=== PATIENT | male | born 1960 | race Caucasian/White ===

== ENCOUNTER → 2016-09-14 | Outpatient (CLI) | payer MEDICARE, OTHER ==
[~2016-09-14] MED LIST: /AMIO20TA OR; ACET500C OR; ACET65TA OR; AMIO400T OR; ASPI325T PO; ASPI81TA83 OR; CALC1CAP31 PO; COUMADIN PO; DRIS50002 PO; ELIQ5TAB PO; INSUH10VL SC; INSULANT SC; K-TA10TA OR; KETOPROFEN PO; LASI20TA OR; LASI40TA OR; LASI40TA PO; LOPR50TA OR; METF1000 PO; METO100T PO; METO25TA PO; MULTIVIT PO; OMEP20CA3 PO; OXACILLIN IV; PERC5TAB6 PO; PRIL20CA OR; SIMV20TA2 OR; SYMB80AE IN; SYMB80INH INH; VALS1TAB46 PO; VALS80CA OR; VICO5TAB OR; ZETI10TA2 PO; ZYLO300T4 PO; onglyza PO
--- NOTE | 2016-09-14 13:54 | REP ---
PA and lateral chest: Comparisons are 06/07/2016, 05/16/2016, 10/24/2015 and 11/02/2013. There is chronic mild interstitial coarsening compatible with the clinical history of chronic lung disease. There is chronic mild cardiomegaly, unchanged. There are no acute infiltrates or effusions. There are no masses. The ashley, mediastinum, and bony thorax are unremarkable. Impression: Chronic interstitial coarsening compatible with chronic lung disease. Chronic cardiomegaly. No significant interval changes. Signed by Calvin Gonzales MD 09/14/2016 01:45 P
== END ==
LOC: M ADAMS 12:58
PROVIDERS: ATTEND Physician Assistant Medical
DX: J20.9 Acute bronchitis, unspecified (principal); J44.1 Chronic obstructive pulmonary disease with (acute) exacerbation; J98.4 Other disorders of lung

== ENCOUNTER → 2016-10-09 | Outpatient (CLI) | payer MEDICARE, OTHER ==
[~2016-10-09] MED LIST changes: +ALBU17IN INH; +ALBU17IN2 INH; +DOXY-278 PO; +ERGO500014 PO; +FURO40TA2 PO; +OMEG100011 PO; +TRUL10IN SC
--- NOTE | 2016-10-09 16:52 | REP ---
Clinical: Abnormal magnesium metabolism. Technique: PA and lateral. Comparison: 09/14/2016. Findings: Stable cardiomegaly and evidence for prior CABG. Lung garcia demonstrate chronic stable interstitial changes and fibrosis. No acute consolidation, effusion, or pneumothorax. Skeletal structures are intact. Impression: Chronic stable changes. No obvious acute cardiopulmonary process. If the patient remains symptomatic consider chest CT for follow-up. Signed by Adiel Pretty MD 10/09/2016 04:43 P
[2016-10-09 18:32] LABS: BASO % 0.7 % (0.0-1.0); EOS % 0.6 % (0.0-3.0); LARGE UNSTAINED CELL # 0.1 K/mm3 (0.0-0.4); LYMPH # 0.8 K/mm3 (1.5-4.5); LYMPH % 12.3 % (24.0-44.0); MEAN CORPUSCULAR HEMOGLOBIN 33.9 pg (27.0-33.0); MEAN CORPUSCULAR HGB CONC 32.3 g/dl (32.0-36.5); MONO # 0.4 K/mm3 (0.0-0.8); MONO % 5.9 % (0.0-5.0); NEUTROPHILS # 5.2 K/mm3 (1.8-7.7); NEUTROPHILS % 78.4 % (36.0-66.0); PLATELET COUNT, AUTOMATED 141 k/mm3 (150-450); RED CELL DISTRIBUTION WIDTH 14.2 % (11.5-14.5); WHITE BLOOD COUNT 6.6 K/mm3 (4.0-10.0)
[2016-10-09 18:49] LABS: ALT/SGPT 32 U/L (12-78); ANION GAP 9 MEQ/L (8-16); AST/SGOT 57 U/L (15-37); BLOOD UREA NITROGEN 24 MG/DL (7-18); CALCIUM LEVEL 8.8 MG/DL (8.5-10.1); CARBON DIOXIDE LEVEL 34 MEQ/L (21-32); CHLORIDE LEVEL 98 MEQ/L (98-107); CREATININE FOR GFR 1.14 MG/DL (0.70-1.30); GLOMERULAR FILTRATION RATE > 60.0 (>56); GLUCOSE, FASTING 135 MG/DL (70-105); POTASSIUM SERUM 3.1 MEQ/L (3.5-5.1); SODIUM LEVEL 141 MEQ/L (136-145)
[2016-10-09 18:50] LABS: ALBUMIN 3.5 GM/DL (3.2-5.2); ALBUMIN/GLOBULIN RATIO 0.95 (1.00-1.93); ALKALINE PHOSPHATASE 106 U/L (45-117); TOTAL PROTEIN 7.2 GM/DL (6.4-8.2)
== END ==
LOC: M ADAMS 16:17
PROVIDERS: ATTEND Internal Medicine Cardiovascular Disease
DX: R06.02 Shortness of breath (principal); I10 Essential (primary) hypertension; J44.9 Chronic obstructive pulmonary disease, unspecified

== ENCOUNTER → 2016-10-10 | Outpatient (CLI) | payer MEDICARE, OTHER ==
--- NOTE | 2016-10-10 13:06 | REP ---
Abdominal ultrasound for ascites: Ultrasonography of all four quadrants of the abdomen is performed. There is a small volume of ascites adjacent to the liver in the right upper quadrant. There is a small volume of ascites in the left lower quadrant. A gallbladder calculus is incidentally noted. Signed by Calvin Gonzales MD 10/10/2016 12:57 P
== END ==
LOC: M RAD 12:14
PROVIDERS: ATTEND Internal Medicine Cardiovascular Disease
DX: R18.8 Other ascites (principal); K80.20 Calculus of gallbladder without cholecystitis without obstruction

== ENCOUNTER → 2016-11-28 | Outpatient (CLI) | payer MEDICARE, OTHER ==
[~2016-11-28] MED LIST changes: +ALDA50TA2 PO; +AMMO12LO TOP; +BUME2TAB PO; +FLOM5CAP PO; +INSUDET SC; +INSULADS INJ; +LASI20TA PO; -METF1000 PO; +METF10004 PO; -METO100T PO; +METO100T5 PO; +METO37.5 PO; +PERC5TAB12 PO; -PERC5TAB6 PO; +POTA1TAB23; +POTA20TA4 PO; +PREG50CA PO; +SPIR25TA2 PO; +ULOR80TA PO; -ZETI10TA2 PO; +ZETI10TA30 PO
--- NOTE | 2016-11-28 11:45 | REP ---
Clinical: Chest pain. Pneumonia. Technique: PA and lateral. Comparison: 10/09/2016. Findings: Mediastinum and cardiac silhouette are stable and cardiomegaly is again suggested along with evidence for prior CABG. Lung garcia demonstrate chronic stable interstitial changes. Subtle right basilar atelectasis cannot be excluded. No consolidation. No effusion. No pneumothorax. Skeletal structures intact. Impression: Cannot exclude subtle right basilar atelectasis. Signed by Adiel Pretty MD 11/28/2016 11:36 A
== END ==
LOC: M ADAMS 09:39
PROVIDERS: ATTEND Family Medicine
DX: J18.9 Pneumonia, unspecified organism (principal); R53.83 Other fatigue; E03.9 Hypothyroidism, unspecified

== ENCOUNTER → 2016-11-28 | Outpatient (REF) | payer MEDICARE, OTHER ==
[2016-11-28 12:42] LABS: MEAN CORPUSCULAR HEMOGLOBIN 33.2 pg (27.0-33.0); MEAN CORPUSCULAR HGB CONC 33.5 g/dl (32.0-36.5); MEAN CORPUSCULAR VOLUME 99.1 fl (80.0-96.0); RED CELL DISTRIBUTION WIDTH 15.2 % (11.5-14.5); WHITE BLOOD COUNT 7.9 K/mm3 (4.0-10.0)
[2016-11-28 13:43] LABS: ALBUMIN 3.5 GM/DL (3.2-5.2); ALBUMIN/GLOBULIN RATIO 0.81 (1.00-1.93); ALKALINE PHOSPHATASE 138 U/L (45-117); ALT/SGPT 56 U/L (12-78); AST/SGOT 75 U/L (15-37); BILIRUBIN,TOTAL 2.3 MG/DL (0.2-1.0); BLOOD UREA NITROGEN 23 MG/DL (7-18); CALCIUM LEVEL 9.5 MG/DL (8.5-10.1); CHOLESTEROL LEVEL 192 MG/DL (<200); CREATININE FOR GFR 0.93 MG/DL (0.70-1.30); GLOMERULAR FILTRATION RATE > 60.0 (>56); GLUCOSE, FASTING 147 MG/DL (70-105); TOTAL PROTEIN 7.8 GM/DL (6.4-8.2); TRIGLYCERIDES LEVEL 92 MG/DL (<150)
[2016-11-28 13:51] LABS: ANION GAP 11 MEQ/L (8-16); CARBON DIOXIDE LEVEL 38 MEQ/L (21-32); CHLORIDE LEVEL 89 MEQ/L (98-107); SODIUM LEVEL 138 MEQ/L (136-145)
[2016-11-28 14:00] LABS: POTASSIUM SERUM 2.6 MEQ/L (3.5-5.1)
== END ==
LOC: M LAB REF 12:15
PROVIDERS: ATTEND Family Medicine
DX: J18.9 Pneumonia, unspecified organism (principal); R53.83 Other fatigue; E03.9 Hypothyroidism, unspecified

== ENCOUNTER 2016-12-07 13:40 | Emergency (ER) | payer MEDICARE, OTHER ==
[~2016-12-07] VITALS: Ht 182.9 cm; Wt 137.3 kg
[~2016-12-07 13:40] MED LIST changes: -ALDA50TA2 PO; -AMMO12LO TOP; -BUME2TAB PO; -FLOM5CAP PO; -INSUDET SC; -INSULADS INJ; -LASI20TA PO; -METO37.5 PO; -POTA1TAB23; -POTA20TA4 PO; -PREG50CA PO; -SPIR25TA2 PO; -ULOR80TA PO
[2016-12-07] MEDS ORDERED: POTA20TA4 PO (14:06)
[2016-12-07] MEDS ORDERED: FURO40TA2 PO (14:06)
[2016-12-07] MEDS ORDERED: INSULADS INJ (14:06)
[2016-12-07] MEDS ORDERED: METO25TA PO (14:06)
[2016-12-07] MEDS ORDERED: ELIQ5TAB PO (14:06)
[2016-12-07] MEDS ORDERED: PREG50CA PO (14:06)
[2016-12-07 14:14] LABS: BASO % 0.4 % (0.0-1.0); EOS # 0.1 K/mm3 (0.0-0.50); EOS % 1.6 % (0.0-3.0); LARGE UNSTAINED CELL # 0.1 K/mm3 (0.0-0.4); LARGE UNSTAINED CELL % 1.4 % (0.0-4.0); LYMPH # 0.8 K/mm3 (1.5-4.5); MEAN CORPUSCULAR HEMOGLOBIN 32.3 pg (27.0-33.0); MEAN CORPUSCULAR HGB CONC 32.3 g/dl (32.0-36.5); MEAN CORPUSCULAR VOLUME 100.1 fl (80.0-96.0); MONO # 0.3 K/mm3 (0.0-0.8); MONO % 4.5 % (0.0-5.0); NEUTROPHILS # 6.2 K/mm3 (1.8-7.7); PLATELET COUNT, AUTOMATED 144 k/mm3 (150-450); RED CELL DISTRIBUTION WIDTH 15.3 % (11.5-14.5); WHITE BLOOD COUNT 7.5 K/mm3 (4.0-10.0)
--- NOTE | 2016-12-07 14:27 | REP ---
Chest one-view HISTORY: Syncope Comparison: 06/07/2016 The lungs are clear. The cardiac silhouette is enlarged. The pulmonary vasculature is normal in appearance. Impression: Cardiomegaly. Signed by Rubén Bray MD 12/07/2016 02:18 P
[2016-12-07 14:36] LABS: ANION GAP 4 MEQ/L (8-16); BLOOD UREA NITROGEN 24 MG/DL (7-18); CALCIUM LEVEL 8.8 MG/DL (8.5-10.1); CARBON DIOXIDE LEVEL 38 MEQ/L (21-32); CHLORIDE LEVEL 92 MEQ/L (98-107); CREATININE FOR GFR 1.03 MG/DL (0.70-1.30); GLOMERULAR FILTRATION RATE > 60.0 (>56); GLUCOSE, FASTING 235 MG/DL (70-105); POTASSIUM SERUM 3.1 MEQ/L (3.5-5.1); SODIUM LEVEL 134 MEQ/L (136-145)
[2016-12-07] MEDS ORDERED: NS 500 ML IV ONE (15:00)
[2016-12-07] MEDS ORDERED: POTASSIUM CHLORIDE 10 MEQ SR TABLET PO ONE (15:00)
[2016-12-07 16:49] VITALS: BP 123/57
--- NOTE | 2016-12-07 19:05 | ECGEPIP ---
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
== END 2016-12-07 17:20 | disposition home or self-care (01) ==
LOC: M ED 13:40
DX: R55 Syncope and collapse (principal); R94.31 Abnormal electrocardiogram [ECG] [EKG]; I11.9 Hypertensive heart disease without heart failure; E11.9 Type 2 diabetes mellitus without complications; I48.91 Unspecified atrial fibrillation; J44.9 Chronic obstructive pulmonary disease, unspecified; M54.9 Dorsalgia, unspecified; Z95.1 Presence of aortocoronary bypass graft; Z87.891 Personal history of nicotine dependence; Z79.899 Other long term (current) drug therapy; Z79.51 Long term (current) use of inhaled steroids; Z79.4 Long term (current) use of insulin; Z79.01 Long term (current) use of anticoagulants

== ENCOUNTER 2017-01-21 11:10 | Inpatient (IN) | payer MEDICARE, OTHER ==
[~2017-01-21] VITALS: Ht 182.9 cm; Wt 141.7 kg
[~2017-01-21 11:10] MED LIST changes: +INSULADS INJ; +POTA20TA4 PO; +PREG50CA PO
[2017-01-21] MEDS ORDERED: ULOR80TA PO (11:29)
[2017-01-21] MEDS ORDERED: SPIR25TA2 PO (11:29)
[2017-01-21] MEDS ORDERED: POTA1TAB23 (11:29)
[2017-01-21] MEDS ORDERED: BUME2TAB PO (11:29)
[2017-01-21] MEDS ORDERED: FLOM5CAP PO (11:29)
[2017-01-21] MEDS ORDERED: METO37.5 PO (11:29)
[2017-01-21 12:28] LABS: BASO % 0.8 % (0.0-1.0); EOS # 0.1 K/mm3 (0.0-0.50); EOS % 1.1 % (0.0-3.0); LARGE UNSTAINED CELL # 0.1 K/mm3 (0.0-0.4); LARGE UNSTAINED CELL % 1.4 % (0.0-4.0); LYMPH # 0.7 K/mm3 (1.5-4.5); LYMPH % 9.9 % (24.0-44.0); MEAN CORPUSCULAR HEMOGLOBIN 31.3 pg (27.0-33.0); MEAN CORPUSCULAR HGB CONC 32.6 g/dl (32.0-36.5); MEAN CORPUSCULAR VOLUME 95.9 fl (80.0-96.0); MONO # 0.4 K/mm3 (0.0-0.8); MONO % 5.4 % (0.0-5.0); NEUTROPHILS # 5.4 K/mm3 (1.8-7.7); NEUTROPHILS % 81.5 % (36.0-66.0); PLATELET COUNT, AUTOMATED 171 k/mm3 (150-450); RED CELL DISTRIBUTION WIDTH 15.7 % (11.5-14.5); WHITE BLOOD COUNT 6.6 K/mm3 (4.0-10.0)
[2017-01-21 12:39] LABS: ALBUMIN 3.2 GM/DL (3.2-5.2); ALBUMIN/GLOBULIN RATIO 0.64 (1.00-1.93); ALKALINE PHOSPHATASE 193 U/L (45-117); ALT/SGPT 30 U/L (12-78); ANION GAP 7 MEQ/L (8-16); AST/SGOT 48 U/L (15-37); BILIRUBIN,TOTAL 1.9 MG/DL (0.2-1.0); BLOOD UREA NITROGEN 47 MG/DL (7-18); CALCIUM LEVEL 9.3 MG/DL (8.5-10.1); CARBON DIOXIDE LEVEL 40 MEQ/L (21-32); CHLORIDE LEVEL 88 MEQ/L (98-107); CREATININE FOR GFR 1.46 MG/DL (0.70-1.30); GLOMERULAR FILTRATION RATE 52.8 (>56); GLUCOSE, FASTING 180 MG/DL (70-105); POTASSIUM SERUM 3.1 MEQ/L (3.5-5.1); SODIUM LEVEL 135 MEQ/L (136-145); TOTAL PROTEIN 8.2 GM/DL (6.4-8.2)
--- NOTE | 2017-01-21 13:09 | REP ---
Chest x-ray: Two views. History: Dyspnea and cough. Comparison study: December 07, 2016. Findings: There are mediastinal clips again noted. EKG electrodes are seen. Mildly enlarged heart is seen. There is benign pleural thickening noted bilaterally. Some fissural thickening is visible on the right. There is some blunting of one of the posterior pleural angles on the lateral film, probably the right. The aorta is tortuous and a little calcific. Impression: Mild cardiomegaly. Small pleural effusion probably right-sided. Otherwise no acute disease. Signed by Alli Hutchinson MD 01/21/2017 05:17 P
--- NOTE | 2017-01-21 13:16 | REP ---
Duplex extremity venous ultrasound: Bilateral lower extremities. History: And lower extremity edema. Patient on blood thinner. Findings: The deep veins are anechoic and fully compressible from the groin to the popliteal fossa in the right and left lower extremity. Color flow imaging is homogeneous. Spectral Doppler interrogation demonstrates intact respiratory variation in flow and normal manual augmentation of flow. There is no evidence of deep vein thrombosis. Impression: Negative bilateral lower extremity duplex venous ultrasound. No evidence of deep vein thrombosis. Signed by Alli Hutchinson MD 01/21/2017 01:07 P
[2017-01-21] MEDS ORDERED: POTASSIUM CHLORIDE 10 MEQ SR TABLET PO ONE ×2 (13:30→19:30)
[2017-01-21] MEDS ORDERED: FUROSEMIDE 40 MG/4 ML VIAL (J1940) IV ONE (13:30)
[2017-01-21] MEDS ORDERED: METO100T5 PO (14:07)
[2017-01-21] MEDS ORDERED: TRUL10IN SC (14:12)
[2017-01-21] MEDS ORDERED: AMMO12LO TOP (14:13)
[2017-01-21] MEDS ORDERED: IPRATROPIUM 0.5MG/ALBUTEROL 2.5MG INH SOL UD 3ML (DUONEB)(J7620) NEB PRN (18:15)
[2017-01-21] MEDS ORDERED: DEXTROSE 50% 50 ML SYRINGE IV PRN (18:15)
[2017-01-21] MEDS ORDERED: GLUCAGON FOR INJ 1 MG VIAL (J1610) SC PRN (18:15)
[2017-01-21] MEDS ORDERED: GLUCOSE 4 GM CHEW TABLET PO PRN (18:15)
[2017-01-21] MEDS ORDERED: LACTIC ACID 12% LOTION 225 GM BTL TOP PRN (18:15)
[2017-01-21] MEDS ORDERED: ONDANSETRON 4MG/2ML VIAL (J2405) IV PRN (18:30)
[2017-01-21 19:09] LABS: ANION GAP 9 MEQ/L (8-16); BLOOD UREA NITROGEN 48 MG/DL (7-18); CALCIUM LEVEL 9.5 MG/DL (8.5-10.1); CARBON DIOXIDE LEVEL 39 MEQ/L (21-32); CHLORIDE LEVEL 90 MEQ/L (98-107); CREATININE FOR GFR 1.49 MG/DL (0.70-1.30); GLOMERULAR FILTRATION RATE 51.6 (>56); GLUCOSE, FASTING 160 MG/DL (70-105); MAGNESIUM LEVEL 2.2 MG/DL (1.8-2.4); SODIUM LEVEL 138 MEQ/L (136-145)
--- NOTE | 2017-01-21 19:10 | REPUSA ---
CT of the abdomen and pelvis without contrast Clinical statement: Pain. Technique: Multiple axial CT images were obtained from the base of the lungs to the floor of the pelv is utilizing 5 mm axial slices without administration of contrast. Coronal and sagittal reconstructio ns were also obtained. Comparison: None. Findings: Chest: There is a moderate sized right lower lobe pleural effusion with right lower lobe atelectasis . Abdomen: The kidneys are normal in size bilaterally. There is no evidence of hydronephrosis or nephro lithiasis. The liver is enlarged, measuring 2.7 cm in diameter. The spleen, pancreas, and adrenal gla nds are unremarkable. Several small gallstones are seen in the contracted gallbladder. The aorta demo nstrates Moderate atherosclerosis, withnormal caliber and contour. There is no abdominal lymphadenop athy. There is a moderate amount of abdominal ascites. Pelvis: The bowel is unremarkable, with no obstructive or inflammatory changes. The urinary bladder i s within normal limits. There is no pelvic lymphadenopathy. There is moderate amount of pelvic ascite s. The other pelvic structures appear unremarkable. Bones: There are no suspicious osseous abnormalities seen. there is moderate degenerative disc diseas e at L4/L5 and L5/S1. Impression: 1. Diffuse moderate amount of abdominal and pelvic ascites. 2. Moderate right-sided pleural effusion with right lower lobe atelectasis. 3. Hepatomegaly. 4. No evidence of hydronephrosis or nephrolithiasis. 5. Moderate atherosclerosis of the abdominal aorta. No evidence of aneurysm. 6. No obstructive or inflammatory bowel changes. 7. Moderate degenerative disc disease at L4/L5 and L5/S1.
[2017-01-21] MEDS: IPRATROPIUM 0.5MG/ALBUTEROL 2.5MG INH SOL UD 3ML (DUONEB)(J7620) NEB SCH (19:34)
--- NOTE | 2017-01-21 19:40 | REPUSA ---
Clinical statement: Pain. Comparison: CT, 01/21/2017. Findings: The liver demonstrates increased echotexture and echogenicity, with no mass lesions. The ga llbladder is unremarkable. The common bile duct measures 3 mm and is within normal limits. The pancre as demonstrates normal contour and appearance. The spleen is borderline enlarged. The right kidney m easures 12.7 cm in length and the left kidney measures 11.8 cm in length. There is no evidence of h ydronephrosis or nephrolithiasis. The visualized portions of the aorta and inferior vena cava are wit hin normal limits. There is moderate amount of abdominal ascites. Impression: 1. Moderate amount of abdominal ascites. 2. Hepatosplenomegaly.
[2017-01-21 19:53] VITALS: BP 127/76
[2017-01-21] MEDS: FUROSEMIDE injection 250 MG in D5W 225 ML IV SCH (20:22)
[2017-01-21] MEDS: HumaLOG INSULIN (NovoLOG) PER UNIT SC SCH (20:26)
[2017-01-21] MEDS: APIXABAN 5 MG TAB (ELIQUIS) PO SCH (20:41)
[2017-01-21] MEDS: PREGABALIN 50 MG CAP (LYRICA) PO SCH (20:42)
[2017-01-21] MEDS: POTASSIUM CHLORIDE 10 MEQ SR TABLET PO SCH (20:42)
[2017-01-21] MEDS: TAMSULOSIN 0.4 MG CAP PO SCH (20:42)
[2017-01-21] MEDS: LEVEMIR (INSULIN DETEMIR) 1 UNITS/0.01ML SC SCH (20:43)
[2017-01-21] MEDS: METOPROLOL TART 50 MG TAB PO SCH (20:43)
[2017-01-21] MEDS: SENOKOT S TAB PO SCH (20:43)
[2017-01-22] VITALS (17 sets, daily range): BP systolic 115–175; BP diastolic 68–97; O2SAT 86–98
--- NOTE | 2017-01-22 00:28 | HPEPDOC ---
General Date of Admission Jan 21, 2017 at 18:26 Primary Care Physician: Lasha Godoy Other Providers Dr. Robertson-cardiology Dr. Suero-nephrology Dr. Blackwood-podiatry Attending Physician: POWER FRIEDMAN DO Chief Complaint The patient is a 56-year-old male [facility]. History of Present Illness 56 yo M presents to ED for worsening fluid retention and swelling. Past medical history significant for CHF and AFib on Eliquis. Pt states he has had similar prior episodes of on/off swelling multiple times in the past and has had fluid removed from body-he is unsure of the procedure. He was brought in to [facility] ED via ambulance about 1 month ago for fluid retention, and was sent home to follow up with PCP. He regularly sees Dr. Robertson for cardiology and elected to instead be treated medically rather than remove fluid through procedure again. However, his edema has been progressively worsening since his last visit a few weeks ago and is now short of breath with minimal exertion and has some difficulty urinating due to pressure in belly. Pt states he has been compliant with strict salt intake and 60oz/day fluid diet. Symptoms include swelling in bilateral feet, legs, scrotum, and belly, with associated weight gain of about 20 pounds in last few weeks. Denies other symptoms including chest pain, lightheadedness, dizziness, nausea, vomiting. Pt denies heavy alcohol use and states he drinks a 6-pack/week. Pt denies recent travel history, sick contacts, and changes in lifestyle. Home Medications Scheduled (Trulicity) 0.75 Mg/0.5 Ml Inj, 0.75 MG SC QWEEK, (Reported) FRIDAY AT BEDTIME Ammonium Lactate (Ammonium Lactate) 12 % Lot, 1 DOSE TOP BIDP, (Reported) TO FEET Apixaban Base (Eliquis) 5 Mg Tab, 5 MG PO BID, (Reported) Budesonide/Formoterol (Symbicort 80-4.5 Mcg/Act) 60 Puff/Inhaler Aers, 2 PUFF INH BID, (Reported) Febuxostat (Uloric) 80 Mg Tab, 80 MG PO DAILY, (Reported) Furosemide (Lasix) 20 Mg Tab, 20 MG PO Q6H Insulin Aspart (Novolog) 100 U/Ml Inj, 1 DOSE SC ASDIRECTED, (Reported) PER SLIDING SCALE Insulin Detemir (Levemir) 1 Units/0.01 Ml Susp, 60 UNITS SC QHS Metolazone (Metolazone) 2.5 Mg Tab, 2.5 MG PO DAILY Metoprolol Tartrate (Metoprolol Tartrate) 100 Mg Tab, 50 MG PO BID, (Reported) [place] 3 Polyunsat Fatty Acids ([place] 3 1000 mg) 1 Cap Cap, 1,000 MG PO DAILY, ( Reported) Omeprazole (Omeprazole) 20 Mg Cap, 20 MG PO 2XW, (Reported) WED AND SAT Potassium Chloride (Potassium Chloride ER) 10 Meq Tab, 20 MEQ BID, (Reported) Pregabalin (Lyrica) 50 Mg Cap, 50 MG PO TID, (Reported) Spironolactone (Aldactone) 50 Mg Tab, 50 MG PO DAILY Tamsulosin Hydrochloride (Flomax) 0.4 Mg Cap, 0.4 MG PO QHS, (Reported) Vitamin D (Drisdol) 50,000 Unit Cap, 50,000 UNIT PO QWEEK, (Reported) ON FRIDAY Scheduled PRN Albuterol Sulfate (Proventil Hfa) 167 Puff/6.7 Gm Aers, 2 PUFFS INH Q4HP PRN for SHORTNESS OF BREATH, (Reported) Allergies Coded Allergies: Unclassified Drugs (Verified Adverse Reaction, Mild, QUAALUDES - ACTED OUT , 12/07/16) Past Medical History Medical History COPD Diabetes Mellitus T2-insulin AFib Pulmonary HTN Surgical History quadruple bypass-Feb 2010 abd hernia rt foot, 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 [employer] Review of Symptoms Constitutional: Reports: Other (weight gain of ~20lbs he attributes to fluid), Denies: Chills, Fever, Night Sweats, Weakness, Weight Loss ENT: Denies: Head Aches, Dysphagia Skin: Denies: Rash, Lesions Pulmonary: Reports: Dyspnea (on exertion), Denies: Cough, Pleuritic Chest Pain Cardiovascular: Reports: Edema (from chest), Denies: Chest Pain, Palpitations, Lt Headedness Gastrointestinal: Denies: Nausea, Vomiting, Abdominal Pain, Diarrhea, Constipation Neurological: Denies: Weakness, Numbness, Confusion Psych: Reports: Mood Normal Physical Examination General Exam: Positive: Alert, Cooperative, No Acute Distress Eye Exam: Positive: PERRLA, Conjunctiva & lids normal, EOMI, Sclera icteric ( icteric and mild redness he states is his normal) ENT Exam: Positive: Atraumatic, Mucous membr. moist/pink, Pharynx Normal Neck Exam: Positive: Supple, Negative: +2 carotid pulse wo bruit Chest Exam: Positive: Normal air movement, Wheezing (mild expiratory wheezing. Expiratory>inspiratory phase.), Negative: Rales, Rhonchi Heart Exam: Positive: Rate Normal, Irregular Rhythm, Normal S1, Normal S2 Abdomen Exam: Positive: Normal bowel sounds, Negative: Soft (tense, round, distended), Tenderness Extremity Exam: Positive: Edema (+1 pitting edam b/l feet), Swelling, Negative: Clubbing, Cyanosis, Tenderness Skin Exam: Positive: Nl turgor and temperature, Negative: Rash Psych Exam: Positive: Mental status NL, Mood NL, Memory Intact, Oriented x 3 Vital Signs Vital Signs Date Time Temp Pulse Resp B/P (MAP) Pulse Ox O2 Delivery O2 Flow Rate FiO2 01/21/17 18:33 88 18 119/75 (90) 90 01/21/17 14:37 Nasal Cannula 01/21/17 12:53 2.0 01/21/17 11:12 98.0 Height (in): 72 Weight (kg): 136 BMI (kg): 40.8 Laboratory Data Labs 24H Laboratory Tests 2 01/21/17 11:51: White Blood Count 6.6, Red Blood Count 4.02L, Hemoglobin 12.6L, Hematocrit 38.6L , Mean Corpuscular Volume 95.9, Mean Corpuscular Hemoglobin 31.3, Mean Corpuscular Hemoglobin Concent 32.6, Red Cell Distribution Width 15.7H, Platelet Count 171, Neutrophils (%) (Auto) 81.5H, Lymphocytes (%) (Auto) 9.9L, Monocytes (%) (Auto) 5.4H, Eosinophils (%) (Auto) 1.1, Basophils (%) (Auto) 0.8 , Neutrophils # (Auto) 5.4, Lymphocytes # (Auto) 0.7L, Monocytes # (Auto) 0.4, Eosinophils # (Auto) 0.1, Basophils # (Auto) 0.0, Large Unclassified Cells % 1.4 , Large Unclassified Cells # 0.1, Anion Gap 7L, Glomerular Filtration Rate 52.8L , Calcium Level 9.3, Aspartate Amino Transf (AST/SGOT) 48H, Alanine Aminotransferase (ALT/SGPT) 30, Alkaline Phosphatase 193H, Total Bilirubin 1.9H , Direct Bilirubin 1.0H, Total Creatine Kinase 96, Creatine Kinase MB 2.2, Creatine Kinase MB Relative Index 2.29, Troponin I < 0.02, B-Type Natriuretic Peptide 304H, Total Protein 8.2, Albumin 3.2, Albumin/Globulin Ratio 0.64L, Thyroid Stimulating Hormone (TSH) 1.830, Free Thyroxine 1.20 01/21/17 18:10: Anion Gap 9, Glomerular Filtration Rate 51.6L, Calcium Level 9.5, Total Creatine Kinase 105, Creatine Kinase MB 2.3, Creatine Kinase MB Relative Index 2.19, Troponin I < 0.02, Blood Urea Nitrogen 48H, Creatinine 1.49H, Sodium Level 138, Potassium Level 3.0L, Chloride Level 90L, Carbon Dioxide Level 39H, Magnesium Level 2.2 CBC/BMP Laboratory Tests 01/21/17 11:51 Red Blood Count 4.02 L, Mean Corpuscular Volume 95.9, Mean Corpuscular Hemoglobin 31.3, Mean Corpuscular Hemoglobin Concent 32.6, Red Cell Distribution Width 15.7 H, Neutrophils (%) (Auto) 81.5 H, Lymphocytes (%) (Auto ) 9.9 L, Monocytes (%) (Auto) 5.4 H, Eosinophils (%) (Auto) 1.1, Basophils (%) ( Auto) 0.8, Neutrophils # (Auto) 5.4, Lymphocytes # (Auto) 0.7 L, Monocytes # ( Auto) 0.4, Eosinophils # (Auto) 0.1, Basophils # (Auto) 0.0 01/21/17 18:10 Calcium Level 9.5, Total Creatine Kinase 105 Assessment/Plan Anasarca 2/2 CHF exacerbation, increased BNP on presentation repeat echo diurese with Lasix with goal net loss of 1L/day monitor CMP, BMP, and Mg, with attention to Potassium cardiology consulted. Appreciate their input nephrology consulted. Appreciate their input fluid restriction to 1800cc/hr renal ultrasound for DENZEL with baseline Cr of 1 Hyperbilrubinemia elevated TBili and DirectBili, AST, and alk phos. Will do liver ultrasound Hypokalemia Will replete HTN continue Spironolactone and B-franki and Lasix drip DMT2 Levemir, ISS, A1C, Gabapentin for diabetic neuropathy AFib B-franki and Eliquis GERD Omeprazole COPD continue inhalers DVT prophylaxis Eliquis, SCDs/TEDs Plan / VTE VTE Prophylaxis Ordered?: Yes GME ATTESTATION GME ATTESTATION My preceptor for this patient encounter was physically present in the building during the encounter and was fully available. As needed, all aspects of the patient interview, examination, medical decision making process, and medical care plan development were reviewed and approved by the preceptor. Preceptor is aware and concurs with the plan as stated in the body of this note and will attest to such by his/her cosignature. ATTENDING NOTE I have both independently examined this patient as well as reviewed the H&P. I have discussed in detail with the resident the findings and plan of treatment as documented in the residents note. I will continue to follow the patient and offer further guidance to the patients care as necessary during this hospital stay. DIANE Barrientos MD, DO Jan 21, 2017 19:45 NANCY MCGEE MD Feb 01, 2017 08:49
[2017-01-22] MEDS: SYMBICORT 80/4.5MCG INHALER 6GM INH SCH ×3 (06:19→21:03)
[2017-01-22] MEDS: IPRATROPIUM 0.5MG/ALBUTEROL 2.5MG INH SOL UD 3ML (DUONEB)(J7620) NEB SCH ×4 (06:19→20:00)
[2017-01-22 07:09] LABS: INR 1.66; MEAN CORPUSCULAR HEMOGLOBIN 31.2 pg (27.0-33.0); MEAN CORPUSCULAR HGB CONC 32.8 g/dl (32.0-36.5); MEAN CORPUSCULAR VOLUME 95.2 fl (80.0-96.0); RED CELL DISTRIBUTION WIDTH 15.8 % (11.5-14.5); WHITE BLOOD COUNT 7.4 K/mm3 (4.0-10.0)
[2017-01-22 07:23] LABS: ALBUMIN 3.3 GM/DL (3.2-5.2); ALBUMIN/GLOBULIN RATIO 0.72 (1.00-1.93); ALKALINE PHOSPHATASE 185 U/L (45-117); ALT/SGPT 30 U/L (12-78); ANION GAP 6 MEQ/L (8-16); AST/SGOT 47 U/L (15-37); BILIRUBIN,TOTAL 2.2 MG/DL (0.2-1.0); BLOOD UREA NITROGEN 47 MG/DL (7-18); CALCIUM LEVEL 9.3 MG/DL (8.5-10.1); CARBON DIOXIDE LEVEL 40 MEQ/L (21-32); CHLORIDE LEVEL 90 MEQ/L (98-107); CREATININE FOR GFR 1.25 MG/DL (0.70-1.30); GLOMERULAR FILTRATION RATE > 60.0 (>56); GLUCOSE, FASTING 123 MG/DL (70-105); MAGNESIUM LEVEL 2.3 MG/DL (1.8-2.4); SODIUM LEVEL 136 MEQ/L (136-145); TOTAL PROTEIN 7.9 GM/DL (6.4-8.2)
[2017-01-22] MEDS: HumaLOG INSULIN (NovoLOG) PER UNIT SC SCH ×4 (07:30→21:00)
[2017-01-22] MEDS: SENOKOT S TAB PO SCH ×2 (08:40→21:00)
[2017-01-22] MEDS: SPIRONOLACTONE 25 MG TAB PO SCH (08:40)
[2017-01-22] MEDS: METOPROLOL TART 50 MG TAB PO SCH ×2 (08:40→21:09)
[2017-01-22] MEDS: PREGABALIN 50 MG CAP (LYRICA) PO SCH ×3 (08:40→21:09)
[2017-01-22] MEDS: OMEGA-3 1050MG CAPSULE PO SCH (08:41)
[2017-01-22] MEDS: POTASSIUM CHLORIDE 10 MEQ SR TABLET PO SCH ×2 (08:41→21:08)
[2017-01-22] MEDS: KCL 10MEQ IN 100ML SWI (KRUN) 10 MEQ in APPROPRIATE DILUENT 1 EA IV SCH ×4 (08:42→10:16)
[2017-01-22] MEDS: FEBUXOSTAT 40 MG TABLET (ULORIC) PO SCH (08:42)
[2017-01-22] MEDS ORDERED: POTASSIUM CHLORIDE 10 MEQ SR TABLET PO ONE (09:00)
[2017-01-22] MEDS: APIXABAN 5 MG TAB (ELIQUIS) PO SCH ×2 (09:00→21:09)
[2017-01-22] MEDS ORDERED: BUMETANIDE 1 MG TAB PO SCH (09:00)
--- NOTE | 2017-01-22 14:16 | IPN ---
DATE: 01/22/2017 SUBJECTIVE: The patient is seen and examined in the room today. The patient stated that he has been having persistent abdominal distention. He had a similar symptom before. With the diureses, usually the abdominal distention will improve; however, it has been some time and the diuretic does not seem to be helping his abdominal distention. The patient does have a moderate amount of ascites from imaging studies. I discussed paracentesis with the patient. The patient was in agreement with the procedure. The patient has good urinary output from the Lasix drip. OBJECTIVE: VITAL SIGNS: Temperature is 97.4, pulse is 82, respirations 19, blood pressure 126/81, pulse oximetry is 95% on room air. GENERAL: Morbidly obese. No sign of acute distress. Alert and oriented times three. HEENT: Normocephalic, atraumatic. Extraocular muscles intact. CARDIOVASCULAR: Irregularly irregular, heart rate in the desired range. LUNGS: Clear to auscultation bilaterally. ABDOMEN: Very distended. Soft, nontender. Bowel sounds present. EXTREMITIES: Positive pitting edema bilaterally. No sign of cyanosis. LABORATORY DATA: WBC is 7.4, hemoglobin 12.2, hematocrit 37.2, platelet count is 161, sodium is 136, potassium is 3, chloride is 90, carbon dioxide is 40, BUN 47, creatinine 1.25, GFR greater than 60, fasting glucose 123, A1/c is 7.8, calcium 9.3, magnesium 2.3, total bilirubin is 2.2, AST 47, ALT 30, alkaline phosphatase is 185, total protein 7.9, albumin 3.3. ASSESSMENT AND PLAN: 1. Anasarca secondary to congestive heart failure (CHF) exacerbation. The patient was placed on Lasix drip with holding parameters. We try to control the net balance to negative 1 liter because the patient will have paracentesis performed today. We anticipate that the patient may have approximately 1 to 2 liters of ascitic fluid removed by the procedure, total loss will be approximately 2 to 3 liters. The patient will be monitored on telemetry. Biophysics Scientist, Dr. Robertson, has been consulted. We appreciate his assistance. 2. Abdominal distention with ascitic fluid. On 10/10/2016, abdominal ultrasound was performed that showed a small volume of ascites adjacent to the liver. There is a small volume of ascitic fluid in the left lower quadrant. Yesterday during admission, the patient had a CT of the abdomen and abdominal ultrasound was repeated. The patient had a moderate amount of abdominal ascites. The patient is scheduled for paracentesis and we will send the fluid for analysis. The patient admitted to a significant drinking history in the past. He states that he drinks between two to six cans of beer for at least 15 years, he quit several years ago. 3. Hypokalemia. We will continue with potassium supplement. 4. Acute kidney injury. On admission, the patient had a creatinine of 1.49 with a GFR of 51.6. With Lasix diuresis, the renal function improved to baseline. 5. Type 2 diabetes. A1/c of 7.8. The patient will be on consistent carbohydrate diet. The patient will be on sliding scale. The patient is also on Levemir. 6. Atrial fibrillation. On beta franki. The patient was on Eliquis. Due the upcoming procedures, Eliquis will be on hold temporarily. 7. History of pulmonary hypertension. At baseline, the patient is taking Lasix and spironolactone. Pulmonary hypertension may also be a factor causing the patient to have abdominal ascites. Currently, the patient is on Lasix drip. 8. History of coronary artery disease, status post coronary artery bypass graft (CABG) times four. 9. Gout. On Uloric. 10. History of methicillin resistant Staphylococcus aureus (MRSA) infection. 11. History of reflux disease, on omeprazole. 12. Deep vein thrombosis (DVT) prophylaxis. The patient was originally on Eliquis. Due to preparation for paracentesis, Eliquis will be on hold. The patient is on compression device.
[2017-01-22 15:28] LABS: TOTAL PROTEIN, BODY FLUID 4.5 G/DL (NOT ESTABLISHED)
[2017-01-22 16:50] LABS: BF DIFF IF INDICATED? YES (NO); RBC ASCITES FLUID 13 (<10mm3 cells/uL); TNC ASCITES FLUID 639 cells/uL (0-20)
--- NOTE | 2017-01-22 17:10 | REP ---
Ultrasound-guided paracentesis The procedure was performed under the direct supervision of Dr. Hutchinson. The risks and benefits of the procedure were explained to the patient and informed consent was obtained. The largest pocket of fluid was localized in the right flank using ultrasound guidance. The skin was prepped and draped in a sterile fashion. 1% lidocaine was used as a local anesthetic. An 8-Greek multi side-hole catheter was inserted using trocar technique. 4,650 ml of clay colored fluid was withdrawn with a sample sent to the lab for analysis. The patient tolerated the procedure well and there were no immediate complications. After the appropriate amount of monitored convalescence the patient was discharged from the department. Reviewed by JUNIOR Porter 01/22/2017 04:31 PSigned by Alli Hutchinson MD 01/22/2017 05:01 P
[2017-01-22] MEDS: OMEPRAZOLE 20 MG CAP PO SCH (17:14)
[2017-01-22 18:20] LABS: SPEC. GRAVITY BODY FLUIDS 1.028 (NOT ESTABLISHED)
[2017-01-22 19:05] LABS: CALCIUM LEVEL 9.5 MG/DL (8.5-10.1); CREATININE FOR GFR 1.31 MG/DL (0.70-1.30); GLOMERULAR FILTRATION RATE 59.8 (>56); MAGNESIUM LEVEL 2.3 MG/DL (1.8-2.4); POTASSIUM SERUM 3.4 MEQ/L (3.5-5.1)
--- NOTE | 2017-01-22 19:06 | CR ---
DATE OF CONSULTATION: 01/22/2017 REQUESTING PHYSICIAN: Dr. Shayy Tobar CONSULTING PHYSICIAN: Dr. Zheng REASON FOR CONSULTATION: Management of fluid overload in the setting of chronic kidney disease. CHIEF COMPLAINT: Patient presented to the hospital with worsening abdominal distention and scrotal swelling. HISTORY OF PRESENT ILLNESS: Elie Damon is a 56-year-old male with past medical history of chronic kidney disease stage II, congestive heart failure, atrial fibrillation on Eliquis, multiple other comorbidities, as mentioned below. Patient is known to nephrology service. He follows up with Dr. Suero. He was last seen in the clinic about a week ago. At that time, he was also complaining of shortness of breath and fluid overload; however, at that time, his diuretics had recently been changed. Patient reports that his shortness of breath did improve. He was getting more and more abdominal swelling and scrotal swelling and he was unable for him to walk because of massive scrotal edema. He was also getting shortness of breath and mild exertion, so he was asked by cardiology service to come to the emergency room. Patient was found to have generalized anasarca on arrival. His creatinine on admission was 1.4, which is significantly worse from his baseline. Patient was started on intravenous (IV) diuretics and nephrology service was called for further help in the management of acute kidney injury, anasarca and hyponatremia. I saw the patient today morning in the emergency room holding area. Patient reported that ever since he was started on IV Lasix drip, he is making a lot of urine and he is feeling some improvement in his shortness of breath. PAST MEDICAL HISTORY: As mentioned above, patient has a history of: 1. Chronic kidney disease stage II, baseline creatinine around 1.1 to 1.2. 2. Diabetes mellitus type 2. 3. Chronic obstructive pulmonary disease (COPD). 4. Atrial fibrillation on anticoagulation. 5. Pulmonary hypertension. 6. Congestive heart failure. PAST SURGICAL HISTORY: 1. Patient is status post coronary artery bypass grafting in 2009. 2. History of abdominal hernia surgery. 3. 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 4. Status post thyroidectomy which was partial because of hyperthyroidism. 5. Status post resection of sternum because of methicillin-resistant Staphylococcus aureus (MRSA). 6. Status post bilateral shoulder joint surgery. ALLERGIES: No known drug allergies. FAMILY HISTORY: No significant family history of end-stage renal disease requiring hemodialysis. Positive history of diabetes and hypertension on maternal and paternal side. SOCIAL HISTORY: Patient quit smoking about seven years ago after he had a heart attack. He denies any illicit drug abuse. He used to be a heavy alcohol drinker, but now he is drinking about six pack in a week. Patient is retired at this time. 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 REVIEW OF SYSTEMS: CONSTITUTIONAL: Patient reports fatigue and he reports weight gain of about 25 pounds. EYES: He denies any blurry vision or double visit. ENT: Denies any dysphagia or odynophagia. CARDIOVASCULAR: Patient reports massive edema and shortness of breath. He denies any chest pain. RESPIRATORY: Patient reports orthopnea. He denies any cough. GASTROINTESTINAL (GI): Patient reports massive abdominal distention, decreased appetite, but he denies any constipation or diarrhea. GENITOURINARY: Patient reports scrotal swelling. MUSCULOSKELETAL: Patient reports lower extremity edema. He denies any muscle aches and pains. CENTRAL NERVOUS SYSTEM: He denies any weakness or seizure disorder. PSYCHIATRIC: He denies any depression or anxiety. HEMATOLOGIC/ONCOLOGIC: He denies any easy bruising or bleeding tendency. ENDOCRINE: Patient reports history of thyroid surgery in the past. All other review of systems is negative. PHYSICAL EXAMINATION: GENERAL: Patient is awake, alert, oriented times three. Sitting in the bed in no apparent distress. VITAL SIGNS: Temperature 98 degrees Fahrenheit, blood pressure 131/86, pulse 83 , respiratory rate 22, saturating 99% on nasal cannula. INTAKE AND OUTPUT: Urine output recorded as 2.4 liters yesterday and 2.6 liters so far today since overnight. Weight in the bed scale is 141 kg. HEAD AND NECK EXAM: Extraocular muscles intact. Pupils equally round and reactive to light. Mucous membranes are moist. Neck is supple. There is elevated jugular venous distention (JVD). CARDIOVASCULAR: S1, S2. Irregularly irregular heart rate. There is a midline sternotomy scar. No murmurs, rubs or gallops. RESPIRATORY: Decreased breath sounds at the bases with mild inspiratory crackles. ABDOMEN: Grossly distended. Umbilicus is flat. There is a large amount of ascites. Patient also has scrotal edema. MUSCULOSKELETAL: No clubbing or cyanosis. Patient has 2+ edema of the bilateral lower extremities. CENTRAL NERVOUS SYSTEM: No focal neurological deficits. Power is 5/5 in all extremities. PSYCHIATRIC: Normal mood and affect. SKIN: No rashes or ulcers. There is mild edema and venous stasis changes in the bilateral lower extremities. LABORATORY REVIEW: Complete blood count (CBC) showed WBC 7.4, hemoglobin 12.1, platelets 161. INR: 1.6. Basic metabolic panel (BMP) showed sodium 136, potassium 3, chloride 90, bicarbonate 40, BUN 47, creatinine 1.25, it was 1.49 yesterday, A1c 7.8, magnesium 2.3, calcium 9.3. AST 47, ALT 30, alkaline phosphatase 185, total bilirubin 2.2, albumin 3.3. IMAGING: A CAT scan of the abdomen and pelvis showed diffuse, moderate amount of abdominal pelvic ascites, moderate right-sided pleural effusion, a right lower lobe atelectasis, and hepatomegaly. CURRENT INPATIENT MEDICATIONS: Patient's medications are all reviewed by me. He is current on: - IV Lasix drip at 0.1 mg/kg/hour - Eliquis 5 mg by mouth twice a day - Uloric 80 mg by mouth daily - insulin Levemir 60 units at nighttime - insulin sliding scale - metoprolol 50 mg by mouth twice a day - omeprazole 20 mg daily - Zofran as needed - potassium chloride 20 mEq by mouth twice a day - Lyrica 50 mg by mouth three times a day - spironolactone 25 mg by mouth daily - Flomax 0.4 mg by mouth at bedtime ASSESSMENT: A 56-year-old male with past medical history of congestive heart failure, diabetes mellitus type 2, chronic kidney disease stage II, hypertension, admitted this time because of decompensated congestive heart failure and anasarca, along with acute kidney injury. PLAN: 1. Acute kidney injury on chronic kidney disease stage II. It is most likely cardiorenal syndrome because of fluid overload and decompensated congestive heart failure. Continue IV diuretics. Creatinine is already trending down with IV diuretic use. 2. Decompensated congestive heart failure and fluid overload. Patient is being diuresed with IV Lasix. Continue current dose. Continue spironolactone 20 mg daily. 3. Hypokalemia. This is secondary to aggressive diuresis. I am going to increase the potassium chloride dose to 40 mEq by mouth twice a day. 4. Tense ascites. Patient is going to get the ascitic tap done today. 5. Elevated liver function tests. This is most likely congestive hepatopathy. I expect it to improve with further diuresis and improvement of congestive heart failure. 6. Atrial fibrillation. Currently rate-controlled. Continue current dose of metoprolol 50 mg by mouth twice a day. Patient is currently on Eliquis. 7. Gout secondary to chronic kidney disease. Continue current dose of Uloric 80 mg by mouth daily. 8. Insulin-dependent diabetes mellitus. Continue current dose of Levemir and insulin sliding scale. 9. Hypertension. Blood pressure is acceptable at this time. Continue the diuretics, metoprolol. Thank you for involving us in the care of this patient. We shall be happy to follow the patient along with you tomorrow morning. MTDD
[2017-01-22] MEDS: LEVEMIR (INSULIN DETEMIR) 1 UNITS/0.01ML SC SCH (21:08)
[2017-01-22] MEDS: TAMSULOSIN 0.4 MG CAP PO SCH (21:09)
[2017-01-22 21:50] LABS: CC BF DIFF EXAM CYTOCENTRIFUGE
[2017-01-23] VITALS (12 sets, daily range): BP systolic 114–123; BP diastolic 70–88; O2SAT 84–100
[2017-01-23] MEDS: IPRATROPIUM 0.5MG/ALBUTEROL 2.5MG INH SOL UD 3ML (DUONEB)(J7620) NEB SCH ×4 (02:00→20:00)
[2017-01-23 05:09] LABS: OSMOLALITY URINE 519 MOSM/KG (500-800)
[2017-01-23 05:33] LABS: MEAN CORPUSCULAR HEMOGLOBIN 31.5 pg (27.0-33.0); MEAN CORPUSCULAR HGB CONC 32.6 g/dl (32.0-36.5); MEAN CORPUSCULAR VOLUME 96.8 fl (80.0-96.0); RED CELL DISTRIBUTION WIDTH 15.4 % (11.5-14.5); WHITE BLOOD COUNT 6.6 K/mm3 (4.0-10.0)
[2017-01-23 05:36] LABS: INR 1.51
[2017-01-23 05:52] LABS: ALBUMIN 3.2 GM/DL (3.2-5.2); ALBUMIN/GLOBULIN RATIO 0.68 (1.00-1.93); ALKALINE PHOSPHATASE 165 U/L (45-117); ALT/SGPT 26 U/L (12-78); ANION GAP 7 MEQ/L (8-16); AST/SGOT 46 U/L (15-37); BLOOD UREA NITROGEN 42 MG/DL (7-18); CALCIUM LEVEL 9.5 MG/DL (8.5-10.1); CARBON DIOXIDE LEVEL 40 MEQ/L (21-32); CHLORIDE LEVEL 91 MEQ/L (98-107); CHOLESTEROL LEVEL 159 MG/DL (<200); CREATININE FOR GFR 1.13 MG/DL (0.70-1.30); GLOMERULAR FILTRATION RATE > 60.0 (>56); GLUCOSE, FASTING 140 MG/DL (70-105); MAGNESIUM LEVEL 2.4 MG/DL (1.8-2.4); POTASSIUM SERUM 3.6 MEQ/L (3.5-5.1); SODIUM LEVEL 138 MEQ/L (136-145); TOTAL PROTEIN 7.9 GM/DL (6.4-8.2); TRIGLYCERIDES LEVEL 109 MG/DL (<150)
[2017-01-23] MEDS: FUROSEMIDE injection 250 MG in D5W 225 ML IV SCH ×2 (06:09→19:10)
[2017-01-23] MEDS: SYMBICORT 80/4.5MCG INHALER 6GM INH SCH ×2 (08:15→20:09)
[2017-01-23] MEDS: SENOKOT S TAB PO SCH ×2 (09:00→20:36)
--- NOTE | 2017-01-23 09:00 | ECGEPIP ---
Stationary ECG Study 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
[2017-01-23] MEDS: HumaLOG INSULIN (NovoLOG) PER UNIT SC SCH ×4 (09:08→20:37)
[2017-01-23] MEDS: OMEPRAZOLE 20 MG CAP PO SCH (09:08)
[2017-01-23] MEDS: FEBUXOSTAT 40 MG TABLET (ULORIC) PO SCH (09:09)
[2017-01-23] MEDS: OMEGA-3 1050MG CAPSULE PO SCH (09:09)
[2017-01-23] MEDS: PREGABALIN 50 MG CAP (LYRICA) PO SCH ×3 (09:09→20:32)
[2017-01-23] MEDS: POTASSIUM CHLORIDE 10 MEQ SR TABLET PO SCH ×2 (09:09→20:32)
[2017-01-23] MEDS: APIXABAN 5 MG TAB (ELIQUIS) PO SCH ×2 (09:10→20:32)
[2017-01-23] MEDS: METOPROLOL TART 50 MG TAB PO SCH ×2 (09:10→20:32)
[2017-01-23] MEDS: SPIRONOLACTONE 25 MG TAB PO SCH (09:10)
--- NOTE | 2017-01-23 15:53 | IPN ---
DATE: 01/23/2017 SUBJECTIVE: Patient is seen and examined in the room today. Patient stated after the paracentesis, patient has significant improvement in breathing and abdominal distention has improved. Still has a minor sore from the needle injection site, but the pain is manageable. With diuresis, patient also noted the generalized swelling has been improving, however, a significant amount of the swelling still can be observed throughout the whole body including the scrotum and the upper and lower extremities. OBJECTIVE: VITAL SIGNS: Temperature is 98.7, pulse is 98, respirations 20, blood pressure 122/82, pulse oximetry is 94% with three liters nasal cannula. GENERAL: No sign of acute distress. Morbidly obese. Alert and oriented times three. HEENT: Normocephalic, atraumatic. Extraocular motors grossly intact. CARDIOVASCULAR: Irregularly irregular, positive S1, S2, heart rate in the satisfactory range. LUNGS: Clear to auscultation bilaterally. ABDOMEN: Still very distended, but soft, nontender. Bowel sounds present. EXTREMITIES: Positive pitting edema bilaterally in the upper and lower extremities. No sign of cyanosis. LABORATORY DATA: WBC is 6.6, hemoglobin 12.7, hematocrit 39.1, platelet count is 174. Sodium is 138, potassium 3.6, chloride 91, carbon dioxide 40, BUN 42, creatinine 1.13, GFR greater than 60, fasting glucose 140, calcium 9.5, magnesium 2.4, total bilirubin 2, AST 46, ALT 26, alkaline phosphatase 165, C-reactive protein 3.49, total protein 7.9, albumin 3.2, triglycerides 109, total cholesterol is 159, LDL is 105.2, HDL is 32. ASSESSMENT AND PLAN: 1. Anasarca secondary to congestive heart failure (CHF) exacerbation. Patient has been placed on the Lasix drip with holding parameters. Will try to maintain negative 1.5 liters fluid balance per day. Tank Builder And Erector and chalk machine operator has been assisting on the case. Patient just had a repeat echocardiogram performed, will followup with the report. Yesterday, we did not aggressively diurese the patient with Lasix drip due to the paracentesis. Through that procedure, patient had at least 4.5 liters of fluid removed. 2. Abdominal distention with ascitic fluid. Imaging guided paracentesis was performed. Patient had approximately 4.5 liters ascitic fluid removed. Will follow with fluid analysis and cultures. Currently, patient is being diuresed with Lasix drip and spironolactone. 3. Hypokalemia. Patient has been on the supplement and resolved. On the day of admission, patient had a potassium of 3.1. 4. Acute kidney injury. On admission, creatinine was 1.46 with a GFR of 52.8. With adequate diuresis, patient's current creatinine is 1.13 with a GFR greater than 60. 5. Type 2 diabetes with A1c of 7.8. Patient will continue on consistent carbohydrate diet and on sliding scale. Patient is also on Levemir. 6. Atrial fibrillation, on beta franki. Patient is also on Eliquis 5 mg by mouth twice a day. 7. History of pulmonary hypertension. Patient is on Lasix and spironolactone. 8. History of coronary artery disease, status post coronary artery bypass graft (CABG) times four. 9. Gout. On Uloric. 10. History of methicillin-resistant Staphylococcus aureus (MRSA) infection. Followup with methicillin-resistant Staphylococcus aureus (MRSA) screening test. 11. History of reflux disease. On omeprazole. 12. Deep vein thrombosis (DVT) prophylaxis. On Eliquis.
[2017-01-23] MEDS: FUROSEMIDE 40 MG/4 ML VIAL (J1940) IV SCH (18:00)
[2017-01-23 19:01] LABS: ANION GAP 7 MEQ/L (8-16); BLOOD UREA NITROGEN 39 MG/DL (7-18); CARBON DIOXIDE LEVEL 37 MEQ/L (21-32); CHLORIDE LEVEL 92 MEQ/L (98-107); CREATININE FOR GFR 1.28 MG/DL (0.70-1.30); GLOMERULAR FILTRATION RATE > 60.0 (>56); GLUCOSE, FASTING 260 MG/DL (70-105); MAGNESIUM LEVEL 2.1 MG/DL (1.8-2.4); POTASSIUM SERUM 3.6 MEQ/L (3.5-5.1); SODIUM LEVEL 136 MEQ/L (136-145)
[2017-01-23] MEDS: TAMSULOSIN 0.4 MG CAP PO SCH (20:31)
[2017-01-23] MEDS: LEVEMIR (INSULIN DETEMIR) 1 UNITS/0.01ML SC SCH (20:32)
[2017-01-24] VITALS (13 sets, daily range): BP systolic 112–132; BP diastolic 58–80; O2SAT 88–99
[2017-01-24] MEDS: FUROSEMIDE 40 MG/4 ML VIAL (J1940) IV SCH ×4 (00:39→18:24)
[2017-01-24] MEDS: IPRATROPIUM 0.5MG/ALBUTEROL 2.5MG INH SOL UD 3ML (DUONEB)(J7620) NEB SCH ×4 (01:26→20:00)
[2017-01-24 05:54] LABS: MEAN CORPUSCULAR HEMOGLOBIN 31.4 pg (27.0-33.0); MEAN CORPUSCULAR HGB CONC 32.7 g/dl (32.0-36.5); MEAN CORPUSCULAR VOLUME 96.1 fl (80.0-96.0); RED CELL DISTRIBUTION WIDTH 15.6 % (11.5-14.5); WHITE BLOOD COUNT 7.7 K/mm3 (4.0-10.0)
[2017-01-24 05:59] LABS: INR 1.73
[2017-01-24 06:15] LABS: ALBUMIN 2.9 GM/DL (3.2-5.2); ALBUMIN/GLOBULIN RATIO 0.62 (1.00-1.93); ALKALINE PHOSPHATASE 167 U/L (45-117); ALT/SGPT 29 U/L (12-78); ANION GAP 7 MEQ/L (8-16); AST/SGOT 50 U/L (15-37); BILIRUBIN,TOTAL 1.7 MG/DL (0.2-1.0); BLOOD UREA NITROGEN 39 MG/DL (7-18); CALCIUM LEVEL 8.7 MG/DL (8.5-10.1); CARBON DIOXIDE LEVEL 36 MEQ/L (21-32); CHLORIDE LEVEL 92 MEQ/L (98-107); CREATININE FOR GFR 1.09 MG/DL (0.70-1.30); GLOMERULAR FILTRATION RATE > 60.0 (>56); GLUCOSE, FASTING 177 MG/DL (70-105); POTASSIUM SERUM 3.5 MEQ/L (3.5-5.1); SODIUM LEVEL 135 MEQ/L (136-145); TOTAL PROTEIN 7.6 GM/DL (6.4-8.2)
[2017-01-24] MEDS: SYMBICORT 80/4.5MCG INHALER 6GM INH SCH ×2 (07:08→20:43)
[2017-01-24] MEDS: HumaLOG INSULIN (NovoLOG) PER UNIT SC SCH ×4 (07:38→22:04)
[2017-01-24] MEDS: OMEPRAZOLE 20 MG CAP PO SCH (08:43)
[2017-01-24] MEDS: SPIRONOLACTONE 25 MG TAB PO SCH (08:43)
[2017-01-24] MEDS: FEBUXOSTAT 40 MG TABLET (ULORIC) PO SCH (08:44)
[2017-01-24] MEDS: OMEGA-3 1050MG CAPSULE PO SCH (08:44)
[2017-01-24] MEDS: APIXABAN 5 MG TAB (ELIQUIS) PO SCH ×2 (08:44→21:56)
[2017-01-24] MEDS: SENOKOT S TAB PO SCH ×2 (08:44→21:56)
[2017-01-24] MEDS: PREGABALIN 50 MG CAP (LYRICA) PO SCH ×3 (08:45→21:57)
[2017-01-24] MEDS: POTASSIUM CHLORIDE 10 MEQ SR TABLET PO SCH ×2 (08:48→22:00)
[2017-01-24] MEDS: METOPROLOL TART 50 MG TAB PO SCH ×2 (08:48→21:57)
[2017-01-24 18:27] LABS: ANION GAP 8 MEQ/L (8-16); BLOOD UREA NITROGEN 39 MG/DL (7-18); CALCIUM LEVEL 8.9 MG/DL (8.5-10.1); CARBON DIOXIDE LEVEL 37 MEQ/L (21-32); CHLORIDE LEVEL 91 MEQ/L (98-107); CREATININE FOR GFR 1.28 MG/DL (0.70-1.30); GLOMERULAR FILTRATION RATE > 60.0 (>56); GLUCOSE, FASTING 244 MG/DL (70-105); MAGNESIUM LEVEL 1.9 MG/DL (1.8-2.4); POTASSIUM SERUM 3.1 MEQ/L (3.5-5.1); SODIUM LEVEL 136 MEQ/L (136-145)
[2017-01-24] MEDS ORDERED: POTASSIUM CHLORIDE 10 MEQ SR TABLET PO ONE (19:30)
--- NOTE | 2017-01-24 21:31 | IPN ---
DATE: 01/24/2017 SUBJECTIVE: The patient is seen and examined in the room today. The patient still experiencing significant swelling in the upper and lower extremities and there is significant swelling in the scrotal area. The patient does feel the fluid is emptying urine more than usual and a large significant amount of urine was produced. No overnight events were reported. The patient stated his breathing showed significant improvement since paracentesis and after the Lasix diuresis. OBJECTIVE: VITAL SIGNS: Temperature 98.8, pulse is 117, respirations 18, blood pressure 112/76, pulse oximetry is 95% on room air. GENERAL: No sign of acute distress. Patient is morbidly obese. Alert and oriented times three. HEENT: Normocephalic, atraumatic. Extraocular motor grossly intact. CARDIOVASCULAR: Irregularly irregular. Positive S1, S2. Heart rate is satisfactory range. ABDOMEN: Still very distended, but soft, nontender. Bowel sounds present. EXTREMITIES: Plus two to three positive pitting edema in upper and lower extremities. No sign of cyanosis. LABORATORY DATA: WBC is 7.7, hemoglobin 12, hematocrit 36.8, platelet count 146. Sodium 135, potassium 3.5, chloride 92, carbon dioxide 36, BUN 39, creatinine 1.09, GFR greater than 60, fasting glucose 177, calcium 8.7, magnesium two, total bilirubin 1.7, AST 50, ALT 29, alkaline phosphatase 167, total protein 7.6, albumin 2.9. ASSESSMENT AND PLAN: 1. Anasarca secondary to congestive heart failure exacerbation. The patient was on Lasix drip previously with holding parameter, and Lasix was switched to intravenous (IV) formulation with holding parameter. Mortising Machine Operator has been consulted to assist on the case. We appreciate Dr. Zheng's assistance. The patient had an echocardiogram performed. We will continue to follow with the results. 2. Abdominal ascites causing abdominal distention. The patient has paracentesis so far. On 01/23/2017, approximately 4.6 liters of ascitic fluid were removed. Patient tolerated the procedure well. We will followup with fluid analysis. Gram's stain is negative. Will followup with fungal, acid-fast bacillus (AFB) stain for the fluid. 3. Hypokalemia. Resolved. 4. Acute kidney injury on admission. Creatinine was at its worst at 1.49, probably secondary to fluid overload. After the diuresis, the patient's renal function has returned to normal range now. 5. Type 2 diabetes with A1c of 7.8. Continue with consistent carbohydrate diet and sliding scale. Continue on Levemir. 6. Atrial fibrillation on beta franki, Eliquis 5 mg by mouth twice a day. Rate is in the satisfactory range. The patient's average heart rate is running between 80 to 95. 7. History of coronary artery disease status post coronary artery bypass graft (CABG) times four. 8. History of pulmonary hypertension, on Lasix and spironolactone. 9. Gout. On Uloric. 10. History of methicillin-resistant Staphylococcus aureus (MRSA) infection. 11. History of reflux disease, on omeprazole. 12. Deep venous thrombosis (DVT) prophylaxis. Patient is on Eliquis.
[2017-01-24] MEDS: TAMSULOSIN 0.4 MG CAP PO SCH (21:56)
[2017-01-24] MEDS: LEVEMIR (INSULIN DETEMIR) 1 UNITS/0.01ML SC SCH (22:09)
--- NOTE | 2017-01-24 22:35 | IPN ---
DATE: 01/24/2017 SUBJECTIVE: The patient was seen and examined at the bedside today, morning. His renal function is stable. He is hemodynamically stable. He is having significant urine output with the intravenous (IV) Lasix injections at this time and edema continues to improve. REVIEW OF SYSTEMS: The patient denies any fever, chills, rigors, headache, nausea, vomiting, chest pain. He reports his shortness of breath is improving. He reports decreasing abdominal distention. He denies any dizziness or lightheadedness at this time. The rest of the review of systems is negative. OBJECTIVE: VITAL SIGNS: Temperature is 97.1 degrees Fahrenheit, blood pressure is 122/68, pulse is 67, respiratory rate of 18, saturating 91% on nasal cannula. INTAKE/OUTPUT: Urine output recorded yesterday 3.7 liters. Urine output recorded so far today since overnight is 3 liters so far. Weight on the bed scale is 141 kg. PHYSICAL EXAMINATION: GENERAL: The patient is awake, alert, oriented times three, sitting in the bed in no apparent distress. HEAD AND NECK EXAM: Extraocular muscles intact. Pupils equally round and reactive to light. Neck is supple. There is mildly elevated jugular venous distention (JVD). CARDIOVASCULAR: S1, S2, irregularly irregular heart rate. Midline sternotomy scar. No murmur, rub or gallop. RESPIRATORY: Decreased breath sounds at the bases. Otherwise no rales or rhonchi at this time. . ABDOMEN: Abdomen is soft, distended, mild amount of ascites, positive abdominal wall edema. MUSCULOSKELETAL: No clubbing or cyanosis. The patient has 2+ pitting edema of the bilateral lower extremities. CENTRAL NERVOUS SYSTEM: No focal neurological deficit. Power is 5/5 in all extremities. PSYCHIATRIC: Normal mood and affect. LAB REVIEW: CBC showed a WBC of 7.7, hemoglobin is 12, platelets are 146. INR is 1.7. BMP showed sodium 135, potassium 3.5, chloride 92, bicarbonate 36, BUN is 39, creatinine is 1.09, calcium 8.7, magnesium is 2, total bilirubin 1.7, albumin is 2.9. CURRENT INPATIENT MEDICATIONS: The patient's medications were all reviewed by me. I have changed the patient's Lasix to 60 mg IV every 6 hours and his spironolactone has been increased to 50 mg by mouth daily. There is no other change in the medications today. ASSESSMENT: A 56-year-old male with a past medical history of congestive heart failure, diabetes mellitus type 2, chronic kidney disease stage II, hypertension, admitted at this time because of decompensated congestive heart failure and anasarca, along with acute kidney injury. PLAN: 1. Acute kidney injury superimposed on chronic kidney disease stage II. It was cardiorenal in nature. The patient's creatinine is stable and improved back to baseline after diuresis. Okay to continue the aggressive diuresis at this time. 2. Decompensated congestive heart failure and fluid overload. Continue the IV Lasix. I have increased the dose of Lasix to 60 mg IV every 6 hours. The patient needs to be in 2 liters negative fluid balance at least every day. Continue to monitor intake, output and daily standing scale weights. 3. Hypokalemia. It is secondary to aggressive diuresis. Continue current dose of potassium chloride 40 mEq by mouth twice a day and spironolactone dose has been increased to 50 mg daily. 4. Ascites. The patient got the ascitic tap done on admission. Continue the aggressive diuresis at this time. 5. Atrial fibrillation. Continue metoprolol 50 mg twice a day. Heart rate is controlled. Continue the Eliquis. 6. Hypertension. Blood pressure is acceptable at this time. Continue metoprolol and diuretics. 7. Hyponatremia. It is hypervolemic hyponatremia. Sodium is expected to improve with further diuresis.
[2017-01-25] VITALS (32 sets, daily range): BP systolic 101–139; BP diastolic 58–83; O2SAT 87–100
[2017-01-25] MEDS: FUROSEMIDE 40 MG/4 ML VIAL (J1940) IV SCH ×4 (00:54→18:22)
[2017-01-25] MEDS: IPRATROPIUM 0.5MG/ALBUTEROL 2.5MG INH SOL UD 3ML (DUONEB)(J7620) NEB SCH ×4 (02:00→20:00)
[2017-01-25 05:36] LABS: INR 1.73
[2017-01-25 05:41] LABS: MEAN CORPUSCULAR HEMOGLOBIN 31.1 pg (27.0-33.0); MEAN CORPUSCULAR HGB CONC 32.7 g/dl (32.0-36.5); MEAN CORPUSCULAR VOLUME 95.2 fl (80.0-96.0); RED CELL DISTRIBUTION WIDTH 15.6 % (11.5-14.5); WHITE BLOOD COUNT 7.4 K/mm3 (4.0-10.0)
[2017-01-25 06:00] LABS: ALBUMIN/GLOBULIN RATIO 0.67 (1.00-1.93); ALKALINE PHOSPHATASE 161 U/L (45-117); ALT/SGPT 27 U/L (12-78); ANION GAP 9 MEQ/L (8-16); AST/SGOT 49 U/L (15-37); BILIRUBIN,TOTAL 2.1 MG/DL (0.2-1.0); BLOOD UREA NITROGEN 35 MG/DL (7-18); CARBON DIOXIDE LEVEL 36 MEQ/L (21-32); CHLORIDE LEVEL 93 MEQ/L (98-107); CREATININE FOR GFR 1.09 MG/DL (0.70-1.30); GLOMERULAR FILTRATION RATE > 60.0 (>56); GLUCOSE, FASTING 146 MG/DL (70-105); MAGNESIUM LEVEL 1.9 MG/DL (1.8-2.4); POTASSIUM SERUM 3.3 MEQ/L (3.5-5.1); SODIUM LEVEL 138 MEQ/L (136-145); TOTAL PROTEIN 7.5 GM/DL (6.4-8.2)
[2017-01-25] MEDS: SYMBICORT 80/4.5MCG INHALER 6GM INH SCH ×2 (07:21→20:10)
--- NOTE | 2017-01-25 07:34 | ECHO ---
DATE OF PROCEDURE: 01/22/2017 REFERRING PROVIDER: Dr. Tiarra Daley REASON FOR ECHOCARDIOGRAM: Shortness of breath 2D MEASUREMENT: IVS - 1.5 cm LV - 5.0 cm LVPW - 1.5 cm LA - 4.4 cm Aorta - 3.3 cm DOPPLER MEASUREMENT: Peak velocity across the aortic valve - 1.8 m/s Peak velocity across the LVOT - 0.72 m/s Mitral E - 1.1 Maximum tricuspid valve velocity - 2.7 m/s 2D COMMENTS: 1. Normal left ventricular size with moderately increased left ventricular wall thickness and a normal global left ventricular systolic function. The estimated left ventricular systolic ejection fraction is 55-60%. 2. Mildly enlarged left atrium. The right atrium also appeared to be mildly enlarged. The right ventricle was not well visualized but may be mildly enlarged in limited views. The atrial septum appeared to be normal without evidence of defect of shunt. 3. Normal aortic root. 4. No pericardial effusion seen. 5. Mildly calcified aortic valve with normal leaflet excursion. Normal mitral valve, and tricuspid valve. The pulmonic valve appeared to be normal as well as the proximal pulmonary artery branches. 6. The inferior vena cava was not well visualized. DOPPLER: It detects mild mitral regurgitation, mild tricuspid regurgitation. The calculated pulmonary artery systolic pressure varied between 30-40 mmHg. Assessment of the left ventricular diastolic function appeared to be limited in view of the underlying atrial fibrillation. IMPRESSION: 1. Low normal global left ventricular systolic function with moderate concentric ventricular hypertrophy. 2. Aortic valve sclerosis without any significant stenosis or aortic regurgitation. 3. Mildly enlarged left atrium with mild mitral regurgitation. 4. Mild tricuspid regurgitation with mild pulmonary hypertension and dilated right atrium. The right ventricle may be also mildly enlarged in limited views. MTDD
[2017-01-25] MEDS: HumaLOG INSULIN (NovoLOG) PER UNIT SC SCH ×4 (07:53→21:30)
--- NOTE | 2017-01-25 08:43 | IPN ---
DATE OF SERVICE: 01/24/2017 Mr. Elie Damon was seen this evening. He was sitting up in bed in no acute distress at rest and his was at bedside. He is feeling better and his pedal edema has improved as well as the swelling of his abdominal wall. He continues to be on IV Lasix and Spironolactone. His potassium has been stable with occasional dip in his potassium level. He had paracentesis on 01/22/2017 and 4.6 liters of clay colored fluid was drained. So far, no further evidence of malignancy. On physical examination, the patient is alert and oriented, in no acute distress at rest, and very pleasant. His vital signs when I saw him revealed blood pressure of 132/58 with a pulse of 89, respirations 18 and his maximum temperature was 98.4 degrees Fahrenheit with oxygen saturation of 91% on room air. He has a negative fluid balance of about 2 liters for 01/23/2017. For 01/22/2017, it was 1.9 liters. Examination of the head is normocephalic, atraumatic. Neck is supple with no carotid bruits. The lungs do not appear to have any wheezing or crackles. The heart examination reveals irregularly irregular heart sounds without gallops. The PMI is slightly displaced inferiorly. There is no rub. I could not elicit any murmurs. Abdomen appears to be softer, as well as, his lower extremity edema, particularly in the upper legs. His pedal edema has improved significantly in the lower legs. LABS: BMP done today revealed a sodium of 135, potassium 3.5, chloride 93, CO2 36, BUN 39, creatinine 1.09 and GFR more than 60 with a fasting glucose of 177 and a calcium of 8.7. Repeat serum potassium was 3.1. Liver enzymes with a total bilirubin of 1.7, AST 50, ALT 29, alkaline phosphatase 167, total protein 7.6, albumin 2.9. CBC done 01/24/2017 revealed WBC of 7.7, hemoglobin 12.0, hematocrit 36.8 and platelets 146,000. PT is 20.8 with an INR of 1.73. Mr. Elie Damon seems to be stable and anasarca has improved since on the IV Lasix and also over the same period he had mild hypokalemia and I gave him an extra dose of potassium. Regarding the swelling of his scrotum, the case was discussed with urology director geothermal operations and he recommended to keep the scrotum high and to increase ambulation. This was discussed with the nurse. He will be monitored. MTDD
--- NOTE | 2017-01-25 09:14 | CR ---
DATE OF CONSULTATION: 01/22/2017 REFERRING PROVIDER: Shayy Tobar DO REASON FOR CONSULTATION: Heart failure. HISTORY OF PRESENT ILLNESS: 56-year-old male well known by the office and lately it has been difficult to control his fluid overload and his furosemide was recently discontinued and he was started on Bumex. He called the office in order to be seen and he was told to go to the hospital for further evaluation. He was admitted for further management and monitoring and a cardiology consult was called. When I saw Mr. Elie Damon, he was seen in the ER, sitting up in bed in no acute distress at rest. He stated that his shortness of breath was slightly improved. He was started on IV furosemide. He has been retaining fluids and the etiology is not quite clear. He denies any chest pain. He does complain of shortness of breath with activities, relieved with rest. He coughs at times. There is no fever or chills. There is no nausea, vomiting, diarrhea, melena or hematemesis. There is no acute bleeding but bruises. He has developed progressive worsening of bipedal edema involving the entire lower extremities and also involving the scrotum and the abdominal wall. He has a past medical history positive for coronary artery disease with coronary artery bypass grafting (CABG) in 2009, hyperlipidemia with intolerance to multiple statins including Zetia, atrial fibrillation that seems to be persistent lately, chronic kidney disease and he has been seeing Dr. Suero, diabetes mellitus for which has been going to his primary as well as his v[facility]er sander in [place], [place]. He also has underlying obstructive sleep apnea (SRINATH) and obesity. There is no history of CVA, or known underlying lung disease. 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 Family history is positive for hypertension and hyperlipidemia. SOCIAL HISTORY: Patient lives with his and there is no report of smoking or EtOH abuse. ALLERGIES: No known drug allergies. ADVANCE DIRECTIVES: The patient is a FULL CODE. On physical examination, the patient is alert and oriented, in no acute distress at rest. His vital signs revealed a blood pressure of 131/86 with a pulse of 90 , respirations 20 and his maximum temperature was 98 degrees Fahrenheit with an oxygen saturation of 99% on 2 liters nasal cannula. Examination of the head, ears, eyes, nose and throat: Atraumatic. Neck is supple. No jugular venous distention (JVD) or carotid bruits. Lungs revealed minimal crackles at the bases. The heart examination revealed irregularly irregular heart sounds without gallops. The PMI is slightly displaced inferiorly and laterally. There is no rub. I could not appreciate any murmurs. Abdomen is distended, protuberant, and edematous wall was noted. Extremities revealed 2+ bilateral lower leg edema. Neurological examination is negative for focal deficits. LABORATORIES: BMP on 01/22/2017 revealed a sodium of 136, potassium 3.0, chloride 90, CO2 40, BUN 47, creatinine 1.25, GFR more than 60, fasting glucose 123. Serum magnesium was 2.3 and serum calcium 9.3. Liver enzymes revealed a total bilirubin of 2.2, AST 47, ALT 30, alkaline phosphatase 185, total protein 7.9, albumin 3.3. Serum BNP on admission was 304. TSH was 1.83. CBC on 01/22 revealed a WBC of 7.4, hemoglobin 12.2, hematocrit 37.2 and platelets 161,000. PT is 20.8 with an INR of 1.73. Chest x-ray on admission revealed mild cardiology and a small right sided pleural effusion. Doppler of the legs done on 01/21/2017 revealed a negative study for deep vein thrombosis. Abdominal ultrasound done on 01/21/2017 revealed a moderate amount of ascites and hepatosplenomegaly. CT of the abdomen and pelvis on 01/21/2017 revealed diffuse moderate amount of abdominal and pelvic ascites, moderate right sided pleural effusion, hepatomegaly, no evidence of hydronephrosis or nephrolithiasis, moderate atherosclerosis of the abdominal aorta, but no aneurysm. There was no manifestation of irritable bowel syndrome. Moderate degenerative disc disease noted, particularly at the level of L4, L5, and S1. IMPRESSION: 1. Congestive heart failure (CHF) secondary to left ventricular diastolic dysfunction in this 56-year-old male with history of coronary artery disease and coronary artery bypass graft. It has been difficult to control his fluid retention and he was admitted for further management and monitoring. The case was discussed with his hospitalist. He will be started on IV furosemide. Will need to monitor closely his BUN and creatinine. I am not quite sure that his fluid retention is entirely from his underlying cardiac condition. I am thinking some underlying liver disease, particularly in view of the hepatosplenomegaly. His right heart chamber seems to be also mildly dilated, but I doubt it is entirely related to right sided heart failure. We will see how he responds to the spironolactone and the IV furosemide. He is also being monitored by nephrology. This was discussed with the patient, and he has agreed to stay in the hospital. 2. History of coronary artery disease. This has been stable, aVF is normal by echocardiogram. 3. Atrial fibrillation, chronic and persistent, on anticoagulation therapy. His heart rate is under control. 4. History of hyperlipidemia with intolerance to many statins. 5. Chronic kidney disease, stable. It was pleasure to assist in the care of Mr. Elie Damon for his underlying cardiac condition. I will continue to monitor him along with you while in the hospital. SMITA
[2017-01-25] MEDS: APIXABAN 5 MG TAB (ELIQUIS) PO SCH ×2 (09:54→21:29)
[2017-01-25] MEDS: FEBUXOSTAT 40 MG TABLET (ULORIC) PO SCH (09:54)
[2017-01-25] MEDS: OMEPRAZOLE 20 MG CAP PO SCH (09:54)
[2017-01-25] MEDS: METOPROLOL TART 50 MG TAB PO SCH ×2 (09:55→21:29)
[2017-01-25] MEDS: OMEGA-3 1050MG CAPSULE PO SCH (09:56)
[2017-01-25] MEDS: SPIRONOLACTONE 50 MG TAB PO SCH (09:56)
[2017-01-25] MEDS: PREGABALIN 50 MG CAP (LYRICA) PO SCH ×3 (09:56→21:29)
[2017-01-25] MEDS: POTASSIUM CHLORIDE 10 MEQ SR TABLET PO SCH ×2 (09:56→21:29)
[2017-01-25] MEDS: SENOKOT S TAB PO SCH ×2 (09:57→21:29)
[2017-01-25 18:33] LABS: ANION GAP 7 MEQ/L (8-16); BLOOD UREA NITROGEN 38 MG/DL (7-18); CALCIUM LEVEL 8.4 MG/DL (8.5-10.1); CARBON DIOXIDE LEVEL 37 MEQ/L (21-32); CHLORIDE LEVEL 94 MEQ/L (98-107); CREATININE FOR GFR 1.26 MG/DL (0.70-1.30); GLOMERULAR FILTRATION RATE > 60.0 (>56); GLUCOSE, FASTING 217 MG/DL (70-105); MAGNESIUM LEVEL 1.9 MG/DL (1.8-2.4); POTASSIUM SERUM 3.5 MEQ/L (3.5-5.1); SODIUM LEVEL 138 MEQ/L (136-145)
--- NOTE | 2017-01-25 19:01 | IPN ---
DATE: 01/25/2017 SUBJECTIVE: Patient seen and examined in the room today. Still complains about significant swelling in upper and lower extremities. Patient is able to breathe comfortable on room air without any oxygen supply. Patient continues to have very good urine output. OBJECTIVE: VITAL SIGNS: Temperature 97.6, pulse 93, respirations 22, blood pressure is 101/58, pulse oximetry is 92% in room air. GENERAL: No sign of acute distress. Morbidly obese. Alert and oriented times three. HEENT: Normocephalic, atraumatic. Extraocular motor grossly intact. CARDIOVASCULAR: Irregularly irregular, positive S1, S2. Heart rate in satisfactory range. LUNGS: Clear to auscultation bilaterally. ABDOMEN: Still some significant distention but abdomen soft. Bowel sounds present. No rebound. No guarding. EXTREMITIES: 2-3+ pitting edema bilaterally. No sign of cyanosis. LABORATORY DATA: WBC is 7.4, hemoglobin 12, hematocrit 36.8, platelet count is 156. Sodium is 138, potassium is 3.3, chloride 93, carbon dioxide is 36, BUN 35, creatinine 1.09, GFR greater than 60, fasting glucose 146, calcium is 9, magnesium 1.9. Total bilirubin is 2.1, AST is 49, ALT is 27, alkaline phosphatase is 161, total protein 7.5, albumin 3. ASSESSMENT AND PLAN: 1. Anasarca. Patient has been on IV Lasix diuresis with spironolactone. Will try to maintain a negative fluid balance. Assistant Commissioner and nephrology have been assisting on the case. 2. Abdominal ascites causing abdominal distention. Patient had a paracentesis on 01/23/2017. Approximately 4.6 liters of ascitic fluid was removed. Tolerated the procedure well. We are still waiting for acid-fast staining and fungal culture for the ascitic fluid. Gram stain for the ascitic fluid showed no growth. 3. Acute kidney injury on admission secondary to fluid overload. After diuresis, renal function returned to baseline. 4. Type 2 diabetes with A1c of 7.8. Continue with sliding scale. Continue with Levemir. Continue with consistent-carbohydrate diet. 5. Atrial fibrillation, on beta franki, Eliquis. Rate is in the satisfactory range. 6. History of coronary artery disease status post coronary artery bypass graft (CABG) times four. 7. History of pulmonary hypertension, on Lasix and spironolactone. 8. History of methicillin-resistant Staphylococcus aureus (MRSA) infection. 9. History of reflux disease, on omeprazole. 10. Deep vein thrombosis (DVT) prophylaxis, on Eliquis.
--- NOTE | 2017-01-25 20:43 | IPN ---
DATE: 01/25/2017 SUBJECTIVE: The patient was seen and examined at the bedside today morning. He continues to have good diuretic response to the intravenous (IV) Lasix. He is almost two liters negative since yesterday. However, the patient reports that he was slightly dizzy this morning after he took his Lasix dose. Renal function continues to be stable at this time. REVIEW OF SYSTEMS: The patient denies any fevers, chills, rigors, headaches, chest pain, shortness of breath. He denies any nausea, vomiting. He reports his abdominal distention is getting better. He still reports scrotal edema, and he was advised to elevated the scrotum and he was seen by urology. He reports his leg edema is getting better. The patient reports dizziness today morning when he went to the rest room after taking his Lasix dose. Rest of review of systems is negative. OBJECTIVE: VITAL SIGNS: Temperature is 97.8 degrees Fahrenheit, blood pressure is 109/68, pulse is 93, respiratory rate of 18, saturating 92% on room air. INTAKE AND OUTPUT: Urine output was four liters yesterday, 1.5 liters so far today since overnight. Weight in the bed scale is 140.3 kg. PHYSICAL EXAMINATION: GENERAL: The patient is awake, alert, and oriented times three, sitting in bed no apparent distress. HEAD/NECK: Extraocular muscles intact. Pupils equal, round, and reactive to light. Neck is supple. There is no jugular venous distention (JVD). CARDIOVASCULAR: S1, S2. Irregularly irregular heart rate. Midline sternotomy scar. No murmur, rub, or gallop. RESPIRATORY: Chest is clear to auscultation bilaterally. Bilateral equal air entry. No rales or rhonchi. ABDOMEN: Soft. Distended. Mild abdominal wall edema. MUSCULOSKELETAL: No clubbing or cyanosis. He has 1+ edema of the bilateral lower extremities. CENTRAL NERVOUS SYSTEM (DIRECTOR COUNCIL ON AGING): No focal neurological deficit. Power is 5/5 in all extremities. PSYCHIATRIC: Normal mood and affect. LABORATORY DATA: CBC showed a WBC of 7.4, hemoglobin is 12, platelets of 156. INR is 1.7. Bmp shows sodium 138, potassium 3.3, chloride 93, bicarbonate 36, BUN 35, creatinine 1.09, calcium nine, magnesium 1.9. Total bilirubin 2.1, albumin three. CURRENT INPATIENT MEDICATIONS: The patient's medications are all reviewed by me. His Lasix dose was decreased to 40 mg intravenous (IV) every six hours. Spironolactone dose was increased to 50 mg by mouth daily. He continues to be on potassium chloride 40 mEq by mouth twice a day. ASSESSMENT: A 56-year-old male with past medical history of congestive heart failure, diabetes mellitus type 2, chronic kidney disease stage II, hypertension, admitted this time because of decompensated congestive heart failure, anasarca, along with acute kidney injury. PLAN: 1. Acute kidney injury superimposed on chronic kidney disease stage II: It was cardiorenal in nature. Creatinine has been improved to 1.09, which is stable and close to his baseline. 2. Decompensated congestive heart failure and fluid overload: The patient was on Lasix 60 mg IV every six hours, but he is getting dizzy with the high dose. Dose is being decreased to 40 mg IV every six hours now. 3. Hypokalemia: It is secondary to aggressive diuresis. Spironolactone was increased to 50 mg daily today. He continues to be on potassium chloride 40 mEq by mouth twice a day, and he was also given an extra dose of potassium chloride 20 mEq times one does last night. 4. Hypertension: The patient's blood pressure is acceptable. The patient's blood pressure is actually soft at this time with aggressive diuresis. Continue the metoprolol at this time. The patient's renal function has improved back to his baseline.
[2017-01-25] MEDS: TAMSULOSIN 0.4 MG CAP PO SCH (21:29)
[2017-01-25] MEDS: LEVEMIR (INSULIN DETEMIR) 1 UNITS/0.01ML SC SCH (21:30)
[2017-01-26] VITALS (23 sets, daily range): BP systolic 99–132; BP diastolic 60–86; O2SAT 88–99
[2017-01-26] MEDS: FUROSEMIDE 40 MG/4 ML VIAL (J1940) IV SCH ×5 (00:31→23:48)
[2017-01-26] MEDS: IPRATROPIUM 0.5MG/ALBUTEROL 2.5MG INH SOL UD 3ML (DUONEB)(J7620) NEB SCH ×4 (02:00→20:00)
[2017-01-26 05:23] LABS: MEAN CORPUSCULAR HEMOGLOBIN 31.6 pg (27.0-33.0); MEAN CORPUSCULAR HGB CONC 32.7 g/dl (32.0-36.5); MEAN CORPUSCULAR VOLUME 96.5 fl (80.0-96.0); RED CELL DISTRIBUTION WIDTH 15.7 % (11.5-14.5); WHITE BLOOD COUNT 7.5 K/mm3 (4.0-10.0)
[2017-01-26 05:32] LABS: INR 1.61
[2017-01-26 05:38] LABS: ALBUMIN/GLOBULIN RATIO 0.64 (1.00-1.93); ALKALINE PHOSPHATASE 158 U/L (45-117); ALT/SGPT 27 U/L (12-78); ANION GAP 8 MEQ/L (8-16); AST/SGOT 50 U/L (15-37); BILIRUBIN,TOTAL 1.8 MG/DL (0.2-1.0); BLOOD UREA NITROGEN 34 MG/DL (7-18); CALCIUM LEVEL 8.9 MG/DL (8.5-10.1); CARBON DIOXIDE LEVEL 37 MEQ/L (21-32); CHLORIDE LEVEL 96 MEQ/L (98-107); GLOMERULAR FILTRATION RATE > 60.0 (>56); GLUCOSE, FASTING 109 MG/DL (70-105); MAGNESIUM LEVEL 2.1 MG/DL (1.8-2.4); POTASSIUM SERUM 3.5 MEQ/L (3.5-5.1); SODIUM LEVEL 141 MEQ/L (136-145); TOTAL PROTEIN 7.7 GM/DL (6.4-8.2)
[2017-01-26] MEDS: SYMBICORT 80/4.5MCG INHALER 6GM INH SCH ×2 (07:21→20:26)
[2017-01-26] MEDS: HumaLOG INSULIN (NovoLOG) PER UNIT SC SCH ×4 (10:09→20:39)
[2017-01-26] MEDS: POTASSIUM CHLORIDE 10 MEQ SR TABLET PO SCH ×2 (10:10→20:40)
[2017-01-26] MEDS: PREGABALIN 50 MG CAP (LYRICA) PO SCH ×3 (10:10→20:39)
[2017-01-26] MEDS: FEBUXOSTAT 40 MG TABLET (ULORIC) PO SCH (10:10)
[2017-01-26] MEDS: METOPROLOL TART 50 MG TAB PO SCH ×2 (10:11→20:39)
[2017-01-26] MEDS: APIXABAN 5 MG TAB (ELIQUIS) PO SCH ×2 (10:12→20:39)
[2017-01-26] MEDS: SENOKOT S TAB PO SCH ×2 (10:12→20:39)
[2017-01-26] MEDS: OMEPRAZOLE 20 MG CAP PO SCH (10:12)
[2017-01-26] MEDS: OMEGA-3 1050MG CAPSULE PO SCH (10:12)
[2017-01-26] MEDS: SPIRONOLACTONE 50 MG TAB PO SCH (10:12)
[2017-01-26 18:45] LABS: ANION GAP 6 MEQ/L (8-16); BLOOD UREA NITROGEN 35 MG/DL (7-18); CALCIUM LEVEL 8.6 MG/DL (8.5-10.1); CARBON DIOXIDE LEVEL 35 MEQ/L (21-32); CHLORIDE LEVEL 96 MEQ/L (98-107); CREATININE FOR GFR 1.23 MG/DL (0.70-1.30); GLOMERULAR FILTRATION RATE > 60.0 (>56); GLUCOSE, FASTING 259 MG/DL (70-105); MAGNESIUM LEVEL 1.9 MG/DL (1.8-2.4); POTASSIUM SERUM 3.6 MEQ/L (3.5-5.1); SODIUM LEVEL 137 MEQ/L (136-145)
--- NOTE | 2017-01-26 19:55 | IPN ---
DATE: 01/26/2017 SUBJECTIVE: The patient seen and examined in the room today. There was an episode where the patient has unsteady gait and lightheadedness during postural changes. It resolved spontaneously. The patient continues to have significant swelling in the upper and lower extremities, in the buttock and the scrotum area. However, he thinks the degree of swelling has been improving. The patient continues to have significant urinary output. The patient is able to breathe comfortably on room air except during sleep that he uses a special mask for his obstructive sleep apnea (SRINATH). OBJECTIVE: VITAL SIGNS: Temperature is 98.1, pulse is 89, respirations 18, blood pressure 117/75. Pulse oximetry is 91% on room air. GENERAL: No sign of acute distress. Alert and oriented times three. HEENT: Normocephalic, atraumatic. Extraocular motor grossly intact. CARDIOVASCULAR: Irregularly irregular. Positive S1, S2. Heart rate in satisfactory range. LUNGS: Clear to auscultation bilaterally. ABDOMEN: Still has significant abdominal distention, but abdomen is soft. Bowel sounds present. No rebound, no guarding. EXTREMITIES: There is 2+ pitting edema bilaterally in the lower extremities. 1+ edema on the upper extremities. Still having significant swelling of the scrotum area. LABORATORY DATA: WBC is 7.5, hemoglobin 12, hematocrit 36.7, platelet count is 146. Sodium is 141, potassium 3.5, chloride 96, carbon dioxide 37, BUN 34, creatinine one, GFR greater than 60, fasting glucose 109, calcium 8.9, magnesium 2.1. Total bilirubin 1.8, AST 50, ALT 27, alkaline phosphatase 158. Total protein 7.7, albumin three. ASSESSMENT AND PLAN: 1. Anasarca. The patient had some episode of lightheadedness with unsteady gait. There is also concern due to adverse effect from significant fluid removal. The patient's Lasix diuresis dosage has been decreased. We will continue to monitor him for now to see if patient still can maintain adequate output. The patient will be followed with orthostatic measurements. We also cautioned patient to watch for any symptoms such as lightheadedness or fatigue or gait instability. The patient should be on fall precautions. 2. Atrial fibrillation, rate in the satisfactory range. On beta franki and Eliquis. 3. Abdominal ascites causing abdominal distention. Had paracentesis on 01/23/2017, and 4.6 liters of ascitic fluid were removed. 4. Acute kidney injury on admission secondary to fluid overload, resolved. 5. Type 2 diabetes with A1c of 7.8. On sliding scale consisting of Levemir. Consistent carbohydrate diet. 6. History of coronary artery disease status post coronary artery bypass graft (CABG) times four. 7. History of pulmonary hypertension on Lasix and spironolactone. 8. History of methicillin-resistant Staphylococcus aureus (MRSA) infection. 9. History of gastroesophageal reflux disease on omeprazole. 10. Deep venous thrombosis (DVT) physical examination on Eliquis.
[2017-01-26] MEDS: LEVEMIR (INSULIN DETEMIR) 1 UNITS/0.01ML SC SCH (20:38)
[2017-01-26] MEDS: TAMSULOSIN 0.4 MG CAP PO SCH (20:40)
[2017-01-27] VITALS (17 sets, daily range): BP systolic 96–137; BP diastolic 58–95; O2SAT 88–99
[2017-01-27] MEDS: IPRATROPIUM 0.5MG/ALBUTEROL 2.5MG INH SOL UD 3ML (DUONEB)(J7620) NEB SCH ×4 (02:00→19:50)
[2017-01-27 05:27] LABS: MEAN CORPUSCULAR HEMOGLOBIN 31.4 pg (27.0-33.0); MEAN CORPUSCULAR HGB CONC 32.7 g/dl (32.0-36.5); RED CELL DISTRIBUTION WIDTH 15.8 % (11.5-14.5); WHITE BLOOD COUNT 7.8 K/mm3 (4.0-10.0)
[2017-01-27 05:33] LABS: INR 1.71
[2017-01-27] MEDS: FUROSEMIDE 40 MG/4 ML VIAL (J1940) IV SCH ×3 (05:41→17:18)
[2017-01-27 05:59] LABS: ALBUMIN 3.1 GM/DL (3.2-5.2); ALBUMIN/GLOBULIN RATIO 0.69 (1.00-1.93); ALKALINE PHOSPHATASE 165 U/L (45-117); ALT/SGPT 29 U/L (12-78); ANION GAP 7 MEQ/L (8-16); AST/SGOT 51 U/L (15-37); BILIRUBIN,TOTAL 1.8 MG/DL (0.2-1.0); BLOOD UREA NITROGEN 33 MG/DL (7-18); CALCIUM LEVEL 8.6 MG/DL (8.5-10.1); CARBON DIOXIDE LEVEL 37 MEQ/L (21-32); CHLORIDE LEVEL 96 MEQ/L (98-107); CREATININE FOR GFR 0.99 MG/DL (0.70-1.30); GLOMERULAR FILTRATION RATE > 60.0 (>56); GLUCOSE, FASTING 119 MG/DL (70-105); MAGNESIUM LEVEL 2.1 MG/DL (1.8-2.4); POTASSIUM SERUM 3.6 MEQ/L (3.5-5.1); SODIUM LEVEL 140 MEQ/L (136-145); TOTAL PROTEIN 7.6 GM/DL (6.4-8.2)
[2017-01-27] MEDS: SYMBICORT 80/4.5MCG INHALER 6GM INH SCH ×2 (07:05→19:23)
[2017-01-27] MEDS: HumaLOG INSULIN (NovoLOG) PER UNIT SC SCH ×4 (08:22→22:03)
[2017-01-27] MEDS: APIXABAN 5 MG TAB (ELIQUIS) PO SCH ×2 (08:23→22:04)
[2017-01-27] MEDS: FEBUXOSTAT 40 MG TABLET (ULORIC) PO SCH (08:23)
[2017-01-27] MEDS: POTASSIUM CHLORIDE 10 MEQ SR TABLET PO SCH ×2 (08:23→22:04)
[2017-01-27] MEDS: PREGABALIN 50 MG CAP (LYRICA) PO SCH ×3 (08:23→22:04)
[2017-01-27] MEDS: SPIRONOLACTONE 50 MG TAB PO SCH (08:23)
[2017-01-27] MEDS: METOPROLOL TART 50 MG TAB PO SCH ×2 (08:24→22:05)
[2017-01-27] MEDS: OMEPRAZOLE 20 MG CAP PO SCH (08:24)
[2017-01-27] MEDS: OMEGA-3 1050MG CAPSULE PO SCH (08:24)
[2017-01-27] MEDS: SENOKOT S TAB PO SCH ×2 (08:24→22:05)
--- NOTE | 2017-01-27 18:51 | REP ---
Clinical: Scrotal swelling. Technique: Real time guillaume scale and color Doppler evaluation using curved array transducer. Findings: The bilateral testicles and epididymi are relatively normal in appearance and vascularity without intratesticular mass lesion, infectious/inflammatory process or torsion. Right testicle measures 4.5 x 3.1 x 2.9 cm. Left testicle measures 4.3 x 3.0 x 2.9 cm. Small hydroceles are suggested. No varicoceles identified. Severe diffuse heterogeneous scrotal edema is appreciated along with insinuating fluid and possible phlegmon/forming abscesses and possible small foci of gas measuring 8.7 x 5.6 x 7.5 cm in the right kathryn scrotum and 9.8 x 4.4 x 7.2 cm in the left kathryn scrotum. Close clinical observation is recommended and contrast enhanced CT through the pelvis to include the scrotum may be warranted. Impression: 1. Relatively normal appearance the bilateral testicles and epididymi. Cannot exclude small hydroceles. 2. Severe heterogeneous scrotal wall swelling and edema with suspected phlegmonous changes and possible forming abscesses with gas as described above. Close clinical observation is recommended and contrast enhanced CT of the pelvis through the scrotum may be warranted for more definitive evaluation. Signed by Adiel Pretty MD 01/27/2017 06:42 P
[2017-01-27 20:03] LABS: ANION GAP 7 MEQ/L (8-16); BLOOD UREA NITROGEN 33 MG/DL (7-18); CALCIUM LEVEL 8.5 MG/DL (8.5-10.1); CARBON DIOXIDE LEVEL 34 MEQ/L (21-32); CHLORIDE LEVEL 96 MEQ/L (98-107); CREATININE FOR GFR 1.16 MG/DL (0.70-1.30); GLOMERULAR FILTRATION RATE > 60.0 (>56); GLUCOSE, FASTING 262 MG/DL (70-105); POTASSIUM SERUM 4.1 MEQ/L (3.5-5.1); SODIUM LEVEL 137 MEQ/L (136-145)
--- NOTE | 2017-01-27 21:44 | IPN ---
DATE: 01/27/2017 SUBJECTIVE: Patient is seen and examined in the room today. Patient is still complaining of some lightheadedness, especially during posture changes and it is intermittent and patient is noticed to have soft blood pressures. Patient noticed swelling of upper and lower extremities improving, however the swelling in his scrotal area is still quite significant. This morning, around 1 a.m., patient was found to have a systolic blood pressure below 100. The finding is rare for the patient. OBJECTIVE: VITAL SIGNS: Temperature 97.6, pulse 95, respirations 20, blood pressure 103/62 , pulse oximetry 90% in room air. GENERAL: No sign of acute distress, fatigued, alert and oriented times three. HEENT: Normocephalic, atraumatic. Extraocular motors grossly intact. CARDIOVASCULAR: Irregularly irregular. Positive S1, S2. Heart rate in the satisfactory range. LUNGS: Clear to auscultation bilaterally. ABDOMEN: Still having significant abdominal distention but abdomen is soft. Bowel sounds present. No rebound, no guarding. EXTREMITIES: 2+ pitting edema bilaterally in lower extremities. 1+ pitting edema in upper extremities. GENITOURINARY (): Still having significant swelling with erythema in the scrotal area. LABORATORY DATA: WBC 7.8, hemoglobin 12.1, hematocrit 36.9, platelet count 146. Sodium 140, potassium 3.6, chloride 96, carbon dioxide 37, BUN 33, creatinine 0.99, GFR greater than 60, fasting glucose 119, calcium 8.6, magnesium 2.1, total bilirubin is 1.8, AST 51, ALT 29, alkaline phosphatase 165, total protein 7.6, albumin 3.1. ASSESSMENT AND PLAN: 1. Anasarca. Patient started to show frequent signs of significant fluid removal. Patient's blood pressure has been lower and patient started to have episodes of lightheadedness. The Lasix diuresis has been decreased. Continue to monitor patient for orthostasis. Continue to monitor on telemetry. Patient still has significant fluid overload. We appreciate assistance from cardiology. 2. Scrotal swelling. Symptom has not shown significant improvement with aggressive diuresis. Discussed with patient and will follow up with scrotal ultrasound. 3. Atrial fibrillation. Rate in the satisfactory range, on beta franki and Eliquis. 4. Abdominal ascites causing abdominal distention. Paracentesis performed on 01/23/2017, 4.6 liters ascitic fluid was removed. Gram stain of the ascitic fluid is negative for any organism. Acid-fast staining and microbacterial culture and fungal culture is still pending. 5. Acute kidney injury on admission secondary to fluid overload, resolved. 6. Type 2 diabetes with an A1c of 7.8. On Levemir, sliding scale, and consistent carbohydrate diet. Patient is also on fluid restriction. 7. History of coronary artery disease status post coronary artery bypass graft (CABG) times four. 8. History of pulmonary hypertension. On Lasix and spironolactone. 9. History of methicillin-resistant Staphylococcus aureus (MRSA) infection. 10. Gastroesophageal reflux disease. On omeprazole. 11. Deep venous thrombosis (DVT) prophylaxis. Patient on Eliquis. [facility]
[2017-01-27] MEDS: LEVEMIR (INSULIN DETEMIR) 1 UNITS/0.01ML SC SCH (22:03)
[2017-01-27] MEDS: TAMSULOSIN 0.4 MG CAP PO SCH (22:04)
[2017-01-28] VITALS (11 sets, daily range): BP systolic 102–134; BP diastolic 69–76; O2SAT 90–91
[2017-01-28] MEDS: IPRATROPIUM 0.5MG/ALBUTEROL 2.5MG INH SOL UD 3ML (DUONEB)(J7620) NEB SCH ×4 (01:09→20:00)
[2017-01-28 05:42] LABS: MEAN CORPUSCULAR HEMOGLOBIN 31.3 pg (27.0-33.0); MEAN CORPUSCULAR HGB CONC 32.8 g/dl (32.0-36.5); MEAN CORPUSCULAR VOLUME 95.5 fl (80.0-96.0); RED CELL DISTRIBUTION WIDTH 15.9 % (11.5-14.5); WHITE BLOOD COUNT 7.7 K/mm3 (4.0-10.0)
[2017-01-28 05:51] LABS: INR 1.71
[2017-01-28 06:02] LABS: ALBUMIN 3.1 GM/DL (3.2-5.2); ALBUMIN/GLOBULIN RATIO 0.76 (1.00-1.93); ALKALINE PHOSPHATASE 165 U/L (45-117); ALT/SGPT 28 U/L (12-78); ANION GAP 6 MEQ/L (8-16); AST/SGOT 51 U/L (15-37); BLOOD UREA NITROGEN 31 MG/DL (7-18); CALCIUM LEVEL 8.5 MG/DL (8.5-10.1); CARBON DIOXIDE LEVEL 34 MEQ/L (21-32); CHLORIDE LEVEL 97 MEQ/L (98-107); CREATININE FOR GFR 1.04 MG/DL (0.70-1.30); GLOMERULAR FILTRATION RATE > 60.0 (>56); GLUCOSE, FASTING 121 MG/DL (70-105); MAGNESIUM LEVEL 2.1 MG/DL (1.8-2.4); POTASSIUM SERUM 4.2 MEQ/L (3.5-5.1); SODIUM LEVEL 137 MEQ/L (136-145); TOTAL PROTEIN 7.2 GM/DL (6.4-8.2)
[2017-01-28] MEDS: FUROSEMIDE 40 MG/4 ML VIAL (J1940) IV SCH ×4 (06:37→17:23)
[2017-01-28] MEDS: SYMBICORT 80/4.5MCG INHALER 6GM INH SCH ×2 (07:35→20:29)
[2017-01-28] MEDS: HumaLOG INSULIN (NovoLOG) PER UNIT SC SCH ×4 (08:39→21:00)
[2017-01-28] MEDS: FEBUXOSTAT 40 MG TABLET (ULORIC) PO SCH (08:40)
[2017-01-28] MEDS: OMEPRAZOLE 20 MG CAP PO SCH (08:40)
[2017-01-28] MEDS: POTASSIUM CHLORIDE 10 MEQ SR TABLET PO SCH ×2 (08:40→22:04)
[2017-01-28] MEDS: METOPROLOL TART 50 MG TAB PO SCH ×2 (08:41→22:05)
[2017-01-28] MEDS: PREGABALIN 50 MG CAP (LYRICA) PO SCH ×3 (08:41→22:03)
[2017-01-28] MEDS: APIXABAN 5 MG TAB (ELIQUIS) PO SCH ×2 (08:41→22:04)
[2017-01-28] MEDS: SPIRONOLACTONE 50 MG TAB PO SCH (08:41)
[2017-01-28] MEDS: OMEGA-3 1050MG CAPSULE PO SCH (08:42)
[2017-01-28] MEDS: SENOKOT S TAB PO SCH ×2 (08:42→22:04)
[2017-01-28] MEDS ORDERED: ISOVUE-370 76% 100ML VIAL (Q9967) As Ordered ONE (09:08)
--- NOTE | 2017-01-28 09:35 | REP ---
Clinical: Abnormal scrotal wall thickening rule out abscess. Technique: Axial contrast enhanced images from the lung bases to the pubic symphysis through the scrotum using 100 ml Isovue 370 intravenous contrast material with coronal and sagittal re-formations. Comparison: 01/21/2017. Findings: Lung bases demonstrate mild cardiomegaly, pulmonary vascular congestion and small to moderate pleural effusion with passive atelectasis. A moderate amount of ascites is appreciated throughout the abdomen and pelvis. Associated mesenteric stranding is appreciated the liver demonstrates a subtle parenchymal heterogeneity raising the possibility of hepatocellular disease and cirrhosis. Spleen, pancreas, right adrenal gland and kidneys appear normal. A 2.3 cm enhancing left adrenal lesion is essentially unchanged when compared to chest CT dated 2004 reflecting a typical benign adenoma. The enteric system is without obstruction. Pelvis demonstrates normal bladder and age appropriate prostate/seminal vesicles. Significant diffuse scrotal wall thickening is appreciated without focal drainable collection/abscess. No evidence for scrotal gas is identified. The testicles appear grossly normal. Atherosclerotic changes to the vasculature noted without aortic aneurysm. Musculoskeletal structures are intact and without focal osseous abnormality. Impression: 1. Diffuse significant scrotal wall thickening / edema without evidence for drainable collection/abscess or gas. Findings are likely related to the moderate ascites and right pleural effusion. 2. Cannot exclude hepatocellular disease/cirrhosis. 3. Cholelithiasis. 4. Lung bases suggest cardiomegaly mild pulmonary vascular congestion and include small to moderate right pleural effusion and passive atelectasis. 5. Benign atypical adenoma left adrenal gland stable compared to 2005. Signed by Adiel Pretty MD 01/28/2017 09:34 A
--- NOTE | 2017-01-28 12:40 | REP ---
Clinical: Evaluate for ascites and possible paracentesis. Technique: Transabdominal obstetrical ultrasound. Findings: Real time guillaume scale ultrasound examination through the abdomen and pelvis demonstrates only minimal amount of free fluid primarily noted in the pelvis inadequate for safe paracentesis. Impression: Small amount of ascites below threshold for safe paracentesis. Signed by Adiel Pretty MD 01/28/2017 12:31 P
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
[2017-01-28] MEDS ORDERED: FUROSEMIDE 20 MG/2 ML VIAL (J1940) IV ONE (18:30)
[2017-01-28 19:11] LABS: ANION GAP 6 MEQ/L (8-16); BLOOD UREA NITROGEN 31 MG/DL (7-18); CARBON DIOXIDE LEVEL 35 MEQ/L (21-32); CHLORIDE LEVEL 96 MEQ/L (98-107); CREATININE FOR GFR 1.13 MG/DL (0.70-1.30); GLOMERULAR FILTRATION RATE > 60.0 (>56); GLUCOSE, FASTING 202 MG/DL (70-105); MAGNESIUM LEVEL 2.1 MG/DL (1.8-2.4); POTASSIUM SERUM 4.5 MEQ/L (3.5-5.1); SODIUM LEVEL 137 MEQ/L (136-145)
--- NOTE | 2017-01-28 19:19 | IPN ---
DATE: 01/28/2017 Mr. Elie Damon was seen this evening. He was sitting up in bed in no acute distress at rest. There is no orthopnea, shortness of breath or palpitations. He denies any chest pain. There has been a problem controlling his pedal edema and currently on intravenous (IV) furosemide and spironolactone. His serum potassium and kidney function have been stable. His abdomen continues to be distended as well as his scrotum. He was seen earlier today by urology for his scrotum and conservative management was recommended, to keep the scrotum elevated above the thigh. He also had an abdominal ultrasound done earlier today and only a small amount of ascites was noted below the chest wall for safe paracentesis and it was not done. He also had an abdominal CT done earlier today that revealed diffuse scrotal wall thickening/edema without evidence of any collection or abscess or gas. Findings were thought to be related to ascites, and a hepatocellular disease/cirrhosis could not be ruled out. There was cholelithiasis. Cardiomegaly was noted with pulmonary vascular congestion and small to moderate right pleural effusion. A benign atypical adenoma was noted compared to 2004. On physical examination, the patient is alert and oriented, in no acute distress at rest and his last vital signs today revealed a blood pressure of 109/69 with a pulse of 64, respirations 18 to 20 and his maximum temperature was 96.1 degrees Fahrenheit with an oxygen saturation of 95% on nasal cannula. Extremities revealed trace to +1 bilateral lower leg edema. LABORATORY: BMP done today revealed a sodium of 137, potassium 4.2, chloride 97, CO2 34, BUN 31, creatinine 1.04, GFR more than 60 and fasting glucose 121 with a calcium of 8.5. Serum magnesium is 2.1. Liver enzymes revealed a total bilirubin of 2.0, AST 51, ALT 28, alkaline phosphatase 165, total protein 7.2, albumin 3.1. CBC revealed a WBC of 7.7, hemoglobin 11.8, hematocrit 36.1 and platelets 148,000. Mr. Elie Damon seems to be stable, but his anasarca is not quite under control for him to go home. The etiology is not quite clear. We are thinking about underlying liver disease, but he also has dilated a right heart chamber and probably some right-sided heart failure but pulmonary pressure was not quite elevated, may be underestimated. Will continue the diuretics and monitor closely his BUN, creatinine and serum potassium. I will increase the furosemide to 60 mg every 6 hours and I will give one dose of Zaroxolyn prior to the next furosemide. He will have a basic metabolic panel (BMP) done in the morning, 01/29/2017, to check his BUN, creatinine and serum potassium. The case was discussed earlier today with hospitalist covering. ORDOÑEZ
[2017-01-28] MEDS: LEVEMIR (INSULIN DETEMIR) 1 UNITS/0.01ML SC SCH (22:06)
[2017-01-28] MEDS: TAMSULOSIN 0.4 MG CAP PO SCH (22:06)
[2017-01-28] MEDS ORDERED: metOLazone 2.5 MG TAB PO ONE (23:30)
[2017-01-29] MEDS: FUROSEMIDE 100 MG/10 ML VIAL (J1940) IV SCH ×6 (00:26→23:54)
[2017-01-29] MEDS: IPRATROPIUM 0.5MG/ALBUTEROL 2.5MG INH SOL UD 3ML (DUONEB)(J7620) NEB SCH ×4 (01:09→19:44)
[2017-01-29 04:49] VITALS: BP 106/66
[2017-01-29 06:59] LABS: ANION GAP 5 MEQ/L (8-16); BLOOD UREA NITROGEN 30 MG/DL (7-18); CALCIUM LEVEL 8.7 MG/DL (8.5-10.1); CARBON DIOXIDE LEVEL 36 MEQ/L (21-32); CHLORIDE LEVEL 97 MEQ/L (98-107); CREATININE FOR GFR 1.07 MG/DL (0.70-1.30); GLOMERULAR FILTRATION RATE > 60.0 (>56); GLUCOSE, FASTING 106 MG/DL (70-105); POTASSIUM SERUM 3.8 MEQ/L (3.5-5.1); SODIUM LEVEL 138 MEQ/L (136-145)
[2017-01-29] MEDS: SYMBICORT 80/4.5MCG INHALER 6GM INH SCH ×2 (07:38→19:43)
[2017-01-29] MEDS: HumaLOG INSULIN (NovoLOG) PER UNIT SC SCH ×4 (07:43→21:35)
[2017-01-29 08:00] VITALS: BP 96/66
[2017-01-29] MEDS: POTASSIUM CHLORIDE 10 MEQ SR TABLET PO SCH ×2 (09:04→22:50)
[2017-01-29] MEDS: OMEPRAZOLE 20 MG CAP PO SCH (09:04)
[2017-01-29] MEDS: FEBUXOSTAT 40 MG TABLET (ULORIC) PO SCH (09:04)
[2017-01-29] MEDS: SENOKOT S TAB PO SCH ×2 (09:05→21:32)
[2017-01-29] MEDS: OMEGA-3 1050MG CAPSULE PO SCH (09:05)
[2017-01-29] MEDS: SPIRONOLACTONE 50 MG TAB PO SCH (09:05)
[2017-01-29] MEDS: PREGABALIN 50 MG CAP (LYRICA) PO SCH ×3 (09:05→21:32)
[2017-01-29] MEDS: APIXABAN 5 MG TAB (ELIQUIS) PO SCH ×2 (09:05→21:32)
[2017-01-29 12:00] VITALS: BP 106/69
[2017-01-29] MEDS: METOPROLOL TART 50 MG TAB PO SCH ×2 (13:29→21:32)
[2017-01-29] MEDS ORDERED: SLF 3 ML SYR IV PRN (13:30)
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
[2017-01-29] MEDS: SLF 3 ML SYR IV SCH ×2 (15:32→22:51)
[2017-01-29 15:45] VITALS: BP 130/83
[2017-01-29 18:52] LABS: ANION GAP 11 MEQ/L (8-16); BLOOD UREA NITROGEN 31 MG/DL (7-18); CALCIUM LEVEL 8.7 MG/DL (8.5-10.1); CARBON DIOXIDE LEVEL 32 MEQ/L (21-32); CHLORIDE LEVEL 97 MEQ/L (98-107); CREATININE FOR GFR 1.12 MG/DL (0.70-1.30); GLOMERULAR FILTRATION RATE > 60.0 (>56); GLUCOSE, FASTING 160 MG/DL (70-105); MAGNESIUM LEVEL 2.3 MG/DL (1.8-2.4); POTASSIUM SERUM 3.9 MEQ/L (3.5-5.1); SODIUM LEVEL 140 MEQ/L (136-145)
[2017-01-29 20:48] VITALS: BP 117/77
[2017-01-29] MEDS: LEVEMIR (INSULIN DETEMIR) 1 UNITS/0.01ML SC SCH (21:31)
[2017-01-29] MEDS: TAMSULOSIN 0.4 MG CAP PO SCH (21:32)
[2017-01-29 21:42] LABS: ANION GAP 10 MEQ/L (8-16); BLOOD UREA NITROGEN 32 MG/DL (7-18); CALCIUM LEVEL 8.4 MG/DL (8.5-10.1); CARBON DIOXIDE LEVEL 31 MEQ/L (21-32); CHLORIDE LEVEL 97 MEQ/L (98-107); CREATININE FOR GFR 1.17 MG/DL (0.70-1.30); GLOMERULAR FILTRATION RATE > 60.0 (>56); GLUCOSE, FASTING 169 MG/DL (70-105); POTASSIUM SERUM 3.9 MEQ/L (3.5-5.1); SODIUM LEVEL 138 MEQ/L (136-145)
[2017-01-29 23:57] VITALS: BP 103/64
[2017-01-30] MEDS: IPRATROPIUM 0.5MG/ALBUTEROL 2.5MG INH SOL UD 3ML (DUONEB)(J7620) NEB SCH ×2 (01:19→07:17)
[2017-01-30 04:38] VITALS: BP 112/60
--- NOTE | 2017-01-30 05:28 | IPN ---
DATE OF SERVICE: 01/30/2017 Mr. Elie Damon was seen early this evening. He was sitting up in bed in no acute distress at rest. He stated that he feels much better. His edema has improved significantly and he is able to walk a little better. His scrotum is still swollen. There is no fever or chills. He has been ambulating a little bit more today. When I saw him in the evening of 01/28/2017, his furosemide was increased and he was getting one dose of Zaroxolyn and his urine output has improved significantly. Examination of the head is normocephalic, atraumatic. Neck is soft. No jugular venous distention (JVD). The lungs did not reveal any wheezing. The heart examination revealed irregularly irregular heart sounds, without gallops. The point of maximum impulse (PMI) is nondisplaced. There is no rub. Abdomen appears to be soft. Extremities revealed less pedal edema. Neurologic examination is negative for focal deficit. LABORATORIES: BMP done on 01/29/2017 at 1805 hours revealed a sodium of 140, potassium 3.9, chloride 97, CO2 32, BUN 31, creatinine 1.12, GFR more than 60 and fasting glucose 160 with a calcium 8.7. Serum magnesium is 2.3. Repeat BMP revealed a sodium of 138, potassium 3.9, chloride 97, CO2 31, BUN 32, creatinine 1.17, GFR more than 60 and fasting glucose 16 with uric acid of 7.0. Serum calcium was 8.4. Mr. Elie Damon seems to be stable from a cardiac point of view. His urinary output has improved significantly. He was complaining of muscle cramps and I checked his uric acid, it was normal. He will continue with the current diet and if he remains stable tomorrow, he probably can be discharged home. Prior coming to the hospital, he was Bumex. He probably can be discharged home on the same dose of Lasix, but oral form and he will continue with spironolactone. He does have some Zaroxolyn at home and he may take it one every other day. He was evaluated today by cardiac rehabilitation and plans to proceed. If he goes home, I will see him as outpatient this coming week on Friday or Friday, and I will check his BUN and creatinine. He will call the office if he gains more than 4 pounds and he is well aware of that. MTDD
[2017-01-30] MEDS: FUROSEMIDE 100 MG/10 ML VIAL (J1940) IV SCH (05:48)
[2017-01-30] MEDS: SLF 3 ML SYR IV SCH (05:48)
[2017-01-30 05:56] LABS: ANION GAP 6 MEQ/L (8-16); BLOOD UREA NITROGEN 37 MG/DL (7-18); CALCIUM LEVEL 8.6 MG/DL (8.5-10.1); CARBON DIOXIDE LEVEL 35 MEQ/L (21-32); CHLORIDE LEVEL 95 MEQ/L (98-107); CREATININE FOR GFR 1.28 MG/DL (0.70-1.30); GLOMERULAR FILTRATION RATE > 60.0 (>56); GLUCOSE, FASTING 146 MG/DL (70-105); POTASSIUM SERUM 3.6 MEQ/L (3.5-5.1); SODIUM LEVEL 136 MEQ/L (136-145)
[2017-01-30] MEDS: SYMBICORT 80/4.5MCG INHALER 6GM INH SCH (07:17)
[2017-01-30] MEDS: HumaLOG INSULIN (NovoLOG) PER UNIT SC SCH ×2 (07:33→12:00)
[2017-01-30 08:00] VITALS: BP 108/62
[2017-01-30] MEDS: APIXABAN 5 MG TAB (ELIQUIS) PO SCH (10:16)
[2017-01-30] MEDS: FEBUXOSTAT 40 MG TABLET (ULORIC) PO SCH (10:16)
[2017-01-30] MEDS: OMEPRAZOLE 20 MG CAP PO SCH (10:16)
[2017-01-30] MEDS: PREGABALIN 50 MG CAP (LYRICA) PO SCH (10:16)
[2017-01-30] MEDS: SPIRONOLACTONE 50 MG TAB PO SCH (10:16)
[2017-01-30] MEDS: SENOKOT S TAB PO SCH (10:16)
[2017-01-30 10:17] VITALS: BP 112/74
[2017-01-30] MEDS: OMEGA-3 1050MG CAPSULE PO SCH (10:17)
[2017-01-30] MEDS: POTASSIUM CHLORIDE 10 MEQ SR TABLET PO SCH (10:17)
[2017-01-30] MEDS: METOPROLOL TART 50 MG TAB PO SCH (10:17)
[2017-01-30] MEDS ORDERED: INSUDET SC (10:41)
[2017-01-30] MEDS ORDERED: METO25TA PO ×2 (10:41→13:34)
[2017-01-30] MEDS ORDERED: ALDA50TA2 PO (10:41)
[2017-01-30] MEDS ORDERED: LASI20TA PO (10:42)
[2017-01-30] MEDS ORDERED: metOLazone 2.5 MG TAB PO ONE (11:00)
[2017-01-30] MEDS ORDERED: FUROSEMIDE 20 MG TAB PO ONE (11:30)
--- NOTE | 2017-01-30 15:59 | DSES ---
DATE OF ADMISSION: 01/21/2017 DATE OF DISCHARGE: 01/30/2017 PRIMARY CARE PROVIDER: Dr. Heather Godoy CONSULTANTS DURING THIS ADMISSION: Dr. Robertson of cardiology, Dr. Zheng of nephrology, Dr. Rutledge, urologist. PRIMARY DISCHARGE DIAGNOSES: 1. Anasarca. 2. Acute kidney injury superimposed on chronic kidney disease stage II. 3. Decompensated congestive heart failure (CHF), diastolic dysfunction with fluid overload. 4. Electrolyte abnormalities with hypokalemia, low potassium level. 5. History of coronary artery disease and coronary artery bypass graft (CABG). 6. Atrial fibrillation, chronic and persistent, on chronic anticoagulation. 7. Hyperlipidemia. 8. Morbid obesity, Body Mass Index (BMI) 42.4. 9. Probable obstructive sleep apnea. 10. History of alcohol abuse, has not had a drink in several months. 11. Pulmonary hypertension. 12. History of methicillin resistant Staphylococcus aureus (MRSA). 13. Chronic reflux. 14. Cannot exclude hepatocellular disease and cirrhosis. DISCHARGE MEDICATIONS: - Lasix 60 mg by mouth every 6 hours, 20 mg tablets three tablets every 6 hours - Levemir insulin 60 units subcutaneously at night - imidazoline 2.5 mg 30 minutes prior to Lasix - spironolactone 50 mg daily - albuterol two puffs every 4 hours as needed - ammonium lactate topically twice a day - Apixaban 5 mg twice a day - Symbicort two puffs twice a day - Uloric 80 daily - NovoLog insulin sliding scale - metoprolol 50 mg twice a day - omega 3 1000 units daily - omeprazole 20 mg twice weekly - potassium 20 mEq twice a day - Lyrica 50 twice a day - Flomax 0.4 mg at night - 0.75 mg subcutaneously weekly - vitamin D 50,000 units weekly DISCHARGE INSTRUCTIONS: 1-1/[address] Robertson if more than 2 to 4 pound weight gain. Cardiac rehabilitation. Followup with Dr. Robertson within 7 days after hospital discharge. HOSPITAL COURSE: This is a 56-year-old morbidly obese male with a Body Mass Index (BMI) of 42.4, coronary artery disease, CABG in 2010, hyperlipidemia, intolerance to statins, including Zetia, atrial fibrillation, chronic kidney disease stage II to III, follows with Dr. Nimo, diabetes, obstructive sleep apnea and obesity, hypothyroidism, presents to the emergency room with increasing abdominal distention, anasarca, increased lower extremity edema. The patient was being managed on Lasix recently and was changed over to Bumex. He had called his small craft operator, who recommended to present to the emergency room. The patient was having acute respiratory distress and was given intravenous Lasix. Admission weight was 136 kg, peak weight of 143.7 kg and discharge weight of 141 kg with 15 liters of net negative over the next few days. The patient underwent paracentesis with 4.65 liters of acetic fluid removed. He remained afebrile. Negative culture and gram-stain on 01/22/2017 acetic fluid. MRSA screen was negative. He was afebrile with no white count. No empiric antibiotics were given. He was kept on Lasix 60 mg IV with orthostasis, decreased to 40 mg IV every 4 hours with no significant diuresis. Spironolactone was added, as well as Zaroxolyn. The patient was given Lasix 60 mg IV every 6 hours with change in weight from 143.7 kg to 141.7 kg. The patient had symptomatic relief of his respiratory distress and was saturating 91 to 96% on room air. He passed a home safety evaluation. He developed scrotal edema during this admission due to significant anasarca. He was given 3 units of albumin infusion due to systolic pressure of 96 to [address] of the abdomen and pelvis with intravenous contrast to evaluate his scrotal edema, as well as questions of gas found on the ultrasound was negative for abscess formation. Dr. Rutledge of urology did evaluate the patient and felt that the fluid caused scrotal edema and was most likely secondary to the patient's acute issues with no signs of acute infection. No empiric antibiotics were given. CT of the abdomen and pelvis also shows cannot exclude hepatocellular disease or cirrhosis. KIAH was negative. Antimitochondrial antibody was negative, antismooth muscle antibody was negative. The patient is to followup with primary care provider to further evaluate his liver function tests. He is discharged in stable condition. LABORATORIES ON DISCHARGE: White count 7.7, hemoglobin 11, hematocrit 36, platelet count 148. Sodium 136, potassium 3.6, chloride 95, bicarbonate 35, BUN 37, creatinine 1.28, glucose of 146. Hepatitis serology negative. KIAH negative. Antimitochondrial antibody 6.4, antismooth muscle of 10. IMAGING STUDIES: Paracentesis on 01/22/2017 was 4.65 liters of clay colored fluid withdrawn. Sample sent for analysis. Microbiology negative for spontaneous bacterial peritonitis. Scrotal ultrasound showed questionable suspected phlegmon and questionable gas. CT of the abdomen and pelvis with intravenous contrast shows diffuse scrotal wall thickening and edema without evidence of drainable collection, abscess or gas related to moderate ascites and right pleural effusion, cannot exclude hepatocellular disease and cirrhosis, cholelithiasis, lung bases suggest cardiomegaly with mild pulmonary vascular congestion, including small to moderate right pleural effusion and passive atelectasis, benign atypical adenoma in left adrenal gland stable compared to 2005. Time spent on discharge: 40 minutes.
--- NOTE | 2017-02-03 14:08 | IPN ---
DATE: 01/23/2017 SUBJECTIVE: Patient was seen and examined at the bedside today morning in the progressive care unit (PCU). Patient continues to respond very well to the intravenous (IV) Lasix drip. He is diuresing well. Last 24-hour events were noted. Patient got the ascitic tap done was well. Patient is hemodynamically stable at this time. REVIEW OF SYSTEMS: Patient denies any fever, chills, rigors, headache, nausea, vomiting, chest pain. He does report that his shortness of breath is significantly better. Patient reports his abdominal distention is also getting better with the diuresis and with the ascitic tap that was done yesterday. He still reports scrotal edema. Patient reports lower extremity edema as well, and he reports his shortness of breath on exertion is improving as well. Rest of review of systems is negative. OBJECTIVE: Vital signs: Temperature is 98.7 degrees Fahrenheit, blood pressure is 122/82, pulse is 98, respiratory rate of 18, saturating 94% on nasal cannula at 3 liters. Intake and output: Urine output recorded is 3.6 liters yesterday, 3.4 liters so far today since overnight. PHYSICAL EXAMINATION: GENERAL: Patient is awake, alert, oriented times three, sitting in the bed. No apparent distress. HEAD AND NECK: Extraocular muscles intact. Pupils equally round and reactive to light. Mucous membranes are moist. Neck is supple. There is elevated jugular venous distention (JVD). CARDIOVASCULAR: S1, S2, irregularly irregular heart rate. No murmur, rub, or gallop. Patient has a midline sternotomy scar. RESPIRATORY: Decreased breath sounds at the bases and mild expiratory crackles. ABDOMEN: Soft, distended with flat umbilicus. Positive abdominal wall edema with mild amount of ascites. Right lower quadrant dressing from the recent ascitic tap site. MUSCULOSKELETAL: No clubbing or cyanosis. Patient has 2+ pitting edema of the bilateral lower extremities. CENTRAL NERVOUS SYSTEM: No focal neurologic deficit. Power is 5/5 in all extremities. PSYCHIATRIC: Normal mood and affect. SKIN: No rashes or ulcerations. He has chronic venous stasis changes in bilateral lower extremities. LABORATORY REVIEW: CBC showed a WBC 6.6, hemoglobin 12.7, platelets of 174. Ascitic fluid total nucleated cells were 639, but they were 97% lymphocytes. BMP showed sodium 136, potassium 3.6, chloride 92, bicarbonate 37, BUN 39, creatinine is 1.2, glucose 260, calcium is 9, magnesium 2.1. Microbiology: Gram stain of the ascitic fluid showed no cells, no organisms. CURRENT INPATIENT MEDICATIONS: Patient's medications were all reviewed by me. His IV Lasix drip has been stopped, and he is currently on Lasix 40 mg IV every 6 hours. There is no other change in the medications today as compared with yesterday. ASSESSMENT: A 56-year-old male with past medical history of congestive heart failure, diabetes mellitus, type 2, chronic kidney disease, stage II, hypertension, admitted at this time because of decompensated congestive heart failure and anasarca along with acute kidney injury. RECOMMENDATIONS AND PLAN: 1. Acute kidney injury superimposed on chronic kidney disease, stage II. It was secondary to cardiorenal syndrome. Patient is getting aggressively diuresed. His renal function is stable with a creatinine of around 1.2 now. Continue the aggressive diuresis at this time. 2. Decompensated congestive heart failure and fluid overload. Patient's repeat echocardiogram reports is pending, but most likely patient has right heart failure. Patient was on IV Lasix drip, but he is responding very well. I agree with giving him intermittent doses of IV Lasix injection. Continue spironolactone. Continue potassium replacement along with diuretics as well. 3. Tense ascites. Patient got the ascitic tap done yesterday. Continue the aggressive diuresis at this time. 4. Gout secondary to chronic kidney disease. Continue current dose of Uloric 80 mg by mouth daily. 5. Hypertension. Blood pressure is acceptable at this time. Continue current dose of diuretics. Continue metoprolol. The plan of care was discussed with the hospitalist, Dr. Shayy Tobar. SMITA
[2017-02-18] MEDS ORDERED: FUROSEMIDE 100 MG/10 ML VIAL (J1940) IV SCH
== END 2017-01-30 13:00 | disposition home health service (06) | DRG 291 ==
LOC: M ED 11:10 → M ED INP 18:26 → M PCU 01-22 14:50
PROVIDERS: ADMIT Hospitalist; ATTEND General Practice
PROC: 0W9G3ZZ Drainage of Peritoneal Cavity, Percutaneous Approach (ICD-10-PCS; principal; 2017-01-22)
DX: I13.0 Hypertensive heart and chronic kidney disease with heart failure and stage 1 through stage 4 chronic kidney disease, or unspecified chronic kidney disease (principal); I50.33 Acute on chronic diastolic (congestive) heart failure; N17.9 Acute kidney failure, unspecified; R18.8 Other ascites; E87.1 Hypo-osmolality and hyponatremia; Z68.41 Body mass index [BMI] 40.0-44.9, adult; I48.1 Persistent atrial fibrillation; E87.3 Alkalosis; K76.1 Chronic passive congestion of liver; J44.9 Chronic obstructive pulmonary disease, unspecified; E66.01 Morbid (severe) obesity due to excess calories; E11.9 Type 2 diabetes mellitus without complications; I27.2 Other secondary pulmonary hypertension; E80.6 Other disorders of bilirubin metabolism; M10.9 Gout, unspecified; E78.5 Hyperlipidemia, unspecified; I25.10 Atherosclerotic heart disease of native coronary artery without angina pectoris; N50.89 Other specified disorders of the male genital organs; N18.3 Chronic kidney disease, stage 3 (moderate); G89.29 Other chronic pain; G47.33 Obstructive sleep apnea (adult) (pediatric); E87.6 Hypokalemia; R16.2 Hepatomegaly with splenomegaly, not elsewhere classified; K21.9 Gastro-esophageal reflux disease without esophagitis; Z79.01 Long term (current) use of anticoagulants; Z89.421 Acquired absence of other right toe(s); Z87.891 Personal history of nicotine dependence; Z95.1 Presence of aortocoronary bypass graft; Z79.4 Long term (current) use of insulin; Z88.8 Allergy status to other drugs, medicaments and biological substances

== ENCOUNTER 2017-02-24 12:40 | Outpatient (RCR) | payer SELFPAY ==
[~2017-02-24 12:40] MED LIST changes: +ALDA50TA2 PO; +AMMO12LO TOP; +BUME2TAB PO; +FLOM5CAP PO; +INSUDET SC; +LASI20TA PO; +METO37.5 PO; +POTA1TAB23; +SPIR25TA2 PO; +ULOR80TA PO
== END 2017-03-25 ==
LOC: M CR 12:40
DX: Z51.89 Encounter for other specified aftercare (principal); I50.9 Heart failure, unspecified

== ENCOUNTER → 2017-07-15 | Outpatient (REF) | payer MEDICARE, OTHER | LOC: M LAB REF 14:33 | DX: L03.031 Cellulitis of right toe (principal) | CPT/HCPCS: 87186 ==

== ENCOUNTER → 2018-04-21 | Outpatient (CLI) | payer MEDICARE, OTHER | LOC: M RAD 09:33 | DX: R18.8 Other ascites (principal); K76.9 Liver disease, unspecified; R94.5 Abnormal results of liver function studies; K21.9 Gastro-esophageal reflux disease without esophagitis ==

== ENCOUNTER 2018-04-22 15:43 | Inpatient (IN) | payer MEDICARE, OTHER ==
[2018-04-22 16:57] LABS: INR 1.76; PROTHROMBIN TIME 20.8 SECONDS (12.1-14.4)
[2018-04-22 17:04] LABS: ALBUMIN 3.2 GM/DL (3.2-5.2); ALBUMIN/GLOBULIN RATIO 0.71 (1.00-1.93); ALKALINE PHOSPHATASE 210 U/L (45-117); ALT/SGPT 40 U/L (12-78); ANION GAP 12 MEQ/L (8-16); AST/SGOT 75 U/L (7-37); BILIRUBIN,TOTAL 3.1 MG/DL (0.2-1.0); BLOOD UREA NITROGEN 61 MG/DL (7-18); CALCIUM LEVEL 8.8 MG/DL (8.5-10.1); CARBON DIOXIDE LEVEL 28 MEQ/L (21-32); CHLORIDE LEVEL 98 MEQ/L (98-107); GLUCOSE, FASTING 101 MG/DL (70-100); POTASSIUM SERUM 3.1 MEQ/L (3.5-5.1); SODIUM LEVEL 138 MEQ/L (136-145); TOTAL PROTEIN 7.7 GM/DL (6.4-8.2)
[2018-04-22] MEDS: POTASSIUM CHLORIDE 10 MEQ SR TABLET PO (18:45)
[2018-04-22] MEDS: FUROSEMIDE 20 MG/2 ML VIAL (J1940) IV (18:45)
[2018-04-22] MEDS ORDERED: GLUCAGON FOR INJ 1 MG VIAL (J1610) SC (21:30)
[2018-04-22] MEDS ORDERED: GLUCOSE 4 GM CHEW TABLET PO (21:30)
[2018-04-22] MEDS ORDERED: DEXTROSE 50% 50 ML SYRINGE IV (21:30)
[2018-04-22 22:18] LABS: BEDSIDE GLUCOSE 135 MG/DL (70-105)
[2018-04-22] MEDS: HumaLOG INSULIN (NovoLOG) PER UNIT SC (22:23)
[2018-04-22] MEDS: LEVEMIR (INSULIN DETEMIR) 1 UNITS/0.01ML SC (22:24)
[2018-04-22] MEDS: METOPROLOL TART 50 MG TAB PO (22:25)
[2018-04-22] MEDS: oxyCODONE 5MG TAB PO (22:26)
[2018-04-23] MEDS: FUROSEMIDE 20 MG/2 ML VIAL (J1940) IV ×5 (00:33→23:54)
[2018-04-23] MEDS: IPRATROPIUM 0.5MG/ALBUTEROL 2.5MG INH SOL UD 3ML (DUONEB)(J7620) NEB (01:00)
[2018-04-23 07:38] LABS: ANION GAP 9 MEQ/L (8-16); BLOOD UREA NITROGEN 60 MG/DL (7-18); CALCIUM LEVEL 8.8 MG/DL (8.5-10.1); CARBON DIOXIDE LEVEL 32 MEQ/L (21-32); CHLORIDE LEVEL 96 MEQ/L (98-107); CREATININE FOR GFR 1.48 MG/DL (0.70-1.30); GLOMERULAR FILTRATION RATE 51.8 (>56); GLUCOSE, FASTING 78 MG/DL (70-100); POTASSIUM SERUM 2.5 MEQ/L (3.5-5.1); SODIUM LEVEL 137 MEQ/L (136-145)
[2018-04-23] MEDS ORDERED: SYMBICORT 160/4.5MCG INHALER 6GM INH (08:00)
[2018-04-23] MEDS: HumaLOG INSULIN (NovoLOG) PER UNIT SC ×4 (08:18→22:20)
[2018-04-23 08:19] LABS: HEMATOCRIT 33.9 % (42.0-52.0); HEMOGLOBIN 11.3 g/dl (13.5-17.5); MEAN CORPUSCULAR HEMOGLOBIN 32.4 pg (27.0-33.0); MEAN CORPUSCULAR HGB CONC 33.3 g/dl (32.0-36.5); MEAN CORPUSCULAR VOLUME 97.1 fl (80.0-96.0); PLATELET COUNT, AUTOMATED 182 10^3/uL (150-450); RED BLOOD COUNT 3.49 10^6/uL (4.30-6.10); RED CELL DISTRIBUTION WIDTH 17.5 % (11.5-14.5); WHITE BLOOD COUNT 7.6 10^3/uL (4.0-10.0)
[2018-04-23 08:30] LABS: INR 1.51; PROTHROMBIN TIME 18.4 SECONDS (12.1-14.4)
[2018-04-23] MEDS: oxyCODONE 5MG TAB PO ×3 (08:34→22:19)
[2018-04-23] MEDS: metOLazone 2.5 MG TAB PO ×2 (08:34→22:20)
[2018-04-23] MEDS: SPIRONOLACTONE 50 MG TAB PO (08:34)
[2018-04-23] MEDS: POTASSIUM CHLORIDE 10 MEQ SR TABLET PO ×6 (08:35→22:14)
[2018-04-23] MEDS: KCL 10MEQ/100ML SWI (KRUN) 10 MEQ in APPROPRIATE DILUENT 1 EA IV ×3 (08:40→13:34)
[2018-04-23 08:50] LABS: CPK CREATINE PHOSPHOKINASE 211 U/L (39-308); MB/CK RELATIVE INDEX 2.23 (< OR =4); TROPONIN I < 0.02 NG/ML (< 0.10)
[2018-04-23 08:53] LABS: ALBUMIN 3.1 GM/DL (3.2-5.2); ALBUMIN/GLOBULIN RATIO 0.62 (1.00-1.93); ALKALINE PHOSPHATASE 191 U/L (45-117); ALT/SGPT 39 U/L (12-78); AST/SGOT 79 U/L (7-37); BILIRUBIN,DIRECT 1.9 MG/DL (0.0-0.2); BILIRUBIN,TOTAL 2.9 MG/DL (0.2-1.0); TOTAL PROTEIN 8.1 GM/DL (6.4-8.2)
[2018-04-23] MEDS ORDERED: APIXABAN 5 MG TAB (ELIQUIS) PO (09:00)
[2018-04-23 12:39] LABS: SPEC. GRAVITY BODY FLUIDS 1.029 (NOT ESTABLISHED)
[2018-04-23 12:41] LABS: APPEARANCE, BODY FLUID HAZY (CLEAR); ASCITES FL COLOR AMBER (COLORLESS); SOURCE, BODY FLUID ASCITES
[2018-04-23 12:42] LABS: BF DIFF IF INDICATED? YES (NO); BF MONONUCLEAR CELL % 92.1 % (0-0); BF POLYMORPHONUCLEAR CELL % 7.9 % (0-0); RBC BODY FLUID 8 10^3/uL (<2); WBC BODY FLUID 190 /uL (0-10)
[2018-04-23 12:58] LABS: BEDSIDE GLUCOSE 98 MG/DL (70-105)
[2018-04-23 14:24] LABS: SOURCE, BODY FLUID ALBUMIN ASCITES; SOURCE, BODY FLUID GLUCOSE ASCITES; SOURCE, BODY FLUID TOT PROTEIN ASCITES; TOTAL PROTEIN, BODY FLUID 4.4 G/DL (NOT ESTABLISHED)
[2018-04-23 14:31] LABS: TYPE AND SCREEN 1
[2018-04-23 14:42] LABS: CPK CREATINE PHOSPHOKINASE 198 U/L (39-308); MB/CK RELATIVE INDEX 2.42 (< OR =4); TROPONIN I < 0.02 NG/ML (< 0.10)
[2018-04-23 15:26] LABS: INR 1.49; PROTHROMBIN TIME 18.3 SECONDS (12.1-14.4)
[2018-04-23 15:49] LABS: ANION GAP 9 MEQ/L (8-16); BLOOD UREA NITROGEN 63 MG/DL (7-18); CALCIUM LEVEL 8.8 MG/DL (8.5-10.1); CARBON DIOXIDE LEVEL 32 MEQ/L (21-32); CHLORIDE LEVEL 95 MEQ/L (98-107); GLUCOSE, FASTING 137 MG/DL (70-100); MAGNESIUM LEVEL 2.3 MG/DL (1.8-2.4); POTASSIUM SERUM 2.7 MEQ/L (3.5-5.1); SODIUM LEVEL 136 MEQ/L (136-145)
[2018-04-23 16:44] LABS: BEDSIDE GLUCOSE 124 MG/DL (70-105)
[2018-04-23 20:33] LABS: ANION GAP 8 MEQ/L (8-16); BLOOD UREA NITROGEN 60 MG/DL (7-18); CARBON DIOXIDE LEVEL 32 MEQ/L (21-32); CHLORIDE LEVEL 96 MEQ/L (98-107); CREATININE FOR GFR 1.47 MG/DL (0.70-1.30); GLOMERULAR FILTRATION RATE 52.2 (>56); GLUCOSE, FASTING 140 MG/DL (70-100); POTASSIUM SERUM 3.2 MEQ/L (3.5-5.1); SODIUM LEVEL 136 MEQ/L (136-145)
[2018-04-23 20:41] LABS: CPK CREATINE PHOSPHOKINASE 186 U/L (39-308); MB/CK RELATIVE INDEX 2.53 (< OR =4); TROPONIN I < 0.02 NG/ML (< 0.10)
[2018-04-23 21:23] LABS: BEDSIDE GLUCOSE 139 MG/DL (70-105)
[2018-04-23] MEDS: LEVEMIR (INSULIN DETEMIR) 1 UNITS/0.01ML SC (22:13)
[2018-04-23] MEDS: METOPROLOL TART 50 MG TAB PO (22:18)
[2018-04-23] MEDS: TAMSULOSIN 0.4 MG CAP PO (22:19)
[2018-04-23] MEDS: APIXABAN 5 MG TAB (ELIQUIS) PO (22:20)
[2018-04-24] MEDS: FUROSEMIDE 20 MG/2 ML VIAL (J1940) IV ×4 (05:45→23:46)
[2018-04-24] MEDS: oxyCODONE 5MG TAB PO ×2 (06:02→15:47)
[2018-04-24 06:53] LABS: HEMATOCRIT 35.3 % (42.0-52.0); HEMOGLOBIN 11.7 g/dl (13.5-17.5); MEAN CORPUSCULAR HEMOGLOBIN 31.8 pg (27.0-33.0); MEAN CORPUSCULAR HGB CONC 33.1 g/dl (32.0-36.5); MEAN CORPUSCULAR VOLUME 95.9 fl (80.0-96.0); PLATELET COUNT, AUTOMATED 190 10^3/uL (150-450); RED BLOOD COUNT 3.68 10^6/uL (4.30-6.10); RED CELL DISTRIBUTION WIDTH 17.4 % (11.5-14.5); WHITE BLOOD COUNT 6.9 10^3/uL (4.0-10.0)
[2018-04-24 07:07] LABS: ANION GAP 9 MEQ/L (8-16); BLOOD UREA NITROGEN 55 MG/DL (7-18); CALCIUM LEVEL 8.7 MG/DL (8.5-10.1); CARBON DIOXIDE LEVEL 32 MEQ/L (21-32); CHLORIDE LEVEL 96 MEQ/L (98-107); CREATININE FOR GFR 1.34 MG/DL (0.70-1.30); GLOMERULAR FILTRATION RATE 58.1 (>56); GLUCOSE, FASTING 102 MG/DL (70-100); MAGNESIUM LEVEL 2.3 MG/DL (1.8-2.4); POTASSIUM SERUM 3.2 MEQ/L (3.5-5.1); SODIUM LEVEL 137 MEQ/L (136-145)
[2018-04-24] MEDS: HumaLOG INSULIN (NovoLOG) PER UNIT SC ×4 (07:30→21:18)
[2018-04-24] MEDS: APIXABAN 5 MG TAB (ELIQUIS) PO ×2 (09:14→21:09)
[2018-04-24] MEDS: SPIRONOLACTONE 50 MG TAB PO (09:15)
[2018-04-24] MEDS: metOLazone 2.5 MG TAB PO ×2 (09:15→21:15)
[2018-04-24 10:05] LABS: HEPATITIS B SURFACE ANTIGEN NEGATIVE (NEGATIVE)
[2018-04-24 10:32] LABS: HEPATITIS C VIRUS ABY INDEX 0.1 INDEX (<0.8)
[2018-04-24 10:33] LABS: HEPATITIS B CORE ANTIBODY IGM NEGATIVE (NEGATIVE)
[2018-04-24 10:34] LABS: HEPATITIS A ANTIBODY IGM NEGATIVE (NEGATIVE)
[2018-04-24] MEDS: POTASSIUM CHLORIDE 10 MEQ SR TABLET PO ×2 (11:41→21:09)
[2018-04-24] MEDS: DOCUSATE SODIUM 100 MG CAP PO ×2 (11:41→21:11)
[2018-04-24] MEDS: MOM 30ML SUSPENSION UDC PO (11:42)
[2018-04-24 12:17] LABS: BEDSIDE GLUCOSE 98 MG/DL (70-105)
[2018-04-24] MEDS ORDERED: levETIRAcetam 250MG TABLET (KEPPRA) PO (14:00)
[2018-04-24] MEDS: IPRATROPIUM 0.5MG/ALBUTEROL 2.5MG INH SOL UD 3ML (DUONEB)(J7620) NEB (14:38)
[2018-04-24 15:21] LABS: INR 1.66; PROTHROMBIN TIME 19.9 SECONDS (12.1-14.4)
[2018-04-24 15:36] LABS: ANION GAP 10 MEQ/L (8-16); BLOOD UREA NITROGEN 59 MG/DL (7-18); CALCIUM LEVEL 8.9 MG/DL (8.5-10.1); CARBON DIOXIDE LEVEL 30 MEQ/L (21-32); CHLORIDE LEVEL 95 MEQ/L (98-107); CREATININE FOR GFR 1.48 MG/DL (0.70-1.30); GLOMERULAR FILTRATION RATE 51.8 (>56); GLUCOSE, FASTING 201 MG/DL (70-100); MAGNESIUM LEVEL 2.1 MG/DL (1.8-2.4); POTASSIUM SERUM 3.3 MEQ/L (3.5-5.1); SODIUM LEVEL 135 MEQ/L (136-145)
[2018-04-24 16:35] LABS: BEDSIDE GLUCOSE 139 MG/DL (70-105)
[2018-04-24 20:08] LABS: BEDSIDE GLUCOSE 170 MG/DL (70-105)
[2018-04-24] MEDS: METOPROLOL TART 50 MG TAB PO ×2 (21:10→21:19)
[2018-04-24] MEDS: LEVEMIR (INSULIN DETEMIR) 1 UNITS/0.01ML SC (21:11)
[2018-04-24] MEDS: TAMSULOSIN 0.4 MG CAP PO (21:11)
[2018-04-25] MEDS: FUROSEMIDE 20 MG/2 ML VIAL (J1940) IV ×2 (06:00→12:21)
[2018-04-25 06:18] LABS: HEMATOCRIT 33.2 % (42.0-52.0); HEMOGLOBIN 11.1 g/dl (13.5-17.5); MEAN CORPUSCULAR HEMOGLOBIN 31.7 pg (27.0-33.0); MEAN CORPUSCULAR HGB CONC 33.4 g/dl (32.0-36.5); MEAN CORPUSCULAR VOLUME 94.9 fl (80.0-96.0); PLATELET COUNT, AUTOMATED 186 10^3/uL (150-450); RED CELL DISTRIBUTION WIDTH 17.2 % (11.5-14.5); WHITE BLOOD COUNT 6.5 10^3/uL (4.0-10.0)
[2018-04-25 06:49] LABS: ANION GAP 10 MEQ/L (8-16); BLOOD UREA NITROGEN 48 MG/DL (7-18); CALCIUM LEVEL 8.8 MG/DL (8.5-10.1); CARBON DIOXIDE LEVEL 32 MEQ/L (21-32); CHLORIDE LEVEL 95 MEQ/L (98-107); CREATININE FOR GFR 1.11 MG/DL (0.70-1.30); GLOMERULAR FILTRATION RATE > 60.0 (>56); GLUCOSE, FASTING 62 MG/DL (70-100); MAGNESIUM LEVEL 2.1 MG/DL (1.8-2.4); POTASSIUM SERUM 2.7 MEQ/L (3.5-5.1); SODIUM LEVEL 137 MEQ/L (136-145)
[2018-04-25] MEDS: POTASSIUM CHLORIDE 10 MEQ SR TABLET PO ×6 (07:08→21:03)
[2018-04-25] MEDS: HumaLOG INSULIN (NovoLOG) PER UNIT SC ×4 (07:30→22:03)
[2018-04-25] MEDS ORDERED: POTASSIUM CHLORIDE 10 MEQ SR TABLET PO (07:45)
[2018-04-25 08:10] LABS: ALBUMIN 2.8 GM/DL (3.2-5.2); ALBUMIN/GLOBULIN RATIO 0.61 (1.00-1.93); ALKALINE PHOSPHATASE 185 U/L (45-117); ALT/SGPT 34 U/L (12-78); AST/SGOT 68 U/L (7-37); BILIRUBIN,DIRECT 1.6 MG/DL (0.0-0.2); BILIRUBIN,TOTAL 2.7 MG/DL (0.2-1.0); TOTAL PROTEIN 7.4 GM/DL (6.4-8.2)
[2018-04-25] MEDS: APIXABAN 5 MG TAB (ELIQUIS) PO ×2 (09:56→21:03)
[2018-04-25] MEDS: DOCUSATE SODIUM 100 MG CAP PO ×2 (09:57→21:02)
[2018-04-25] MEDS: SPIRONOLACTONE 50 MG TAB PO (09:57)
[2018-04-25] MEDS: OMEPRAZOLE 20 MG CAP PO (09:57)
[2018-04-25] MEDS: metOLazone 2.5 MG TAB PO ×2 (11:34→21:02)
[2018-04-25] MEDS: oxyCODONE 5MG TAB PO ×2 (11:48→21:02)
[2018-04-25 11:51] LABS: BEDSIDE GLUCOSE 122 MG/DL (70-105)
[2018-04-25 14:13] LABS: ANION GAP 7 MEQ/L (8-16); BLOOD UREA NITROGEN 49 MG/DL (7-18); CARBON DIOXIDE LEVEL 34 MEQ/L (21-32); CHLORIDE LEVEL 95 MEQ/L (98-107); CREATININE FOR GFR 1.24 MG/DL (0.70-1.30); GLOMERULAR FILTRATION RATE > 60.0 (>56); GLUCOSE, FASTING 155 MG/DL (70-100); POTASSIUM SERUM 3.2 MEQ/L (3.5-5.1); SODIUM LEVEL 136 MEQ/L (136-145)
[2018-04-25 16:24] LABS: BEDSIDE GLUCOSE 168 MG/DL (70-105)
[2018-04-25] MEDS: FUROSEMIDE 40 MG/4 ML VIAL (J1940) IV (17:22)
[2018-04-25] MEDS: TAMSULOSIN 0.4 MG CAP PO (21:02)
[2018-04-25] MEDS: METOPROLOL TART 50 MG TAB PO ×2 (21:02→21:03)
[2018-04-25] MEDS: IPRATROPIUM 0.5MG/ALBUTEROL 2.5MG INH SOL UD 3ML (DUONEB)(J7620) NEB (21:16)
[2018-04-25] MEDS: LEVEMIR (INSULIN DETEMIR) 1 UNITS/0.01ML SC (22:03)
[2018-04-26 05:40] LABS: HEMATOCRIT 32.7 % (42.0-52.0); HEMOGLOBIN 10.9 g/dl (13.5-17.5); MEAN CORPUSCULAR HGB CONC 33.3 g/dl (32.0-36.5); MEAN CORPUSCULAR VOLUME 95.9 fl (80.0-96.0); PLATELET COUNT, AUTOMATED 174 10^3/uL (150-450); RED BLOOD COUNT 3.41 10^6/uL (4.30-6.10); RED CELL DISTRIBUTION WIDTH 17.2 % (11.5-14.5); WHITE BLOOD COUNT 5.8 10^3/uL (4.0-10.0)
[2018-04-26 05:56] LABS: ANION GAP 8 MEQ/L (8-16); BLOOD UREA NITROGEN 38 MG/DL (7-18); CALCIUM LEVEL 8.5 MG/DL (8.5-10.1); CARBON DIOXIDE LEVEL 33 MEQ/L (21-32); CHLORIDE LEVEL 96 MEQ/L (98-107); CREATININE FOR GFR 1.08 MG/DL (0.70-1.30); GLOMERULAR FILTRATION RATE > 60.0 (>56); GLUCOSE, FASTING 135 MG/DL (70-100); MAGNESIUM LEVEL 2.1 MG/DL (1.8-2.4); POTASSIUM SERUM 3.6 MEQ/L (3.5-5.1); SODIUM LEVEL 137 MEQ/L (136-145)
[2018-04-26] MEDS: HumaLOG INSULIN (NovoLOG) PER UNIT SC ×2 (07:30→12:00)
[2018-04-26] MEDS: DOCUSATE SODIUM 100 MG CAP PO (07:57)
[2018-04-26] MEDS: SPIRONOLACTONE 50 MG TAB PO (07:57)
[2018-04-26] MEDS: FUROSEMIDE 20 MG/2 ML VIAL (J1940) IV (07:57)
[2018-04-26] MEDS: metOLazone 2.5 MG TAB PO (07:57)
[2018-04-26] MEDS: APIXABAN 5 MG TAB (ELIQUIS) PO (07:58)
[2018-04-26] MEDS: oxyCODONE 5MG TAB PO (08:14)
[2018-04-26] MEDS: IPRATROPIUM 0.5MG/ALBUTEROL 2.5MG INH SOL UD 3ML (DUONEB)(J7620) NEB (08:29)
[2018-04-26] MEDS: DOXYCYCLINE HYCLATE 100 MG TAB PO (08:38)
[2018-04-26] MEDS: POTASSIUM CHLORIDE 10 MEQ SR TABLET PO (08:39)
[2018-04-26] MEDS ORDERED: SODIUM CHLORIDE NASAL 0.65% SPRAY BTL (OCEAN) (08:45)
[2018-04-26] MEDS: METOPROLOL TART 25 MG TABLET PO (11:00)
[2018-04-26 11:32] LABS: BEDSIDE GLUCOSE 192 MG/DL (70-105)
[2018-04-26 16:40] LABS: BEDSIDE GLUCOSE 189 MG/DL (70-105)
[2018-04-26] MEDS ORDERED: METOPROLOL TART 25 MG TABLET PO (21:00)
== END 2018-04-26 12:49 | disposition home or self-care (01) | DRG 432 ==
LOC: M MSPAV 15:43
PROC: 0W9G3ZZ Drainage of Peritoneal Cavity, Percutaneous Approach (ICD-10-PCS; principal; 2018-04-23)
DX: K74.60 Unspecified cirrhosis of liver (principal); I50.33 Acute on chronic diastolic (congestive) heart failure; R18.8 Other ascites; Z68.41 Body mass index [BMI] 40.0-44.9, adult; I13.0 Hypertensive heart and chronic kidney disease with heart failure and stage 1 through stage 4 chronic kidney disease, or unspecified chronic kidney disease; I48.91 Unspecified atrial fibrillation; J44.9 Chronic obstructive pulmonary disease, unspecified; I50.810 Right heart failure, unspecified; E11.22 Type 2 diabetes mellitus with diabetic chronic kidney disease; I25.10 Atherosclerotic heart disease of native coronary artery without angina pectoris; N18.3 Chronic kidney disease, stage 3 (moderate); E78.5 Hyperlipidemia, unspecified; E87.6 Hypokalemia; E66.01 Morbid (severe) obesity due to excess calories; G47.33 Obstructive sleep apnea (adult) (pediatric); I27.20 Pulmonary hypertension, unspecified; Z95.1 Presence of aortocoronary bypass graft; Z79.01 Long term (current) use of anticoagulants; Z79.4 Long term (current) use of insulin

== ENCOUNTER → 2018-06-12 | Outpatient (REF) | payer MEDICARE, OTHER ==
[~2018-06-12] MED LIST changes: +ALBU83IN INH; +AMMO12CR4 TOP; -BUME2TAB PO; +BUME2TAB3 PO; -DOXY-278 PO; +DOXY-350 PO; +DOXY100T PO; -DRIS50002 PO; +DRIS50003 PO; +FLOM0.4C39 PO; -FLOM5CAP PO; +KLOR10TA76 PO; -LASI20TA PO; +LASI20TA3 PO; -LASI40TA PO; +LASI40TA9 PO; +METO50TA7 PO; +OXYC-517 PO; +SPIR-10 PO; -SPIR25TA2 PO; +SYMB16INH INH; +TORS20TA2 PO; +TRUL0.5I SC; +VENTAER INH; -ZYLO300T4 PO; +ZYLO300T6 PO
[2018-06-12 10:38] LABS: INR 1.55; PROTHROMBIN TIME 18.8 SECONDS (12.1-14.4)
== END ==
LOC: M LAB REF 10:11
PROVIDERS: ATTEND Nurse Practitioner Family
DX: K74.60 Unspecified cirrhosis of liver (principal)

== ENCOUNTER → 2018-06-12 | Outpatient (CLI) | payer MEDICARE, OTHER ==
--- NOTE | 2018-06-12 19:56 | REP ---
Ultrasound-guided paracentesis The procedure was performed under the direct supervision of Dr. Hutchinson. The risks and benefits of the procedure were explained to the patient and informed consent was obtained. The largest pocket of fluid was localized in the right lower quadrant using ultrasound guidance. The skin was prepped and draped in a sterile fashion. 1% lidocaine was used as a local anesthetic. An 8-Danish multi side-hole catheter was inserted using trocar technique. 8150 ml of clay colored fluid was withdrawn and discarded. The patient tolerated the procedure well and there were no immediate complications. After the appropriate amount of monitored convalescence the patient was discharged from the department. Reviewed by JUNIOR Porter 06/12/2018 05:08 P Electronically Signed by Alli Hutchinson MD 06/12/2018 07:47 P
== END ==
LOC: M RADPRO 13:15
PROVIDERS: ATTEND Internal Medicine Cardiovascular Disease
DX: R18.8 Other ascites (principal); K74.60 Unspecified cirrhosis of liver; Z79.899 Other long term (current) drug therapy

== ENCOUNTER → 2018-06-26 | Outpatient (CLI) | payer MEDICARE, OTHER ==
--- NOTE | 2018-06-26 16:13 | REP ---
Ultrasound-guided paracentesis The procedure was performed under the direct supervision of Dr. Rivera. The risks and benefits of the procedure were explained to the patient and informed consent was obtained. The largest pocket of fluid was localized in the left flank using ultrasound guidance. The skin was prepped and draped in a sterile fashion. 1% lidocaine was used as a local anesthetic. An 8-Arabic multi side-hole catheter was inserted using trocar technique. 6600 ml of yellow fluid was withdrawn and discarded. The patient tolerated the procedure well and there were no immediate complications. After the appropriate amount of monitored convalescence the patient was discharged from the department. Reviewed by JUNIOR Porter 06/26/2018 03:42 P Electronically Signed by Calvin Rivera MD 06/26/2018 04:05 P
== END ==
LOC: M RADPRO 12:00
PROVIDERS: ATTEND Internal Medicine Cardiovascular Disease
DX: R18.8 Other ascites (principal); Z79.899 Other long term (current) drug therapy

== ENCOUNTER → 2018-07-06 | Outpatient (CLI) | payer MEDICARE, OTHER ==
--- NOTE | 2018-07-07 10:34 | REP ---
Ultrasound-guided paracentesis The procedure was performed under the direct supervision of Dr. Rivera. The risks and benefits of the procedure were explained to the patient and informed consent was obtained. The largest pocket of fluid was localized in the right flank using ultrasound guidance. The skin was prepped and draped in a sterile fashion. 1% lidocaine was used as a local anesthetic. An 8-Frisian multi side-hole catheter was inserted using trocar technique. 7500 ml of yellow fluid was withdrawn and discarded. The patient tolerated the procedure well and there were no immediate complications. After the appropriate amount of monitored convalescence the patient was discharged from the department. Reviewed by JUNIOR Porter 07/06/2018 05:20 P Electronically Signed by Calvin Rivera MD 07/07/2018 10:25 A
== END ==
LOC: M RADPRO 11:08
PROVIDERS: ATTEND Internal Medicine Cardiovascular Disease
DX: R18.8 Other ascites (principal); Z79.899 Other long term (current) drug therapy

== ENCOUNTER → 2018-07-16 | Outpatient (CLI) | payer MEDICARE, OTHER ==
--- NOTE | 2018-07-16 19:29 | REP ---
Ultrasound-guided paracentesis The procedure was performed under the direct supervision of Dr. Ortiz. The risks and benefits of the procedure were explained to the patient and informed consent was obtained. The largest pocket of fluid was localized in the left flank using ultrasound guidance. The skin was prepped and draped in a sterile fashion. 1% lidocaine was used as a local anesthetic. Using ultrasound guidance an 8-Icelandic multi side-hole catheter was inserted using trocar technique. 5250 ml of yellow fluid was withdrawn and discarded. The patient tolerated the procedure well and there were no immediate complications. After the appropriate amount of monitored convalescence the patient was discharged from the department. Reviewed by JUNIOR Porter 07/16/2018 05:03 P Electronically Signed by Jefry Ortiz MD 07/16/2018 07:19 P
== END ==
LOC: M RADPRO 12:08
PROVIDERS: ATTEND Internal Medicine Cardiovascular Disease
DX: R18.8 Other ascites (principal); Z79.899 Other long term (current) drug therapy

== ENCOUNTER → 2018-07-30 | Outpatient (CLI) | payer MEDICARE, OTHER ==
--- NOTE | 2018-07-31 11:21 | REP ---
PARACENTESIS: REASON FOR VISIT: Ascites. REASON FOR EXAM: Ascites. Ultrasound guided paracentesis. The procedure was performed under the personal supervision of Dr. Calvin Rivera. The risks and benefits of the procedure were explained to the patient and informed consent was obtained. The largest pocket of fluid was localized in the left lower quadrant using ultrasound guidance. The skin was prepped and draped in a sterile fashion. 5 mL of 1% lidocaine was used as a local anesthetic. Using ultrasound guidance an 8-Latvian hupts-owlz-guyh catheter was inserted using trocar technique. 3600 mL of clay-colored fluid was withdrawn and discarded. The patient tolerated the procedure well and there were no immediate complications. After the appropriate amount of monitored convalescence, the patient was discharged from the department. Electronically Signed by Calvin Rivera MD 08/03/2018 11:00 A
== END ==
LOC: M RADPRO 11:18
PROVIDERS: ATTEND Internal Medicine Cardiovascular Disease
DX: R18.8 Other ascites (principal); Z79.899 Other long term (current) drug therapy

== ENCOUNTER → 2018-08-07 | Outpatient (CLI) | payer MEDICARE, OTHER ==
--- NOTE | 2018-08-07 18:24 | REP ---
Ultrasound-guided paracentesis The procedure was performed under the direct supervision of Dr. Ortiz. The risks and benefits of the procedure were explained to the patient and informed consent was obtained. The largest pocket of fluid was localized in the right flank using ultrasound guidance. The skin was prepped and draped in a sterile fashion. 1% lidocaine was used as a local anesthetic. Using ultrasound guidance an 8-Citizen Of [place] multi side-hole catheter was inserted using trocar technique. 5650 ml of clay colored fluid was withdrawn and discarded. The patient tolerated the procedure well and there were no immediate complications. After the appropriate amount of monitored convalescence the patient was discharged from the department. Reviewed by JUNIOR Porter 08/07/2018 04:26 P Electronically Signed by Jefry Ortiz MD 08/07/2018 06:15 P
== END ==
LOC: M RADPRO 11:18
PROVIDERS: ATTEND Internal Medicine Cardiovascular Disease
DX: R18.8 Other ascites (principal); Z79.899 Other long term (current) drug therapy

== ENCOUNTER → 2018-08-18 | Outpatient (CLI) | payer MEDICARE, OTHER ==
--- NOTE | 2018-08-19 10:08 | REP ---
Ultrasound-guided paracentesis The procedure was performed under the direct supervision of Dr. Rivera. The risks and benefits of the procedure were explained to the patient and informed consent was obtained. The largest pocket of fluid was localized in the right flank using ultrasound guidance. The skin was prepped and draped in a sterile fashion. 1% lidocaine was used as a local anesthetic. An 8-Yi multi side-hole catheter was inserted using trocar technique. 6600 ml of clay colored fluid was withdrawn and discarded. The patient tolerated the procedure well and there were no immediate complications. After the appropriate amount of monitored convalescence the patient was discharged from the department. Reviewed by JUNIOR Porter 08/18/2018 04:27 P Electronically Signed by Calvin Rivera MD 08/19/2018 09:59 A
== END ==
LOC: M RADPRO 13:00
PROVIDERS: ATTEND Internal Medicine Cardiovascular Disease
DX: R18.8 Other ascites (principal); Z79.891 Long term (current) use of opiate analgesic; Z79.899 Other long term (current) drug therapy

== ENCOUNTER → 2018-09-02 | Outpatient (CLI) | payer MEDICARE, OTHER ==
[~2018-09-02] MED LIST changes: -/AMIO20TA OR; +AMIO1TAB OR; -AMMO12CR4 TOP; +AMMO12CR7 TOP; +ASPI-1 PO; -ASPI325T PO; -ERGO500014 PO; -VALS1TAB46 PO; +VALS1TAB66 PO; +VITA500045 PO
--- NOTE | 2018-09-02 17:31 | REP ---
Ultrasound-guided paracentesis The procedure was performed under the direct supervision of Dr. Hutchinson. The risks and benefits of the procedure were explained to the patient and informed consent was obtained. The largest pocket of fluid was localized in the right flank using ultrasound guidance. The skin was prepped and draped in a sterile fashion. 1% lidocaine was used as a local anesthetic. An 8-Irish multi side-hole catheter was inserted using trocar technique. 6100 ml of clay colored fluid was withdrawn and discarded. The patient tolerated the procedure well and there were no immediate complications. After the appropriate amount of monitored convalescence the patient was discharged from the department. Reviewed by JUNIOR Porter 09/02/2018 03:50 P Electronically Signed by Alli Hutchinson MD 09/02/2018 05:21 P
== END ==
LOC: M RADPRO 12:59
PROVIDERS: ATTEND Internal Medicine Cardiovascular Disease
DX: R18.8 Other ascites (principal); I50.9 Heart failure, unspecified; N18.9 Chronic kidney disease, unspecified; I11.0 Hypertensive heart disease with heart failure; Z86.59 Personal history of other mental and behavioral disorders

== ENCOUNTER → 2018-09-25 | Outpatient (CLI) | payer MEDICARE, OTHER ==
--- NOTE | 2018-09-26 15:01 | REP ---
Ultrasound-guided paracentesis The procedure was performed under the direct supervision of Dr. Rivera. The risks and benefits of the procedure were explained to the patient and informed consent was obtained. The largest pocket of fluid was localized in the left flank using ultrasound guidance. The skin was prepped and draped in a sterile fashion. 1% lidocaine was used as a local anesthetic. An 8-Romansh multi side-hole catheter was inserted using trocar technique. 7100 ml of clay colored fluid was withdrawn and discarded. The patient tolerated the procedure well and there were no immediate complications. After the appropriate amount of monitored convalescence the patient was discharged from the department. Reviewed by JUNIOR Porter 09/25/2018 04:42 P Electronically Signed by Calvin Rivera MD 09/26/2018 02:51 P
== END ==
LOC: M RADPRO 13:53
PROVIDERS: ATTEND Internal Medicine Cardiovascular Disease
DX: R18.8 Other ascites (principal); Z79.4 Long term (current) use of insulin; Z79.899 Other long term (current) drug therapy

== ENCOUNTER → 2018-10-06 | Outpatient (CLI) | payer MEDICARE, OTHER ==
--- NOTE | 2018-10-06 17:19 | REP ---
Ultrasound-guided paracentesis The procedure was performed by JUNIOR Mohamud, under the direct supervision of Dr. Hutchinson. The risks and benefits of the procedure were explained to the patient and informed consent was obtained both verbally and written. Directly prior to the start of the procedure, a formal timeout was completed in the procedure room. Under ultrasound guidance, the largest pocket of fluid in the left flank was localized and skin was marked. The skin was then prepped and draped in a sterile fashion. 10 ml of 1% lidocaine was used as a local anesthetic. Using ultrasound guidance, an 8-[place] multiphase side-hole catheter was inserted using trocar technique. 7,100 mL of dark yellow colored fluid was withdrawn and discarded. The patient tolerated the procedure well and there were no immediate complications. After the appropriate monitored convalescence the patient was discharged from the department. Reviewed by JUNIOR Schmidt 10/06/2018 12:45 P Electronically Signed by Alli Hutchinson MD 10/06/2018 05:09 P
== END ==
LOC: M RADPRO 09:54
PROVIDERS: ATTEND Internal Medicine Cardiovascular Disease
DX: R18.8 Other ascites (principal)

== ENCOUNTER → 2018-10-14 | Outpatient (CLI) | payer MEDICARE, OTHER ==
--- NOTE | 2018-10-15 10:55 | REP ---
Ultrasound-guided paracentesis The procedure was performed by JUNIOR Mohamud, under the direct supervision of Dr. Rivera. The risks and benefits of the procedure were explained to the patient and informed consent was obtained both verbally and written. Directly prior to the start of the procedure, a formal timeout was completed in the procedure room. Under ultrasound guidance, the largest pocket of fluid in the right flank was localized and skin was marked. The skin was then prepped and draped in a sterile fashion. 10 ml of 1% lidocaine was used as a local anesthetic. Using ultrasound guidance, an 8-Swedish multiphase side-hole catheter was inserted using trocar technique. 5,900 mL of cloudy dark yellow colored fluid was withdrawn and discarded. The patient tolerated the procedure well and there were no immediate complications. After the appropriate monitored convalescence the patient was discharged from the department. Reviewed by JUNIOR Schmidt 10/14/2018 09:41 A Electronically Signed by Calvin Rivera MD 10/15/2018 10:45 A
== END ==
LOC: M RADPRO 08:27
PROVIDERS: ATTEND Internal Medicine Cardiovascular Disease
DX: R18.8 Other ascites (principal); Z79.4 Long term (current) use of insulin; Z79.899 Other long term (current) drug therapy; Z79.891 Long term (current) use of opiate analgesic

== ENCOUNTER → 2018-10-21 | Outpatient (CLI) | payer MEDICARE, OTHER ==
[~2018-10-21] MED LIST changes: +CALC500T44 PO; +DICL1GEL3 TOP; +DOXY100C PO; +ELIQ2.5T PO; +IPRA0.00 NEB; +METO1TAB87 PO; +SILV50CR TOP; +SPIR50TA4 PO
--- NOTE | 2018-10-21 14:18 | REP ---
Ultrasound-guided paracentesis The procedure was performed by JUNIOR Mohamud, under the direct supervision of Dr. Rivera. The risks and benefits of the procedure were explained to the patient and informed consent was obtained both verbally and written. Directly prior to the start of the procedure, a formal timeout was completed in the procedure room. Under ultrasound guidance, the largest pocket of fluid in the left flank was localized and skin was marked. The skin was then prepped and draped in a sterile fashion. 17 ml of 1% lidocaine was used as a local anesthetic. Using ultrasound guidance, an 8-English multiphase side-hole catheter was inserted using trocar technique. 2,800 mL of milky yellow with a tinge of red colored fluid was withdrawn and discarded. The patient tolerated the procedure well and there were no immediate complications. After the appropriate monitored convalescence the patient was discharged from the department. Reviewed by JUNIOR Schmidt 10/21/2018 12:43 P Electronically Signed by Calvin Rivera MD 10/21/2018 02:09 P
== END ==
LOC: M RADPRO 09:18
PROVIDERS: ATTEND Internal Medicine Cardiovascular Disease
DX: R18.8 Other ascites (principal); Z79.899 Other long term (current) drug therapy; Z79.4 Long term (current) use of insulin

== ENCOUNTER 2018-10-28 08:31 | Inpatient (IN) | payer MEDICARE, OTHER ==
[~2018-10-28] VITALS: Ht 182.9 cm; Wt 138.0 kg
[~2018-10-28 08:31] MED LIST changes: -CALC500T44 PO; -DICL1GEL3 TOP; -DOXY100C PO; -ELIQ2.5T PO; -IPRA0.00 NEB; -METO1TAB87 PO; -SILV50CR TOP; -SPIR50TA4 PO
[2018-10-28 14:00] VITALS: BP 141/79
[2018-10-28] MEDS ORDERED: ELIQ2.5T PO (14:33)
[2018-10-28] MEDS ORDERED: METO1TAB87 PO (14:33)
[2018-10-28] MEDS ORDERED: SPIR50TA4 PO (14:33)
[2018-10-28] MEDS ORDERED: IPRA0.00 NEB (14:33)
[2018-10-28] MEDS ORDERED: SILV50CR TOP (14:33)
[2018-10-28] MEDS ORDERED: DOXY100C PO (14:37)
[2018-10-28] MEDS: SPIRONOLACTONE 50 MG TAB PO SCH (14:38)
[2018-10-28] MEDS: FUROSEMIDE 40 MG/4 ML VIAL (J1940) IV SCH ×2 (14:39→16:47)
[2018-10-28] MEDS ORDERED: CALC500T44 PO (14:39)
[2018-10-28] MEDS ORDERED: DICL1GEL3 TOP (14:41)
[2018-10-28] MEDS: oxyCODONE 5MG TAB PO PRN (17:10)
[2018-10-28 18:00] VITALS: BP 141/67
--- NOTE | 2018-10-28 20:07 | REP ---
Ultrasound-guided paracentesis The procedure was performed by JUNIOR Mohamud, under the direct supervision of Dr. Rivera. The risks and benefits of the procedure were explained to the patient and informed consent was obtained both verbally and written. Directly prior to the start of the procedure, a formal timeout was completed in the procedure room. Under ultrasound guidance, the largest pocket of fluid in the right flank was localized and skin was marked. The skin was then prepped and draped in a sterile fashion. 10 ml of 1% lidocaine was used as a local anesthetic. Using ultrasound guidance, an 8-Cambodian multiphase side-hole catheter was inserted using trocar technique. 5850 mL of cloudy clay colored fluid was withdrawn and discarded. The patient tolerated the procedure well and there were no immediate complications. After the appropriate monitored convalescence the patient was discharged from the department. Reviewed by JUNIOR Schmidt 10/28/2018 10:37 A Electronically Signed by Calvin Rivera MD 10/28/2018 07:58 P
[2018-10-28] MEDS ORDERED: FUROSEMIDE 40 MG/4 ML VIAL (J1940) IV ONE (21:00)
[2018-10-28 22:00] VITALS: BP 128/75
--- NOTE | 2018-10-28 22:10 | HPEPDOC ---
General Date of Admission Oct 28, 2018 at 12:25 Date of Service: Oct 28, 2018 Chief Complaint Pt was referred for admission due to massive ascites associated with scrotal edema. Source: Patient, Old records History of Present Illness Pt is 57 y/o M with past medical history of COPD, atrial fibrillation, hypertension, diabetes, coronary artery disease status post coronary artery bypass graft (CABG), chronic liver cirrhosis with recurrent ascites which requires weekly paracenthesis by IR. Pt was referred by Dr. Robertson due to extensive volume overload. Upon the encounter pt is awake alert and oriented NAD. Denies abdominal pain/N/V. Pt is on pain management due to extensive musculoskletal pain with oxycodone. Otherwise, denies any dyspnea or palpitations. No change in BM or urinary condition. Home Medications Scheduled Ammonium Lactate (Ammonium Lactate) 12 % Cre, 1 DOSE TOP BID, (Reported) USES ON FEET Apixaban (Eliquis) 2.5 Mg Tablet, 2.5 MG PO BID, (Reported) Calcium Carbonate/Vitamin D3 (Calcium 500-Vit D3 200 Tablet) 1 Each Tablet, 1 TAB PO BID, (Reported) 1000,1400 Doxycycline Hyclate (Doxycycline Hyclate) 100 Mg Capsule, 100 MG PO BID, (Reported) 0800,2000 Dulaglutide (Trulicity) 1.5 Mg/0.5 Ml Inj, 1.5 MG SC 1XWK, (Reported) FRIDAY Febuxostat (Uloric) 80 Mg Tab, 80 MG PO DAILY, (Reported) Metoprolol Tartrate (Metoprolol Tartrate) 25 Mg Tablet, 12.5 MG PO DAILY, (Reported) VERIFIED DOSE [place]-3 Fatty Acids/Fish Oil ([place] 3 1,000 mg Softgel) 1 Cap Cap, 1,000 MG PO QPM, (Reported) Omeprazole (Omeprazole) 20 Mg Cap, 20 MG PO 2XW, (Reported) WED AND SAT Silver Sulfadiazine (Ssd) 50 Gm Cream..g., 1 DOSE TOP QID, (Reported) USES ON LEGS Spironolactone (Spironolactone) 50 Mg Tablet, 50 MG PO DAILY, (Reported) Tamsulosin HCl (Flomax) 0.4 Mg Cap, 0.4 MG PO QHS, (Reported) Torsemide (Torsemide) 20 Mg Tab, 40 MG PO BID, (Reported) Scheduled PRN Albuterol Sulfate (Ventolin Hfa) 108 Mcg/Act Aer, 2 PUFFS INH Q4H PRN for SHORTNESS OF BREATH, (Reported) Diclofenac Sodium (Diclofenac Sodium) 1% 100GM Gel..gram., 4 GM TOP QID PRN for PAIN, (Reported) APPLY TO BACK Insulin Human Lispro (Novolog) 100 U/Ml Inj, 0 SC AC PRN for BLOOD SUGAR > 150, (Reported) PER SLIDING SCALE Ipratropium/Albuterol Sulfate (Iprat-Albut 0.5-3(2.5) mg/3 ml) 3 Ml Ampul.neb, 1 KADI NEB Q4H PRN for SHORTNESS OF BREATH, (Reported) Oxycodone HCl (Oxycodone HCl) 5 Mg Tab, 5 MG PO QID PRN for PAIN, (Reported) Allergies Coded Allergies: No Known Allergies (Unverified , 09/07/18) Past Medical History Medical History PAST MEDICAL HISTORY: 1. Recurrent ascites. 2. History of atrial fibrillation. 3. Coronary artery disease, status post CABG. 4. Hypertension. 5. Diabetes. 6. Hyperlipidemia. 7. Morbid obesity. 8. COPD. 9. Obstructive sleep apnea. 10. Chronic diastolic heart failure. 11. Pulmonary hypertension. ALLERGIES: He has no known drug allergies. FAMILY HISTORY: Negative for early coronary disease. SOCIAL HISTORY: Patient denies tobacco. Drinks approximately five beers daily. Denies any illicit drug use. Family History Significant Family History: No pertinent family hx Social History * Smoker: former Smoker Alcohol: occationally A-FIB/CHADSVASC A-FIB History Current/History of A-Fib/PAF?: Yes Current PO Anticoag Therapy: Yes Review of Systems Constitutional: Denies: Chills, Fever, Night Sweats Eyes: Denies: Pain, Vision change ENT: Denies: Head Aches, Ear Pain, Dysphagia Skin: Denies: Rash, Lesions, Breakdown Pulmonary: Denies: Dyspnea, Cough Cardiovascular: Denies: Chest Pain, Palpitations, Orthopnea, Paroxysmal Noc. Dyspnea, Lt Headedness Neurological: Denies: Weakness, Numbness, Change in speech, Confusion Psych: Reports: Mood Normal; Denies: Depression, Memory Issues Other systems Pt complains of scrotal swelling bilateral LE edema Physical Examination General Exam: Positive: Alert, No Acute Distress Eye Exam: Positive: PERRLA, Conjunctiva & lids normal, EOMI; Negative: Sclera icteric ENT Exam: Positive: Atraumatic, Mucous membr. moist/pink, Pharynx Normal Neck Exam: Positive: Supple; Negative: JVD, thyromegaly Heart Exam: Positive: Rate Normal, Regular Rhythm, Normal S1, Normal S2; Negative: Murmurs, Rubs Telemetry: Positive: No significant arrhythmia Skin Exam: Positive: Nl turgor and temperature; Negative: Breakdown, Lesion Other physical findings Pt with massive ascites involving inguinal area as well as lower extremities. Chronic stasis changes chronic dermatitis of LE. Vital Signs Vital Signs Date Time Temp Pulse Resp B/P (MAP) Pulse Ox O2 Delivery O2 Flow Rate FiO2 10/28/18 18:10 18 10/28/18 18:00 98.0 106 141/67 (91) 96 Laboratory Data Microbiology Microbiology 10/28/18 Gram Stain - Final, Resulted 10/28/18 Body Fluid Culture, Resulted Pending 10/28/18 Anaerobic Culture, Resulted Pending Assessment/Plan 1-Recurrent ascites extending to scrotal area and LE 2-Chronic Liver Cirrhosis 3-Volume overload 4-Adjustment of cardiac meds Pt will be admitted for further optimize volume status in view of massive third space involvement. Will increase diuresis with lasix, add metolazone. Cont spironolactone. Cont AC with Eilquis in view of Afib. Dr. Robertson on board for further optimization of cardiac meds. Will continue to monitor closely. Plan / VTE VTE Prophylaxis Ordered?: Yes Plan Activity: Encourage Ambulation Anticipated Discharge: Home SUNITA MEDINA MD Oct 28, 2018 22:10
[2018-10-28] MEDS: METOPROLOL TART 12.5 MG PER 1/2 TAB PO SCH (22:17)
[2018-10-28] MEDS: APIXABAN 2.5 MG TAB (ELIQUIS) PO SCH (22:17)
[2018-10-29] MEDS: oxyCODONE 5MG TAB PO PRN ×4 (00:04→20:38)
[2018-10-29 02:00] VITALS: BP 114/69
[2018-10-29] MEDS: SPIRONOLACTONE 50 MG TAB PO SCH ×2 (05:12→07:56)
[2018-10-29 06:00] VITALS: BP 127/72
[2018-10-29] MEDS: FUROSEMIDE 40 MG/4 ML VIAL (J1940) IV SCH ×2 (07:54→17:13)
[2018-10-29] MEDS: METOPROLOL TART 12.5 MG PER 1/2 TAB PO SCH ×2 (07:55→20:37)
[2018-10-29] MEDS: APIXABAN 2.5 MG TAB (ELIQUIS) PO SCH ×2 (07:56→20:37)
[2018-10-29 10:00] VITALS: BP 115/78
[2018-10-29] MEDS ORDERED: DEXTROSE 50% 50 ML SYRINGE IV PRN (12:15)
[2018-10-29] MEDS ORDERED: GLUCOSE 4 GM CHEW TABLET PO PRN (12:15)
[2018-10-29] MEDS ORDERED: GLUCAGON FOR INJ 1 MG VIAL (J1610) SC PRN (12:15)
[2018-10-29] MEDS: HumaLOG INSULIN (NovoLOG) PER UNIT SC SCH ×3 (12:38→21:00)
[2018-10-29 14:00] VITALS: BP 120/72
[2018-10-29] MEDS: metOLazone 2.5 MG TAB PO SCH (16:00)
[2018-10-29 18:00] VITALS: BP 123/78
[2018-10-29] MEDS ORDERED: FUROSEMIDE 40 MG/4 ML VIAL (J1940) IV ONE (21:30)
[2018-10-29 21:50] LABS: HEMATOCRIT 32.5 % (42.0-52.0); HEMOGLOBIN 10.2 g/dl (13.5-17.5); MEAN CORPUSCULAR HEMOGLOBIN 29.7 pg (27.0-33.0); MEAN CORPUSCULAR HGB CONC 31.4 g/dl (32.0-36.5); MEAN CORPUSCULAR VOLUME 94.5 fl (80.0-96.0); PLATELET COUNT, AUTOMATED 249 10^3/uL (150-450); RED BLOOD COUNT 3.44 10^6/uL (4.30-6.10); WHITE BLOOD COUNT 9.2 10^3/uL (4.0-10.0)
[2018-10-29 22:00] VITALS: BP 136/87
[2018-10-30 02:00] VITALS: BP 105/65
[2018-10-30] MEDS: oxyCODONE 5MG TAB PO PRN ×3 (03:34→21:30)
[2018-10-30 06:00] VITALS: BP 105/65
[2018-10-30 06:08] LABS: HEMATOCRIT 32.2 % (42.0-52.0); MEAN CORPUSCULAR HEMOGLOBIN 29.1 pg (27.0-33.0); MEAN CORPUSCULAR HGB CONC 31.1 g/dl (32.0-36.5); MEAN CORPUSCULAR VOLUME 93.6 fl (80.0-96.0); PLATELET COUNT, AUTOMATED 255 10^3/uL (150-450); RED BLOOD COUNT 3.44 10^6/uL (4.30-6.10); WHITE BLOOD COUNT 9.8 10^3/uL (4.0-10.0)
[2018-10-30 06:28] LABS: BLOOD UREA NITROGEN 30 MG/DL (7-18); CALCIUM LEVEL 7.7 MG/DL (8.5-10.1); CARBON DIOXIDE LEVEL 31 MEQ/L (21-32); CHLORIDE LEVEL 99 MEQ/L (98-107); CREATININE FOR GFR 1.01 MG/DL (0.70-1.30); GLOMERULAR FILTRATION RATE > 60.0 (>56); GLUCOSE, FASTING 97 MG/DL (70-100); POTASSIUM SERUM 3.6 MEQ/L (3.5-5.1); SODIUM LEVEL 134 MEQ/L (136-145)
--- NOTE | 2018-10-30 06:53 | IPNPDOC ---
Text Note Date of Service The patient was seen on 10/29/18. NOTE Pt was seen and examined. Pt is in no acute distress. Denies any discomfort, b reathing difficulty, CP or dizziness. Subjective: Constitutional: Denies: Chills, Fever, Night Sweats Eyes: Denies: Pain, Vision change ENT: Denies: Head Aches, Ear Pain, Dysphagia Skin: Denies: Rash, Lesions, Breakdown Pulmonary: Denies: Dyspnea, Cough Cardiovascular: Denies: Chest Pain, Palpitations, Orthopnea, Paroxysmal Noc. Dyspnea, Lt Headedness Neurological: Denies: Weakness, Numbness, Change in speech, Confusion Psych: Reports: Mood Normal; Denies: Depression, Memory Issues Other systems Pt complains of scrotal swelling bilateral LE edema Physical Examination General Exam: Positive: Alert, No Acute Distress Eye Exam: Positive: PERRLA, Conjunctiva & lids normal, EOMI; Negative: Sclera icteric ENT Exam: Positive: Atraumatic, Mucous membr. moist/pink, Pharynx Normal Neck Exam: Positive: Supple; Negative: JVD, thyromegaly Heart Exam: Positive: Rate Normal, Regular Rhythm, Normal S1, Normal S2; Negative: Murmurs, Rubs Telemetry: Positive: No significant arrhythmia Skin Exam: Positive: Nl turgor and temperature; Negative: Breakdown, Lesion Other physical findings Pt with massive ascites involving inguinal area as well as lower extremities. Chronic stasis changes chronic dermatitis of LE. Vital Signs Date Time Temp Pulse Resp B/P (MAP) Pulse Ox O2 Delivery O2 Flow Rate FiO2 10/30/18 04:04 14 10/30/18 03:34 16 10/30/18 02:00 96.8 89 20 105/65 (78) 92 10/29/18 22:00 97.9 101 18 136/87 (103) 92 10/29/18 20:38 16 10/29/18 20:37 101 136/87 10/29/18 18:00 97.6 96 20 123/78 (93) 92 10/29/18 15:18 92 10/29/18 14:25 20 93 10/29/18 14:00 97.6 99 20 120/72 (88) 93 10/29/18 10:00 98.1 105 18 115/78 (90) 96 10/29/18 08:55 2.0 10/29/18 07:56 18 95 2.0 10/29/18 07:55 101 141/75 Intake & Output 10/30/18 06:00 Intake Total 1200 ml Output Total 4100 ml Balance -2900 ml Laboratory Tests 10/29/18 12:35: Bedside Glucose (Misc Panel) 117H 10/29/18 16:52: Bedside Glucose (Misc Panel) 128H 10/29/18 20:18: Bedside Glucose (Misc Panel) 129H 10/29/18 21:42: White Blood Count 9.2, Red Blood Count 3.44L, Hemoglobin 10.2L, Hematocrit 32.5L, Mean Corpuscular Volume 94.5, Mean Corpuscular Hemoglobin 29.7, Mean Corpuscular Hemoglobin Concent 31.4L, Red Cell Distribution Width 17.2H, Platelet Count 249, Nucleated Red Blood Cells % (auto) 0.0 10/30/18 05:23: White Blood Count 9.8, Red Blood Count 3.44L, Hemoglobin 10.0L, Hematocrit 32.2L, Mean Corpuscular Volume 93.6, Mean Corpuscular Hemoglobin 29.1, Mean Corpuscular Hemoglobin Concent 31.1L, Red Cell Distribution Width 17.1H, Platelet Count 255, Nucleated Red Blood Cells % (auto) 0.0, Blood Urea Nitrogen 30H, Creatinine 1.01, Sodium Level 134L, Potassium Level 3.6, Chloride Level 99, Carbon Dioxide Level 31, Calcium Level 7.7L, Anion Gap 4L, Glomerular Filtration Rate > 60.0, Fasting Glucose 97 Current Medications Medications (Trade) Dose Ordered Sig/Isaiah Route PRN Reason Start Time Stop Time Status Last Admin Dose Admin Apixaban (Eliquis) 2.5 mg BID PO 10/28/18 21:00 10/29/18 20:37 2.5 MG Furosemide (LASIX injection) 40 mg BID@0900,1700 IV 10/28/18 09:00 10/29/18 17:13 40 MG Insulin Human Lispro (HumaLOG INSULIN) SEE PROTOCOL TABLE AC SC 10/29/18 12:00 10/29/18 17:13 2 UNITS Metolazone (Zaroxolyn) 2.5 mg DAILY PO 10/29/18 12:00 10/29/18 16:00 2.5 MG Metoprolol Tartrate (Lopressor) 12.5 mg BID PO 10/28/18 21:00 10/29/18 20:37 12.5 MG Oxycodone HCl (Roxicodone, Oxyir) 5 mg Q6HP PRN PO PAIN 10/28/18 16:45 10/30/18 03:34 5 MG Spironolactone (Aldactone) 50 mg DAILY PO 10/28/18 09:00 10/29/18 07:56 50 MG Assessment/Plan 1-Recurrent ascites extending to scrotal area and LE 2-Chronic Liver Cirrhosis 3-Volume overload 4-Adjustment of cardiac meds s/p IR drainage of ascites fluid. negative fluid balance in view of diuresis. Cont with Lasix, metolazone and spironolactone. Cont on oxycodone for chronic pain syndrome. 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 Awaiting Dr. Robertson input. PT/OT VS,Fishbone, I+O VS, Fishbone, I+O Laboratory Tests 10/29/18 21:42 Red Blood Count 3.44 L, Mean Corpuscular Volume 94.5, Mean Corpuscular Hemoglobin 29.7, Mean Corpuscular Hemoglobin Concent 31.4 L, Red Cell Distribution Width 17.2 H 10/30/18 05:23 Red Blood Count 3.44 L, Mean Corpuscular Volume 93.6, Mean Corpuscular Hemoglobin 29.1, Mean Corpuscular Hemoglobin Concent 31.1 L, Red Cell Distribution Width 17.1 H, Calcium Level 7.7 L Vital Signs Date Time Temp Pulse Resp B/P (MAP) Pulse Ox O2 Delivery O2 Flow Rate FiO2 10/30/18 04:04 14 10/30/18 02:00 96.8 89 105/65 (78) 92 10/29/18 08:55 2.0 10/28/18 23:00 Nasal Cannula I&O- Last 24 Hours up to 6 AM 10/30/18 06:00 Intake Total 1200 ml Output Total 4100 ml Balance -2900 ml SUNITA MEDINA MD Oct 30, 2018 06:53
[2018-10-30] MEDS: HumaLOG INSULIN (NovoLOG) PER UNIT SC SCH ×4 (07:30→21:00)
[2018-10-30] MEDS: APIXABAN 2.5 MG TAB (ELIQUIS) PO SCH ×2 (08:16→21:28)
[2018-10-30] MEDS: metOLazone 2.5 MG TAB PO SCH (08:16)
[2018-10-30] MEDS: SPIRONOLACTONE 50 MG TAB PO SCH (08:16)
[2018-10-30] MEDS: METOPROLOL TART 12.5 MG PER 1/2 TAB PO SCH ×2 (08:17→21:00)
[2018-10-30] MEDS ORDERED: FUROSEMIDE 40 MG/4 ML VIAL (J1940) IV ONE ×2 (08:45→13:00)
[2018-10-30] MEDS: FUROSEMIDE 40 MG/4 ML VIAL (J1940) IV SCH ×2 (09:06→16:39)
[2018-10-30 10:00] VITALS: BP 123/74
[2018-10-30 14:00] VITALS: BP 133/90
[2018-10-30 18:00] VITALS: BP 120/90
[2018-10-30] MEDS ORDERED: DIGOXIN 0.25 MG TAB PO ONE (19:00)
--- NOTE | 2018-10-30 20:18 | ECGEPIP ---
[facility] Test Date: 2018-10-30 Pat Name: GIANNI HODGSON Department: Room: [place] [address] Gender: Male Foreign Agent: ÓSCAR : 1960 Requested By: JOSE MACIAS Order Number: [id number] Reading MD: Tim Boyce Measurements Intervals [place] Rate: 102 P: GA: -1 QRS: 60 QRSD: 120 T: 31 QT: 393 QTc: 512 Interpretive Statements Underlying atrial fibrillation with slightly rapid ventricular response Frequent isolated PVC's Low voltages with rightward axis, incomplete right bundle branch block and small inferior Q waves; body habitus versus pulmonary disease Could not rule out prior inferior injury. Nonspecific ST/T-wave abnormalities. Not significantly changed from 04/23/18. Electronically Signed on 10-30-2018 20:18:49 EDT by Tim Boyce
[2018-10-30 22:00] VITALS: BP 110/50
--- NOTE | 2018-10-30 23:30 | IPNPDOC ---
Text Note Date of Service The patient was seen on 10/30/18. NOTE Pt was seen and examined. Pt is in no acute distress. Denies any discomfort. No new complaints. Subjective: Constitutional: Denies: Chills, Fever, Night Sweats Eyes: Denies: Pain, Vision change ENT: Denies: Head Aches, Ear Pain, Dysphagia Skin: Denies: Rash, Lesions, Breakdown Pulmonary: Denies: Dyspnea, Cough Cardiovascular: Denies: Chest Pain, Palpitations, Orthopnea, Paroxysmal Noc. Dyspnea, Lt Headedness Neurological: Denies: Weakness, Numbness, Change in speech, Confusion Psych: Reports: Mood Normal; Denies: Depression, Memory Issues Other systems Pt complains of scrotal swelling bilateral LE edema Physical Examination General Exam: Positive: Alert, No Acute Distress Eye Exam: Positive: PERRLA, Conjunctiva & lids normal, EOMI; Negative: Sclera icteric ENT Exam: Positive: Atraumatic, Mucous membr. moist/pink, Pharynx Normal Neck Exam: Positive: Supple; Negative: JVD, thyromegaly Heart Exam: Positive: Rate Normal, Regular Rhythm, Normal S1, Normal S2; Negative: Murmurs, Rubs Telemetry: Positive: No significant arrhythmia Skin Exam: Positive: Nl turgor and temperature; Negative: Breakdown, Lesion Other physical findings Pt with massive ascites involving inguinal area as well as lower extremities. Chronic stasis changes chronic dermatitis of LE. Vital Signs Date Time Temp Pulse Resp B/P (MAP) Pulse Ox O2 Delivery O2 Flow Rate FiO2 10/31/18 02:00 97.0 101 19 133/80 (97) 97 2.0 10/30/18 22:00 97.3 95 18 110/50 (70) 93 2.0 10/30/18 22:00 20 10/30/18 21:30 20 10/30/18 21:00 105 120/90 10/30/18 20:15 105 10/30/18 18:00 98.4 105 18 120/90 (100) 93 2.0 10/30/18 15:04 20 10/30/18 14:00 97.4 111 18 133/90 (104) 96 10/30/18 14:00 97.4 111 18 133/90 (104) 96 2.0 10/30/18 10:00 97.3 102 16 123/74 (90) 90 10/30/18 10:00 97.3 102 16 123/74 (90) 90 2.0 10/30/18 09:00 90 18 94 Nasal Cannula 2.0 10/30/18 08:17 95 103/64 10/30/18 06:00 96.6 91 19 105/65 (78) 96 10/30/18 03:34 16 Intake & Output 10/31/18 05:59 Intake Total 1080 ml Output Total 5275 ml Balance -4195 ml Laboratory Tests 10/30/18 05:23: White Blood Count 9.8, Red Blood Count 3.44L, Hemoglobin 10.0L, Hematocrit 32.2L, Mean Corpuscular Volume 93.6, Mean Corpuscular Hemoglobin 29.1, Mean Corpuscular Hemoglobin Concent 31.1L, Red Cell Distribution Width 17.1H, Platelet Count 255, Nucleated Red Blood Cells % (auto) 0.0, Blood Urea Nitrogen 30H, Creatinine 1.01, Sodium Level 134L, Potassium Level 3.6, Chloride Level 99, Carbon Dioxide Level 31, Calcium Level 7.7L, Anion Gap 4L, Glomerular Filtration Rate > 60.0, Fasting Glucose 97 10/30/18 11:28: Bedside Glucose (Misc Panel) 132H 10/30/18 16:27: Bedside Glucose (Misc Panel) 116H 10/30/18 21:13: Bedside Glucose (Misc Panel) 156H Microbiology 10/28/18 Gram Stain - Final, Complete 10/28/18 Body Fluid Culture - Final, Complete 10/28/18 Anaerobic Culture - Final, Complete Current Medications Medications (Trade) Dose Ordered Sig/Isaiah Route PRN Reason Start Time Stop Time Status Last Admin Dose Admin Apixaban (Eliquis) 2.5 mg BID PO 10/28/18 21:00 10/30/18 21:28 2.5 MG Furosemide (LASIX injection) 40 mg BID@0900,1700 IV 10/28/18 09:00 10/30/18 16:39 40 MG Insulin Human Lispro (HumaLOG INSULIN) SEE PROTOCOL TABLE AC SC 10/29/18 12:00 10/30/18 11:38 2 UNITS Metolazone (Zaroxolyn) 2.5 mg DAILY PO 10/29/18 12:00 10/30/18 08:16 2.5 MG Metoprolol Tartrate (Lopressor) 12.5 mg BID PO 10/28/18 21:00 10/29/18 20:37 12.5 MG Oxycodone HCl (Roxicodone, Oxyir) 5 mg Q6HP PRN PO PAIN 10/28/18 16:45 10/30/18 21:30 5 MG Spironolactone (Aldactone) 50 mg DAILY PO 10/28/18 09:00 10/30/18 08:16 50 MG Assessment/Plan 1-Recurrent ascites extending to scrotal area and LE 2-Chronic Liver Cirrhosis 3-Volume overload 4-Adjustment of cardiac meds s/p IR drainage of ascites fluid. negative fluid balance in view of diuresis. Cont with Lasix, metolazone and spironolactone. Cont on oxycodone for chronic pain syndrome. 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 SW PT/OT Disposition: Home over the weekend VS,[place], I+O VS, Fishbone, I+O Laboratory Tests 10/30/18 05:23 Red Blood Count 3.44 L, Mean Corpuscular Volume 93.6, Mean Corpuscular Hemoglobin 29.1, Mean Corpuscular Hemoglobin Concent 31.1 L, Red Cell Distribution Width 17.1 H, Calcium Level 7.7 L Vital Signs Date Time Temp Pulse Resp B/P (MAP) Pulse Ox O2 Delivery O2 Flow Rate FiO2 10/30/18 22:00 20 10/30/18 21:00 105 120/90 10/30/18 18:00 98.4 93 2.0 10/30/18 09:00 Nasal Cannula I&O- Last 24 Hours up to 6 AM 10/30/18 06:00 Intake Total 1200 ml Output Total 4400 ml Balance -3200 ml SUNITA MEDINA MD Oct 30, 2018 23:30
[2018-10-31 02:00] VITALS: BP 133/80
[2018-10-31 06:00] VITALS: BP 131/79
[2018-10-31 07:18] LABS: BLOOD UREA NITROGEN 29 MG/DL (7-18); CALCIUM LEVEL 7.7 MG/DL (8.5-10.1); CARBON DIOXIDE LEVEL 31 MEQ/L (21-32); CHLORIDE LEVEL 100 MEQ/L (98-107); CREATININE FOR GFR 0.92 MG/DL (0.70-1.30); GLOMERULAR FILTRATION RATE > 60.0 (>56); GLUCOSE, FASTING 100 MG/DL (70-100); POTASSIUM SERUM 3.4 MEQ/L (3.5-5.1); SODIUM LEVEL 136 MEQ/L (136-145)
[2018-10-31] MEDS: HumaLOG INSULIN (NovoLOG) PER UNIT SC SCH ×4 (07:30→20:34)
[2018-10-31] MEDS: FUROSEMIDE 40 MG/4 ML VIAL (J1940) IV SCH ×2 (08:20→17:22)
[2018-10-31] MEDS: SPIRONOLACTONE 50 MG TAB PO SCH (08:20)
[2018-10-31] MEDS: APIXABAN 2.5 MG TAB (ELIQUIS) PO SCH ×2 (08:20→20:31)
[2018-10-31] MEDS: metOLazone 2.5 MG TAB PO SCH (08:21)
[2018-10-31] MEDS: METOPROLOL TART 12.5 MG PER 1/2 TAB PO SCH ×2 (08:21→20:31)
[2018-10-31] MEDS: oxyCODONE 5MG TAB PO PRN ×2 (08:23→20:32)
--- NOTE | 2018-10-31 09:34 | CR ---
DATE OF CONSULTATION: 10/31/2018 REFERRING PHYSICIAN: Dr. Hermilo King REASON FOR CONSULTATION: Fluid overload. HISTORY OF PRESENT ILLNESS: 57-year-old male well known by the office and he was sent to be admitted apparently after on 10/28/2018 because of massive ascites. He does have a history of coronary artery disease with coronary artery bypass graft and a normal global left ventricular systolic function, atrial fibrillation that has been chronic and persistent, chronic kidney disease, hypertension, diabetes mellitus, hyperlipidemia, but with post . Last year, he was diagnosed with cirrhosis of the liver. He does also have a history of degenerative joint disease, gastroesophageal reflux disease. He does also have a history of congestive heart failure secondary to left ventricular diastolic dysfunction. PAST SURGICAL HISTORY: Positive for coronary artery bypass graft (CABG). He also has had multiple paracenteses. FAMILY HISTORY: Noncontributory. SOCIAL HISTORY The patient lives with his and he does not smoke. There is no history of ETOH abuse or illicit drugs, but he does drink at times. ALLERGIES: No known drug allergies. ADVANCE DIRECTIVES: The patient is a FULL CODE. MEDICATIONS PRIOR TO COMING TO THE HOSPITAL Apixaban 2.5 mg by mouth twice a day, calcium and vitamin D 1 tablet by mouth twice a day, doxycycline 100 mg by mouth twice a day, Trulicity 1.5 mg weekly, Uloric acid 80 mg by mouth daily, metoprolol tartrate 12.5 mg by mouth daily, fish oil, omeprazole 20 mg by mouth twice weekly, silver sulfadiazine cream applied to the affected area, spironolactone 50 mg by mouth daily, tamsulosin 0.4 mg by mouth at sleep, and furosemide 40 mg by mouth twice a day. CURRENT MEDICATIONS Metoprolol tartrate 12.5 mg by mouth twice a day, apixaban 2.5 mg by mouth twice a day, oxycodone 5 mg every 6 hours as needed for pain, Lasix 40 mg IV twice a day, spirolactone 50 mg by mouth daily, metolazone 2.5 mg by mouth daily and also on regular insulin coverage as well as D50 and glucose tablets and glucagon as needed for hypoglycemia. PHYSICAL EXAMINATION: The patient is alert and oriented, very pleasant. His vital signs when I saw him revealed a blood pressure of 103/64 with a pulse of 95, respiration 18 and maximum temperature was 96.7 degrees Fahrenheit with an oxygen saturation of 94%-96% on 2 liters cannula. He has a negative fluid balance of 2.79 liters for 10/29/2018 and on 10/28/2018, he has a negative fluid balance for the time he was in the hospital of 586. On the same day, he had paracentesis and 5.8 liters of fluid was removed. Examination of the head atraumatic. Neck is supple. No jugular venous distention (JVD) noted. The lungs do not reveal any wheezing or crackles. The heart examination revealed irregular heart sounds without gallops. The point of maximal impulse (PMI) is not displaced. There is no rub. Abdomen examination revealed huge protuberant abdomen with subcutaneous tissue edema. Scrotal edema also noted. Extremities revealed +3 bilateral lower extremity edema. Neurological examination is negative for focal deficit. LABORATORY DATA CBC done today revealed a WBC of 9.8, hemoglobin 10.0, hematocrit 32.2 and platelets 165,000. BMP revealed a sodium of 134, potassium 3.6, chloride 99, CO2 31, BUN 30, creatinine 1.0, GFR more than 60. Fasting glucose 97 and calcium 7.7. Telemetry revealed atrial fibrillation with nonspecific ST-T abnormalities. IMPRESSION: 57-year-old male multiple medical problems was diagnosed last year with cirrhosis of the liver. The patient has been going paracenteses but not quite responding with medication and he was admitted for diuresis. I have increased his furosemide yesterday and he had good urinary output of 2.7 liters negative fluid balance. Today, his Lasix again will be increased and he will be monitored. His kidney function is stable and he is not hypokalemic. Case was discussed with hospitalist etienne and he will be monitored. SMITA
[2018-10-31 10:00] VITALS: BP_SYST 123; BP_SYST 133; BP_DIAS 79; BP_DIAS 80
--- NOTE | 2018-10-31 12:00 | REP ---
Chest one-view HISTORY: Pleural effusion Comparison: 04/23/2018 The lungs are clear. A small right pleural effusion is present. The cardiac silhouette is enlarged. The pulmonary vasculature is normal in appearance. Impression: 1. Small right pleural effusion. 2. Cardiomegaly. Electronically Signed by Rubén Bray MD 10/31/2018 11:52 A
[2018-10-31] MEDS: DIGOXIN 0.25 MG TAB PO SCH ×2 (12:17→20:31)
[2018-10-31 14:00] VITALS: BP 138/75
[2018-10-31] MEDS ORDERED: FUROSEMIDE 40 MG/4 ML VIAL (J1940) IV ONE (14:30)
[2018-10-31 18:00] VITALS: BP 115/63
--- NOTE | 2018-10-31 19:11 | IPNPDOC ---
Text Note Date of Service The patient was seen on 10/31/18. NOTE Pt was seen and examined. RN notifies that pt with O2 diomedes 88% while he ambulat es. No new changes from baseline. diuresis in place for anasarca, massive ascites and scrotal edema. Subjective: Constitutional: Denies: Chills, Fever, Night Sweats Eyes: Denies: Pain, Vision change ENT: Denies: Head Aches, Ear Pain, Dysphagia Skin: Denies: Rash, Lesions, Breakdown Pulmonary: Denies: Dyspnea, Cough Cardiovascular: Denies: Chest Pain, Palpitations, Orthopnea, Paroxysmal Noc. Dyspnea, Lt Headedness Neurological: Denies: Weakness, Numbness, Change in speech, Confusion Psych: Reports: Mood Normal; Denies: Depression, Memory Issues Other systems Pt complains of scrotal swelling bilateral LE edema Physical Examination General Exam: Positive: Alert, No Acute Distress Eye Exam: Positive: PERRLA, Conjunctiva & lids normal, EOMI; Negative: Sclera icteric ENT Exam: Positive: Atraumatic, Mucous membr. moist/pink, Pharynx Normal Neck Exam: Positive: Supple; Negative: JVD, thyromegaly Heart Exam: Positive: Rate Normal, Regular Rhythm, Normal S1, Normal S2; Negative: Murmurs, Rubs Telemetry: Positive: No significant arrhythmia Skin Exam: Positive: Nl turgor and temperature; Negative: Breakdown, Lesion Other physical findings Pt with massive ascites involving inguinal area as well as lower extremities. Chronic stasis changes chronic dermatitis of LE. Vital Signs Date Time Temp Pulse Resp B/P (MAP) Pulse Ox O2 Delivery O2 Flow Rate FiO2 11/01/18 03:32 20 11/01/18 03:02 20 11/01/18 02:00 98.7 101 19 124/60 (81) 94 10/31/18 22:00 97.8 98 20 157/93 (114) 96 10/31/18 20:32 20 10/31/18 20:31 98 10/31/18 20:31 98 157/93 10/31/18 18:00 98.0 107 19 115/63 (80) 92 10/31/18 14:00 98.0 87 17 138/75 (96) 99 2.0 10/31/18 12:17 91 10/31/18 10:46 102 19 93 Nasal Cannula 2.0 10/31/18 10:00 97.9 94 18 123/79 (94) 94 10/31/18 08:23 19 10/31/18 08:21 106 148/87 Intake & Output 11/01/18 06:00 Intake Total 840 ml Output Total 3750 ml Balance -2910 ml Laboratory Tests 10/31/18 12:00: Bedside Glucose (Misc Panel) 125H 10/31/18 13:56: D-Dimer, Quantitative > 4000H 10/31/18 17:08: Bedside Glucose (Misc Panel) 145H 10/31/18 20:20: Bedside Glucose (Misc Panel) 183H 11/01/18 05:47: White Blood Count 9.0, Red Blood Count 3.32L, Hemoglobin 9.7L, Hematocrit 30.1L, Mean Corpuscular Volume 90.7, Mean Corpuscular Hemoglobin 29.2, Mean Corpuscular Hemoglobin Concent 32.2, Red Cell Distribution Width 17.3H, Platelet Count 240, Nucleated Red Blood Cells % (auto) 0.0, Blood Urea Nitrogen 27H, Creatinine 0.99, Sodium Level 137, Potassium Level 3.3L, Chloride Level 98, Carbon Dioxide Level 33H, Calcium Level 7.6L, Aspartate Amino Transf (AST/SGOT) 43H, Alanine Aminotransferase (ALT/SGPT) 22, Alkaline Phosphatase 219H, Total Bilirubin 1.4H, Total Protein 5.8L, Albumin 1.9L, Anion Gap 6L, Glomerular Filtration Rate > 60.0, Fasting Glucose 98, Albumin/Globulin Ratio 0.49L Microbiology 10/28/18 Gram Stain - Final, Complete 10/28/18 Body Fluid Culture - Final, Complete 10/28/18 Anaerobic Culture - Final, Complete Current Medications Medications (Trade) Dose Ordered Sig/Isaiah Route PRN Reason Start Time Stop Time Status Last Admin Dose Admin Apixaban (Eliquis) 2.5 mg BID PO 10/28/18 21:00 10/31/18 20:31 2.5 MG Furosemide (LASIX injection) 40 mg BID@0900,1700 IV 10/28/18 09:00 10/31/18 17:22 40 MG Insulin Human Lispro (HumaLOG INSULIN) SEE PROTOCOL TABLE AC SC 10/29/18 12:00 10/31/18 17:21 2 UNITS Metolazone (Zaroxolyn) 2.5 mg DAILY PO 10/29/18 12:00 10/31/18 08:21 2.5 MG Metoprolol Tartrate (Lopressor) 12.5 mg BID PO 10/28/18 21:00 10/31/18 20:31 12.5 MG Oxycodone HCl (Roxicodone, Oxyir) 5 mg Q6HP PRN PO PAIN 10/28/18 16:45 11/01/18 03:02 5 MG Spironolactone (Aldactone) 50 mg DAILY PO 10/28/18 09:00 10/31/18 08:20 50 MG Assessment/Plan 1-Recurrent ascites extending to scrotal area and LE 2-Chronic Liver Cirrhosis 3-Volume overload 4-Adjustment of cardiac meds s/p IR drainage of ascites fluid. negative fluid balance in view of diuresis. C ont with Lasix, metolazone and spironolactone. Cont on oxycodone for chronic pain syndrome. SW PT/OT VS,M[place], I+O VS, [place], I+O Laboratory Tests 10/31/18 06:29 Calcium Level 7.7 L Vital Signs Date Time Temp Pulse Resp B/P (MAP) Pulse Ox O2 Delivery O2 Flow Rate FiO2 10/31/18 18:00 98.0 107 19 115/63 (80) 92 10/31/18 14:00 2.0 10/31/18 10:46 Nasal Cannula I&O- Last 24 Hours up to 6 AM 10/31/18 06:00 Intake Total 1440 ml Output Total 5450 ml Balance -4010 ml SUNITA MEDINA MD Oct 31, 2018 19:11
[2018-10-31 22:00] VITALS: BP 157/93
[2018-11-01 02:00] VITALS: BP 124/60
[2018-11-01] MEDS: oxyCODONE 5MG TAB PO PRN (03:02)
[2018-11-01 06:00] VITALS: BP 115/59
[2018-11-01 06:31] LABS: HEMATOCRIT 30.1 % (42.0-52.0); HEMOGLOBIN 9.7 g/dl (13.5-17.5); MEAN CORPUSCULAR HEMOGLOBIN 29.2 pg (27.0-33.0); MEAN CORPUSCULAR HGB CONC 32.2 g/dl (32.0-36.5); MEAN CORPUSCULAR VOLUME 90.7 fl (80.0-96.0); PLATELET COUNT, AUTOMATED 240 10^3/uL (150-450); RED BLOOD COUNT 3.32 10^6/uL (4.30-6.10)
[2018-11-01 06:53] LABS: ALBUMIN 1.9 GM/DL (3.2-5.2); ALT/SGPT 22 U/L (12-78); BILIRUBIN,TOTAL 1.4 MG/DL (0.2-1.0); BLOOD UREA NITROGEN 27 MG/DL (7-18); CALCIUM LEVEL 7.6 MG/DL (8.5-10.1); CARBON DIOXIDE LEVEL 33 MEQ/L (21-32); CHLORIDE LEVEL 98 MEQ/L (98-107); CREATININE FOR GFR 0.99 MG/DL (0.70-1.30); GLOMERULAR FILTRATION RATE > 60.0 (>56); GLUCOSE, FASTING 98 MG/DL (70-100); POTASSIUM SERUM 3.3 MEQ/L (3.5-5.1); SODIUM LEVEL 137 MEQ/L (136-145); TOTAL PROTEIN 5.8 GM/DL (6.4-8.2)
[2018-11-01] MEDS: HumaLOG INSULIN (NovoLOG) PER UNIT SC SCH (07:30)
[2018-11-01] MEDS: APIXABAN 2.5 MG TAB (ELIQUIS) PO SCH (08:09)
[2018-11-01] MEDS: SPIRONOLACTONE 50 MG TAB PO SCH (08:09)
[2018-11-01] MEDS: metOLazone 2.5 MG TAB PO SCH (08:09)
[2018-11-01 08:10] VITALS: BP 169/75
[2018-11-01] MEDS: METOPROLOL TART 12.5 MG PER 1/2 TAB PO SCH (08:10)
[2018-11-01] MEDS: FUROSEMIDE 40 MG/4 ML VIAL (J1940) IV SCH (08:55)
--- NOTE | 2018-11-02 06:41 | DS.PDOC ---
Discharge Summary General Date of Admission Oct 28, 2018 at 12:25 Date of Discharge 11/01/18 Discharge Summary PROCEDURES PERFORMED DURING STAY: [None]. ADMITTING DIAGNOSES: 1. Volume Overload sec to liver cirrhosis/ diastolic CHF 2. Acute decompensated diastolic CHF 3. IR Paracentesis 4. Massive ascites with scrotal edema Chronic: 5. CAD s/p CABG 6. Chronic Persistent Afib on AC Eliquis 7. CKD 8. T2DM 9. HTN 10. Anemia 11. Hypokalemia DISCHARGE DIAGNOSES: same COMPLICATIONS/CHIEF COMPLAINT: Ascites. HISTORY OF PRESENT ILLNESS: . Pt is 57 y/o M with past medical history of COPD, atrial fibrillation, hypertension, diabetes, coronary artery disease status post coronary artery bypass graft (CABG), chronic liver cirrhosis with recurrent ascites which requires weekly paracenthesis by IR. Pt was referred by Dr. Robertson due to extensive volume overload. Upon the encounter pt is awake alert and oriented NAD. Denies abdominal pain/N/V. Pt is on pain management due to extensive musculoskletal pain with oxycodone. Otherwise, denies any dyspnea or palpitations. No change in BM or urinary condition. HOSPITAL COURSE: . Pt was admitted on 10/28 with above presentation. Pt referred by Dr. Robertson for admission for IR paracentesis and aggressive diuresis/ and adjustment of cardiac meds. Pt received loop diuretics via IV with large negative output balance. monitored for electrolytes. Home meds continued. Pt clinically optimized to dc home on 11/01/18. DISCHARGE MEDICATIONS: Please see below. ALLERGIES: Please see below. General Exam: Positive: Alert, No Acute Distress Eye Exam: Positive: PERRLA, Conjunctiva & lids normal, EOMI; Negative: Sclera icteric ENT Exam: Positive: Atraumatic, Mucous membr. moist/pink, Pharynx Normal Neck Exam: Positive: Supple; Negative: JVD, thyromegaly Heart Exam: Positive: Rate Normal, Regular Rhythm, Normal S1, Normal S2; Negative: Murmurs, Rubs Telemetry: Positive: No significant arrhythmia Skin Exam: Positive: Nl turgor and temperature; Negative: Breakdown, Lesion Other physical findings Pt with massive ascites involving inguinal area as well as lower extremities. Chronic stasis changes chronic dermatitis of LE. LABORATORY DATA: Please see below. PROGNOSIS: Guarded ACTIVITY: [As tolerated]. DISCHARGE PLAN: as above DISPOSITION: 01 Home, Self-Care. DISCHARGE INSTRUCTIONS: as above ITEMS TO FOLLOWUP ON ON OUTPATIENT: as above DISCHARGE CONDITION: [Stable]. Vital Signs/I&Os Vital Signs Date Time Temp Pulse Resp B/P (MAP) Pulse Ox O2 Delivery O2 Flow Rate FiO2 11/01/18 09:32 97 18 95 Nasal Cannula 2.0 11/01/18 08:10 169/75 11/01/18 06:00 97.3 I&O- Last 24 Hours up to 6 AM 11/02/18 06:00 Intake Total 420 ml Output Total 150 ml Balance 270 ml Microbiology Microbiology 10/28/18 Gram Stain - Final, Complete 10/28/18 Body Fluid Culture - Final, Complete 10/28/18 Anaerobic Culture - Final, Complete Discharge Medications Scheduled Ammonium Lactate (Ammonium Lactate) 12 % Cre, 1 DOSE TOP BID, (Reported) USES ON FEET Apixaban (Eliquis) 2.5 Mg Tablet, 2.5 MG PO BID, (Reported) Calcium Carbonate/Vitamin D3 (Calcium 500-Vit D3 200 Tablet) 1 Each Tablet, 1 TAB PO BID, (Reported) 1000,1400 Doxycycline Hyclate (Doxycycline Hyclate) 100 Mg Capsule, 100 MG PO BID, (Reported) 0800,2000 Dulaglutide (Trulicity) 1.5 Mg/0.5 Ml Inj, 1.5 MG SC 1XWK, (Reported) FRIDAY Febuxostat (Uloric) 80 Mg Tab, 80 MG PO DAILY, (Reported) Metoprolol Tartrate (Metoprolol Tartrate) 25 Mg Tablet, 12.5 MG PO DAILY, (Reported) VERIFIED DOSE [place]-3 Fatty Acids/Fish Oil ([place] 3 1,000 mg Softgel) 1 Cap Cap, 1,000 MG PO QPM, (Reported) Omeprazole (Omeprazole) 20 Mg Cap, 20 MG PO 2XW, (Reported) WED AND SAT Silver Sulfadiazine (Ssd) 50 Gm Cream..g., 1 DOSE TOP QID, (Reported) USES ON LEGS Spironolactone (Spironolactone) 50 Mg Tablet, 50 MG PO DAILY, (Reported) Tamsulosin HCl (Flomax) 0.4 Mg Cap, 0.4 MG PO QHS, (Reported) Torsemide (Torsemide) 20 Mg Tab, 40 MG PO BID, (Reported) Scheduled PRN Albuterol Sulfate (Ventolin Hfa) 108 Mcg/Act Aer, 2 PUFFS INH Q4H PRN for SHORTNESS OF BREATH, (Reported) Diclofenac Sodium (Diclofenac Sodium) 1% 100GM Gel..gram., 4 GM TOP QID PRN for PAIN, (Reported) APPLY TO BACK Insulin Human Lispro (Novolog) 100 U/Ml Inj, 0 SC AC PRN for BLOOD SUGAR > 150, (Reported) PER SLIDING SCALE Ipratropium/Albuterol Sulfate (Iprat-Albut 0.5-3(2.5) mg/3 ml) 3 Ml Ampul.neb, 1 KADI NEB Q4H PRN for SHORTNESS OF BREATH, (Reported) Oxycodone HCl (Oxycodone HCl) 5 Mg Tab, 5 MG PO QID PRN for PAIN, (Reported) Allergies Coded Allergies: No Known Allergies (Unverified , 09/07/18) SUNITA MEDINA MD Nov 02, 2018 06:41
== END 2018-11-01 10:52 | disposition home or self-care (01) | DRG 433 ==
LOC: M RADPRO 08:31 → M MSPAV 12:25
PROVIDERS: ADMIT Hospitalist; ATTEND Hospitalist
PROC: 0W9G3ZZ Drainage of Peritoneal Cavity, Percutaneous Approach (ICD-10-PCS; principal; 2018-10-28)
DX: K74.60 Unspecified cirrhosis of liver (principal); R18.8 Other ascites; I50.32 Chronic diastolic (congestive) heart failure; Z68.41 Body mass index [BMI] 40.0-44.9, adult; I48.1 Persistent atrial fibrillation; I13.0 Hypertensive heart and chronic kidney disease with heart failure and stage 1 through stage 4 chronic kidney disease, or unspecified chronic kidney disease; J44.9 Chronic obstructive pulmonary disease, unspecified; N50.89 Other specified disorders of the male genital organs; I27.20 Pulmonary hypertension, unspecified; K21.9 Gastro-esophageal reflux disease without esophagitis; E87.6 Hypokalemia; N18.9 Chronic kidney disease, unspecified; I87.2 Venous insufficiency (chronic) (peripheral); D64.9 Anemia, unspecified; E11.22 Type 2 diabetes mellitus with diabetic chronic kidney disease; M19.90 Unspecified osteoarthritis, unspecified site; G47.33 Obstructive sleep apnea (adult) (pediatric); E66.01 Morbid (severe) obesity due to excess calories; I25.10 Atherosclerotic heart disease of native coronary artery without angina pectoris; Z95.1 Presence of aortocoronary bypass graft; Z79.01 Long term (current) use of anticoagulants; Z79.899 Other long term (current) drug therapy; Z79.4 Long term (current) use of insulin

== ENCOUNTER → 2018-11-04 | Outpatient (CLI) | payer MEDICARE, OTHER ==
[~2018-11-04] MED LIST changes: +CALC500T44 PO; +DICL1GEL3 TOP; +DOXY100C PO; +ELIQ2.5T PO; +IPRA0.00 NEB; +LIDOCAINE 1% MDV 20ML VIAL As Ordered ONE; +METO1TAB87 PO; +SILV50CR TOP; +SPIR50TA4 PO
--- NOTE | 2018-11-04 13:06 | REP ---
LIMITED ABDOMINAL ULTRASOUND: Real-time sonographic evaluation of the abdomen performed to evaluate for possible ascites. There is very mild ascites in the bilateral flanks. There is not felt to be enough ascites fluid present that the patient would benefit from a therapeutic paracentesis. Electronically Signed by Calvin Rivera MD 11/04/2018 05:14 P
== END ==
LOC: M RADPRO 08:53
PROVIDERS: ATTEND Internal Medicine Cardiovascular Disease
DX: R18.8 Other ascites (principal)

== ENCOUNTER → 2018-11-11 | Outpatient (CLI) | payer MEDICARE, OTHER ==
--- NOTE | 2018-11-11 10:33 | REP ---
LIMITED ABDOMINAL ULTRASOUND: Limited abdominal ultrasound was performed to evaluate for ascites prior to a scheduled paracentesis. There is mild scattered ascites in the abdomen mainly in the right upper quadrant. Patient declined therapeutic paracentesis at this time. Electronically Signed by Calvin Rivera MD 11/11/2018 04:32 P
== END ==
LOC: M RADPRO 08:30
PROVIDERS: ATTEND Internal Medicine Cardiovascular Disease
DX: R18.8 Other ascites (principal)

== ENCOUNTER → 2018-11-18 | Outpatient (CLI) | payer MEDICARE, OTHER ==
[~2018-11-18] MED LIST changes: -LIDOCAINE 1% MDV 20ML VIAL As Ordered ONE
--- NOTE | 2018-11-18 09:01 | REP ---
Clinical: Evaluate for ascites. Technique: Rivera scale ultrasound examination using curved array transducer. Findings: Generalized ultrasound examination through the four quadrants of the abdomen and pelvis demonstrates a mild/moderate amount of ascites. Impression: Mild/moderate ascites through the abdomen and pelvis. Electronically Signed by Adiel Pretty MD 11/18/2018 08:52 A
== END ==
LOC: M RADPRO 08:22
PROVIDERS: ATTEND Internal Medicine Cardiovascular Disease
DX: K74.60 Unspecified cirrhosis of liver (principal); R18.8 Other ascites; I50.9 Heart failure, unspecified; I48.91 Unspecified atrial fibrillation; J44.9 Chronic obstructive pulmonary disease, unspecified; N18.9 Chronic kidney disease, unspecified; I11.0 Hypertensive heart disease with heart failure

== ENCOUNTER → 2018-11-25 | Outpatient (CLI) | payer MEDICARE, OTHER ==
[~2018-11-25] MED LIST changes: -OMEP20CA3 PO; +OMEP20CA4 PO
--- NOTE | 2018-11-25 09:50 | REP ---
Clinical: Evaluate for ascites. Technique: Rivera scale ultrasound examination using curved array transducer. Findings: Generalized ultrasound examination through the four quadrants of the abdomen and pelvis demonstrates a small/moderate amount of ascites and paracentesis was declined. Impression: Small to moderate amount of ascites. Paracentesis not performed. Electronically Signed by Adiel Pretty MD 11/25/2018 09:41 A
== END ==
LOC: M RADPRO 08:00
PROVIDERS: ATTEND Internal Medicine Cardiovascular Disease
DX: R18.8 Other ascites (principal)

== ENCOUNTER → 2018-12-02 | Outpatient (CLI) | payer MEDICARE, OTHER ==
[2018-12-02 10:15] VITALS: BP 115/72
--- NOTE | 2018-12-02 20:36 | REP ---
Ultrasound-guided paracentesis The procedure was performed by JUNIOR Mohamud, under the direct supervision of Dr. Rivera. The risks and benefits of the procedure were explained to the patient and informed consent was obtained both verbally and written. Directly prior to the start of the procedure, a formal timeout was completed in the procedure room. Under ultrasound guidance, the largest pocket of fluid in the right flank was localized and skin was marked. The skin was then prepped and draped in a sterile fashion. 10 ml of 1% lidocaine was used as a local anesthetic. Using ultrasound guidance, an 8-Singaporean multi side-hole catheter was inserted using trocar technique. 7,350 mL of dark, cloudy yellow colored fluid was withdrawn and discarded. The patient tolerated the procedure well and there were no immediate complications. After the appropriate monitored convalescence the patient was discharged from the department. Reviewed by JUNIOR Schmidt 12/02/2018 10:31 A Electronically Signed by Calvin Rivera MD 12/02/2018 08:27 P
== END ==
LOC: M IRPRO 08:40 → M RADPRO 08:40
PROVIDERS: ATTEND Internal Medicine Cardiovascular Disease
DX: R18.8 Other ascites (principal)

== ENCOUNTER → 2018-12-16 | Outpatient (CLI) | payer MEDICARE, OTHER ==
[~2018-12-16] VITALS: Ht 182.9 cm; Wt 129.3 kg
[2018-12-16 09:59] VITALS: BP 120/68
--- NOTE | 2018-12-17 11:11 | REP ---
Ultrasound-guided paracentesis The procedure was performed under the direct supervision of Dr. Rivera. The risks and benefits of the procedure were explained to the patient and informed consent was obtained. The largest pocket of fluid was localized in the left flank using ultrasound guidance. The skin was prepped and draped in a sterile fashion. 1% lidocaine was used as a local anesthetic. Using ultrasound guidance an 8-Argentine multi side-hole catheter was inserted using trocar technique. 3800 ml of clay colored fluid was withdrawn and discarded. The patient tolerated the procedure well and there were no immediate complications. After the appropriate amount of monitored convalescence the patient was discharged from the department. Reviewed by JUNIOR Porter 12/16/2018 02:20 P Electronically Signed by Calvin Rivera MD 12/17/2018 11:02 A
== END ==
LOC: M IRPRO 08:12
PROVIDERS: ATTEND Internal Medicine Cardiovascular Disease
DX: R18.8 Other ascites (principal)

== ENCOUNTER → 2018-12-23 | Outpatient (CLI) | payer MEDICARE, OTHER ==
[2018-12-23 10:06] VITALS: BP 142/82
--- NOTE | 2018-12-23 18:19 | REP ---
Ultrasound-guided paracentesis The procedure was performed under the direct supervision of Dr. Hutchinson. The risks and benefits of the procedure were explained to the patient and informed consent was obtained. The largest pocket of fluid was localized in the right flank using ultrasound guidance. The skin was prepped and draped in a sterile fashion. 1% lidocaine was used as a local anesthetic. Using ultrasound guidance an 8-Kittitian multi side-hole catheter was inserted using trocar technique. 4850 ml of clay colored fluid was withdrawn and discarded. The patient tolerated the procedure well and there were no immediate complications. After the appropriate amount of monitored convalescence the patient was discharged from the department. Reviewed by JUNIOR Porter 12/23/2018 04:15 P Electronically Signed by Alli Hutchinson MD 12/23/2018 06:11 P
== END ==
LOC: M IRPRO 08:02
PROVIDERS: ATTEND Internal Medicine Cardiovascular Disease
DX: R18.8 Other ascites (principal)

== ENCOUNTER → 2019-01-08 | Outpatient (CLI) | payer MEDICARE, OTHER ==
[~2019-01-08] MED LIST changes: +OMEP1CAP73 PO; -OMEP20CA4 PO; +TIZA2TAB4 PO; +ZETI10TA16 PO; -ZETI10TA30 PO
--- NOTE | 2019-01-08 14:24 | REP ---
FOUR-QUADRANT ABDOMINAL PERINEAL SONOGRAPHIC SURVEY: HISTORY: Ultrasound performed prior to paracentesis. FINDINGS: Four-quadrant sonography confirms the presence of a mild to moderate diffuse ascites. I am informed that the patient opted to defer paracentesis at this time. Electronically Signed by Alli Hutchinson MD 01/08/2019 03:23 P
== END ==
LOC: M IRPRO 11:19
PROVIDERS: ATTEND Radiology Diagnostic Radiology
DX: R18.8 Other ascites (principal)

== ENCOUNTER → 2019-01-15 | Outpatient (CLI) | payer MEDICARE, OTHER ==
[~2019-01-15] MED LIST changes: -OMEP1CAP73 PO; +OMEP20CA4 PO; -TIZA2TAB4 PO
--- NOTE | 2019-01-15 14:12 | REP ---
LIMITED ABDOMINAL ULTRASOUND: Limited abdominal ultrasound performed in all four quadrants demonstrating mild ascites. There did not appear to be sufficient fluid for therapeutic paracentesis to be worthwhile. Patient decided to postpone the procedure. Electronically Signed by Calvin Rivera MD 01/17/2019 10:54 P
== END ==
LOC: M IRPRO 10:26
DX: R18.8 Other ascites (principal); K74.60 Unspecified cirrhosis of liver

== ENCOUNTER → 2019-01-21 | Outpatient (CLI) | payer MEDICARE, OTHER ==
[2019-01-21 12:32] VITALS: BP 112/70
--- NOTE | 2019-01-21 16:53 | REP ---
Ultrasound-guided paracentesis The procedure was performed under the direct supervision of Dr. Hutchinson. The risks and benefits of the procedure were explained to the patient and informed consent was obtained. The largest pocket of fluid was localized in the left flank using ultrasound guidance. The skin was prepped and draped in a sterile fashion. 1% lidocaine was used as a local anesthetic. Using ultrasound guidance an 8-Nepali multi side-hole catheter was inserted using trocar technique. 6800 ml of clay colored fluid was withdrawn and discarded. The patient tolerated the procedure well and there were no immediate complications. After the appropriate amount of monitored convalescence the patient was discharged from the department. Reviewed by JUNIOR Porter 01/21/2019 04:40 P Electronically Signed by Alli Hutchinson MD 01/21/2019 04:44 P
== END ==
LOC: M IRPRO 11:31
DX: K74.60 Unspecified cirrhosis of liver (principal); R18.8 Other ascites

== ENCOUNTER → 2019-02-05 | Outpatient (CLI) | payer MEDICARE, OTHER ==
[2019-02-05 11:58] VITALS: BP 141/75
--- NOTE | 2019-02-05 16:52 | REP ---
Ultrasound-guided paracentesis The procedure was performed under the direct supervision of Dr. Rivera. The risks and benefits of the procedure were explained to the patient and informed consent was obtained. The largest pocket of fluid was localized in the left flank using ultrasound guidance. The skin was prepped and draped in a sterile fashion. 1% lidocaine was used as a local anesthetic. Using ultrasound guidance, an 8-Lebanese multi side-hole catheter was inserted using trocar technique. 5700 ml of clay colored fluid was withdrawn and discarded. The patient tolerated the procedure well and there were no immediate complications. After the appropriate amount of monitored convalescence the patient was discharged from the department. Electronically Signed by JUNIOR Porter 02/05/2019 04:02 P Electronically Signed by Calvin Rivera MD 02/05/2019 04:44 P
== END ==
LOC: M IRPRO 10:28
DX: R18.8 Other ascites (principal)

== ENCOUNTER → 2019-02-26 | Outpatient (CLI) | payer MEDICARE, OTHER ==
[~2019-02-26] MED LIST changes: +TIZA2TAB4 PO
--- NOTE | 2019-02-26 17:07 | REP ---
LIMITED ABDOMINAL ULTRASOUND: Real-time sonographic evaluation of the abdomen performed to evaluate for ascites prior to a scheduled paracentesis. There is mild to moderate ascites present. The patient declined paracentesis today. Electronically Signed by Calvin Rivera MD 03/01/2019 05:00 P
== END ==
LOC: M IRPRO 12:19
PROVIDERS: ATTEND Internal Medicine Cardiovascular Disease
DX: R18.8 Other ascites (principal)

== ENCOUNTER → 2019-03-05 | Outpatient (CLI) | payer MEDICARE, OTHER ==
[~2019-03-05] MED LIST changes: +LIDOCAINE 1% MDV 20ML VIAL As Ordered ONE
[2019-03-05 10:21] VITALS: BP 104/66
--- NOTE | 2019-03-09 09:18 | REP ---
Ultrasound-guided paracentesis The procedure was performed under the direct supervision of Dr. Rivera. The risks and benefits of the procedure were explained to the patient and informed consent was obtained. The largest pocket of fluid was localized in the right flank using ultrasound guidance. The skin was prepped and draped in a sterile fashion. 1% lidocaine was used as a local anesthetic. Using ultrasound guidance an 8-Sao Tomean multi side-hole catheter was inserted using trocar technique. 8100 ml of cloudy clay fluid was withdrawn and discarded. The patient tolerated the procedure well and there were no immediate complications. After the appropriate amount of monitored convalescence the patient was discharged from the department. Electronically Signed by JUNIOR Porter 03/05/2019 03:05 P Electronically Signed by Calvin Rivera MD 03/09/2019 09:09 A
== END ==
LOC: M IRPRO 08:38
PROVIDERS: ATTEND Internal Medicine Cardiovascular Disease
DX: R18.8 Other ascites (principal)

== ENCOUNTER → 2019-03-26 | Outpatient (CLI) | payer MEDICARE, OTHER ==
[~2019-03-26] MED LIST changes: -LIDOCAINE 1% MDV 20ML VIAL As Ordered ONE
[2019-03-26 09:50] VITALS: BP 141/81
--- NOTE | 2019-03-26 10:16 | REP ---
LIMITED ABDOMINAL ULTRASOUND: Limited abdominal ultrasound performed prior to a scheduled paracentesis. Mild ascites fluid is seen primarily in the left lower quadrant. After discussion with the patient it is felt that there is not enough fluid for ultrasound guided abdominal paracentesis to provide therapeutic benefit. Paracentesis procedure is postponed. Electronically Signed by Calvin Rivera MD 03/26/2019 11:30 A
== END ==
LOC: M IRPRO 09:22
PROVIDERS: ATTEND Internal Medicine Cardiovascular Disease
DX: R18.8 Other ascites (principal); K74.60 Unspecified cirrhosis of liver

== ENCOUNTER → 2019-04-02 | Outpatient (CLI) | payer MEDICARE, OTHER ==
[2019-04-02 10:30] VITALS: BP 125/81
--- NOTE | 2019-04-02 17:32 | REP ---
Ultrasound-guided paracentesis The procedure was performed under the direct supervision of Dr. Hutchinson. The risks and benefits of the procedure were explained to the patient and informed consent was obtained. The largest pocket of fluid was localized in the left flank using ultrasound guidance. The skin was prepped and draped in a sterile fashion. 1% lidocaine was used as a local anesthetic. An 8-Northern Irish multi side-hole catheter was inserted using trocar technique. 4400 ml of low viscosity red colored fluid was withdrawn and discarded. The patient tolerated the procedure well and there were no immediate complications. After the appropriate amount of monitored convalescence the patient was discharged from the department. Electronically Signed by JUNIOR Porter 04/02/2019 04:38 P Electronically Signed by Alli Hutchinson MD 04/02/2019 05:23 P
== END ==
LOC: M IRPRO 09:22
PROVIDERS: ATTEND Internal Medicine Cardiovascular Disease
DX: R18.8 Other ascites (principal)

== ENCOUNTER → 2019-04-30 | Outpatient (CLI) | payer MEDICARE, OTHER ==
[~2019-04-30] MED LIST changes: +OMEP-172 PO; -OMEP20CA4 PO
[2019-04-30 10:48] VITALS: BP 112/75
--- NOTE | 2019-04-30 15:57 | REP ---
Ultrasound-guided paracentesis The procedure was performed under the direct supervision of Dr. Rivera. The risks and benefits of the procedure were explained to the patient and informed consent was obtained. The largest pocket of fluid was localized in the left flank using ultrasound guidance. The skin was prepped and draped in a sterile fashion. 1% lidocaine was used as a local anesthetic. An 8-Telugu multi side-hole catheter was inserted using trocar technique. 6000 ml of yellow/pink colored fluid was withdrawn and discarded. The patient tolerated the procedure well and there were no immediate complications. After the appropriate amount of monitored convalescence the patient was discharged from the department. Electronically Signed by JUNIOR Porter 04/30/2019 03:21 P Electronically Signed by Calvin Rivera MD 04/30/2019 03:48 P
== END ==
LOC: M IRPRO 09:36
PROVIDERS: ATTEND Internal Medicine Cardiovascular Disease
DX: R18.8 Other ascites (principal)

== ENCOUNTER → 2019-05-20 | Outpatient (CLI) | payer MEDICARE, OTHER ==
--- NOTE | 2019-05-20 15:00 | REP ---
Clinical: Ascites. Technique: Transabdominal ultrasound examination using curved array transducer. Findings: Generalized ultrasound examination demonstrates a [id number] amount of ascites. Impression: Moderate to large amount of ascites. Electronically Signed by Adiel Pretty MD 05/20/2019 02:52 P
== END ==
LOC: M IRPRO 14:04
PROVIDERS: ATTEND Internal Medicine Cardiovascular Disease
DX: K74.60 Unspecified cirrhosis of liver (principal); R18.8 Other ascites

== ENCOUNTER → 2019-05-28 | Outpatient (CLI) | payer MEDICARE, OTHER ==
[2019-05-28 11:25] VITALS: BP 114/69
--- NOTE | 2019-05-28 18:52 | REP ---
Ultrasound-guided paracentesis The procedure was performed by JUNIOR Mohamud, under the direct supervision of Dr. Hutchinson. The risks and benefits of the procedure were explained to the patient and informed consent was obtained both verbally and written. Directly prior to the start of the procedure, a formal timeout was completed in the procedure room. Under ultrasound guidance, the largest pocket of fluid in the left flank was localized and skin was marked. The skin was then prepped and draped in a sterile fashion. 10 ml of 1% lidocaine 10 mg/ml was used as a local anesthetic. Using ultrasound guidance, an 8-Wolof multi side-hole catheter was inserted using trocar technique. 9,300 mL of red tinged colored fluid was withdrawn and discarded. The patient tolerated the procedure well and there were no immediate complications. After the appropriate monitored convalescence the patient was discharged from the department. Reviewed by JUNIOR Schmidt 05/28/2019 04:59 P Electronically Signed by Alli Hutchinson MD 05/28/2019 06:44 P
== END ==
LOC: M IRPRO 09:41
PROVIDERS: ATTEND Internal Medicine Cardiovascular Disease
DX: R18.8 Other ascites (principal); K74.60 Unspecified cirrhosis of liver

== ENCOUNTER → 2019-06-04 | Outpatient (CLI) | payer MEDICARE, OTHER ==
[~2019-06-04] MED LIST changes: -OMEP-172 PO; +OMEP1CAP73 PO
[2019-06-04 15:45] VITALS: BP 155/82
--- NOTE | 2019-06-05 04:43 | REP ---
Ultrasound-guided paracentesis The procedure was performed under the direct supervision of Dr. Hutchinson. The risks and benefits of the procedure were explained to the patient and informed consent was obtained. The largest pocket of fluid was localized in the right flank in using ultrasound guidance. The skin was prepped and draped in a sterile fashion. 1% lidocaine was used as a local anesthetic. An 8-Kinyarwanda multi side-hole catheter was inserted using trocar technique. 5400 ml of cloudy yellow fluid was withdrawn and discarded. The patient tolerated the procedure well and there were no immediate complications. After the appropriate amount of monitored convalescence the patient was discharged from the department. Electronically Signed by JUNIOR Porter 06/04/2019 05:57 P Electronically Signed by Alli Hutchinson MD 06/05/2019 04:34 A
== END ==
LOC: M IRPRO 14:15
PROVIDERS: ATTEND Internal Medicine Cardiovascular Disease
DX: R18.8 Other ascites (principal); K74.60 Unspecified cirrhosis of liver

== ENCOUNTER → 2019-06-11 | Outpatient (CLI) | payer MEDICARE, OTHER ==
[2019-06-11 11:57] VITALS: BP 112/63
--- NOTE | 2019-06-11 21:00 | REP ---
Ultrasound-guided paracentesis The procedure was performed under the direct supervision of Dr. Hutchinson. The risks and benefits of the procedure were explained to the patient and informed consent was obtained. The largest pocket of fluid was localized in the left flank using ultrasound guidance. The skin was prepped and draped in a sterile fashion. 1% lidocaine was used as a local anesthetic. Using ultrasound guidance an 8-Irish multi side-hole catheter was inserted using trocar technique. 4600 ml of clay colored fluid was withdrawn and discarded. The patient tolerated the procedure well and there were no immediate complications. After the appropriate amount of monitored convalescence the patient was discharged from the department. Electronically Signed by JUNIOR Porter 06/11/2019 03:34 P Electronically Signed by Alli Hutchinson MD 06/11/2019 08:43 P
== END ==
LOC: M IRPRO 09:48
PROVIDERS: ATTEND Internal Medicine Cardiovascular Disease
DX: R18.8 Other ascites (principal)

== ENCOUNTER → 2019-06-18 | Outpatient (CLI) | payer MEDICARE, OTHER ==
[~2019-06-18] MED LIST changes: +LIDOCAINE 1% MDV 20ML VIAL As Ordered ONE; +MAGN400C2 PO
[2019-06-18 12:51] VITALS: BP 119/72
--- NOTE | 2019-06-18 18:43 | REP ---
Ultrasound-guided paracentesis The procedure was performed by JUNIOR Mohamud, under the direct supervision of Dr. Hutchinson. The risks and benefits of the procedure were explained to the patient and informed consent was obtained both verbally and written. Directly prior to the start of the procedure, a formal timeout was completed in the procedure room. Under ultrasound guidance, the largest pocket of fluid in the left flank was localized and skin was marked. The skin was then prepped and draped in a sterile fashion. 10 ml of 1% lidocaine 10 mg/ml was used as a local anesthetic. Using ultrasound guidance, an 8-Czech multi side-hole catheter was inserted using trocar technique. 5,750 mL of pink colored fluid was withdrawn and discarded. The patient tolerated the procedure well and there were no immediate complications. After the appropriate monitored convalescence the patient was discharged from the department. Reviewed by JUNIOR Schmidt 06/18/2019 01:59 P Electronically Signed by Alli Hutchinson MD 06/18/2019 06:32 P
== END ==
LOC: M IRPRO 11:36
PROVIDERS: ATTEND Internal Medicine Cardiovascular Disease
DX: R18.8 Other ascites (principal)

== ENCOUNTER → 2019-06-25 | Outpatient (CLI) | payer MEDICARE, OTHER ==
[~2019-06-25] MED LIST changes: -LIDOCAINE 1% MDV 20ML VIAL As Ordered ONE; +SODIUM BICARBONATE 8.4% INJ 50MEQ 50 ML VIAL As Ordered ONE
[2019-06-25 10:52] VITALS: BP 156/96
--- NOTE | 2019-06-25 11:25 | REP ---
Ultrasound-guided paracentesis The procedure was performed by JUNIOR Mohamud, under the direct supervision of Dr. Rivera. The risks and benefits of the procedure were explained to the patient and informed consent was obtained both verbally and written. Directly prior to the start of the procedure, a formal timeout was completed in the procedure room. Under ultrasound guidance, the largest pocket of fluid in the right flank was localized and skin was marked. The skin was then prepped and draped in a sterile fashion. 11 ml of a solution containing 10 ml of 1% lidocaine 10 mg/ml and 1 ml of sodium bicarbonate was used as a local anesthetic. Using ultrasound guidance, an 8-Nepali multi side-hole catheter was inserted using trocar technique. 4,600 mL of pink colored fluid was withdrawn and discarded. The patient tolerated the procedure well and there were no immediate complications. After the appropriate monitored convalescence the patient was discharged from the department. Reviewed by JUNIOR Schmidt 06/25/2019 11:16 A Electronically Signed by Calvin Rivera MD 06/25/2019 11:17 A
== END ==
LOC: M IRPRO 09:58
PROVIDERS: ATTEND Internal Medicine Cardiovascular Disease
DX: R18.8 Other ascites (principal)

== ENCOUNTER → 2019-07-02 | Outpatient (CLI) | payer MEDICARE, OTHER ==
[2019-07-02 11:15] VITALS: BP 110/66
--- NOTE | 2019-07-02 12:25 | REP ---
Ultrasound-guided paracentesis The procedure was performed under the direct supervision of Dr. Hutchinson. The risks and benefits of the procedure were explained to the patient and informed consent was obtained. The largest pocket of fluid was localized in the left flank using ultrasound guidance. The skin was prepped and draped in a sterile fashion. 1% lidocaine was used as a local anesthetic. An 8-Lebanese multi side-hole catheter was inserted using trocar technique. 6100 ml of pink cloudy fluid was withdrawn and discarded. The patient tolerated the procedure well and there were no immediate complications. After the appropriate amount of monitored convalescence the patient was discharged from the department. Electronically Signed by JUNIOR Porter 07/02/2019 12:06 P Electronically Signed by Alli Hutchinson MD 07/02/2019 12:16 P
== END ==
LOC: M IRPRO 09:46
PROVIDERS: ATTEND Internal Medicine Cardiovascular Disease
DX: R18.8 Other ascites (principal)

== ENCOUNTER 2019-07-05 11:57 | Emergency (ER) | payer MEDICARE, OTHER ==
[~2019-07-05] VITALS: Ht 180.3 cm; Wt 135.4 kg
[~2019-07-05 11:57] MED LIST changes: -SODIUM BICARBONATE 8.4% INJ 50MEQ 50 ML VIAL As Ordered ONE
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
--- NOTE | 2019-07-05 12:58 | REP ---
Clinical: Pain. Technique: Axial noncontrast images through the thoracic spine with coronal and sagittal re-formations. Findings: Alignment and kyphosis maintained. Vertebral bodies are intact and there is no evidence for acute fracture / compression injury or subluxation. Spinal canal is patent. Posterior and spinous processes are intact. Impression: Normal age-appropriate thoracic spine CT. Electronically Signed by Adiel Pretty MD 07/05/2019 12:50 P
--- NOTE | 2019-07-05 14:31 | REP ---
Clinical: Pain. Technique: AP, lateral, bilateral oblique and sunrise views of the left knee. Findings: The osseous structures are intact and normal. Considerable soft tissue swelling and possible small effusion are suspected and require clinical correlation. Impression: Swelling and possible effusion. No acute fracture or dislocation. Electronically Signed by Adiel Pretty MD 07/05/2019 02:22 P
[2019-07-05] MEDS ORDERED: tiZANidine 4 MG TAB PO ONE (15:15)
[2019-07-05] MEDS ORDERED: oxyCODONE 5MG TAB PO ONE (15:15)
[2019-07-05 16:30] VITALS: BP 121/69
== END 2019-07-05 16:58 | disposition home or self-care (01) ==
LOC: M ED 11:57 → EDBD 11:57 → M ED 16:58
DX: S29.012A Strain of muscle and tendon of back wall of thorax, initial encounter (principal); S51.801A Unspecified open wound of right forearm, initial encounter; M23.92 Unspecified internal derangement of left knee; V47.1XXA Car passenger injured in collision with fixed or stationary object in nontraffic accident, initial encounter; Y92.481 Parking lot as the place of occurrence of the external cause; I10 Essential (primary) hypertension; I48.91 Unspecified atrial fibrillation; E11.40 Type 2 diabetes mellitus with diabetic neuropathy, unspecified; I25.2 Old myocardial infarction; E78.9 Disorder of lipoprotein metabolism, unspecified; R18.8 Other ascites; J45.909 Unspecified asthma, uncomplicated; J44.9 Chronic obstructive pulmonary disease, unspecified; G47.30 Sleep apnea, unspecified; M54.2 Cervicalgia; G89.29 Other chronic pain; Z87.891 Personal history of nicotine dependence; Z79.899 Other long term (current) drug therapy; Z79.01 Long term (current) use of anticoagulants; Z79.2 Long term (current) use of antibiotics; Z79.84 Long term (current) use of oral hypoglycemic drugs

== ENCOUNTER → 2019-07-09 | Outpatient (CLI) | payer MEDICARE, OTHER ==
[~2019-07-09] MED LIST changes: +SODIUM BICARBONATE 8.4% INJ 50MEQ 50 ML VIAL As Ordered ONE
[2019-07-09 12:15] VITALS: BP 120/78
--- NOTE | 2019-07-09 16:20 | REP ---
Ultrasound-guided paracentesis The procedure was performed under the direct supervision of Dr. Hutchinson. The risks and benefits of the procedure were explained to the patient and informed consent was obtained. The largest pocket of fluid was localized in the right lower quadrant using ultrasound guidance. The skin was prepped and draped in a sterile fashion. 1% lidocaine was used as a local anesthetic. An 8-Eritrean multi side-hole catheter was inserted using trocar technique. 6700 ml of reddish brown fluid was withdrawn and discarded. The patient tolerated the procedure well and there were no immediate complications. After the appropriate amount of monitored convalescence the patient was discharged from the department. Electronically Signed by JUNIOR Porter 07/09/2019 03:14 P Electronically Signed by Alli Hutchinson MD 07/09/2019 04:11 P
== END ==
LOC: M IRPRO 11:07
PROVIDERS: ATTEND Internal Medicine Cardiovascular Disease
DX: R18.8 Other ascites (principal)

== ENCOUNTER → 2019-07-15 | Outpatient (CLI) | payer MEDICARE, OTHER ==
[~2019-07-15] MED LIST changes: +AMOX500C
[2019-07-15 15:35] VITALS: BP 123/77
--- NOTE | 2019-07-15 19:35 | REP ---
Ultrasound-guided paracentesis The procedure was performed by JUNIOR Mohamud, under the direct supervision of Dr. Hutchinson. The risks and benefits of the procedure were explained to the patient and informed consent was obtained both verbally and written. Directly prior to the start of the procedure, a formal timeout was completed in the procedure room. Under ultrasound guidance, the largest pocket of fluid in the left flank was localized and skin was marked. The skin was then prepped and draped in a sterile fashion. 11 ml of buffered lidocaine was used as a local anesthetic. Using ultrasound guidance, an 8-Serbian multi side-hole catheter was inserted using trocar technique. 6,000 mL of red tinged colored fluid was withdrawn and discarded. The patient tolerated the procedure well and there were no immediate complications. After the appropriate monitored convalescence the patient was discharged from the department. Reviewed by JUNOIR Schmidt 07/15/2019 05:38 P Electronically Signed by Alli Hutchinson MD 07/15/2019 07:26 P
== END ==
LOC: M IRPRO 13:36
PROVIDERS: ATTEND Internal Medicine Cardiovascular Disease
DX: R18.8 Other ascites (principal)

== ENCOUNTER → 2019-07-23 | Outpatient (CLI) | payer MEDICARE, OTHER ==
[2019-07-23 12:40] VITALS: BP 135/88
--- NOTE | 2019-07-23 15:26 | REP ---
Ultrasound-guided paracentesis The procedure was performed by JUNIOR Mohamud, under the direct supervision of Dr. Hutchinson. The risks and benefits of the procedure were explained to the patient and informed consent was obtained both verbally and written. Directly prior to the start of the procedure, a formal timeout was completed in the procedure room. Under ultrasound guidance, the largest pocket of fluid in the left flank was localized and skin was marked. The skin was then prepped and draped in a sterile fashion. 10 ml of 1% lidocaine 10 mg/ml was used as a local anesthetic. Using ultrasound guidance, an 8-Korean multi side-hole catheter was inserted using trocar technique. 6,150 mL of dark red colored fluid was withdrawn and discarded. The patient tolerated the procedure well and there were no immediate complications. After the appropriate monitored convalescence the patient was discharged from the department. Reviewed by JUNIOR Schmidt 07/23/2019 02:00 P Electronically Signed by Alli Hutchinson MD 07/23/2019 03:17 P
== END ==
LOC: M IRPRO 12:02
PROVIDERS: ATTEND Internal Medicine Cardiovascular Disease
DX: R18.8 Other ascites (principal)

== ENCOUNTER → 2019-07-30 | Outpatient (CLI) | payer MEDICARE, OTHER ==
[~2019-07-30] MED LIST changes: +LIDOCAINE 1% MDV 20ML VIAL As Ordered ONE
[2019-07-30 11:05] VITALS: BP 130/76
--- NOTE | 2019-07-30 18:38 | REP ---
Ultrasound-guided paracentesis The procedure was performed under the direct supervision of Dr. Hutchinson. The risks and benefits of the procedure were explained to the patient and informed consent was obtained. The largest pocket of fluid was localized in the right flank using ultrasound guidance. The skin was prepped and draped in a sterile fashion. 1% lidocaine was used as a local anesthetic. An 8-Belarusian multi side-hole catheter was inserted using trocar technique. 6100 ml of pink colored fluid was withdrawn and discarded. The patient tolerated the procedure well and there were no immediate complications. After the appropriate amount of monitored convalescence the patient was discharged from the department. Electronically Signed by JUNIOR Porter 07/30/2019 04:50 P Electronically Signed by Alli Hutchinson MD 07/30/2019 06:29 P
== END ==
LOC: M IRPRO 10:06
PROVIDERS: ATTEND Internal Medicine Cardiovascular Disease
DX: R18.8 Other ascites (principal)

== ENCOUNTER → 2019-08-06 | Outpatient (CLI) | payer MEDICARE, OTHER ==
[~2019-08-06] MED LIST changes: -LIDOCAINE 1% MDV 20ML VIAL As Ordered ONE
[2019-08-06 11:27] VITALS: BP 127/88
--- NOTE | 2019-08-06 16:08 | REP ---
Ultrasound-guided paracentesis The procedure was performed by JUNIOR Mohamud, under the direct supervision of Dr. Hutchinson. The risks and benefits of the procedure were explained to the patient and informed consent was obtained both verbally and written. Directly prior to the start of the procedure, a formal timeout was completed in the procedure room. Under ultrasound guidance, the largest pocket of fluid in the right flank was localized and skin was marked. The skin was then prepped and draped in a sterile fashion. 11 ml buffered lidocaine was used as a local anesthetic. Using ultrasound guidance, an 8-C[place] Rican multi side-hole catheter was inserted using trocar technique. 6,975 mL of pink tinged colored fluid was withdrawn and discarded. The patient tolerated the procedure well and there were no immediate complications. After the appropriate monitored convalescence the patient was discharged from the department. Reviewed by JUNIOR Schmidt 08/06/2019 02:54 P Electronically Signed by Alli Hutchinson MD 08/06/2019 03:59 P
== END ==
LOC: M IRPRO 10:12
PROVIDERS: ATTEND Internal Medicine Cardiovascular Disease
DX: R18.8 Other ascites (principal)

== ENCOUNTER → 2019-08-13 | Outpatient (CLI) | payer MEDICARE, OTHER ==
[2019-08-13 10:20] VITALS: BP 129/67
--- NOTE | 2019-08-13 12:00 | REP ---
LIMITED ABDOMINAL ULTRASOUND: Real-time sonographic evaluation of the abdomen performed to evaluate for possible ascites prior to a scheduled paracentesis. There is not significant ascites present and therefore the scheduled paracentesis is postponed. Electronically Signed by Calvin Rivera MD 08/13/2019 02:07 P
== END ==
LOC: M IRPRO 09:53
PROVIDERS: ATTEND Internal Medicine Cardiovascular Disease
DX: R18.8 Other ascites (principal)

== ENCOUNTER → 2019-08-20 | Outpatient (CLI) | payer MEDICARE, OTHER ==
[2019-08-20 11:08] VITALS: BP 162/81
--- NOTE | 2019-08-20 17:18 | REP ---
Ultrasound-guided paracentesis The procedure was performed under the direct supervision of Dr. Rivera. The risks and benefits of the procedure were explained to the patient and informed consent was obtained. The largest pocket of fluid was localized in the left flank using ultrasound guidance. The skin was prepped and draped in a sterile fashion. 1% lidocaine was used as a local anesthetic. An 8-Wolof multi side-hole catheter was inserted using trocar technique. 8800 ml of red colored fluid was withdrawn and discarded. The patient tolerated the procedure well and there were no immediate complications. After the appropriate amount of monitored convalescence the patient was discharged from the department. Electronically Signed by JUNIOR Porter 08/20/2019 04:44 P Electronically Signed by Calvin Rivera MD 08/20/2019 05:09 P
== END ==
LOC: M IRPRO 09:53
PROVIDERS: ATTEND Internal Medicine Cardiovascular Disease
DX: R18.8 Other ascites (principal)

== ENCOUNTER → 2019-08-27 | Outpatient (CLI) | payer MEDICARE, OTHER ==
[2019-08-27 11:36] VITALS: BP 110/67
--- NOTE | 2019-08-27 12:32 | REP ---
Ultrasound-guided paracentesis The procedure was performed by JUNIOR Mohamud, under the direct supervision of Dr. Rivera. The risks and benefits of the procedure were explained to the patient and informed consent was obtained both verbally and written. Directly prior to the start of the procedure, a formal timeout was completed in the procedure room. Under ultrasound guidance, the largest pocket of fluid in the left flank was localized and skin was marked. The skin was then prepped and draped in a sterile fashion. 11 ml of buffered lidocaine was used as a local anesthetic. Using ultrasound guidance, an 8-Turkmen multi side-hole catheter was inserted using trocar technique. 7,200 mL of peach colored fluid was withdrawn and discarded. The patient tolerated the procedure well and there were no immediate complications. After the appropriate monitored convalescence the patient was discharged from the department. Reviewed by JUNIOR Schmidt 08/27/2019 11:57 A Electronically Signed by Calvin Rivera MD 08/27/2019 12:23 P
== END ==
LOC: M IRPRO 10:12
PROVIDERS: ATTEND Internal Medicine Cardiovascular Disease
DX: R18.8 Other ascites (principal)

== ENCOUNTER → 2019-09-03 | Outpatient (CLI) | payer MEDICARE, OTHER ==
[2019-09-03 13:35] VITALS: BP 124/74
--- NOTE | 2019-09-03 15:06 | REP ---
Ultrasound-guided paracentesis The procedure was performed by JUNIOR Mohamud, under the direct supervision of Dr. Rivera. The risks and benefits of the procedure were explained to the patient and informed consent was obtained both verbally and written. Directly prior to the start of the procedure, a formal timeout was completed in the procedure room. Under ultrasound guidance, the largest pocket of fluid in the left flank was localized and skin was marked. The skin was then prepped and draped in a sterile fashion. 11 ml of buffered lidocaine was used as a local anesthetic. Using ultrasound guidance, an 8-Malay multi side-hole catheter was inserted using trocar technique. 8,000 mL of a dark peach colored fluid was withdrawn and discarded. The patient tolerated the procedure well and there were no immediate complications. After the appropriate monitored convalescence the patient was discharged from the department. Reviewed by JUNIOR Schmidt 09/03/2019 01:38 P Electronically Signed by Calvin Rivera MD 09/03/2019 02:56 P
== END ==
LOC: M IRPRO 12:22
PROVIDERS: ATTEND Internal Medicine Cardiovascular Disease
DX: R18.8 Other ascites (principal)

== ENCOUNTER → 2019-09-24 | Outpatient (CLI) | payer MEDICARE, OTHER ==
[2019-09-24 11:31] VITALS: BP 143/86
--- NOTE | 2019-09-24 15:50 | REP ---
Ultrasound-guided paracentesis The procedure was performed by JUNIOR Mohamud, under the direct supervision of Dr. Rivera. The risks and benefits of the procedure were explained to the patient and informed consent was obtained both verbally and written. Directly prior to the start of the procedure, a formal timeout was completed in the procedure room. Under ultrasound guidance, the largest pocket of fluid in the left flank was localized and skin was marked. The skin was then prepped and draped in a sterile fashion. 20 ml of buffered lidocaine was used as a local anesthetic. A small skin jagdeep was made and appeared to puncture artery. Pressure was held until the bleeding was stopped. A soft tissue bandage was placed over the area. Using ultrasound guidance another pocket of fluid in the left flank was localized and the skin was marked. The skin was then reprepped and draped in a sterile fashion. 10 ml of buffered lidocaine was used as a local anesthetic. Using ultrasound guidance, an 8-Pashto multi side-hole catheter was inserted using trocar technique. 7,700 mL of red colored fluid was withdrawn and discarded. The patient tolerated the procedure well and there were no immediate complications. After the appropriate monitored convalescence the patient was discharged from the department. Reviewed by JUNIOR Schmidt 09/24/2019 01:20 P Electronically Signed by Calvin Rivera MD 09/24/2019 03:41 P
== END ==
LOC: M IRPRO 09:26
PROVIDERS: ATTEND Internal Medicine Cardiovascular Disease
DX: K74.60 Unspecified cirrhosis of liver (principal); R18.8 Other ascites

== ENCOUNTER → 2019-10-01 | Outpatient (CLI) | payer MEDICARE, OTHER ==
[2019-10-01 11:13] VITALS: BP 104/59
--- NOTE | 2019-10-01 15:25 | REP ---
Ultrasound-guided paracentesis The procedure was performed under the direct supervision of Dr. Rivera. The risks and benefits of the procedure were explained to the patient and informed consent was obtained. The largest pocket of fluid was localized in the left flank using ultrasound guidance. The skin was prepped and draped in a sterile fashion. 1% lidocaine was used as a local anesthetic. An 8-Moroccan multi side-hole catheter was inserted using trocar technique. Approximately half way through the procedure the patient stopped draining. The tube was manipulated under ultrasound guidance, however, was lying within the bowel. With the patient's consent the catheter was removed and, using ultrasound guidance, a new 8-Moroccan multi side-hole catheter was inserted into a larger pocket of fluid. 7410 ml of pink colored fluid was withdrawn and discarded. The patient tolerated the procedure well and there were no immediate complications. After the appropriate amount of monitored convalescence the patient was discharged from the department. Electronically Signed by JUNIOR Porter 10/01/2019 02:56 P Electronically Signed by Calvin Rivera MD 10/01/2019 03:16 P
== END ==
LOC: M IRPRO 09:14
PROVIDERS: ATTEND Internal Medicine Cardiovascular Disease
DX: R18.8 Other ascites (principal)

== ENCOUNTER → 2019-10-08 | Outpatient (CLI) | payer MEDICARE, OTHER ==
[~2019-10-08] MED LIST changes: -TIZA2TAB4 PO; +TIZA2TAB6 PO
[2019-10-08 11:15] VITALS: BP 114/70
--- NOTE | 2019-10-08 15:16 | REP ---
Ultrasound-guided paracentesis The procedure was performed under the direct supervision of Dr. Rivera. The risks and benefits of the procedure were explained to the patient and informed consent was obtained. The largest pocket of fluid was localized in the left flank using ultrasound guidance. The skin was prepped and draped in a sterile fashion. 1% buffered lidocaine was used as a local anesthetic. An 8-East Timorese multi side-hole catheter was inserted using trocar technique. 7200 ml of clay colored fluid was withdrawn and discarded. The patient tolerated the procedure well and there were no immediate complications. After the appropriate amount of monitored convalescence the patient was discharged from the department. Electronically Signed by JUNIOR Porter 10/08/2019 03:02 P Electronically Signed by Calvin Rivera MD 10/08/2019 03:08 P
== END ==
LOC: M IRPRO 09:35
PROVIDERS: ATTEND Internal Medicine Cardiovascular Disease
DX: R18.8 Other ascites (principal)

== ENCOUNTER → 2019-10-15 | Outpatient (CLI) | payer MEDICARE, OTHER ==
[~2019-10-15] MED LIST changes: +FURO20TA2 PO
[2019-10-15 10:19] VITALS: BP 112/76
--- NOTE | 2019-10-15 15:58 | REP ---
Ultrasound-guided paracentesis The procedure was performed under the direct supervision of Dr. Rivera. The risks and benefits of the procedure were explained to the patient and informed consent was obtained. The largest pocket of fluid was localized in the left flank using ultrasound guidance. The skin was prepped and draped in a sterile fashion. 1% lidocaine was used as a local anesthetic. Using ultrasound guidance an 8-Iraqi multi side-hole catheter was inserted using trocar technique. 7200 ml of low viscosity, red colored fluid was withdrawn and discarded. The patient tolerated the procedure well and there were no immediate complications. After the appropriate amount of monitored convalescence the patient was discharged from the department. Electronically Signed by JUNIOR Porter 10/15/2019 03:20 P Electronically Signed by Calvin Rivera MD 10/15/2019 03:49 P
== END ==
LOC: M IRPRO 09:05
PROVIDERS: ATTEND Internal Medicine Cardiovascular Disease
DX: K74.69 Other cirrhosis of liver (principal); R18.8 Other ascites

== ENCOUNTER → 2019-10-22 | Outpatient (CLI) | payer MEDICARE, OTHER ==
[~2019-10-22] MED LIST changes: -FURO20TA2 PO
[2019-10-22 10:47] VITALS: BP 97/59
--- NOTE | 2019-10-22 16:00 | REP ---
Ultrasound-guided paracentesis The procedure was performed under the direct supervision of Dr. Rivera. The risks and benefits of the procedure were explained to the patient and informed consent was obtained. The largest pocket of fluid was localized in the left flank using ultrasound guidance. The skin was prepped and draped in a sterile fashion. 1% lidocaine was used as a local anesthetic. Using ultrasound guidance an 8-Serbian multi side-hole catheter was inserted using trocar technique. 7200 ml of pink colored fluid was withdrawn and discarded. The patient tolerated the procedure well and there were no immediate complications. After the appropriate amount of monitored convalescence the patient was discharged from the department. Electronically Signed by JUNIOR Porter 10/22/2019 03:01 P Electronically Signed by Calvin Rivera MD 10/22/2019 03:51 P
== END ==
LOC: M IRPRO 09:42
PROVIDERS: ATTEND Internal Medicine Cardiovascular Disease
DX: K74.69 Other cirrhosis of liver (principal); R18.8 Other ascites

== ENCOUNTER → 2019-10-29 | Outpatient (CLI) | payer MEDICARE, OTHER ==
[2019-10-29 11:32] LABS: ALBUMIN 1.9 GM/DL (3.2-5.2); ALT/SGPT 36 U/L (12-78); BILIRUBIN,TOTAL 1.3 MG/DL (0.2-1.0); BLOOD UREA NITROGEN 34 MG/DL (7-18); CALCIUM LEVEL 8.2 MG/DL (8.8-10.2); CARBON DIOXIDE LEVEL 29 MEQ/L (21-32); CHLORIDE LEVEL 97 MEQ/L (98-107); CREATININE FOR GFR 1.12 MG/DL (0.70-1.30); GLOMERULAR FILTRATION RATE > 60.0 (>49); GLUCOSE, FASTING 148 MG/DL (70-100); POTASSIUM SERUM 3.7 MEQ/L (3.5-5.1); SODIUM LEVEL 134 MEQ/L (136-145)
[2019-10-29 11:55] VITALS: BP 130/70
--- NOTE | 2019-11-01 13:36 | REP ---
Ultrasound-guided paracentesis The procedure was performed under the direct supervision of Dr. Rivera. The risks and benefits of the procedure were explained to the patient and informed consent was obtained. The largest pocket of fluid was localized in the left flank using ultrasound guidance. The skin was prepped and draped in a sterile fashion. 1% lidocaine was used as a local anesthetic. Using ultrasound guidance an 8-Guatemalan multi side-hole catheter was inserted using trocar technique. 7850 ml of cloudy red fluid was withdrawn and discarded. The patient tolerated the procedure well and there were no immediate complications. After the appropriate amount of monitored convalescence the patient was discharged from the department. Electronically Signed by JUNIOR Porter 10/29/2019 02:34 P Electronically Signed by Calvin Rivera MD 11/01/2019 01:26 P
== END ==
LOC: M IRPRO 10:12
PROVIDERS: ATTEND Internal Medicine Cardiovascular Disease
DX: R18.8 Other ascites (principal); K74.60 Unspecified cirrhosis of liver; I10 Essential (primary) hypertension; R77.0 Abnormality of albumin; E87.6 Hypokalemia

== ENCOUNTER → 2019-11-05 | Outpatient (CLI) | payer MEDICARE, OTHER ==
[2019-11-05 12:00] VITALS: BP 130/60
--- NOTE | 2019-11-09 17:42 | REP ---
Ultrasound-guided paracentesis The procedure was performed under the direct supervision of Dr. Rivera. The risks and benefits of the procedure were explained to the patient and informed consent was obtained. The largest pocket of fluid was localized in the left flank using ultrasound guidance. The skin was prepped and draped in a sterile fashion. 1% lidocaine was used as a local anesthetic. Using ultrasound guidance an 8-Jamaican multi side-hole catheter was inserted using trocar technique. 7200 ml of pink colored fluid was withdrawn and discarded. The patient tolerated the procedure well and there were no immediate complications. After the appropriate amount of monitored convalescence the patient was discharged from the department. Electronically Signed by JUNIOR Porter 11/05/2019 03:07 P Electronically Signed by Calvin Rivera MD 11/09/2019 05:33 P
== END ==
LOC: M IRPRO 10:01
PROVIDERS: ATTEND Internal Medicine Cardiovascular Disease
DX: K74.60 Unspecified cirrhosis of liver (principal); R18.8 Other ascites
CPT/HCPCS: 49083; P9047

== ENCOUNTER → 2019-11-12 | Outpatient (CLI) | payer MEDICARE, OTHER ==
[2019-11-12 11:54] VITALS: BP 130/82
[2019-11-12 12:55] LABS: HEMOGLOBIN A1c 6.4 %
--- NOTE | 2019-11-12 17:50 | REP ---
Ultrasound-guided paracentesis The procedure was performed under the direct supervision of Dr. Hutchinson. The risks and benefits of the procedure were explained to the patient and informed consent was obtained. The largest pocket of fluid was localized in the left flank using ultrasound guidance. The skin was prepped and draped in a sterile fashion. 1% lidocaine was used as a local anesthetic. Using ultrasound guidance and 8-Slovenian multi side-hole catheter was inserted using trocar technique. 9 liters of pink colored fluid was withdrawn and discarded. The patient tolerated the procedure well and there were no immediate complications. After the appropriate amount of monitored convalescence the patient was discharged from the department. Electronically Signed by JUNIOR Porter 11/12/2019 02:08 P Electronically Signed by Alli Hutchinson MD 11/12/2019 05:39 P
== END ==
LOC: M IRPRO 10:16
PROVIDERS: ATTEND Internal Medicine Cardiovascular Disease
DX: K74.60 Unspecified cirrhosis of liver (principal); R18.8 Other ascites; Z79.84 Long term (current) use of oral hypoglycemic drugs
CPT/HCPCS: 36415; 49083; 82040; 83036; P9047

== ENCOUNTER → 2019-11-19 | Outpatient (CLI) | payer MEDICARE, OTHER ==
[2019-11-19 11:32] VITALS: BP 101/61
--- NOTE | 2019-11-19 13:15 | REP ---
Ultrasound-guided paracentesis The procedure was performed by JUNIOR Mohamud, under the direct supervision of Dr. Rivera. The risks and benefits of the procedure were explained to the patient and informed consent was obtained both verbally and written. Directly prior to the start of the procedure, a formal timeout was completed in the procedure room. Under ultrasound guidance, the largest pocket of fluid in the left flank was localized and skin was marked. The skin was then prepped and draped in a sterile fashion. 11 ml of buffered lidocaine 10 mg/ml was used as a local anesthetic. Using ultrasound guidance, an 8-Czech multi side-hole catheter was inserted using trocar technique. 9,400 mL of cloudy pink colored fluid was withdrawn and discarded. The patient tolerated the procedure well and there were no immediate complications. After the appropriate monitored convalescence the patient was discharged from the department. Reviewed by JUNIOR Schmidt 11/19/2019 12:21 P Electronically Signed by Calvin Rivera MD 11/19/2019 01:07 P
== END ==
LOC: M IRPRO 09:30
PROVIDERS: ATTEND Internal Medicine Cardiovascular Disease
DX: K74.60 Unspecified cirrhosis of liver (principal); R18.8 Other ascites
CPT/HCPCS: P9047 ×2

== ENCOUNTER → 2019-11-25 | Outpatient (CLI) | payer MEDICARE, OTHER ==
[2019-11-25 11:34] VITALS: BP 139/88
--- NOTE | 2019-11-25 16:24 | REP ---
Ultrasound-guided paracentesis The procedure was performed by JUNIOR Mohamud, under the direct supervision of Dr. Hutchinson. The risks and benefits of the procedure were explained to the patient and informed consent was obtained both verbally and written. Directly prior to the start of the procedure, a formal timeout was completed in the procedure room. Under ultrasound guidance, the largest pocket of fluid in the left flank was localized and skin was marked. The skin was then prepped and draped in a sterile fashion. 11 ml of buffered lidocaine was used as a local anesthetic. Using ultrasound guidance, an 8-Malay multi side-hole catheter was inserted using trocar technique. 6,000 mL of cloudy pink colored fluid was withdrawn and discarded. The patient tolerated the procedure well and there were no immediate complications. After the appropriate monitored convalescence the patient was discharged from the department. Reviewed by JUNIOR Schmidt 11/25/2019 02:22 P Electronically Signed by Alli Hutchinson MD 11/25/2019 04:15 P
== END ==
LOC: M IRPRO 09:45
PROVIDERS: ATTEND Internal Medicine Cardiovascular Disease
DX: K74.60 Unspecified cirrhosis of liver (principal); R18.8 Other ascites
CPT/HCPCS: P9047 ×2

== ENCOUNTER → 2019-12-03 | Outpatient (CLI) | payer MEDICARE, OTHER ==
[~2019-12-03] MED LIST changes: +3 SEMIS2 XX; +ALBU0.63 INH; +AMOX500C PO; +BACI1CAP PO; +BUDE0.254 INH; +CALCTAB62 PO; +CEPH500C PO; +COLA100C5 PO; +D31000TA2 PO; +DIGO0.123 PO; +DOXY100T2 PO; +FERR1TAB8 PO; +LEVA1TAB2 PO; +LIDOCAINE 1% MDV 20ML VIAL As Ordered ONE; +METO5TA PO; +MOM30SS2 PO; +POTA1TAB23 PO; +PRIL20TA2 PO; +PROP10TA56 PO; +VITA50005 PO
[2019-12-03 11:12] VITALS: BP 107/67
--- NOTE | 2019-12-05 23:47 | REP ---
Ultrasound-guided paracentesis The procedure was performed by JUNIOR Mohamud, under the direct supervision of Dr. Rivera. The risks and benefits of the procedure were explained to the patient and informed consent was obtained both verbally and written. Directly prior to the start of the procedure, a formal timeout was completed in the procedure room. Under ultrasound guidance, the largest pocket of fluid in the left flank was localized and skin was marked. The skin was then prepped and draped in a sterile fashion. 11 ml of buffered lidocaine was used as a local anesthetic. Using ultrasound guidance, an 8-Uzbek multi side-hole catheter was inserted using trocar technique. 6,800 mL of pink colored fluid was withdrawn and discarded. The patient tolerated the procedure well and there were no immediate complications. After the appropriate monitored convalescence the patient was discharged from the department. Reviewed by JUNIOR Schmidt 12/03/2019 12:13 P Electronically Signed by Calvin Rivera MD 12/05/2019 11:38 P
== END ==
LOC: M IRPRO 10:12
PROVIDERS: ATTEND Internal Medicine Cardiovascular Disease
DX: K74.60 Unspecified cirrhosis of liver (principal); R18.8 Other ascites
CPT/HCPCS: 49083; P9047

== ENCOUNTER → 2019-12-09 | Outpatient (CLI) | payer OTHER ==
[~2019-12-09] MED LIST changes: -3 SEMIS2 XX; -ALBU0.63 INH; -AMOX500C PO; -BACI1CAP PO; -BUDE0.254 INH; -CALCTAB62 PO; -CEPH500C PO; -COLA100C5 PO; -D31000TA2 PO; -DIGO0.123 PO; -DOXY100T2 PO; -FERR1TAB8 PO; +FURO20TA2 PO; -LEVA1TAB2 PO; -LIDOCAINE 1% MDV 20ML VIAL As Ordered ONE; -METO5TA PO; -MOM30SS2 PO; -POTA1TAB23 PO; -PRIL20TA2 PO; -PROP10TA56 PO; -VITA50005 PO
[2019-12-09 13:35] VITALS: BP 118/59
--- NOTE | 2019-12-13 10:09 | REP ---
Ultrasound-guided paracentesis The procedure was performed by JUNIOR Mohamud, under the direct supervision of Dr. Rivera. The risks and benefits of the procedure were explained to the patient and informed consent was obtained both verbally and written. Directly prior to the start of the procedure, a formal timeout was completed in the procedure room. Under ultrasound guidance, the largest pocket of fluid in the left flank was localized and skin was marked. The skin was then prepped and draped in a sterile fashion. 11 ml of buffered lidocaine was used as a local anesthetic. Using ultrasound guidance, an 8-Macedonian multi side-hole catheter was inserted using trocar technique. 10,300 mL of red tinged colored fluid was withdrawn and discarded. The patient tolerated the procedure well and there were no immediate complications. After the appropriate monitored convalescence the patient was discharged from the department. Reviewed by JUNIOR Schmidt 12/09/2019 04:10 P Electronically Signed by Calvin Rivera MD 12/13/2019 10:00 A
== END ==
LOC: M IRPRO 11:30
PROVIDERS: ATTEND Internal Medicine Cardiovascular Disease
DX: K74.60 Unspecified cirrhosis of liver (principal); R18.8 Other ascites
CPT/HCPCS: 49083; P9047

== ENCOUNTER → 2019-12-16 | Outpatient (CLI) | payer MEDICARE, OTHER ==
[~2019-12-16] MED LIST changes: +3 SEMIS2 XX; +ALBU0.63 INH; +AMOX500C PO; +BACI1CAP PO; +BUDE0.254 INH; +CALCTAB62 PO; +CEPH500C PO; +COLA100C5 PO; +D31000TA2 PO; +DIGO0.123 PO; +DOXY100T2 PO; +FERR1TAB8 PO; -FURO20TA2 PO; +LEVA1TAB2 PO; +METO5TA PO; +MOM30SS2 PO; +POTA1TAB23 PO; +PRIL20TA2 PO; +PROP10TA56 PO; +VITA50005 PO
== END ==
LOC: M IRPRO 11:49
PROVIDERS: ATTEND Internal Medicine Cardiovascular Disease
DX: K74.60 Unspecified cirrhosis of liver (principal); R18.8 Other ascites
CPT/HCPCS: 49083; 96365; P9047

== ENCOUNTER 2019-12-20 01:42 | Inpatient (IN) | payer OTHER ==
[~2019-12-20 01:42] MED LIST changes: -3 SEMIS2 XX; -ALBU0.63 INH; -AMOX500C PO; -BACI1CAP PO; -BUDE0.254 INH; -CALCTAB62 PO; -CEPH500C PO; -COLA100C5 PO; -D31000TA2 PO; -DIGO0.123 PO; -DOXY100T2 PO; -FERR1TAB8 PO; -LEVA1TAB2 PO; -METO5TA PO; -MOM30SS2 PO; -POTA1TAB23 PO; -PRIL20TA2 PO; -PROP10TA56 PO; -SODIUM BICARBONATE 8.4% INJ 50MEQ 50 ML VIAL As Ordered ONE; -VITA50005 PO
[2019-12-20] MEDS ORDERED: D5W 250ML BAG ONE (15:00)
[2019-12-20] MEDS ORDERED: FUROSEMIDE 100 MG/10 ML ONE (15:00)
[2019-12-20] MEDS ORDERED: DIGOXIN 0.125 MG TAB ONE (17:17)
[2019-12-20] MEDS ORDERED: SPIRONOLACTONE 50 MG TAB ONE (17:17)
[2019-12-20] MEDS ORDERED: oxyCODONE 5MG TAB ONE ×2 (17:17→23:33)
[2019-12-20] MEDS ORDERED: tiZANidine 4 MG TAB ONE (21:07)
[2019-12-20] MEDS ORDERED: DOXYCYCLINE HYCLATE 100MG TABLET ONE (21:07)
[2019-12-20] MEDS ORDERED: LEVEMIR (INSULIN DETEMIR) 1 UNITS/0.01ML ONE (21:07)
[2019-12-20] MEDS ORDERED: TAMSULOSIN 0.4 MG CAP ONE (21:07)
[2019-12-21] MEDS ORDERED: oxyCODONE 5MG TAB ONE ×4 (06:11→23:26)
[2019-12-21] MEDS ORDERED: DOXYCYCLINE HYCLATE 100MG TABLET ONE ×2 (09:15→21:03)
[2019-12-21] MEDS ORDERED: SPIRONOLACTONE 50 MG TAB ONE (09:15)
[2019-12-21] MEDS ORDERED: FUROSEMIDE 100 MG/10 ML ONE (15:00)
[2019-12-21] MEDS ORDERED: LEVEMIR (INSULIN DETEMIR) 1 UNITS/0.01ML ONE (21:03)
[2019-12-21] MEDS ORDERED: TAMSULOSIN 0.4 MG CAP ONE (21:03)
[2019-12-22] MEDS ORDERED: oxyCODONE 5MG TAB ONE ×3 (06:28→18:02)
[2019-12-22] MEDS ORDERED: DIGOXIN 0.125 MG TAB ONE (10:55)
[2019-12-22] MEDS ORDERED: tiZANidine 4 MG TAB ONE ×2 (10:55→21:58)
[2019-12-22] MEDS ORDERED: DOXYCYCLINE HYCLATE 100MG TABLET ONE ×2 (10:55→21:58)
[2019-12-22] MEDS ORDERED: OMEPRAZOLE 20 MG CAP ONE ×2 (10:55→21:58)
[2019-12-22] MEDS ORDERED: HumaLOG INSULIN (NovoLOG) PER UNIT ONE ×2 (12:16→17:07)
[2019-12-22] MEDS ORDERED: FUROSEMIDE 100 MG/10 ML ONE (15:00)
[2019-12-22] MEDS ORDERED: metOLazone 5 MG TAB ONE (16:32)
[2019-12-22] MEDS ORDERED: POTASSIUM CHLORIDE 10 MEQ SR TABLET ONE ×2 (17:07→18:19)
[2019-12-22] MEDS ORDERED: TORSEMIDE 20 MG TAB ONE (18:02)
[2019-12-22] MEDS ORDERED: TAMSULOSIN 0.4 MG CAP ONE (21:58)
[2019-12-22] MEDS ORDERED: LEVEMIR (INSULIN DETEMIR) 1 UNITS/0.01ML ONE (21:58)
[2019-12-23] MEDS ORDERED: oxyCODONE 5MG TAB ONE ×4 (06:20→17:27)
[2019-12-23] MEDS ORDERED: DOXYCYCLINE HYCLATE 100MG TABLET ONE (08:26)
[2019-12-23] MEDS ORDERED: metOLazone 5 MG TAB ONE (08:26)
[2019-12-23] MEDS ORDERED: MIRALAX *UNIT DOSE* 17GM PACKET ONE (08:26)
[2019-12-23] MEDS ORDERED: TORSEMIDE 20 MG TAB ONE (08:26)
[2019-12-23] MEDS ORDERED: POTASSIUM CHLORIDE 10 MEQ SR TABLET ONE (15:00)
[2020-01-26] MEDS ORDERED: VITAD1000T PO (12:43)
[2020-01-26 13:00] LABS: HEMATOCRIT 36.3 % (42.0-52.0); HEMOGLOBIN 12.2 g/dl (13.5-17.5); INR 1.19; MEAN CORPUSCULAR HGB CONC 33.6 g/dl (32.0-36.5); MEAN CORPUSCULAR VOLUME 98.1 fl (80.0-96.0); PARTIAL THROMBOPLASTIN TIME 35.9 SECONDS (25.0-38.4); PLATELET COUNT, AUTOMATED 223 10^3/uL (150-450); PROTHROMBIN TIME 15.4 SECONDS (11.8-14.0); WHITE BLOOD COUNT 9.7 10^3/uL (4.0-10.0)
[2020-01-26 13:03] LABS: HEMATOCRIT 38.9 % (42.0-52.0); MEAN CORPUSCULAR HEMOGLOBIN 32.9 pg (27.0-33.0); MEAN CORPUSCULAR HGB CONC 33.4 g/dl (32.0-36.5); MEAN CORPUSCULAR VOLUME 98.5 fl (80.0-96.0); PLATELET COUNT, AUTOMATED 232 10^3/uL (150-450); RED BLOOD COUNT 3.95 10^6/uL (4.30-6.10); WHITE BLOOD COUNT 9.9 10^3/uL (4.0-10.0)
[2020-01-26 15:24] LABS: BLOOD UREA NITROGEN 30 MG/DL (7-18); CALCIUM LEVEL 7.7 MG/DL (8.8-10.2); CARBON DIOXIDE LEVEL 23 MEQ/L (21-32); CHLORIDE LEVEL 104 MEQ/L (98-107); CREATININE FOR GFR 1.14 MG/DL (0.70-1.30); GLOMERULAR FILTRATION RATE > 60.0 (>49); GLUCOSE, FASTING 148 MG/DL (70-100); POTASSIUM SERUM 5.5 MEQ/L (3.5-5.1); SODIUM LEVEL 135 MEQ/L (136-145)
[2020-01-26 15:25] LABS: HEPATITIS A ANTIBODY IGM NEGATIVE (NEGATIVE); HEPATITIS B CORE ANTIBODY IGM NEGATIVE (NEGATIVE); HEPATITIS B SURFACE ANTIBODY NEGATIVE (POSITIVE); HEPATITIS B SURFACE ANTIGEN NEGATIVE (NEGATIVE); HEPATITIS C VIRUS ABY INDEX 0.2 INDEX (<0.8)
[2020-01-26 15:25] LABS: ALBUMIN 1.9 GM/DL (3.2-5.2); ALT/SGPT 35 U/L (12-78); BILIRUBIN,TOTAL 1.3 MG/DL (0.2-1.0); BLOOD UREA NITROGEN 30 MG/DL (7-18); CALCIUM LEVEL 7.9 MG/DL (8.8-10.2); CARBON DIOXIDE LEVEL 24 MEQ/L (21-32); CHLORIDE LEVEL 102 MEQ/L (98-107); CREATININE FOR GFR 1.14 MG/DL (0.70-1.30); GLOMERULAR FILTRATION RATE > 60.0 (>49); GLUCOSE, FASTING 109 MG/DL (70-100); MAGNESIUM LEVEL 2.4 MG/DL (1.8-2.4); POTASSIUM SERUM 5.4 MEQ/L (3.5-5.1); SODIUM LEVEL 134 MEQ/L (136-145); TOTAL PROTEIN 5.8 GM/DL (6.4-8.2)
== END 2019-12-23 17:42 | disposition home or self-care (01) | DRG 293 ==
LOC: M PCU 01:42
PROVIDERS: ADMIT Internal Medicine; ATTEND Internal Medicine
PROC: 0W9G3ZZ Drainage of Peritoneal Cavity, Percutaneous Approach (ICD-10-PCS; principal; 2019-12-22)
DX: I11.0 Hypertensive heart disease with heart failure (principal); I50.9 Heart failure, unspecified; K74.60 Unspecified cirrhosis of liver; I25.10 Atherosclerotic heart disease of native coronary artery without angina pectoris; E11.9 Type 2 diabetes mellitus without complications; J44.9 Chronic obstructive pulmonary disease, unspecified; M54.9 Dorsalgia, unspecified; K21.9 Gastro-esophageal reflux disease without esophagitis; I48.91 Unspecified atrial fibrillation; Z87.891 Personal history of nicotine dependence; Z93.3 Colostomy status; Z79.01 Long term (current) use of anticoagulants; Z79.4 Long term (current) use of insulin; Z88.8 Allergy status to other drugs, medicaments and biological substances; E66.9 Obesity, unspecified; G47.33 Obstructive sleep apnea (adult) (pediatric); Z91.19 Patient's noncompliance with other medical treatment and regimen

== ENCOUNTER → 2019-12-28 | Outpatient (CLI) | payer OTHER ==
[~2019-12-28] MED LIST changes: +3 SEMIS2 XX; +ALBU0.63 INH; +AMOX500C PO; +BACI1CAP PO; +BUDE0.254 INH; +CALCTAB62 PO; +CEPH500C PO; +COLA100C5 PO; +D31000TA2 PO; +DIGO0.123 PO; +DOXY100T2 PO; +FERR1TAB8 PO; +LEVA1TAB2 PO; +METO5TA PO; +MOM30SS2 PO; +POTA1TAB23 PO; +PRIL20TA2 PO; +PROP10TA56 PO; +SODIUM BICARBONATE 8.4% INJ 50MEQ 50 ML VIAL ONE; +VITA50005 PO
--- NOTE | 2020-02-28 07:06 | REP ---
ULTRASOUND GUIDED PARACENTESIS: The procedure was performed under the direct supervision of Dr. Hutchinson. PROCEDURE: The risks and benefits of the procedure were explained to the patient and informed consent was obtained. The largest pocket of fluid was localized in the left flank using ultrasound guidance. The skin was prepped and draped in a sterile fashion. 1% lidocaine was used as a local anesthetic. Using ultrasound guidance, an 8-Chinese multi-side hold catheter was inserted using trocar technique. 8900 cc of cloudy pink fluid was withdrawn and discarded. The patient tolerated the procedure well and there were no immediate complications. After the appropriate amount of monitored convalescence, the patient was discharged from the department. SMITA
== END ==
LOC: M IRPRO 09:35 → M LAB 09:35
PROVIDERS: ATTEND Family Medicine
DX: K74.60 Unspecified cirrhosis of liver (principal); R18.8 Other ascites

== ENCOUNTER → 2019-12-31 | Outpatient (CLI) | payer OTHER ==
[~2019-12-31] MED LIST changes: +SODIUM BICARBONATE 8.4% INJ 50MEQ 50 ML VIAL As Ordered ONE; -SODIUM BICARBONATE 8.4% INJ 50MEQ 50 ML VIAL ONE
--- NOTE | 2020-02-15 07:32 | REP ---
ULTRASOUND-GUIDED PARACENTESIS: The procedure was performed under the direct supervision of Dr. Hutchinson. The risks and benefits of the procedure were explained to the patient and informed consent was obtained. PROCEDURE: The largest pocket of fluid was localized in the left flank using ultrasound guidance. The skin was prepped and draped in a sterile fashion. 1% lidocaine was used as a local anesthetic. Using ultrasound guidance, an 8-Vietnamese multi-side hole catheter was inserted using trocar technique. 6100 cc of cloudy pink fluid was withdrawn and discarded. The patient tolerated the procedure well and there were no immediate complications. After the appropriate amount of monitored convalescence, the patient was discharged from the department. EDWAR ORDOÑEZ
== END ==
LOC: M IRPRO 10:30
PROVIDERS: ATTEND Internal Medicine Cardiovascular Disease
DX: R18.8 Other ascites (principal); K74.60 Unspecified cirrhosis of liver
CPT/HCPCS: 49083; 96374; P9047

== ENCOUNTER → 2020-01-04 | Outpatient (CLI) | payer OTHER ==
--- NOTE | 2020-02-15 07:34 | REP ---
ULTRASOUND-GUIDED PARACENTESIS The procedure was performed by JUNIOR Mohamud under the direct supervision of Dr. Rivera. The risks and benefits of the procedure were explained to the patient and an informed consent was obtained both written and verbally. Prior to the start of the procedure, a formal time-out was completed. The largest pocket of fluid was localized in the left flank using ultrasound guidance. The skin was prepped and draped in a sterile fashion. 11 mL of buffered Lidocaine was used as a local anesthetic. Using ultrasound guidance, an 8-Pashto multi-side hole catheter was inserted using trocar technique. 7540 mL of yellow fluid was withdrawn and discarded. The patient tolerated the procedure well and there were no immediate complaints. After the appropriate amount of monitored convalescence, the patient was discharged from the department. SMITA
== END ==
LOC: M IRPRO 10:17
PROVIDERS: ATTEND Internal Medicine Cardiovascular Disease
DX: R18.8 Other ascites (principal); K74.60 Unspecified cirrhosis of liver
CPT/HCPCS: 49083; 96365; P9047

== ENCOUNTER → 2020-01-07 | Outpatient (CLI) | payer OTHER ==
[~2020-01-07] MED LIST changes: +LIDOCAINE 1% MDV 20ML VIAL As Ordered ONE
--- NOTE | 2020-02-15 07:20 | REP ---
ULTRASOUND GUIDANCE PARACENTESIS The procedure was performed under the direct supervision of Dr. Rivera. The risks and benefits of the procedure were explained to the patient and informed consent was obtained. The largest pocket of fluid was localized in the left flank using ultrasound guidance. The skin was prepped and draped in a sterile fashion and 1% Lidocaine was used as a local anesthesia. Using ultrasound guidance, an 8-Vincentian multi- side hole catheter was inserted using trocar technique. There was 6600 mL of pink colored fluid withdrawn and discarded. The patient tolerated the procedure well and there were no immediate complications. After the appropriate amount of monitored convalescence, the patient was discharged from the department. SMITA
== END ==
LOC: M IRPRO 10:30
PROVIDERS: ATTEND Internal Medicine Cardiovascular Disease
DX: R18.8 Other ascites (principal); K74.60 Unspecified cirrhosis of liver
CPT/HCPCS: 49083; 96374; P9047

== ENCOUNTER → 2020-01-12 | Outpatient (CLI) | payer OTHER ==
[~2020-01-12] MED LIST changes: -LIDOCAINE 1% MDV 20ML VIAL As Ordered ONE
--- NOTE | 2020-01-20 11:29 | REP ---
ULTRASOUND-GUIDED PARACENTESIS The procedure was performed under the direct supervision of Dr. Hutchinson. The risks and benefits of the procedure were explained to the patient and informed consent was obtained. The largest pocket of fluid was localized in the left lower quadrant using ultrasound guidance. The skin was prepped and draped in a sterile fashion. 1% Lidocaine was used as a local anesthetic. Using ultrasound guidance an 8-Syriac multi-side hole catheter was inserted using trocar technique. 6200 mL of cloudy pink fluid was withdrawn and discarded. The patient tolerated the procedure well and there were no immediate complications. After the appropriate amount of monitored convalescence, the patient was discharged from the department. SMITA
== END ==
LOC: M IRPRO 10:58
PROVIDERS: ATTEND Internal Medicine Cardiovascular Disease
DX: R18.8 Other ascites (principal); K74.60 Unspecified cirrhosis of liver
CPT/HCPCS: 49083; 96365; P9047

== ENCOUNTER → 2020-01-19 | Outpatient (CLI) | payer OTHER ==
[2020-01-19 12:05] VITALS: BP 109/68
--- NOTE | 2020-01-26 15:07 | REP ---
ULTRASOUND-GUIDED PARACENTESIS The procedure was performed under the direct supervision of Dr. Hutchinson. The risks and benefits of the procedure were explained to the patient and informed consent was obtained. The largest pocket of fluid was localized in the left flank using ultrasound guidance. The skin was prepped and draped in a sterile fashion. 1% Lidocaine was used as a local anesthetic. Using ultrasound guidance, an 8-Tamazight multi-side hole catheter was inserted using trocar technique. 7100 mL of pink fluid was withdrawn and discarded. The patient tolerated the procedure well and there were no immediate complications. After the appropriate amount of monitored convalescence, the patient was discharged from the department. SMITA
== END ==
LOC: M IRPRO 10:30
PROVIDERS: ATTEND Internal Medicine Cardiovascular Disease
DX: R18.8 Other ascites (principal); K74.60 Unspecified cirrhosis of liver
CPT/HCPCS: 49083; 96365; P9047

== ENCOUNTER 2020-01-26 10:19 | Inpatient (IN) | payer OTHER ==
[~2020-01-26] VITALS: Ht 182.9 cm; Wt 131.9 kg
[~2020-01-26 10:19] MED LIST changes: -3 SEMIS2 XX; -ALBU0.63 INH; -AMOX500C PO; -BACI1CAP PO; -BUDE0.254 INH; -CALCTAB62 PO; -CEPH500C PO; -COLA100C5 PO; -D31000TA2 PO; -DIGO0.123 PO; +DIGOXIN 0.125 MG TAB PO SCH; -DOXY100T2 PO; -FERR1TAB8 PO; -LEVA1TAB2 PO; -METO5TA PO; -MOM30SS2 PO; -POTA1TAB23 PO; -PRIL20TA2 PO; -PROP10TA56 PO; -SODIUM BICARBONATE 8.4% INJ 50MEQ 50 ML VIAL As Ordered ONE; -VITA50005 PO
[2020-01-26] MEDS ORDERED: POTA1TAB23 PO (11:10)
[2020-01-26 11:56] LABS: BASO # 0.1 10^3/uL (0.0-0.2); BASO % 0.7 % (0.0-1.0); EOS # 0.1 10^3/uL (0.0-0.5); HEMATOCRIT 37.5 % (42.0-52.0); HEMOGLOBIN 12.8 g/dl (13.5-17.5); LYMPH # 0.5 10^3/uL (1.5-5.0); LYMPH % 4.2 % (24.0-44.0); MEAN CORPUSCULAR HGB CONC 34.1 g/dl (32.0-36.5); MEAN CORPUSCULAR VOLUME 99.5 fl (80.0-96.0); MONO # 1.1 10^3/uL (0.0-0.8); MONO % 10.5 % (0.0-5.0); NEUTROPHILS # 8.8 10^3/uL (1.5-8.5); PLATELET COUNT, AUTOMATED 232 10^3/uL (150-450); RED BLOOD COUNT 3.77 10^6/uL (4.30-6.10); WHITE BLOOD COUNT 10.6 10^3/uL (4.0-10.0)
[2020-01-26] MEDS ORDERED: DEXTROSE 50% 50 ML SYRINGE IV PRN (12:00)
[2020-01-26] MEDS ORDERED: HEPARIN SOD (PORCINE) 5000UNITS/ML 1ML VIAL/SYRINGE SC SCH (12:00)
[2020-01-26] MEDS ORDERED: GLUCOSE 4GM CHEW TABLET PO PRN (12:00)
[2020-01-26] MEDS: HumaLOG INSULIN (NovoLOG) PER UNIT SC SCH ×3 (12:00→20:28)
[2020-01-26] MEDS ORDERED: GLUCAGON INJ 1MG VIAL SC PRN (12:00)
[2020-01-26 12:06] LABS: INR 1.21; PROTHROMBIN TIME 15.5 SECONDS (11.8-14.0)
[2020-01-26 12:07] LABS: PARTIAL THROMBOPLASTIN TIME 37.2 SECONDS (25.0-38.4)
--- NOTE | 2020-01-26 12:09 | REPVR ---
PROCEDURE INFORMATION: Exam: XR Chest, 1 View Exam date and time: 01/26/2020 11:04 AM Age: 59 years old Clinical indication: Chest pain TECHNIQUE: Imaging protocol: XR of the chest Views: 1 view. COMPARISON: CR PORTABLE CHEST X-RAY 10/31/2018 11:39 AM FINDINGS: Limitations: Large body habitus causes unavoidable image degradation. Image quality is limited by AP portable technique. Lungs: Diaphragmatic elevation and low lung volumes. The lungs are clear. Pleural space: No significant pleural effusion. No pneumothorax. Heart/Mediastinum: Mediastinal surgical clips. The cardiac silhouette is within normal limits, considering the AP projection, which magnifies the heart. The mediastinal contour is normal. Vasculature: The aorta is tortuous. Bones/joints: No acute osseous abnormalities are identified. Soft tissues: Unremarkable. IMPRESSION: 1. Diaphragmatic elevation and low lung volumes. 2. No acute thoracic abnormality. Electronically signed by: Ayad Perez On 01/26/2020 12:09:06 PM
[2020-01-26 12:32] LABS: ALBUMIN 2.2 GM/DL (3.2-5.2); ALT/SGPT 44 U/L (12-78); BILIRUBIN,TOTAL 1.7 MG/DL (0.2-1.0); CK-MB VALUE MASS 8.3 NG/ML (<3.6); CPK CREATINE PHOSPHOKINASE 144 U/L (39-308); FREE T4 1.07 NG/DL (0.76-1.46); MB/CK RELATIVE INDEX 5.76 (< OR =4); NT-PRO BNP 1253 PG/ML (<125); TOTAL PROTEIN 6.2 GM/DL (6.4-8.2); TROPONIN I < 0.02 NG/ML (< 0.10)
[2020-01-26] MEDS ORDERED: FERR1TAB8 PO (12:43)
[2020-01-26] MEDS ORDERED: CEPH500C PO (12:43)
[2020-01-26] MEDS ORDERED: DOXY100T2 PO (12:43)
[2020-01-26] MEDS ORDERED: AMOX500C PO (12:43)
[2020-01-26] MEDS ORDERED: BUDE0.254 INH (12:43)
[2020-01-26] MEDS ORDERED: D31000TA2 PO (12:43)
[2020-01-26] MEDS ORDERED: ALBU0.63 INH (12:43)
[2020-01-26] MEDS ORDERED: METO5TA PO (12:43)
[2020-01-26] MEDS ORDERED: DIGO0.123 PO (12:43)
[2020-01-26] MEDS ORDERED: DICL1GEL3 TOP (12:43)
[2020-01-26] MEDS ORDERED: INSUDET SC (12:43)
[2020-01-26] MEDS ORDERED: SYMB16INH INH (12:43)
[2020-01-26 13:23] LABS: BLOOD UREA NITROGEN 79 MG/DL (7-18); CALCIUM LEVEL 8.6 MG/DL (8.8-10.2); CARBON DIOXIDE LEVEL 26 MEQ/L (21-32); CHLORIDE LEVEL 102 MEQ/L (98-107); CREATININE FOR GFR 1.63 MG/DL (0.70-1.30); GLUCOSE, FASTING 92 MG/DL (70-100); POTASSIUM SERUM 6.6 MEQ/L (3.5-5.1); SODIUM LEVEL 132 MEQ/L (136-145)
[2020-01-26] MEDS ORDERED: DEXTROSE 50% 50 ML VIAL IV ONE (13:30)
[2020-01-26] MEDS ORDERED: HumuLIN R (REGULAR) INSULIN (NovoLIN R) **100U/ML** PER UNIT IV ONE ×2 (13:30→19:15)
[2020-01-26] MEDS ORDERED: CALCIUM GLUCONATE 1,000 MG in D5W MINI-BAG PLUS 100 ML IV ONE ×2 (14:00→19:15)
[2020-01-26] MEDS ORDERED: cefTRIAXone SOD 1 GM in D5W MINI-BAG PLUS 50 ML IV ONE (14:00)
[2020-01-26] MEDS ORDERED: SOD POLYSTYRENE SULFONATE SUSP 15 GM/60 ML UD PO ONE (14:00)
[2020-01-26] MEDS ORDERED: ALBUTEROL 90 MCG/ACT 8GM HFA INHALER INH PRN (14:30)
[2020-01-26] MEDS ORDERED: ALBUTEROL SULFATE 2.5 MG/0.5 ML INH NEB SOLN INH PRN (14:30)
[2020-01-26] MEDS ORDERED: BUDESONIDE 0.25 MG/2 ML INHALATION SUSPENSION INH PRN (14:30)
[2020-01-26] MEDS ORDERED: IPRATROPIUM 0.5MG/ALBUTEROL 2.5MG INH SOL UD 3ML (DUONEB) NEB PRN (14:30)
[2020-01-26] MEDS ORDERED: SODIUM BICARBONATE 8.4% INJ 50MEQ 50 ML VIAL As Ordered ONE (15:34)
--- NOTE | 2020-01-26 15:51 | HPEPDOC ---
[facility] Medical History & Physical Date of Admission Jan 26, 2020 Date of Service: Jan 26, 2020 Primary Care Physician: Lasha Godoy Attending Physician: NY SESAY MD History and Physical CHIEF COMPLAINT: shortness of breath HISTORY OF PRESENT ILLNESS: Patient is a 59 year old male presenting by EMS for progressively worsening shortness of breath since last . He was supposed to be going to his weekly scheduled paracentesis this AM via EMS for his recur rent ascites but was diverted to the ED in light of his dyspnea. He received his last paracentesis this past Friday where he feels not enough was drained off of him. He reached out to Dr. Robertson prior to today who recommended he go for his scheduled paracentesis and then be admitted to the hospital. Per Dr. Robertson, he has followed with a can doffer in [place] via telemedicine only and has no gastr oenterologist in [place], but did recommend obtaining a new echocardiogram. The patient states their are currently no plans for any procedures (TIPS) or transplants. PAST MEDICAL HISTORY: 1. Recurrent ascites 2/2 to liver cirrhosis 2. CAD s/p CABG 3. CHFpEF 65% 4. Pulmonary Hypertension 5. Atrial Fibrillation 6. COPD 7. SRINATH 8. Morbid Obesity 9. IDDM 10. Hypertension PAST SURGICAL HISTORY: SOCIAL HISTORY: Previous history of smoking >10 years ago. Admits to prior hx of heavy alcohol use with a 6 pack/day but quit 5 years ago, and has not had a drink in 2 years. Denies illicit drug use. Denies recent travel or sick contacts. Lives at home alone. 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 FAMILY HISTORY: No family history of liver disease, father with CHF. ALLERGIES: Please see below. REVIEW OF SYSTEMS: Constitutional: Denies weight loss, change in appetite, or recent trauma Eyes: No visual changes or eye pain Ears, Nose, Throat: Denies nose bleeds, or difficulty swallowing Cardiovascular: Denies chest pain, palpitations, admits to orthopnea. Respiratory: Denies cough, wheezing, admits to SOB GI: Darshan nausea, vomiting, diarrhea or constipation, admits to abdominal pain and distention : Denies pain with urination or frequency Musculoskeletal: Denies joint pain or swelling. Admits to generalized weakness. Neuro / Psych: Denies new onset numbness or tingling in his extremities, headache, dizziness, SI, HI. Skin: Admits to chronic LE skin rashes. HOME MEDICATIONS: Please see below. PHYSICAL EXAMINATION: GENERAL APPEARANCE: Tired appearing male who appears stated age standing upright at side of bed in mild-moderate distress. HEENT: NC, AT, EOMI, CARDIOVASCULAR: Tachycardic rate and irregular rhythm LUNGS: Diminished breath sounds bilaterally, without appreciable crackles, rhonchi, wheezing. No dullness to percussion on exam. ABDOMEN: Obese, moderately distended but not rigid, with generalized tenderness to deep palpation, no eccymosis, unable to palpate abdominal organs. MUSCULOSKELETAL: No focal joint pain or muscle aches. EXTREMITIES: Diffuse 3+ pitting edema extending to the sacrum with legs wrapped in bandages bilaterally below the level of the knee. NEUROLOGICAL: CN III-XII intact. Strength +5/5 in upper and lower extremities. Sensation intact. PSYCHIATRIC: Anxious mood and affect SKIN: Chronic poorly healing wounds and scabs on bilateral UE, wrapped wounds on LE. LABORATORY DATA: See below. IMAGING: IMPRESSION: 1. Diaphragmatic elevation and low lung volumes. 2. No acute thoracic abnormality. MICROBIOLOGY: Please see below. ASSESSMENT/PLAN: #. Recurrent Ascites 2/2 liver cirrhosis -Per patient, can doffer still has no known cause of liver cirrhosis, which has been worked up in the past. -Cause of abdominal distention and likely cause of patients SOB. CXR showing no pulmonary edema and no wheezing on exam, so less likely COPD exacerbation. -Patient rescheduled to receive paracentesis early this afternoon with 2 bags of 25% albumin (25 grams). -7.7 liters taken off at paracentesis with fluid and gram stain sent. -Will continue home torsemide, but hold off on additional IV diuretic therapy -Starting Rocephin for SBP prophylaxis. #. Hyperkalemia -Calcium gluconate, Amp of D5W/insulin, and kayaxelate given on admission. Repeating D5W/insulin and CaGluconate with repeat labs at midnight. -Repeat K of 5.8 down from 6.6. -Spironolactone held. #. Acute renal failure -Baseline Cr of 1.1. creatinine improving without intervention on 1700 lab work. Suspected hepatorenal syndrome. #. Afib with RVR -Home digoxin discontinued in light of hyperkalemia, starting lopressor IV Q6H with holding parameters. If necessary can start cardizem as blood pressure al lows. -Continue to hold Eliquis in case their is a need for further paracentesis in the next few days. Stroke risk per day relatively low (<<1%) #. CHFpEF 65% -Continue torsemide -Ordering new echocardiogram -Per Dr. Robertson, patient's heart is "okay" #. CAD s/p CABG -Continue Carvedilol, not on statin therapy, starting Atorvastatin #. COPD -Continue home symbicort, duonebs #. Hypertension -Continue home metoprolol, torsemide #. SRINATH -Continue home CPAP #. IDDM -Sliding scale -Consistent carb diet -Levemir 10 units, will uptitrate as necessary #. Macrocytic anemia -At baseline, will order B12, folate levels. -Continue ferrous sulfate Q2D #. Chronic lower extremity wounds -Continue with wound care #. Morbid Obesity - Complicating care #. Chronic Pain -Continue oxycodone QID PRN. DVT Prophylaxis: heparin TID CODE STATUS: FULL CODE DISPOSITION: Pending clinical improvement. Vital Signs Vital Signs Date Time Temp Pulse Resp B/P (MAP) Pulse Ox O2 Delivery O2 Flow Rate FiO2 01/26/20 10:40 97.6 114 22 167/67 97 Room Air Laboratory Data Labs 24H Laboratory Tests 2 01/26/20 11:34: Immature Granulocyte % (Auto) 0.6, Neutrophils (%) (Auto) 83.0H, Lymphocytes (%) (Auto) 4.2L, Monocytes (%) (Auto) 10.5H, Eosinophils (%) (Auto) 1.0, Basophils (%) (Auto) 0.7, Neutrophils # (Auto) 8.8H, Lymphocytes # (Auto) 0.5L, Monocytes # (Auto) 1.1H, Eosinophils # (Auto) 0.1, Basophils # (Auto) 0.1, Nucleated Red Blood Cells % (auto) 0.3H, Prothrombin Time 15.5H, Prothromb Time International Ratio 1.21, Activated Partial Thromboplast Time 37.2, Anion Gap 4L, Glomerular Filtration Rate 46.0L, Calcium Level 8.6L, Total Bilirubin 1.7H, Direct Bilirubin 1.0H, Aspartate Amino Transf (AST/SGOT) 72H, Alanine Aminotransferase (ALT/SGPT) 44, Alkaline Phosphatase 311H, Total Creatine Kinase 144, Creatine Kinase MB 8.3H, Creatine Kinase MB Relative Index 5.76H, Troponin I < 0.02, EP-Ezt-I-Type Natriuretic Peptide 1253H, Total Protein 6.2L, Albumin 2.2L, Albumin/Globulin Ratio 0.6, Thyroid Stimulating Hormone (TSH) 3.120, Free Thyroxine 1.07 CBC/BMP Laboratory Tests 01/26/20 11:34 Home Medications Scheduled Apixaban (Eliquis) 2.5 Mg Tablet, 2.5 MG PO BID ON HOLD FOR PARACENTESIS ON 01/26/20 Calcium Carbonate/Vitamin D3 (Calcium 500-Vit D3 200 Tablet) 1 Each Tablet, 1 TAB PO BID 1000,1400 Cholecalciferol (Vitamin D3) (Vitamin D3) 1,000 Unit Tablet, 1,000 UNITS PO QWEEK SUNDAYS Digoxin (Digoxin) 125 Mcg Tablet, 125 MCG PO Q2D Doxycycline Hyclate (Doxycycline Hyclate) 100 Mg Tablet, 100 MG PO BID Dulaglutide (Trulicity) 1.5 Mg/0.5 Ml Inj, 1.5 MG SC 1XWK FRIDAY Ferrous Sulfate (Ferrous Sulfate) 325 Mg Tablet, 325 MG PO Q2D EVERY OTHER NIGHT Insulin Detemir (Levemir) 100 Unit/1 Ml Vial, 21 UNITS SC DAILY Magnesium Oxide (Magnesium) 400 Mg Capsule, 400 MG PO QPM [place]-3 Fatty Acids/Fish Oil ([place] 3 1,000 mg Softgel) 1 Cap Cap, 1,000 MG PO DAILY Omeprazole (Omeprazole) 20 Mg Cap, 20 MG PO 2XW WED AND SAT Silver Sulfadiazine (Ssd) 50 Gm Cream..g., 1 DOSE TOP QID USES ON LEGS Spironolactone (Spironolactone) 25 Mg Tablet, 50 MG PO DAILY Torsemide (Torsemide) 20 Mg Tab, 40 MG PO BID Scheduled PRN Albuterol Sulfate (Ventolin Hfa) 108 Mcg/Act Aer, 2 PUFFS INH Q4H PRN for SHORTNESS OF BREATH Albuterol Sulfate (Albuterol Sulfate) 0.63 Mg/3 Ml Vial.neb, 0.63 MG INH QID PRN for SHORTNESS OF BREATH Budesonide (Budesonide) 0.25 Mg/2 Ml Ampul.neb, 0.25 MG INH BID PRN for SHOR TNESS OF BREATH Budesonide/Formoterol (Symbicort 160-4.5 Mcg Inhaler) 6 Gm Hfa.aer.ad, 2 PUFF INH BID PRN for SHORTNESS OF BREATH PATIENT STATES TAKES PRN Diclofenac Sodium (Diclofenac Sodium) 1% 100GM Gel..gram., 2 GM TOP TID PRN for PAIN APPLY TO BACK Insulin Human Lispro (Novolog) 100 U/Ml Inj, 1 DOSE SC AC PRN for BLOOD SUGAR > 150 PER SLIDING SCALE Ipratropium/Albuterol Sulfate (Iprat-Albut 0.5-3(2.5) mg/3 ml) 3 Ml Ampul.neb, 1 KADI NEB Q4H PRN for SHORTNESS OF BREATH Metolazone (Metolazone) 5 Mg Tablet, 5 MG PO BID PRN for EDEMA Oxycodone HCl (Oxycodone HCl) 5 Mg Tab, 5 MG PO QID PRN for PAIN Tizanidine HCl (Tizanidine HCl) 2 Mg Tablet, 2 MG PO TID PRN for SPASMS Allergies Coded Allergies: TAPE (Verified Allergy, Unknown, Itchiness/Rash, 01/26/20) allopurinol (Verified Allergy, Unknown, Itching, 01/26/20) A-FIB/CHADSVASC A-FIB History Current/History of A-Fib/PAF?: Yes Current PO Anticoag Therapy: Yes Age/Risk Factor Scoring CHADSVASC: CHADSVASC Response (Comments) Value Age Risk Factor Age < 65 years old 0 Gender Risk Factor Male 0 Hx of CHF Yes 1 Hx of HTN Yes 1 Hx of Stroke/TIA/or VTE No 0 Hx of Diabetes Yes 1 Hx of Vascular Disease Yes 1 Total 4 Treatment Treatment ordered: Apixaban GME ATTESTATION GME ATTESTATION My faculty preceptor for this patient encounter was physically present during the encounter and was fully available. All aspects of the patient interview, examination, medical decision making process, and medical care plan development were reviewed and approved by the faculty preceptor. The faculty preceptor is aware and concurs with the plan as stated in the body of this note and will attest to such by his/her cosignature. ATTENDING NOTE Patient was seen and examined by me personally with the residents and I agree with the above assessment and plan DALJIT VICK DO Jan 26, 2020 15:51 NY SESAY MD Feb 07, 2020 14:08
[2020-01-26] MEDS ORDERED: METOPROLOL 5 MG/5 ML VIAL IV PRN (16:45)
[2020-01-26 17:20] VITALS: BP 133/63
[2020-01-26 17:38] LABS: SPEC. GRAVITY BODY FLUIDS 1.019 (NOT ESTABLISHED)
[2020-01-26 17:39] LABS: SOURCE, BODY FLUID ALBUMIN ASCITES; SOURCE, BODY FLUID GLUCOSE ASCITES; SOURCE, BODY FLUID TOT PROTEIN ASCITES; TOTAL PROTEIN, BODY FLUID 2.6 G/DL (NOT ESTABLISHED)
[2020-01-26 17:44] LABS: APPEARANCE, BODY FLUID CLOUDY (CLEAR); ASCITES FL COLOR YELLOW (COLORLESS); SOURCE, BODY FLUID ASCITES
[2020-01-26] MEDS: OMEPRAZOLE 20 MG CAP PO SCH (17:46)
[2020-01-26] MEDS: oxyCODONE 5MG TAB PO PRN (17:46)
[2020-01-26] MEDS: DOXYCYCLINE HYCLATE 100MG TABLET PO SCH (17:46)
[2020-01-26] MEDS: TORSEMIDE 20 MG TAB PO SCH (17:47)
[2020-01-26 17:59] LABS: CALCIUM LEVEL 8.5 MG/DL (8.8-10.2); CREATININE FOR GFR 1.54 MG/DL (0.70-1.30); GLOMERULAR FILTRATION RATE 49.1 (>49); POTASSIUM SERUM 5.8 MEQ/L (3.5-5.1)
[2020-01-26] MEDS ORDERED: D5W 1,000 ML IV ONE (19:15)
[2020-01-26 20:00] VITALS: BP 162/72
[2020-01-26 20:03] LABS: FERRITIN 240 NG/ML (26-388); FOLATE 12.4 NG/ML (>5.4); IRON (FE) 176 UG/DL (65-175); VITAMIN B12 LEVEL > 2000 PG/ML (247-911)
[2020-01-26] MEDS: SYMBICORT 160/4.5MCG INHALER 6GM INH SCH (20:05)
[2020-01-26] MEDS ORDERED: DEXTROSE 50% 50 ML SYRINGE IV STA (20:11)
[2020-01-26] MEDS: ATORVASTATIN 20 MG TAB PO SCH (20:28)
[2020-01-26] MEDS: FERROUS SULFATE 325MG TAB PO SCH (20:28)
[2020-01-26] MEDS: HEPARIN SOD (PORCINE) 5000UNITS/ML 1ML VIAL/SYRINGE SC SCH (20:29)
[2020-01-26] MEDS: MAGNESIUM OXIDE 400 MG TAB (MAG-OX) PO SCH (20:29)
[2020-01-26] MEDS: SILVER SULFADIAZINE 1% CR 50 GM JAR TOP SCH (20:30)
[2020-01-26] MEDS ORDERED: BENZOCAINE 10% 9GM TUBE (ANBESOL) TOP SCH (21:00)
[2020-01-27] VITALS: BP 140/70
[2020-01-27] MEDS: oxyCODONE 5MG TAB PO PRN ×3 (00:46→12:50)
[2020-01-27 00:52] LABS: CALCIUM LEVEL 8.4 MG/DL (8.8-10.2); CREATININE FOR GFR 1.64 MG/DL (0.70-1.30); GLOMERULAR FILTRATION RATE 45.7 (>49); POTASSIUM SERUM 4.5 MEQ/L (3.5-5.1)
[2020-01-27] MEDS: tiZANidine 4 MG TAB PO PRN ×3 (02:45→21:42)
[2020-01-27 04:00] VITALS: BP 122/64
[2020-01-27 06:26] LABS: BASO % 0.3 % (0.0-1.0); EOS # 0.1 10^3/uL (0.0-0.5); EOS % 0.8 % (0.0-3.0); HEMATOCRIT 34.4 % (42.0-52.0); HEMOGLOBIN 11.4 g/dl (13.5-17.5); LYMPH # 0.5 10^3/uL (1.5-5.0); LYMPH % 4.9 % (24.0-44.0); MEAN CORPUSCULAR HEMOGLOBIN 33.2 pg (27.0-33.0); MEAN CORPUSCULAR HGB CONC 33.1 g/dl (32.0-36.5); MEAN CORPUSCULAR VOLUME 100.3 fl (80.0-96.0); MONO # 1.1 10^3/uL (0.0-0.8); MONO % 11.4 % (0.0-5.0); NEUTROPHILS # 7.6 10^3/uL (1.5-8.5); NEUTROPHILS % 82.3 % (36.0-66.0); PLATELET COUNT, AUTOMATED 203 10^3/uL (150-450); RED BLOOD COUNT 3.43 10^6/uL (4.30-6.10); WHITE BLOOD COUNT 9.3 10^3/uL (4.0-10.0)
[2020-01-27] MEDS: HEPARIN SOD (PORCINE) 5000UNITS/ML 1ML VIAL/SYRINGE SC SCH ×3 (06:27→21:51)
[2020-01-27] MEDS: DOXYCYCLINE HYCLATE 100MG TABLET PO SCH ×2 (06:28→17:41)
[2020-01-27 06:55] LABS: ALBUMIN 2.1 GM/DL (3.2-5.2); BILIRUBIN,TOTAL 2.8 MG/DL (0.2-1.0); CALCIUM LEVEL 8.2 MG/DL (8.8-10.2); CREATININE FOR GFR 1.56 MG/DL (0.70-1.30); GLOMERULAR FILTRATION RATE 48.4 (>49); POTASSIUM SERUM 4.5 MEQ/L (3.5-5.1); TOTAL PROTEIN 5.5 GM/DL (6.4-8.2)
[2020-01-27] MEDS: HumaLOG INSULIN (NovoLOG) PER UNIT SC SCH ×4 (07:30→21:00)
[2020-01-27 08:00] VITALS: BP 133/72
[2020-01-27] MEDS: SYMBICORT 160/4.5MCG INHALER 6GM INH SCH ×2 (08:01→19:32)
[2020-01-27] MEDS: LEVEMIR (INSULIN DETEMIR) 1 UNITS/0.01ML SC SCH (09:00)
[2020-01-27] MEDS: TORSEMIDE 20 MG TAB PO SCH (10:00)
[2020-01-27 12:00] VITALS: BP 144/66
[2020-01-27] MEDS: SILVER SULFADIAZINE 1% CR 50 GM JAR TOP SCH ×4 (13:00→21:00)
[2020-01-27 16:00] VITALS: BP 130/66
[2020-01-27 20:00] VITALS: BP 131/73
[2020-01-27] MEDS: ATORVASTATIN 20 MG TAB PO SCH (21:42)
[2020-01-27] MEDS: MAGNESIUM OXIDE 400 MG TAB (MAG-OX) PO SCH (21:43)
--- NOTE | 2020-01-27 23:54 | IPNPDOC ---
Text Note Date of Service The patient was seen on 01/27/20. NOTE SUBJECTIVE: no overnight events OBJECTIVE: FOCUSED EXAMINATION: HEENT: normocephalic LYMPHATICS: diffusely edematous LUNGS: no ascessory muscle use HEART: RRR ABDOMEN: distended. no tenderness EXTREMITIES: swollen SKIN/NAILS: edematous MUSCULOSKELETAL: no overt joint deformities VITAL SIGNS: Please see below. ASSESSMENT and PLAN: #Decompensated Liver failure - MELD score 19 + mortality risk associated with higher pulmonary vascular resistance given prior TTEs suggestive severe pulmonary hypertension I initiated conversation about his goals of care with the patient. Clinical concern being: severe pulmonary hypertension with possibility of portopulmonary hypertension. Patients with portopulmonary hypertension in liver cirrhosis have their MELD score upgraded 10% every three months as MELD score alone will underestimate their mortality risk. -initiated by first inquiring if liver transplant was ever considered. he stated he is not pursuing transplant or TIPPS currently. Given the severity of disease progression and burden, I relayed his prognosis. combined PPHTN and MELD of 19 in the absence of liver transplant or pulmonary vascular resistance reduction therapy is concering for high mortality. his life expectancy could be less than 6 months and inquired if hospice was ever suggested to the patient. He denies being made aware of such prognosis and expressed he'd consider life transplant if his disease is that severe. Discussed the next step in transplant assessment will be dependent on his cardiac functyion. Plan was to coordinate with his sorter upholstery parts, Dr. Robertson As his symptom burden continues to increase (more frequent paracentesis - biweekly), palliative management of edema was also approaced with the patient. He was willing to be assessed by palliative team to discuss symptom releaving measures. Also reviewed that without transplant or mortality modifying treatment, I discussed the presence of pulmonary hypertension on previous TTE. I conveyed the importance of confirming PPHTN via right heart cath and pursuing PAH directed medication to reduce mPAP to less than 35 to qualify as a MELD exemption for liver transplant given high operative mortality risk associated with PPHTN. Dr. Robertson to follow up on treatment goals with the patient In interm, I also consulted palliative team and reviewed my clinical concerns in regards disease progression and symptom burden with Palliative VS,Fishbone, I+O VS, Fishbone, I+O Laboratory Tests 01/27/20 05:56 Vital Signs Date Time Temp Pulse Resp B/P (MAP) Pulse Ox O2 Delivery O2 Flow Rate FiO2 01/27/20 20:00 97.6 97 18 131/73 (92) 95 Room Air 01/27/20 08:00 I&O- Last 24 Hours up to 6 AM 01/27/20 06:00 Intake Total 800.0 ml Output Total 2400 ml Balance -1600.0 ml GME ATTESTATION GME ATTESTATION Pt was seen and examined by me personally with the residents/students. Agree with the above assessment plan. ATTENDING NOTE Pt was seen and examined by me personally with the residents/students. Agree with the above assessment plan. RICHARD FISCHER DO Jan 27, 2020 23:54 [place] SESAY MD Feb 07, 2020 14:09
[2020-01-28] VITALS: BP 117/61
[2020-01-28] MEDS: oxyCODONE 5MG TAB PO PRN ×4 (00:02→23:36)
[2020-01-28 04:00] VITALS: BP 132/72
[2020-01-28] MEDS: DOXYCYCLINE HYCLATE 100MG TABLET PO SCH ×2 (05:15→17:08)
[2020-01-28] MEDS: HEPARIN SOD (PORCINE) 5000UNITS/ML 1ML VIAL/SYRINGE SC SCH ×3 (05:16→22:41)
[2020-01-28] MEDS: SYMBICORT 160/4.5MCG INHALER 6GM INH SCH ×2 (07:23→19:58)
[2020-01-28 08:00] VITALS: BP 140/70
[2020-01-28] MEDS: SILVER SULFADIAZINE 1% CR 50 GM JAR TOP SCH ×4 (09:00→21:00)
[2020-01-28] MEDS ORDERED: FLUBLOK(EGG FREE)(QUAD)INFLUENZA VACC 0.5ML SYRINGE 18YRS & OLDER IM ONE (09:00)
[2020-01-28 09:02] LABS: BASO # 0.1 10^3/uL (0.0-0.2); BASO % 0.6 % (0.0-1.0); EOS # 0.1 10^3/uL (0.0-0.5); EOS % 1.3 % (0.0-3.0); HEMATOCRIT 33.9 % (42.0-52.0); HEMOGLOBIN 11.5 g/dl (13.5-17.5); LYMPH # 0.4 10^3/uL (1.5-5.0); MEAN CORPUSCULAR HEMOGLOBIN 33.5 pg (27.0-33.0); MEAN CORPUSCULAR HGB CONC 33.9 g/dl (32.0-36.5); MEAN CORPUSCULAR VOLUME 98.8 fl (80.0-96.0); MONO # 0.9 10^3/uL (0.0-0.8); MONO % 10.7 % (0.0-5.0); NEUTROPHILS # 7.2 10^3/uL (1.5-8.5); NEUTROPHILS % 81.9 % (36.0-66.0); PLATELET COUNT, AUTOMATED 193 10^3/uL (150-450); RED BLOOD COUNT 3.43 10^6/uL (4.30-6.10); WHITE BLOOD COUNT 8.8 10^3/uL (4.0-10.0)
[2020-01-28 09:26] LABS: ALBUMIN 1.9 GM/DL (3.2-5.2); BILIRUBIN,TOTAL 1.8 MG/DL (0.2-1.0); CREATININE FOR GFR 1.35 MG/DL (0.70-1.30); GLOMERULAR FILTRATION RATE 57.2 (>49); TOTAL PROTEIN 5.2 GM/DL (6.4-8.2)
[2020-01-28] MEDS: TORSEMIDE 20 MG TAB PO SCH (10:35)
[2020-01-28] MEDS: HumaLOG INSULIN (NovoLOG) PER UNIT SC SCH ×4 (10:44→21:00)
[2020-01-28] MEDS: LEVEMIR (INSULIN DETEMIR) 1 UNITS/0.01ML SC SCH (10:44)
[2020-01-28 12:00] VITALS: BP 132/78
[2020-01-28 16:00] VITALS: BP 132/80
[2020-01-28] MEDS: tiZANidine 4 MG TAB PO PRN ×2 (17:09→23:36)
--- NOTE | 2020-01-28 17:09 | CR.PDOC ---
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 He has comorbid CHF, CAD, COPD, renal disease and Type 2 DM. He has had parascentesis for a few years for acites and reports he used to be able to have it every 2 months, then every month , hen every 2 weeks...most recently he has required it twice weekly. He was being transported for parascentesis earlier this week when transport became worried over his significant dyspnea. He was admitted with decompensated liver disease, acute on chronic renal failure. When I mentioned this to him initially, he became quite irritated and stated "why is everyone talking about my liver being the problem?" He has been referred to an blending tank helper in [place] at [facility] Dr. Priti Kimble who thus far he has only seen via telehealth. He has an appointment March 29 with him. He stated he does not know if he is healthy enough to have a transplant because of his past history of CAD, CHF and a fib and his renal disease. ALLERGIES: Please see below. HOME MEDICATIONS: Please see below. PAST MEDICAL HISTORY: 1. cirrhosis 2. ascites 3. CHF 4. pulmonary hypertension 5. a fib 6. COPD 7. SRINATH 8. morbid obesity 9. type 2 DM 10. hypertension 11. chronic low back pain from injury FAMILY HISTORY: Father: CHF SOCIAL HISTORY: Marital status and/or living arrangements: , lives in [place]. 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 Quit ETOH: 6 pack a day for many years. no longer drinks Illicit drug use: none IV drug use: none Other relevant social factors: na REVIEW OF SYSTEMS: CONSTITUTIONAL: denies fevers, chills night sweats. +fatigue HEENT: dentures, no dysphagia or sore throat. No vision changes CARDIOVASCULAR: +edema, vascular discoloration lower legs, palpitations RESPIRATORY: productive cough, dyspnea, orthopnea GENITOURINARY: denies dysuria, +frequency due to diuretic MUSCULOSKELETAL: cramping in arms due to electrolyte imbalance. Low back pain without radicular symptoms GASTROINTESTINAL: denies n/v/c/d. Early satiety due to increased abdominal girth from ascites SKIN: angiomas across chest, easy bruising NEUROLOGICAL: some imbalance due to increased abdominal girth and edema PSYCHIATRIC: irritable, denies SI/HI ENDOCRINE: Type 2 DM, denies hypo/hyperglycemia. HEMATOLOGIC/LYMPHATIC: denies swollen painful nodes ALLERGIC/IMMUNOLOGIC: na PHYSICAL EXAMINATION: VITAL SIGNS: Please see below. GENERAL APPEARANCE: Obese male seated in recliner in some distress due to back pain and due to cramping in arms. Irritable, more pleasant as visit went on HEENT: dentures, EOMI, pharynx clear RESPIRATORY: reduced breath sounds bilateral bases CARDIOVASCULAR: irregular rhythm no MGR, tachycardic ABDOMEN: diffusely distended with ascites, tense, +BS EXTREMITIES: Marked edema bilateral lower extremities, +2 pitting edema, venous stasis discoloration, scaly skin and multiple fleshy nodules bilateral lower legs NEUROLOGICAL: cramping of arms, no tremors, difficulty rising from seated position but able to ambulate with a walker PSYCHIATRIC: irritable, able to make his needs known, less irritable after expressing many displeasures with this admission LABORATORY DATA: Please see below. ASSESSMENT/PLAN: 1. Ascites from liver disease 2. Chronic CHF/ CAD, a fib 3. COPD 4. pulmonary hypertension 5. Type 2 DM 6. morbid obesity I explained the role of [facility] to Elie and his and left a brochure and my business card with them. He seemed to accept the idea of palliative care and expressed quite clearly he does not think he is hospice appropriate. I think his overall prognosis will be better understood after he sees the blending tank helper in [place]. It sounds like his liver disease has been worsening given the increasing need for parascentesis over the past 6 months and the fact he has over 6 L removed ( often up to 12 L he reports ) at a time. We talked about a Pleurex catheter as a possibility to manage his ascites. I chose not to pursue any discussion about advanced directives today because he was quite angry about the general notion he might be appropriate for hospice; I think I can better cross this bridge after developing a trusting relationship with him and his . He did stated he would like me to contact Dr. Suero his tnt line supervisor and Dr Robertson, his vp of product. Vital Signs/I&O Vital Signs Date Time Temp Pulse Resp B/P (MAP) Pulse Ox O2 Delivery O2 Flow Rate FiO2 01/28/20 16:00 98.0 107 18 132/80 (97) 97 Room Air 01/27/20 08:00 I&O- Last 24 Hours up to 6 AM 01/28/20 06:00 Intake Total 1080 ml Output Total 500 ml Balance 580 ml Laboratory Data Labs 24H Laboratory Tests 2 01/28/20 08:38: Immature Granulocyte % (Auto) 0.5, Neutrophils (%) (Auto) 81.9H, Lymphocytes (%) (Auto) 5.0L, Monocytes (%) (Auto) 10.7H, Eosinophils (%) (Auto) 1.3, Basophils (%) (Auto) 0.6, Neutrophils # (Auto) 7.2, Lymphocytes # (Auto) 0.4L, Monocytes # (Auto) 0.9H, Eosinophils # (Auto) 0.1, Basophils # (Auto) 0.1, Nucleated Red Blood Cells % (auto) 0.2H, Anion Gap 8, Glomerular Filtration Rate 57.2, Calcium Level 8.0L, Total Bilirubin 1.8H, Aspartate Amino Transf (AST/SGOT) 61H, Alanine Aminotransferase (ALT/SGPT) 39, Alkaline Phosphatase 244H, Total Protein 5.2L, Albumin 1.9L, Albumin/Globulin Ratio 0.6 CBC/BMP Laboratory Tests 01/28/20 08:38 Microbiology Microbiology 01/26/20 Fungal Smear, Received Pending 01/26/20 Fungal Culture, Received Pending 01/26/20 Gram Stain - Final, Complete 01/26/20 Body Fluid Culture - Final, Complete Allergies Coded Allergies: TAPE (Verified Allergy, Unknown, Itchiness/Rash, 01/26/20) allopurinol (Verified Allergy, Unknown, Itching, 01/26/20) Home Medications Scheduled Amoxicillin (Amoxicillin) 500 Mg Capsule, 500 MG PO QID, (Reported) PATIENT'S STATES PATIENT BEGAN TAKING THIS MEDICATION BECAUSE OF "EVERYTHING GOING ON" Apixaban (Eliquis) 2.5 Mg Tablet, 2.5 MG PO BID, (Reported) ON HOLD FOR PARACENTESIS ON 01/26/20 Calcium Carbonate/Vitamin D3 (Calcium 500-Vit D3 200 Tablet) 1 Each Tablet, 1 TAB PO BID, (Reported) 1000,1400 Cephalexin (Cephalexin) 500 Mg Capsule, 500 MG PO QID, (Reported) FILLED 01/18/20 FOR 10 DAYS Cholecalciferol (Vitamin D3) (Vitamin D3) 1,000 Unit Tablet, 1,000 UNITS PO QWEEK, (Reported) SUNDAYS Digoxin (Digoxin) 125 Mcg Tablet, 125 MCG PO Q2D, (Reported) Doxycycline Hyclate (Doxycycline Hyclate) 100 Mg Tablet, 100 MG PO BID, (Reported) Dulaglutide (Trulicity) 1.5 Mg/0.5 Ml Inj, 1.5 MG SC 1XWK, (Reported) FRIDAY Ferrous Sulfate (Ferrous Sulfate) 325 Mg Tablet, 325 MG PO Q2D, (Reported) EVERY OTHER NIGHT Insulin Detemir (Levemir) 100 Unit/1 Ml Vial, 21 UNITS SC DAILY, (Reported) Magnesium Oxide (Magnesium) 400 Mg Capsule, 400 MG PO QPM, (Reported) [place]-3 Fatty Acids/Fish Oil ([place] 3 1,000 mg Softgel) 1 Cap Cap, 1,000 MG PO DAILY, (Reported) Omeprazole (Omeprazole) 20 Mg Cap, 20 MG PO 2XW, (Reported) WED AND SAT Potassium Chloride (Potassium Chloride) 10 Meq Tablet.er, 10 MEQ PO DAILY, (Reported) PATIENT MAY TAKE UP TO 10 TABLETS DAILY Silver Sulfadiazine (Ssd) 50 Gm Cream..g., 1 DOSE TOP QID, (Reported) USES ON LEGS Spironolactone (Spironolactone) 25 Mg Tablet, 50 MG PO DAILY, (Reported) Torsemide (Torsemide) 20 Mg Tab, 40 MG PO BID, (Reported) Scheduled PRN Albuterol Sulfate (Ventolin Hfa) 108 Mcg/Act Aer, 2 PUFFS INH Q4H PRN for ANDI RTNESS OF BREATH, (Reported) Albuterol Sulfate (Albuterol Sulfate) 0.63 Mg/3 Ml Vial.neb, 0.63 MG INH QID PRN for SHORTNESS OF BREATH, (Reported) Budesonide (Budesonide) 0.25 Mg/2 Ml Ampul.neb, 0.25 MG INH BID PRN for SHORTNESS OF BREATH, (Reported) Budesonide/Formoterol (Symbicort 160-4.5 Mcg Inhaler) 6 Gm Hfa.aer.ad, 2 PUFF INH BID PRN for SHORTNESS OF BREATH, (Reported) PATIENT STATES TAKES PRN Diclofenac Sodium (Diclofenac Sodium) 1% 100GM Gel..gram., 2 GM TOP TID PRN for PAIN, (Reported) APPLY TO BACK Insulin Human Lispro (Novolog) 100 U/Ml Inj, 1 DOSE SC AC PRN for BLOOD SUGAR > 150, (Reported) PER SLIDING SCALE Ipratropium/Albuterol Sulfate (Iprat-Albut 0.5-3(2.5) mg/3 ml) 3 Ml Ampul.neb, 1 KADI NEB Q4H PRN for SHORTNESS OF BREATH, (Reported) Metolazone (Metolazone) 5 Mg Tablet, 5 MG PO BID PRN for EDEMA, (Reported) Oxycodone HCl (Oxycodone HCl) 5 Mg Tab, 5 MG PO QID PRN for PAIN, (Reported) Tizanidine HCl (Tizanidine HCl) 2 Mg Tablet, 2 MG PO TID PRN for SPASMS, (Repo rted) Maddie LAWRENCE DIETETIC AIDE Jan 28, 2020 17:09
[2020-01-28 20:00] VITALS: BP 115/62
[2020-01-28] MEDS: FERROUS SULFATE 325MG TAB PO SCH (22:40)
[2020-01-28] MEDS: MAGNESIUM OXIDE 400 MG TAB (MAG-OX) PO SCH (22:40)
[2020-01-28] MEDS: ATORVASTATIN 20 MG TAB PO SCH (22:40)
[2020-01-29] VITALS (7 sets, daily range): BP systolic 107–130; BP diastolic 64–80
[2020-01-29] MEDS: HEPARIN SOD (PORCINE) 5000UNITS/ML 1ML VIAL/SYRINGE SC SCH ×3 (06:25→21:24)
[2020-01-29] MEDS: DOXYCYCLINE HYCLATE 100MG TABLET PO SCH ×2 (06:25→17:45)
[2020-01-29 06:55] LABS: BASO # 0.1 10^3/uL (0.0-0.2); BASO % 0.7 % (0.0-1.0); EOS # 0.2 10^3/uL (0.0-0.5); EOS % 2.4 % (0.0-3.0); HEMATOCRIT 34.5 % (42.0-52.0); HEMOGLOBIN 11.7 g/dl (13.5-17.5); LYMPH # 0.6 10^3/uL (1.5-5.0); LYMPH % 6.2 % (24.0-44.0); MEAN CORPUSCULAR HEMOGLOBIN 33.6 pg (27.0-33.0); MEAN CORPUSCULAR HGB CONC 33.9 g/dl (32.0-36.5); MEAN CORPUSCULAR VOLUME 99.1 fl (80.0-96.0); MONO # 1.1 10^3/uL (0.0-0.8); MONO % 11.4 % (0.0-5.0); NEUTROPHILS # 7.7 10^3/uL (1.5-8.5); NEUTROPHILS % 78.8 % (36.0-66.0); PLATELET COUNT, AUTOMATED 190 10^3/uL (150-450); RED BLOOD COUNT 3.48 10^6/uL (4.30-6.10); WHITE BLOOD COUNT 9.8 10^3/uL (4.0-10.0)
[2020-01-29 07:20] LABS: ALT/SGPT 43 U/L (12-78); BILIRUBIN,TOTAL 1.6 MG/DL (0.2-1.0); BLOOD UREA NITROGEN 50 MG/DL (7-18); CALCIUM LEVEL 7.5 MG/DL (8.8-10.2); CARBON DIOXIDE LEVEL 28 MEQ/L (21-32); CHLORIDE LEVEL 100 MEQ/L (98-107); GLOMERULAR FILTRATION RATE > 60.0 (>49); GLUCOSE, FASTING 106 MG/DL (70-100); POTASSIUM SERUM 4.1 MEQ/L (3.5-5.1); SODIUM LEVEL 133 MEQ/L (136-145); TOTAL PROTEIN 5.4 GM/DL (6.4-8.2)
[2020-01-29] MEDS: HumaLOG INSULIN (NovoLOG) PER UNIT SC SCH ×4 (07:30→21:00)
[2020-01-29] MEDS: SYMBICORT 160/4.5MCG INHALER 6GM INH SCH ×2 (07:50→20:19)
[2020-01-29] MEDS: LEVEMIR (INSULIN DETEMIR) 1 UNITS/0.01ML SC SCH (09:00)
[2020-01-29] MEDS: SILVER SULFADIAZINE 1% CR 50 GM JAR TOP SCH ×4 (09:00→21:00)
[2020-01-29] MEDS: OMEPRAZOLE 20 MG CAP PO SCH (09:36)
[2020-01-29] MEDS: TORSEMIDE 20 MG TAB PO SCH (09:37)
[2020-01-29] MEDS: tiZANidine 4 MG TAB PO PRN ×2 (09:37→18:13)
[2020-01-29] MEDS: oxyCODONE 5MG TAB PO PRN ×2 (09:37→18:11)
[2020-01-29] MEDS ORDERED: BISACODYL 5 MG TAB PO PRN (16:15)
[2020-01-29] MEDS: ATORVASTATIN 20 MG TAB PO SCH (21:24)
[2020-01-29] MEDS: MAGNESIUM OXIDE 400 MG TAB (MAG-OX) PO SCH (21:25)
[2020-01-30] VITALS: BP 132/73
[2020-01-30] MEDS: oxyCODONE 5MG TAB PO PRN ×4 (00:40→21:04)
[2020-01-30] MEDS: tiZANidine 4 MG TAB PO PRN ×3 (02:09→21:06)
[2020-01-30 04:00] VITALS: BP 115/59
[2020-01-30] MEDS: DOXYCYCLINE HYCLATE 100MG TABLET PO SCH (05:33)
[2020-01-30] MEDS: HEPARIN SOD (PORCINE) 5000UNITS/ML 1ML VIAL/SYRINGE SC SCH (05:34)
[2020-01-30 05:39] LABS: BASO # 0.1 10^3/uL (0.0-0.2); BASO % 0.5 % (0.0-1.0); EOS # 0.2 10^3/uL (0.0-0.5); EOS % 2.1 % (0.0-3.0); HEMATOCRIT 33.2 % (42.0-52.0); HEMOGLOBIN 11.2 g/dl (13.5-17.5); LYMPH # 0.5 10^3/uL (1.5-5.0); MEAN CORPUSCULAR HEMOGLOBIN 33.5 pg (27.0-33.0); MEAN CORPUSCULAR HGB CONC 33.7 g/dl (32.0-36.5); MEAN CORPUSCULAR VOLUME 99.4 fl (80.0-96.0); MONO # 1.1 10^3/uL (0.0-0.8); MONO % 10.8 % (0.0-5.0); NEUTROPHILS # 8.3 10^3/uL (1.5-8.5); PLATELET COUNT, AUTOMATED 185 10^3/uL (150-450); RED BLOOD COUNT 3.34 10^6/uL (4.30-6.10); WHITE BLOOD COUNT 10.3 10^3/uL (4.0-10.0)
[2020-01-30 06:02] LABS: ALBUMIN 1.9 GM/DL (3.2-5.2); ALT/SGPT 40 U/L (12-78); BILIRUBIN,TOTAL 1.3 MG/DL (0.2-1.0); BLOOD UREA NITROGEN 47 MG/DL (7-18); CALCIUM LEVEL 7.6 MG/DL (8.8-10.2); CARBON DIOXIDE LEVEL 26 MEQ/L (21-32); CHLORIDE LEVEL 99 MEQ/L (98-107); GLOMERULAR FILTRATION RATE > 60.0 (>49); GLUCOSE, FASTING 117 MG/DL (70-100); POTASSIUM SERUM 3.8 MEQ/L (3.5-5.1); SODIUM LEVEL 130 MEQ/L (136-145); TOTAL PROTEIN 5.5 GM/DL (6.4-8.2)
[2020-01-30 06:52] VITALS: BP 126/68
[2020-01-30] MEDS: HumaLOG INSULIN (NovoLOG) PER UNIT SC SCH ×4 (07:30→21:00)
[2020-01-30] MEDS: TORSEMIDE 20 MG TAB PO SCH (08:27)
[2020-01-30] MEDS: LEVEMIR (INSULIN DETEMIR) 1 UNITS/0.01ML SC SCH (08:29)
[2020-01-30] MEDS: SYMBICORT 160/4.5MCG INHALER 6GM INH SCH ×2 (08:55→19:19)
[2020-01-30] MEDS ORDERED: VITAMIN D 1,000 INTERNATIONAL UNITS TABLET PO SCH (09:00)
[2020-01-30] MEDS: SILVER SULFADIAZINE 1% CR 50 GM JAR TOP SCH ×4 (09:00→21:00)
--- NOTE | 2020-01-30 10:46 | ECHO ---
DATE OF PROCEDURE: 01/26/2020 Age: Gender: Male Height: 183 cm Weight: 150 kg REFERRING PHYSICIAN: Gibson Sosa MD INDICATION: Dyspnea MEASUREMENTS: IVS 1.2 LV 6.0 LVPW 1.1 LA 5.4 Aorta 3.1 IVC 4.0 FINDINGS: The study is of limited technical quality corresponding to patients habitus, but actually better than expected accounting for patients weight. The patient is in atrial fibrillation with rapid ventricular response. Left ventricle is dilated, but overall there is relatively preserved contractility. I estimate overall ejection fraction (EF) 50 to 55%. Unfortunately, based on limitation of the study, I cannot completely rule out segmental wall motion abnormalities, but it appears unlikely. Right ventricle is dilated and hypokinetic. There is severe biatrial enlargement. Aortic valve is sclerotic, but it has 3 cusps and grossly preserved mobility. There are mild degenerative abnormalities of mitral valve. Tricuspid and pulmonic valves appear grossly normal. No pericardial effusion is noted. Inferior vena cava is markedly dilated and there is no appreciable collapse with inspiration indicative of very high central venous pressure. Aortic root is normal. Aortic arch and abdominal aorta were not visualized. Doppler interrogation reveals mild aortic stenosis with mean gradient of 13 mmHg and no significant insufficiency. There is mild mitral and mild tricuspid insufficiency. Calculated pulmonary artery pressure is minimum 50 mmHg, which would correspond to moderate pulmonary hypertension. Evaluation of diastolic function is conclusive due to underlying atrial fibrillation. CONCLUSIONS: 1. Study is of limited technical quality. The patient is in atrial fibrillation with rapid ventricular response. 2. Dilated left ventricle with grossly preserved LV systolic function and estimated ejection fraction (EF) approximately 50 to 55%. 3. Mild aortic stenosis. 4. No significant mitral and tricuspid valvular disease. 5. Very high central venous pressure and at least moderate pulmonary hypertension. 6. Severe biatrial enlargement. [facility]
[2020-01-30 12:00] VITALS: BP 118/62
--- NOTE | 2020-01-30 13:27 | IPNPDOC ---
Text Note Date of Service The patient was seen on 01/30/20. NOTE Subjective: No any acute events overnight. Pt denies fever, chills, n/v, chest pain, palpitations, diarrhea Objective: Gen: NAD NECK: Supple. No jugular venous distention (JVD). LUNGS: Clear to auscultation. HEART: irregularly irregular ABDOMEN: Distended and no tense. Positive bowel sounds. Pedal edema +3, hydrocele Skin: multiple papules of legs with venous stasis skin changes NEUROLOGIC: Patient awake, alert, oriented times three. A/p This is a 56-year-old morbidly obese male with coronary artery disease, CABG in 2010, hyperlipidemia, intolerance to statins, including Zetia, atrial fibrillation, chronic kidney disease stage II to III, follows with Dr. Suero, diabetes, obstructive sleep apnea and obesity, hypothyroidism, presents to the emergency room with increasing abdominal distention, anasarca, increased lower extremity edema and SOB Recurrent Ascites 2/2 liver cirrhosis Long standing liver cirrhosis Paracentesis was done on 01/28/20, 7.5 L was evacuated Cipro started for SBP prophylaxis Palliative care on board Pt has a very poor prognosis due to multiple comorbidities and progressive liver cirrhosis superimposed with portopulmonary hypertension. Echo showed :Dilated left ventricle with grossly preserved LV systolic function and estimated ejection fraction (EF) approximately 50 to 55%. Mild aortic stenosis. No significant mitral and tricuspid valvular disease. Very high central venous pressure and at least moderate pulmonary hypertension. Pt will need right heart cath to confirm diagnosis. Will discuss TIPS with GI team will check AFP Liver US Hyperkaliemia Resolved Acute renal failure Improved creat at baseline afib HR is under control restart Eliquis CHFpEF continue diuresis CAD c/w home cardioprotective meds COPD not in acute exacerbation c/w inhalers IDDM Levemir ISS Diabetes diet Morbid Obesity Complicating care Lymphedema/ hydrocele/ venostasis skin changes c/w diuresis Appreciate/ agree with doper . Pt has multiple papulous skin changes of his legs Normocytic anemia b12, folate wnl will check stool for occult blood Deconditioning due to multiple comorbidities PT/OT VS,Fishbone, I+O VS, Fishbone, I+O Laboratory Tests 01/30/20 05:13 Vital Signs Date Time Temp Pulse Resp B/P (MAP) Pulse Ox O2 Delivery O2 Flow Rate FiO2 01/30/20 09:10 20 Room Air 01/30/20 06:52 97.7 90 126/68 (87) 96 01/27/20 08:00 I&O- Last 24 Hours up to 6 AM 01/30/20 06:00 Intake Total 1860 ml Output Total 1400 ml Balance 460 ml ZACH MARKS DO Jan 30, 2020 13:27
[2020-01-30] MEDS: CIPROFLOXACIN 500MG TABLET PO SCH (13:42)
[2020-01-30] MEDS: SPIRONOLACTONE 50 MG TAB PO SCH (13:46)
[2020-01-30 16:00] VITALS: BP 133/60
[2020-01-30 20:00] VITALS: BP 123/56
[2020-01-30] MEDS ORDERED: APIXABAN 2.5 MG TAB (ELIQUIS) PO SCH (21:00)
[2020-01-30] MEDS: ATORVASTATIN 20 MG TAB PO SCH (21:03)
[2020-01-30] MEDS: CALCIUM/VITAMIN D 500 MG TAB PO SCH (21:03)
[2020-01-30] MEDS: FERROUS SULFATE 325MG TAB PO SCH (21:05)
[2020-01-30] MEDS: HEPARIN SOD (PORCINE) 5000UNITS/ML 1ML VIAL/SYRINGE SQ SCH (21:05)
[2020-01-30] MEDS: MAGNESIUM OXIDE 400 MG TAB (MAG-OX) PO SCH (21:06)
[2020-01-31] VITALS: BP 112/67
[2020-01-31] MEDS: oxyCODONE 5MG TAB PO PRN ×4 (03:21→21:06)
[2020-01-31 04:00] VITALS: BP 122/63
[2020-01-31] MEDS: tiZANidine 4 MG TAB PO PRN ×3 (05:14→18:08)
[2020-01-31 06:10] LABS: BASO # 0.1 10^3/uL (0.0-0.2); BASO % 0.5 % (0.0-1.0); EOS # 0.2 10^3/uL (0.0-0.5); HEMATOCRIT 32.2 % (42.0-52.0); HEMOGLOBIN 10.9 g/dl (13.5-17.5); LYMPH # 0.5 10^3/uL (1.5-5.0); LYMPH % 5.1 % (24.0-44.0); MEAN CORPUSCULAR HEMOGLOBIN 33.7 pg (27.0-33.0); MEAN CORPUSCULAR HGB CONC 33.9 g/dl (32.0-36.5); MEAN CORPUSCULAR VOLUME 99.7 fl (80.0-96.0); MONO % 9.9 % (0.0-5.0); NEUTROPHILS # 8.1 10^3/uL (1.5-8.5); NEUTROPHILS % 82.1 % (36.0-66.0); PLATELET COUNT, AUTOMATED 182 10^3/uL (150-450); RED BLOOD COUNT 3.23 10^6/uL (4.30-6.10); WHITE BLOOD COUNT 9.8 10^3/uL (4.0-10.0)
[2020-01-31 06:36] LABS: ALBUMIN 1.9 GM/DL (3.2-5.2); BILIRUBIN,TOTAL 1.3 MG/DL (0.2-1.0); CALCIUM LEVEL 7.4 MG/DL (8.8-10.2); CREATININE FOR GFR 1.3 MG/DL (0.70-1.30); GLOMERULAR FILTRATION RATE 59.7 (>49); POTASSIUM SERUM 4.2 MEQ/L (3.5-5.1); TOTAL PROTEIN 5.3 GM/DL (6.4-8.2)
[2020-01-31] MEDS: CIPROFLOXACIN 500MG TABLET PO SCH (06:37)
[2020-01-31] MEDS: HumaLOG INSULIN (NovoLOG) PER UNIT SC SCH ×4 (07:30→21:00)
[2020-01-31] MEDS: SYMBICORT 160/4.5MCG INHALER 6GM INH SCH ×2 (07:32→19:51)
[2020-01-31 08:30] VITALS: BP 109/60
--- NOTE | 2020-01-31 08:35 | REPVR ---
PROCEDURE INFORMATION: Exam: US Abdomen, Limited; Right Upper Quadrant Exam date and time: 01/31/2020 8:19 AM Age: 59 years old Clinical indication: Condition or disease; Ascites; Other: Chf; Additional info: Malignancy TECHNIQUE: Imaging protocol: US abdomen. Real time ultrasound with image documentation. Limited exam focused on the right upper quadrant. COMPARISON: PARACENTESIS NEEDLE PLACE US 01/26/2020 3:53 PM FINDINGS: Liver: No masses. Gallbladder: Gallbladder wall measures 4 mm in thickness. Gallstone in the gallbladder. Common bile duct: CBD measures 5.5 mm in diameter. Pancreas: Pancreas is obscured by overlying bowel gas. Right kidney: Right kidney measures 10.4 cm in length. No right hydronephrosis. Echogenic right kidney consistent with medical renal disease. Intraperitoneal space: Moderate ascites. IMPRESSION: 1. Moderate ascites. Direct comparison to the prior study is limited. 2. Cholelithiasis. 3. Gallbladder wall thickening. Possible portal venous hypertension versus cholecystitis. 4. Echogenic right kidney consistent with medical renal disease. Electronically signed by: Alex Lee On 01/31/2020 08:34:55 AM
[2020-01-31] MEDS: LEVEMIR (INSULIN DETEMIR) 1 UNITS/0.01ML SC SCH (09:00)
[2020-01-31] MEDS: HEPARIN SOD (PORCINE) 5000UNITS/ML 1ML VIAL/SYRINGE SQ SCH ×2 (09:24→21:04)
[2020-01-31] MEDS: CALCIUM/VITAMIN D 500 MG TAB PO SCH ×2 (09:25→21:04)
[2020-01-31] MEDS: POTASSIUM CHLORIDE 10 MEQ SR TABLET PO SCH (09:25)
[2020-01-31] MEDS: TORSEMIDE 20 MG TAB PO SCH (09:25)
[2020-01-31] MEDS: SPIRONOLACTONE 50 MG TAB PO SCH (09:26)
[2020-01-31] MEDS: SILVER SULFADIAZINE 1% CR 50 GM JAR TOP SCH ×4 (09:26→21:00)
[2020-01-31 12:00] VITALS: BP 129/62
--- NOTE | 2020-01-31 14:43 | IPNPDOC ---
Text Note Date of Service The patient was seen on 01/31/20. NOTE HPI: Mr. Damon is a 61 yo male admitted for shortness of breath and worsening of ascites secondary to cirrhosis. SUBJECTIVE: No acute events overnight. Patient states that his shortness of breath has improved both at rest and upon exertion. He complains of back pain secondary to a back injury many years ago and that he feels like his abdomen is still very full of fluid. He denies any fever, chills, chest pain, nausea, or vomiting. OBJECTIVE: GENERAL: Pt returned from liver ultrasound and sat in bedside chair, complained of pain in his back, but was in no acute distress. VITAL SIGNS: please see below. HEENT: NC, AT, EOMI, no scleral icterus, no pharyngeal erythema. Mucous membranes moist. NECK: No lymphadenopathy or JVD appreciated. CV: irregular rhythm, no gallops, or rubs. RESP: CTAB, no wheezes, crackles, or rhonchi. ABDOMEN: soft, distended, tympanic, non tender, bowel sounds present. EXTREMITIES: Bandages from knee down on BL lower extremities. Papules noted outside bandages, pt denies pain. Unable to assess swelling. LABORATORY: please see below. MICROBIOLOGY: please see below. IMAGING: -LIVER ULTRASOUND (01/31/2020): "1. Moderate ascites. Direct comparison to prior study is limited. 2. Cholelithiasis. 3. Gallbladder wall thickening. Possible po rtal venous hypertension versus cholecystitis. 4. Echogenic right kidney consistent with medical renal disease." ASSESSMENT/PLAN: Mr. Damon is a 61 yo male with pertinent medical history of Afib, CKD stage II-III, insulin dependent diabetes mellitus, morbid obesity, and cirrhosis causing ascites that was admitted with symptoms concerning for decompensated cirrhosis. #. Acute respiratory failure causing shortness of breath -resolved with nebulizer treatment and supplemental oxygen -continue Symbicort and albuterol #. Ascites (secondary to cirrhosis decompensation) -paracentesis on 01/28/20 removed 7.5L of fluid -patient expressed willingness to try a paracentesis catheter so that fluid co uld be drained frequently -patient is still on ciprofloxacin for SBP prophylaxis #. Afib -continue metoprolol #. Insulin dependent type 2 diabetes mellitus -continue insulin regimen -consistent carb diet #. CKD stage II-III -continue spironolactone and torsemide #. Hyperlipidemia -continue Lipitor #. Morbid obesity -complicating course #. CAD s/p CABG in 2012 -continue holding apixaban #. Chronic back pain -continue oxycodone and tizanidine #. Venous stasis ulcers BL LE -continue application of silvadene topically DVT prophylaxis: heparin 5,000 units subcutaneous BID GI prophylaxis: not indicated, patient takes own Prilosec. VS,Fishbone, I+O VS, Fishbone, I+O Laboratory Tests 01/31/20 05:54 Vital Signs Date Time Temp Pulse Resp B/P (MAP) Pulse Ox O2 Delivery O2 Flow Rate FiO2 01/31/20 12:00 97.9 82 20 129/62 (84) 100 Room Air 01/27/20 08:00 I&O- Last 24 Hours up to 6 AM 01/31/20 06:00 Intake Total 1855 ml Output Total 1275 ml Balance 580 ml GME ATTESTATION GME ATTESTATION My faculty preceptor for this patient encounter was physically present during the encounter and was fully available. All aspects of the patient interview, examination, medical decision making process, and medical care plan development were reviewed and approved by the faculty preceptor. The faculty preceptor is aware and concurs with the plan as stated in the body of this note and will attest to such by his/her cosignature. ATTENDING NOTE Patient was seen and examined by me personally with the residents and I agree with the above assessment and plan ELIANA SARKAR OMS-3 Jan 31, 2020 14:43 [place] SESAY MD Feb 07, 2020 14:15
[2020-01-31 16:00] VITALS: BP 117/63
[2020-01-31 20:00] VITALS: BP 117/56
[2020-01-31] MEDS: MAGNESIUM OXIDE 400 MG TAB (MAG-OX) PO SCH (21:05)
[2020-01-31] MEDS: ATORVASTATIN 20 MG TAB PO SCH (21:05)
[2020-02-01] VITALS: BP 129/70
[2020-02-01] MEDS: tiZANidine 4 MG TAB PO PRN ×3 (00:52→20:04)
[2020-02-01 04:00] VITALS: BP 116/67
[2020-02-01 04:58] LABS: BASO # 0.1 10^3/uL (0.0-0.2); BASO % 0.6 % (0.0-1.0); EOS # 0.2 10^3/uL (0.0-0.5); EOS % 2.2 % (0.0-3.0); HEMATOCRIT 34.6 % (42.0-52.0); HEMOGLOBIN 11.5 g/dl (13.5-17.5); LYMPH # 0.6 10^3/uL (1.5-5.0); LYMPH % 6.4 % (24.0-44.0); MEAN CORPUSCULAR HEMOGLOBIN 33.2 pg (27.0-33.0); MEAN CORPUSCULAR HGB CONC 33.2 g/dl (32.0-36.5); MONO # 1.1 10^3/uL (0.0-0.8); MONO % 10.8 % (0.0-5.0); NEUTROPHILS # 7.7 10^3/uL (1.5-8.5); NEUTROPHILS % 79.4 % (36.0-66.0); PLATELET COUNT, AUTOMATED 192 10^3/uL (150-450); RED BLOOD COUNT 3.46 10^6/uL (4.30-6.10); WHITE BLOOD COUNT 9.7 10^3/uL (4.0-10.0)
[2020-02-01 05:30] LABS: ALBUMIN 1.9 GM/DL (3.2-5.2); BILIRUBIN,TOTAL 1.2 MG/DL (0.2-1.0); CALCIUM LEVEL 7.8 MG/DL (8.8-10.2); CREATININE FOR GFR 1.45 MG/DL (0.70-1.30); GLOMERULAR FILTRATION RATE 52.7 (>49); POTASSIUM SERUM 4.8 MEQ/L (3.5-5.1); TOTAL PROTEIN 5.9 GM/DL (6.4-8.2)
[2020-02-01] MEDS: CIPROFLOXACIN 500MG TABLET PO SCH (06:15)
[2020-02-01] MEDS: HumaLOG INSULIN (NovoLOG) PER UNIT SC SCH ×4 (07:30→21:00)
[2020-02-01] MEDS: SYMBICORT 160/4.5MCG INHALER 6GM INH SCH ×2 (07:38→18:11)
[2020-02-01 08:00] VITALS: BP 105/57
[2020-02-01] MEDS: oxyCODONE 5MG TAB PO PRN ×3 (08:30→22:21)
[2020-02-01] MEDS: HEPARIN SOD (PORCINE) 5000UNITS/ML 1ML VIAL/SYRINGE SQ SCH ×2 (09:00→21:41)
[2020-02-01] MEDS: LEVEMIR (INSULIN DETEMIR) 1 UNITS/0.01ML SC SCH (09:00)
[2020-02-01] MEDS: SILVER SULFADIAZINE 1% CR 50 GM JAR TOP SCH ×4 (09:00→21:45)
[2020-02-01] MEDS: POTASSIUM CHLORIDE 10 MEQ SR TABLET PO SCH (09:00)
[2020-02-01] MEDS: SPIRONOLACTONE 50 MG TAB PO SCH (09:00)
[2020-02-01] MEDS: CALCIUM/VITAMIN D 500 MG TAB PO SCH ×2 (09:00→21:42)
[2020-02-01] MEDS: TORSEMIDE 20 MG TAB PO SCH (09:17)
--- NOTE | 2020-02-01 11:35 | IPNPDOC ---
Text Note Date of Service The patient was seen on 02/01/20. NOTE HPI: Mr. Damon is a 59 yo male admitted for worsening shortness of breath and ascites due to decompensated cirrhosis. SUBJECTIVE: No acute events overnight. Patient feels as though he has put on "20 lbs of weight" in regard to his ascites. He states that his breathing is a l ittle bit worse, but that usually happens when his ascites gets this bad. He complains of back pain due to a back injury many years ago and states that his abdomen is uncomfortable but not painful. He denies any fever, chills, nausea or vomiting. OBJECTIVE: VITAL SIGNS: please see below. GENERAL: Pt appears sitting in chair at his bedside in no acute distress. HEENT: NC, AT, EOMI, no scleral icterus, no pharyngeal erythema, mucous membranes moist. NECK: no lymphadenopathy or JVD appreciated. CV: irregular rhythm, no murmurs, rubs, or gallops. RESP: CTAB, no wheezes, rales, or rhonchi appreciated. ABDOMEN: soft obese, distended, nontender. EXTREMITIES: BL lower extremity swelling, bandages wrapped from knee down, papular rash visible to just above knees bilaterally LABORATORY: please see below. MICROBIOLOGY: please see below. ASSESSMENT/PLAN: Mr. Damon is a 59 yo male with PMHx of CAD s/p CABG in 2011, Afib, CKD stage II-III, insulin dependent diabetes mellitus, and decompensated cirrhosis causing recurrent ascites that presented to the ED with worsening shortness of breath and ascites. He was admitted for management of the ascites and shortness of breath. #. Decompensated cirrhosis causing ascites -Pt is on torsemide and spironolactone to reduce fluid overload -Pt will have a permanent pigtail catheter placed in his abdomen for better management of his recurrent ascites #. Acute respiratory failure -continue symbicort and albuterol #. Afib -continue metoprolol -continue holding apixaban #. Insulin dependent diabetes mellitus -continue insulin regimen -controlled carbohydrate diet #. CKD stage II-III -continue spironolactone and torsemide #. Obesity -complicating course #. Hyperlipidemia -continue lipitor #. Chronic low back pain -continue oxycodone and tizanadine #. Venous stasis ulcer on BL LE -continue use of silvadene topically DVT Prophylaxis: heparin 5,000 units subcutaneous BID GI Prophylaxis: not indicated, pt takes prilosec VS,Fishbone, I+O VS, Fishbone, I+O Laboratory Tests 02/01/20 04:32 Vital Signs Date Time Temp Pulse Resp B/P (MAP) Pulse Ox O2 Delivery O2 Flow Rate FiO2 02/01/20 08:00 98.3 97 20 105/57 (73) 96 Room Air 01/27/20 08:00 I&O- Last 24 Hours up to 6 AM 02/01/20 06:00 Intake Total 1140 ml Output Total 750 ml Balance 390 ml GME ATTESTATION GME ATTESTATION My faculty preceptor for this patient encounter was physically present during the encounter and was fully available. All aspects of the patient interview, examination, medical decision making process, and medical care plan development were reviewed and approved by the faculty preceptor. The faculty preceptor is aware and concurs with the plan as stated in the body of this note and will attest to such by his/her cosignature. ATTENDING NOTE Patient was seen and examined by me personally with the residents and I agree with the above assessment and plan ELIANA SARKAR-3 Feb 01, 2020 11:35 [place] SESAY MD Feb 07, 2020 14:20
[2020-02-01 12:00] VITALS: BP 117/64
[2020-02-01 14:00] VITALS: BP 116/69
[2020-02-01] MEDS ORDERED: oxyCODONE 5MG TAB PO ONE (18:00)
[2020-02-01] MEDS: ATORVASTATIN 20 MG TAB PO SCH (21:41)
[2020-02-01] MEDS: MAGNESIUM OXIDE 400 MG TAB (MAG-OX) PO SCH (21:42)
[2020-02-01] MEDS: FERROUS SULFATE 325MG TAB PO SCH (21:42)
[2020-02-01 22:00] VITALS: BP 129/70
[2020-02-02] MEDS: tiZANidine 4 MG TAB PO PRN ×3 (02:11→20:09)
[2020-02-02] MEDS: oxyCODONE 5MG TAB PO PRN ×2 (04:57→10:32)
[2020-02-02 06:00] VITALS: BP 109/59
[2020-02-02] MEDS: SYMBICORT 160/4.5MCG INHALER 6GM INH SCH ×2 (06:13→20:06)
[2020-02-02 06:59] LABS: BASO # 0.1 10^3/uL (0.0-0.2); BASO % 0.7 % (0.0-1.0); EOS # 0.2 10^3/uL (0.0-0.5); EOS % 2.5 % (0.0-3.0); HEMATOCRIT 34.1 % (42.0-52.0); HEMOGLOBIN 11.5 g/dl (13.5-17.5); LYMPH # 0.6 10^3/uL (1.5-5.0); LYMPH % 6.5 % (24.0-44.0); MEAN CORPUSCULAR HEMOGLOBIN 33.6 pg (27.0-33.0); MEAN CORPUSCULAR HGB CONC 33.7 g/dl (32.0-36.5); MEAN CORPUSCULAR VOLUME 99.7 fl (80.0-96.0); MONO # 1.1 10^3/uL (0.0-0.8); MONO % 11.7 % (0.0-5.0); NEUTROPHILS # 7.2 10^3/uL (1.5-8.5); NEUTROPHILS % 78.1 % (36.0-66.0); PLATELET COUNT, AUTOMATED 198 10^3/uL (150-450); RED BLOOD COUNT 3.42 10^6/uL (4.30-6.10); WHITE BLOOD COUNT 9.2 10^3/uL (4.0-10.0)
[2020-02-02 07:26] LABS: BILIRUBIN,TOTAL 1.5 MG/DL (0.2-1.0); CALCIUM LEVEL 7.7 MG/DL (8.8-10.2); CREATININE FOR GFR 1.54 MG/DL (0.70-1.30); GLOMERULAR FILTRATION RATE 49.1 (>49); POTASSIUM SERUM 4.9 MEQ/L (3.5-5.1); TOTAL PROTEIN 5.5 GM/DL (6.4-8.2)
[2020-02-02] MEDS: HumaLOG INSULIN (NovoLOG) PER UNIT SC SCH ×4 (07:30→20:46)
[2020-02-02] MEDS: OMEPRAZOLE 20 MG CAP PO SCH (08:12)
[2020-02-02] MEDS: CALCIUM/VITAMIN D 500 MG TAB PO SCH ×2 (08:12→20:53)
[2020-02-02] MEDS: TORSEMIDE 20 MG TAB PO SCH (08:13)
[2020-02-02] MEDS: POTASSIUM CHLORIDE 10 MEQ SR TABLET PO SCH (08:13)
[2020-02-02] MEDS: SPIRONOLACTONE 50 MG TAB PO SCH (08:13)
[2020-02-02] MEDS: HEPARIN SOD (PORCINE) 5000UNITS/ML 1ML VIAL/SYRINGE SQ SCH ×3 (08:14→20:53)
[2020-02-02] MEDS: LEVEMIR (INSULIN DETEMIR) 1 UNITS/0.01ML SC SCH (08:14)
[2020-02-02] MEDS: SILVER SULFADIAZINE 1% CR 50 GM JAR TOP SCH ×4 (08:15→20:56)
--- NOTE | 2020-02-02 08:55 | IPNPDOC ---
Text Note Date of Service The patient was seen on 02/02/20. NOTE HPI: Mr. Damon is a 59 yo male that was admitted to the hospital due to wors ening shortness of breath and ascites secondary to cirrhosis. SUBJECTIVE: No acute events overnight. Patient states that he did not get much sleep and is feeling more uncomfortable due to the ascites that he feels is getting worse. He complains of back pain from a prior injury and increased leg swelling. He denies any shortness of breath, fever, chills, nausea, or vomiting. OBJECTIVE: VITAL SIGNS: please see below. GENERAL: Pt is seated in chair at bedside appears to be in discomfort but in no acute distress. HEENT: AT, NC, EOMI, no scleral icterus, no pharyngeal erythema, mucous membranes moist. NECK: no lymphadenopathy or JVD appreciated. CV: irregular rhythm, no murmurs, rubs or gallops appreciated. RESP: exam limited due to patient's pain, CTAB, no rales, rhonchi, or wheezes. ABDOMEN: soft, obese, non tender, distended, tympanic, bowel sounds present. EXTREMITIES: BL lower extremity swelling, legs wrapped in bandages from knees down, papular rash visible above level of bandages at knee. LABORATORY: please see below. MICROBIOLOGY: please see below. IMAGING: -CHEST XRAY (01/26/2020): Impression: "1. Diaphragmatic elevation and low lung volumes. 2. No acute thoracic abnormality." -LIVER ULTRASOUND (01/30/2020): Impression: "1. Moderate ascites. Direct comparison to the prior study is limited. 2. Cholelithiasis. 3. Gallbladder wall thickening. Possible portal venous hypertension versus cholecystitis. 4. Echogenic right kidney consistent with medical renal disease." ASSESSMENT/PLAN: Mr. Damon is a 59 yo male with a past medical history of cirrhosis, recurrent ascites, CAD s/p CABG in 2010, hyperlipidemia, Afib, CKD stage II-III, insulin dependent diabetes mellitus, and SRINATH, that presented to the ED with shortness of breath and abdominal distension concerning for decompensated cirrhosis. #. Cirrhosis and ascites -pt is on spironolactone and torsemide for diuresis -pt was agreeable to permanent pigtail catheter placement for at home ascites drainage however that procedure cannot be performed here -pt is scheduled to get paracentesis today #. Afib -continue holding apixaban until after paracentesis #. CKD stage II-III -continue spironolactone and torsemide #. Insulin dependent diabetes mellitus -continue insulin regimen -consistent carbohydrate diet #. Morbid obesity -complicating course #. Chronic low back pain -continue oxycodone and tizanidine #. Venous stasis ulcers on BL lower extremities -continue silvadene topically #. Constipation -continue dulcolax #. Hyperlipidemia/CAD s/p CABG in 2009 -continue lipitor DVT prophylaxis: heparin 5,000 units subcutaneous BID GI prophylaxis: not indicated, pt takes own prilosec VS,Fishbone, I+O VS, Fishbone, I+O Laboratory Tests 02/02/20 06:17 Vital Signs Date Time Temp Pulse Resp B/P (MAP) Pulse Ox O2 Delivery O2 Flow Rate FiO2 02/02/20 06:00 98.0 67 18 109/59 (76) 97 Room Air 01/27/20 08:00 I&O- Last 24 Hours up to 6 AM 02/02/20 06:00 Intake Total 920 ml Output Total 800 ml Balance 120 ml GME ATTESTATION GME ATTESTATION My faculty preceptor for this patient encounter was physically present during the encounter and was fully available. All aspects of the patient interview, examination, medical decision making process, and medical care plan development were reviewed and approved by the faculty preceptor. The faculty preceptor is aware and concurs with the plan as stated in the body of this note and will attest to such by his/her cosignature. ATTENDING NOTE Patient was seen and examined by me personally with the residents and I agree with the above assessment and plan ELIANA SARKAR OMS-3 Feb 02, 2020 08:55 [place] SESAY MD Feb 07, 2020 14:39
[2020-02-02] MEDS ORDERED: SODIUM BICARBONATE 8.4% INJ 50MEQ 50 ML VIAL As Ordered ONE (10:27)
[2020-02-02 13:00] LABS: SOURCE, BODY FLUID ASCITES
[2020-02-02 13:01] LABS: APPEARANCE, BODY FLUID TURBID (CLEAR); ASCITES FL COLOR PINK (COLORLESS)
[2020-02-02 13:59] LABS: SOURCE, BODY FLUID GLUCOSE ASCITES; SOURCE, BODY FLUID TOT PROTEIN ASCITES; TOTAL PROTEIN, BODY FLUID 2.5 G/DL (NOT ESTABLISHED)
[2020-02-02 14:00] VITALS: BP 109/46
[2020-02-02 15:15] VITALS: BP 104/59
[2020-02-02 16:04] LABS: SPEC. GRAVITY BODY FLUIDS 1.019 (NOT ESTABLISHED)
[2020-02-02 16:13] LABS: SOURCE, BODY FLUID ALBUMIN ASCITES
[2020-02-02] MEDS ORDERED: oxyCODONE 10 MG CR TAB PO PRN (17:45)
[2020-02-02 18:15] VITALS: BP 112/65
[2020-02-02] MEDS ORDERED: oxyCODONE 5MG TAB PO PRN ×2 (18:15→18:45)
[2020-02-02] MEDS: ATORVASTATIN 20 MG TAB PO SCH (20:53)
[2020-02-02] MEDS: MAGNESIUM OXIDE 400 MG TAB (MAG-OX) PO SCH (20:54)
[2020-02-02] MEDS: oxyCODONE 10 MG CR TAB PO SCH (20:55)
[2020-02-02 22:00] VITALS: BP 130/79
[2020-02-02 23:40] VITALS: BP 104/58
[2020-02-03] MEDS: oxyCODONE 5MG TAB PO PRN ×3 (00:17→12:20)
[2020-02-03] MEDS: tiZANidine 4 MG TAB PO PRN ×3 (02:05→12:19)
[2020-02-03 06:00] VITALS: BP 119/73
[2020-02-03 06:40] LABS: HEMATOCRIT 33.3 % (42.0-52.0); HEMOGLOBIN 11.5 g/dl (13.5-17.5); MEAN CORPUSCULAR HEMOGLOBIN 33.7 pg (27.0-33.0); MEAN CORPUSCULAR HGB CONC 34.5 g/dl (32.0-36.5); MEAN CORPUSCULAR VOLUME 97.7 fl (80.0-96.0); PLATELET COUNT, AUTOMATED 191 10^3/uL (150-450); RED BLOOD COUNT 3.41 10^6/uL (4.30-6.10); WHITE BLOOD COUNT 9.7 10^3/uL (4.0-10.0)
[2020-02-03 07:10] LABS: BILIRUBIN,TOTAL 1.8 MG/DL (0.2-1.0); CALCIUM LEVEL 7.9 MG/DL (8.8-10.2); CREATININE FOR GFR 1.39 MG/DL (0.70-1.30); GLOMERULAR FILTRATION RATE 55.3 (>49); TOTAL PROTEIN 5.6 GM/DL (6.4-8.2)
[2020-02-03] MEDS: SYMBICORT 160/4.5MCG INHALER 6GM INH SCH (07:28)
[2020-02-03] MEDS: HumaLOG INSULIN (NovoLOG) PER UNIT SC SCH ×3 (07:30→12:00)
[2020-02-03] MEDS: POTASSIUM CHLORIDE 10 MEQ SR TABLET PO SCH ×2 (09:00→09:32)
[2020-02-03] MEDS: oxyCODONE 10 MG CR TAB PO SCH (09:07)
[2020-02-03] MEDS: TORSEMIDE 20 MG TAB PO SCH ×2 (09:17→09:31)
[2020-02-03] MEDS: SPIRONOLACTONE 50 MG TAB PO SCH (09:32)
[2020-02-03] MEDS: CALCIUM/VITAMIN D 500 MG TAB PO SCH (09:32)
[2020-02-03] MEDS: LEVEMIR (INSULIN DETEMIR) 1 UNITS/0.01ML SC SCH (09:33)
[2020-02-03] MEDS: SILVER SULFADIAZINE 1% CR 50 GM JAR TOP SCH ×2 (09:34→12:21)
--- NOTE | 2020-02-03 15:55 | DS.PDOC ---
Discharge Summary General Date of Admission Jan 26, 2020 at 13:40 Date of Discharge 02/03/2020 Discharge Summary PROCEDURES PERFORMED DURING STAY: Paracentesis 01/27/2020 and 02/02/2020 Albumin 2 units of 25% transfusion 02/02/2020 ADMITTING DIAGNOSES: 1.Recurrent Ascites 2/2 liver cirrhosis 2. Hyperkalemia 3. Acute renal failure 4. Afib with RVR 5. CHFpEF 65% 6. CAD s/p CABG 7. COPD 8. Hypertension 9. SRINATH 10. IDDM 11. Macrocytic anemia 12. Chronic lower extremity wounds 13. Morbid Obesity 14. Chronic Pain DISCHARGE DIAGNOSES: 1. Cirrhosis and ascites 2. Afib 3. CKD stage II-III 4. Insulin dependent diabetes mellitus 5. Morbid obesity 6. Chronic low back pain 7. Venous stasis ulcers on BL lower extremities 8. Constipation 9. Hyperlipidemia/CAD s/p CABG in 2009 COMPLICATIONS/CHIEF COMPLAINT: Decompensation Of Cirrhosis Of Liver. HISTORY OF PRESENT ILLNESS: Patient is a 59 year old male with PMH of cirrhosis, recurrent ascites, CAD s/p CABG in 2009, a. fib, CKD presented to [facility] by EMS for progressively worsening shortness of breath since the prior to admission; it was noted that pt was supposed to be going to his weekly scheduled paracentesis the day of admission via EMS for his ascites but was diverted to the ED due to his dyspnea. He received his last paracentesis the Friday prior to admission. It was noted that pt reached out to Dr. Robertson who recommended he go for his scheduled paracentesis and then be admitted to the hospital. Per Dr. Robertson, he has followed with a business objects architect in [place] via telemedicine only and has no textile examiner in [place]. The patient stated there were currently no plans for any procedures (TIPS) or transplants. HOSPITAL COURSE: Mr. Damon is a 59 yo male with a past medical history of cirrhosis, recurrent ascites, CAD s/p CABG in 2009, hyperlipidemia, Afib, CKD stage II-III, insulin dependent diabetes mellitus, and SRINATH, that presented to the ED with shortness of breath and abdominal distension concerning for decompensated cirrhosis. DISCHARGE MEDICATIONS: Please see below. ALLERGIES: Please see below. PHYSICAL EXAMINATION ON DISCHARGE: VITAL SIGNS: Please see below. GENERAL: Pt is seated in chair at bedside appeared to be in discomfort but in no acute distress HEENT: normocephalic, atraumatic, mucous membranes moist. CV: irregular rhythm, no murmurs, rubs or gallops appreciated. RESP: exam limited due to patient's pain, CTAB, no rales, rhonchi, or wheezes. ABDOMEN: soft, obese/protruberant/distended, non tender, bowel sounds present. EXTREMITIES: BL lower extremity swelling, legs wrapped in bandages from knees down, papular lesions observed in exposed regions above the bandages in b/l lower extremities LABORATORY DATA: Please see below. IMAGING: CXR: Diaphragmatic elevation and low lung volumes Liver US: Moderate ascites. Cholelithiasis; gallbladder wall thickening. Possible portal venous hypertension versus cholecystitis. Echogenic right kidney. PROGNOSIS: [Poor] ACTIVITY: [As tolerated]. DIET: 1800ml/24hr diet with 2g sodium diet DISPOSITION: Home Health Service. DISCHARGE PLAN AND INSTRUCTIONS: 1. Follow up outpatient for pigtail catheter placement and ascites drainage ITEMS TO FOLLOWUP ON ON OUTPATIENT: 1. Pig-catheter placement 2. Cirrhosis with ascites 3. Lower extremity edema DISCHARGE CONDITION: [Stable]. TIME SPENT ON DISCHARGE: Greater than [37] minutes. Vital Signs/I&Os Vital Signs Date Time Temp Pulse Resp B/P (MAP) Pulse Ox O2 Delivery O2 Flow Rate FiO2 02/03/20 12:50 18 Room Air 02/03/20 06:00 97.8 97 119/73 (88) 100 I&O- Last 24 Hours up to 6 AM 02/03/20 06:00 Intake Total 2560.0 ml Output Total 8625 ml Balance -6065.0 ml Laboratory Data Labs 24H Laboratory Tests 2 02/02/20 17:34: Bedside Glucose (Misc Panel) 181H 02/02/20 20:01: Bedside Glucose (Misc Panel) 153H 02/03/20 06:15: Nucleated Red Blood Cells % (auto) 0.2H, Anion Gap 6L, Glomerular Filtration Rate 55.3, Calcium Level 7.9L, Total Bilirubin 1.8H, Aspartate Amino Transf (AST/SGOT) 53H, Alanine Aminotransferase (ALT/SGPT) 37, Alkaline Phosphatase 257H, Total Protein 5.6L, Albumin 2.0L, Albumin/Globulin Ratio 0.6 02/03/20 11:43: Bedside Glucose (Misc Panel) 153H CBC/BMP Laboratory Tests 02/03/20 06:15 FSBS Laboratory Tests Test 02/02/20 17:34 02/02/20 20:01 02/03/20 11:43 Range/Units Bedside Glucose (Misc Panel) 181 153 153 80-115 MG/DL Microbiology Microbiology 02/02/20 Acid Fast Stain, Received Pending 02/02/20 Mycobacterial Culture, Received Pending 02/02/20 Fungal Smear, Received Pending 02/02/20 Fungal Culture, Received Pending 02/02/20 Gram Stain - Final, Resulted 02/02/20 Body Fluid Culture, Resulted Pending 01/26/20 Fungal Smear, Received Pending 01/26/20 Fungal Culture, Received Pending 01/26/20 Gram Stain - Final, Complete 01/26/20 Body Fluid Culture - Final, Complete Discharge Medications Scheduled Apixaban (Eliquis) 2.5 Mg Tablet, 2.5 MG PO BID, (Reported) ON HOLD FOR PARACENTESIS ON 01/26/20 Calcium Carbonate/Vitamin D3 (Calcium 500-Vit D3 200 Tablet) 1 Each Tablet, 1 TAB PO BID, (Reported) 1000,1400 Cholecalciferol (Vitamin D3) (Vitamin D3) 1,000 Unit Tablet, 1,000 UNITS PO QWEEK, (Reported) SUNDAYS Digoxin (Digoxin) 125 Mcg Tablet, 125 MCG PO Q2D, (Reported) Doxycycline Hyclate (Doxycycline Hyclate) 100 Mg Tablet, 100 MG PO BID, (Reported) Dulaglutide (Trulicity) 1.5 Mg/0.5 Ml Inj, 1.5 MG SC 1XWK, (Reported) FRIDAY Ferrous Sulfate (Ferrous Sulfate) 325 Mg Tablet, 325 MG PO Q2D, (Reported) EVERY OTHER NIGHT Insulin Detemir (Levemir) 100 Unit/1 Ml Vial, 21 UNITS SC DAILY, (Reported) Magnesium Oxide (Magnesium) 400 Mg Capsule, 400 MG PO QPM, (Reported) Wild Rose-3 Fatty Acids/Fish Oil (Wild Rose 3 1,000 mg Softgel) 1 Cap Cap, 1,000 MG PO DAILY, (Reported) Omeprazole (Omeprazole) 20 Mg Cap, 20 MG PO 2XW, (Reported) WED AND SAT Silver Sulfadiazine (Ssd) 50 Gm Cream..g., 1 DOSE TOP QID, (Reported) USES ON LEGS Spironolactone (Spironolactone) 25 Mg Tablet, 50 MG PO DAILY, (Reported) Torsemide (Torsemide) 20 Mg Tab, 40 MG PO BID, (Reported) Scheduled PRN Albuterol Sulfate (Ventolin Hfa) 108 Mcg/Act Aer, 2 PUFFS INH Q4H PRN for SHORTNESS OF BREATH, (Reported) Albuterol Sulfate (Albuterol Sulfate) 0.63 Mg/3 Ml Vial.neb, 0.63 MG INH QID PRN for SHORTNESS OF BREATH, (Reported) Budesonide (Budesonide) 0.25 Mg/2 Ml Ampul.neb, 0.25 MG INH BID PRN for SHORTNESS OF BREATH, (Reported) Budesonide/Formoterol (Symbicort 160-4.5 Mcg Inhaler) 6 Gm Hfa.aer.ad, 2 PUFF INH BID PRN for SHORTNESS OF BREATH, (Reported) PATIENT STATES TAKES PRN Diclofenac Sodium (Diclofenac Sodium) 1% 100GM Gel..gram., 2 GM TOP TID PRN for PAIN, (Reported) APPLY TO BACK Insulin Human Lispro (Novolog) 100 U/Ml Inj, 1 DOSE SC AC PRN for BLOOD SUGAR > 150, (Reported) PER SLIDING SCALE Ipratropium/Albuterol Sulfate (Iprat-Albut 0.5-3(2.5) mg/3 ml) 3 Ml Ampul.neb, 1 KADI NEB Q4H PRN for SHORTNESS OF BREATH, (Reported) Metolazone (Metolazone) 5 Mg Tablet, 5 MG PO BID PRN for EDEMA, (Reported) Oxycodone HCl (Oxycodone HCl) 5 Mg Tab, 5 MG PO QID PRN for PAIN, (Reported) Tizanidine HCl (Tizanidine HCl) 2 Mg Tablet, 2 MG PO TID PRN for SPASMS, (Reported) Allergies Coded Allergies: TAPE (Verified Allergy, Unknown, Itchiness/Rash, 01/26/20) allopurinol (Verified Allergy, Unknown, Itching, 01/26/20) GME ATTESTATION GME ATTESTATION Patient was seen and examined by me personally with the residents and I agree w ith the above assessment and plan ATTENDING NOTE Patient was seen and examined by me personally with the residents and I agree with the above assessment and plan RL HERNDON DO Feb 03, 2020 15:55 [place] SESAY MD Feb 07, 2020 14:46
--- NOTE | 2020-02-07 11:49 | ECGEPIP ---
[facility] - ED Test Date: 2020-01-26 Pat Name: GIANNI HODGSON Department: Room: [place] [address] Gender: Male Laboratory Chemist: SARA : 1960 Requested By: LON Mcelroy Order Number: [id number] Reading MD: Margy Tejeda Measurements Intervals [place] Rate: 105 P: SC: 0 QRS: 78 QRSD: 117 T: -17 QT: 305 QTc: 403 Interpretive Statements ATRIAL FIBRILLATION WITH RAPID VENTRICULAR RESPONSE LOW QRS VOLTAGE MODERATE INTRAVENTRICULAR CONDUCTION DELAY ABNORMAL QRS-T ANGLE ABNORMAL ECG SEE SCANNED DOWNTIME REPORT
--- NOTE | 2020-02-14 11:25 | REP ---
ULTRASOUND-GUIDED PARACENTESIS The procedure was performed under the direct supervision of Dr. Rivera. The risks and benefits of the procedure were explained to the patient and informed consent was obtained. The largest pocket of fluid was localized in the left flank using ultrasound guidance. The skin was prepped and draped in a sterile fashion. 1% Lidocaine was used as a local anesthetic. Using ultrasound guidance, an 8-Yemeni multi-side holed catheter was inserted using trocar technique. 7550 mL of orange colored fluid was withdrawn with a sample sent to the lab for analysis. The patient tolerated the procedure well, and there were no immediate complications. After the appropriate amount of monitored convalescence, the patient was discharged from the department. SMITA
--- NOTE | 2020-02-14 11:32 | REP ---
ULTRASOUND GUIDED PARACENTESIS: The procedure was performed under the direct supervision of Dr. Rivera. The risks and benefits of the procedure were explained to the patient and informed consent was obtained. The largest pocket of fluid was localized in the left flank using ultrasound guidance. The skin was and draped in a sterile fashion. 1% Lidocaine was used as a local anesthetic. Using ultrasound guidance an 8 Eritrean multisided hole catheter was inserted using trocar technique. 7900cc of pink colored fluid was withdrawn with a sample sent to the lab for analysis. The patient tolerated the procedure well and there were no immediate complications. After the appropriate amount of monitored convalescent, the patient was discharged from the department. SMITA
== END 2020-02-03 14:45 | disposition home health service (06) | DRG 432 ==
LOC: EDBD 10:19 → M ED 10:19 → M ED INP 13:40 → ENRESERV 17:02 → M PCU 17:18 → M MS5PR 02-01 15:05
PROVIDERS: ADMIT Internal Medicine; ATTEND Internal Medicine
PROC: 0W9G3ZZ Drainage of Peritoneal Cavity, Percutaneous Approach (ICD-10-PCS; 2020-01-26)
PROC: 30233J1 Transfusion of Nonautologous Serum Albumin into Peripheral Vein, Percutaneous Approach (ICD-10-PCS; 2020-02-01)
PROC: 0W9G3ZZ Drainage of Peritoneal Cavity, Percutaneous Approach (ICD-10-PCS; principal; 2020-02-02 11:00)
DX: K74.60 Unspecified cirrhosis of liver (principal); J96.00 Acute respiratory failure, unspecified whether with hypoxia or hypercapnia; R18.8 Other ascites; N17.9 Acute kidney failure, unspecified; I50.32 Chronic diastolic (congestive) heart failure; I13.0 Hypertensive heart and chronic kidney disease with heart failure and stage 1 through stage 4 chronic kidney disease, or unspecified chronic kidney disease; E87.5 Hyperkalemia; I48.91 Unspecified atrial fibrillation; I25.10 Atherosclerotic heart disease of native coronary artery without angina pectoris; J44.9 Chronic obstructive pulmonary disease, unspecified; G47.33 Obstructive sleep apnea (adult) (pediatric); E11.22 Type 2 diabetes mellitus with diabetic chronic kidney disease; D64.9 Anemia, unspecified; G89.29 Other chronic pain; I27.20 Pulmonary hypertension, unspecified; E66.01 Morbid (severe) obesity due to excess calories; Z95.1 Presence of aortocoronary bypass graft; Z87.891 Personal history of nicotine dependence; Z79.01 Long term (current) use of anticoagulants; Z79.4 Long term (current) use of insulin; Z79.899 Other long term (current) drug therapy; Z88.8 Allergy status to other drugs, medicaments and biological substances; Z91.048 Other nonmedicinal substance allergy status; M54.5 Low back pain; N18.3 Chronic kidney disease, stage 3 (moderate); I87.2 Venous insufficiency (chronic) (peripheral); I89.0 Lymphedema, not elsewhere classified; Z68.39 Body mass index [BMI] 39.0-39.9, adult; K59.00 Constipation, unspecified

== ENCOUNTER → 2020-02-09 | Outpatient (CLI) | payer OTHER ==
[~2020-02-09] MED LIST changes: +3 SEMIS2 XX; +ALBU0.63 INH; +AMOX500C PO; +BACI1CAP PO; +BUDE0.254 INH; +CALCTAB62 PO; +CEPH500C PO; +COLA100C5 PO; +D31000TA2 PO; +DIGO0.123 PO; -DIGOXIN 0.125 MG TAB PO SCH; +DOXY100T2 PO; +FERR1TAB8 PO; +LEVA1TAB2 PO; +METO5TA PO; +MOM30SS2 PO; +POTA1TAB23 PO; +PRIL20TA2 PO; +PROP10TA56 PO; +SODIUM BICARBONATE 8.4% INJ 50MEQ 50 ML VIAL As Ordered ONE; +VITA50005 PO
[2020-02-09 11:10] VITALS: BP 155/69
--- NOTE | 2020-02-14 11:40 | REP ---
ULTRASOUND GUIDED PARACENTESIS: The procedure was performed under the direct supervision of Dr. Hutchinson. The risks and benefits of the procedure were explained to the patient and informed consent was obtained. The largest pocket of fluid was localized in the left flank using ultrasound guidance. The skin was prepped and draped in a sterile fashion. 1% Lidocaine was used as a local anesthetic. Using ultrasound guidance, an 8 Yi multi-side hole catheter was inserted using trocar technique. 6,750cc of cloudy pink fluid was withdrawn and discarded. The patient tolerated the procedure well and there were no immediate complications. After the appropriate amount of monitored convalescence, the patient was discharged from the department. SMITA
== END ==
LOC: M IRPRO 08:50
PROVIDERS: ATTEND Internal Medicine Cardiovascular Disease
DX: R18.8 Other ascites (principal)
CPT/HCPCS: 49083; 96365; P9047

== ENCOUNTER → 2020-02-16 | Outpatient (CLI) | payer OTHER ==
[2020-02-16 11:39] VITALS: BP 118/68
--- NOTE | 2020-02-24 06:59 | REP ---
ULTRASOUND-GUIDED PARACENTESIS This procedure was performed by JUNIOR Mohamud, under the direct supervision of Dr. Rivera. The risks and benefits of the procedure were explained to the patient and informed consent was obtained both verbally and written. Directly prior to the start of the procedure, a formal time-out was done in the procedure room. The largest pocket of fluid was localized in the left flank using ultrasound guidance. The skin was prepped, and draped in a sterile fashion. 11 mm of buffered Lidocaine was used as a local anesthetic. Using ultrasound guidance, an 8-Yakut multi-side hole catheter was inserted using trocar technique. 5200 mL of yellow fluid was withdrawn and discarded. The patient tolerated the procedure well, and there were no immediate complications. After the appropriate amount of monitored convalescence, the patient was discharged from the department. This exam has been dictated by JUNIOR Mohamud and Dr. Rivera. [facility]OSPITALGrant
== END ==
LOC: M IRPRO 10:37
PROVIDERS: ATTEND Internal Medicine Cardiovascular Disease
DX: R18.8 Other ascites (principal)
CPT/HCPCS: 49083; 96374; P9047

== ENCOUNTER 2020-02-22 07:12 | Inpatient (IN) | payer OTHER ==
[~2020-02-22] VITALS: Ht 180.3 cm; Wt 120.6 kg
[~2020-02-22 07:12] MED LIST changes: -3 SEMIS2 XX; -BACI1CAP PO; -CALCTAB62 PO; -COLA100C5 PO; -LEVA1TAB2 PO; -MOM30SS2 PO; -PRIL20TA2 PO; -PROP10TA56 PO; -SODIUM BICARBONATE 8.4% INJ 50MEQ 50 ML VIAL As Ordered ONE; -VITA50005 PO
--- NOTE | 2020-02-22 08:22 | REPVR ---
PROCEDURE INFORMATION: Exam: XR Chest, 1 View Exam date and time: 02/22/2020 7:33 AM Age: 59 years old Clinical indication: Shortness of breath; Additional info: SOB TECHNIQUE: Imaging protocol: XR of the chest Views: 1 view. COMPARISON: CR PORTABLE CHEST X-RAY 01/26/2020 11:52 AM FINDINGS: Lungs: Stable bilateral perihilar reticulonodular opacities. Pleural space: Unremarkable. No pleural effusion. No pneumothorax. Heart/Mediastinum: Surgical clips project over the cardiac shadow. Vasculature: Atherosclerotic disease. Bones/joints: Osteopenia. Degenerative changes in the bilateral shoulders. IMPRESSION: No significant interval change. Electronically signed by: Mejia Brizuela On 02/22/2020 08:22:47 AM
[2020-02-22] MEDS ORDERED: VITA50005 PO (08:38)
[2020-02-22] MEDS ORDERED: CALCTAB62 PO (08:38)
[2020-02-22] MEDS ORDERED: MOM30SS2 PO (08:40)
[2020-02-22] MEDS ORDERED: COLA100C5 PO (08:40)
[2020-02-22 08:44] LABS: BASO # 0.1 10^3/uL (0.0-0.2); BASO % 0.4 % (0.0-1.0); EOS % 0.4 % (0.0-3.0); HEMATOCRIT 36.4 % (42.0-52.0); HEMOGLOBIN 12.3 g/dl (13.5-17.5); LYMPH # 0.3 10^3/uL (1.5-5.0); LYMPH % 2.9 % (24.0-44.0); MEAN CORPUSCULAR HEMOGLOBIN 32.4 pg (27.0-33.0); MEAN CORPUSCULAR HGB CONC 33.8 g/dl (32.0-36.5); MEAN CORPUSCULAR VOLUME 95.8 fl (80.0-96.0); MONO # 0.8 10^3/uL (0.0-0.8); MONO % 7.2 % (0.0-5.0); NEUTROPHILS # 9.9 10^3/uL (1.5-8.5); NEUTROPHILS % 87.9 % (36.0-66.0); PLATELET COUNT, AUTOMATED 262 10^3/uL (150-450); WHITE BLOOD COUNT 11.3 10^3/uL (4.0-10.0)
[2020-02-22 08:53] LABS: INR 1.11; PROTHROMBIN TIME 14.6 SECONDS (12.5-14.3)
[2020-02-22] MEDS: OMEGA-3 1000MG CAPSULE PO SCH (09:00)
[2020-02-22 09:01] LABS: ALBUMIN 2.1 GM/DL (3.2-5.2); BILIRUBIN,DIRECT 0.9 MG/DL (0.0-0.2); BILIRUBIN,TOTAL 1.7 MG/DL (0.2-1.0); TOTAL PROTEIN 6.5 GM/DL (6.4-8.2)
[2020-02-22 09:49] LABS: CALCIUM LEVEL 8.2 MG/DL (8.8-10.2); CREATININE FOR GFR 1.38 MG/DL (0.70-1.30); GLOMERULAR FILTRATION RATE 55.8 (>49); POTASSIUM SERUM 6.2 MEQ/L (3.5-5.1)
--- NOTE | 2020-02-22 09:52 | ECGEPIP ---
[facility] [place] - ED Test Date: 2020-02-22 Pat Name: GIANNI HODGSON Department: Room: - Gender: Male Incident Response Manager: Dilma REYNOLDS : 1960 Requested By: Margy Tejeda Order Number: [id number] Reading MD: Jesus Arthur Measurements Intervals [place] Rate: 106 P: IA: 0 QRS: 67 QRSD: 90 T: 19 QT: 286 QTc: 380 Interpretive Statements ATRIAL FIBRILLATION WITH RAPID VENTRICULAR RESPONSE LOW QRS VOLTAGE POOR R WAVE PROGRESSION MODERATE INTRAVENTRICULAR CONDUCTION DELAY NSTTW ABNORMALITY(S) SIMILAR TO 01/26/20 Electronically Signed on 02-22-2020 9:51:56 EDT by Jesus Arthur
[2020-02-22] MEDS ORDERED: SOD POLYSTYRENE SULFONATE SUSP 15 GM/60 ML UD PO ONE (10:00)
[2020-02-22 10:48] LABS: DIGOXIN LEVEL 0.6 NG/ML (0.5-2.0)
[2020-02-22] MEDS ORDERED: SODIUM BICARBONATE 8.4% INJ 50 ML SYRINGE IV STA (10:51)
[2020-02-22] MEDS ORDERED: DEXTROSE 50% 50 ML SYRINGE IV STA (10:51)
[2020-02-22] MEDS ORDERED: oxyCODONE 5MG TAB PO ONE (11:00)
[2020-02-22] MEDS ORDERED: CALCIUM CHLORIDE 10% 1 GM in D5W 100 ML IV ONE (11:00)
[2020-02-22] MEDS ORDERED: HumuLIN R (REGULAR) INSULIN (NovoLIN R) **100U/ML** PER UNIT IV ONE (11:00)
[2020-02-22] MEDS ORDERED: DIGOXIN INJ 0.5 MG/2 ML AMP (J1160) IV STA (12:26)
[2020-02-22] MEDS ORDERED: BUDESONIDE 0.25 MG/2 ML INHALATION SUSPENSION INH PRN (12:30)
[2020-02-22] MEDS ORDERED: HYDROMORPHONE HCL 0.5 MG/ 0.5 ML SYRINGE (J1170 PER 1) IV ONE (12:30)
[2020-02-22] MEDS ORDERED: MOM 30ML SUSPENSION UDC PO PRN (12:30)
[2020-02-22] MEDS ORDERED: DOCUSATE SODIUM 100 MG CAP PO PRN (12:30)
[2020-02-22] MEDS ORDERED: IPRATROPIUM 0.5MG/ALBUTEROL 2.5MG INH SOL UD 3ML (DUONEB) NEB PRN (12:30)
[2020-02-22] MEDS ORDERED: metOLazone 5 MG TAB PO PRN (12:30)
[2020-02-22] MEDS ORDERED: ALBUTEROL 90 MCG/ACT 8GM HFA INHALER INH PRN (12:30)
[2020-02-22] MEDS ORDERED: atenoloL 50 MG TAB PO ONE (12:45)
[2020-02-22] MEDS ORDERED: metOLazone 5 MG TAB PO ONE ×2 (12:45→13:30)
[2020-02-22] MEDS ORDERED: TORSEMIDE 20 MG TAB PO ONE (12:45)
[2020-02-22 14:18] VITALS: BP 136/70
[2020-02-22] MEDS ORDERED: cefTRIAXone SOD 2 GM in D5W MINI-BAG PLUS 50 ML IV SCH (15:00)
[2020-02-22 15:26] VITALS: BP 145/71
[2020-02-22] MEDS: FUROSEMIDE 100MG/10ML VIAL (J1940) IV SCH ×3 (15:35→22:58)
[2020-02-22] MEDS: VANCOMYCIN HCL 1,000 MG, VIAL MATE ADAPTER 1 EACH in D5W 250 ML IV SCH (16:43)
[2020-02-22] MEDS ORDERED: TORSEMIDE 20 MG TAB PO SCH (17:00)
[2020-02-22] MEDS ORDERED: VANCOMYCIN HCL 1,000 MG, VIAL MATE ADAPTER 1 EACH in D5W 250 ML IV ONE (17:00)
[2020-02-22 19:00] VITALS: BP 125/68
[2020-02-22 19:34] LABS: CALCIUM LEVEL 8.4 MG/DL (8.8-10.2); CREATININE FOR GFR 1.44 MG/DL (0.70-1.30); GLOMERULAR FILTRATION RATE 53.1 (>49); POTASSIUM SERUM 4.9 MEQ/L (3.5-5.1)
[2020-02-22] MEDS: SYMBICORT 160/4.5MCG INHALER 6GM INH SCH (19:54)
[2020-02-22] MEDS: LEVEMIR (INSULIN DETEMIR) 1 UNITS/0.01ML SC SCH (20:14)
[2020-02-22] MEDS: FERROUS SULFATE 325MG TAB PO SCH (20:31)
[2020-02-22 21:00] VITALS: BP 119/66
[2020-02-22 21:15] LABS: MAGNESIUM LEVEL 2.7 MG/DL (1.8-2.4)
[2020-02-22] MEDS ORDERED: SILVER SULFADIAZINE 1% CR 50 GM JAR TOP ONE (21:45)
[2020-02-22] MEDS ORDERED: SILVER SULFADIAZINE 1% CR 50 GM JAR TOP PRN (22:00)
[2020-02-22] MEDS ORDERED: PILL CUTTER 1 EACH XX PRN (22:15)
[2020-02-22] MEDS: TAMSULOSIN 0.4 MG CAP PO SCH (22:58)
[2020-02-22] MEDS: oxyCODONE 5MG TAB PO PRN (22:59)
[2020-02-22 23:33] VITALS: BP 115/68
[2020-02-23] VITALS (11 sets, daily range): BP systolic 104–125; BP diastolic 52–71
[2020-02-23 00:33] LABS: BLOOD UREA NITROGEN 78 MG/DL (7-18); CALCIUM LEVEL 8.6 MG/DL (8.8-10.2); CARBON DIOXIDE LEVEL 24 MEQ/L (21-32); CHLORIDE LEVEL 97 MEQ/L (98-107); CREATININE FOR GFR 1.27 MG/DL (0.70-1.30); GLOMERULAR FILTRATION RATE > 60.0 (>49); GLUCOSE, FASTING 121 MG/DL (70-100); POTASSIUM SERUM 3.6 MEQ/L (3.5-5.1); SODIUM LEVEL 128 MEQ/L (136-145)
[2020-02-23] MEDS: FUROSEMIDE 100MG/10ML VIAL (J1940) IV SCH ×2 (02:00→06:44)
[2020-02-23] MEDS: VANCOMYCIN HCL 1,000 MG, VIAL MATE ADAPTER 1 EACH in D5W 250 ML IV SCH (04:11)
[2020-02-23 04:58] LABS: HEMATOCRIT 34.2 % (42.0-52.0); HEMOGLOBIN 11.8 g/dl (13.5-17.5); MEAN CORPUSCULAR HGB CONC 34.5 g/dl (32.0-36.5); MEAN CORPUSCULAR VOLUME 95.5 fl (80.0-96.0); PLATELET COUNT, AUTOMATED 279 10^3/uL (150-450); RED BLOOD COUNT 3.58 10^6/uL (4.30-6.10); WHITE BLOOD COUNT 9.7 10^3/uL (4.0-10.0)
[2020-02-23] MEDS ORDERED: VANCOMYCIN HCL 500 MG in D5W MINI-BAG PLUS 100 ML IV SCH ×2 (05:00→20:00)
[2020-02-23 05:20] LABS: ALBUMIN 2.1 GM/DL (3.2-5.2); ALT/SGPT 39 U/L (12-78); BILIRUBIN,TOTAL 1.9 MG/DL (0.2-1.0); BLOOD UREA NITROGEN 76 MG/DL (7-18); CALCIUM LEVEL 8.4 MG/DL (8.8-10.2); CARBON DIOXIDE LEVEL 25 MEQ/L (21-32); CHLORIDE LEVEL 96 MEQ/L (98-107); CREATININE FOR GFR 1.29 MG/DL (0.70-1.30); GLOMERULAR FILTRATION RATE > 60.0 (>49); GLUCOSE, FASTING 127 MG/DL (70-100); MAGNESIUM LEVEL 2.5 MG/DL (1.8-2.4); POTASSIUM SERUM 3.2 MEQ/L (3.5-5.1); SODIUM LEVEL 130 MEQ/L (136-145); TOTAL PROTEIN 6.4 GM/DL (6.4-8.2)
[2020-02-23] MEDS: POTASSIUM CHLORIDE 10 MEQ SR TABLET PO SCH ×2 (06:42→08:09)
[2020-02-23] MEDS ORDERED: POTASSIUM CHLORIDE 10 MEQ SR TABLET PO ONE (07:15)
[2020-02-23] MEDS ORDERED: atenoloL 25 MG TAB PO ONE (07:30)
[2020-02-23] MEDS ORDERED: DIGOXIN INJ 0.5 MG/2 ML AMP (J1160) IV ONE (07:30)
[2020-02-23] MEDS: SYMBICORT 160/4.5MCG INHALER 6GM INH SCH ×2 (07:48→19:21)
[2020-02-23 08:03] LABS: DIGOXIN LEVEL 0.4 NG/ML (0.5-2.0)
[2020-02-23] MEDS: TAMSULOSIN 0.4 MG CAP PO SCH (08:09)
[2020-02-23] MEDS: OMEPRAZOLE 20 MG CAP PO SCH (08:09)
[2020-02-23] MEDS: oxyCODONE 5MG TAB PO PRN ×3 (08:15→23:15)
[2020-02-23] MEDS ORDERED: TAMSULOSIN 0.4 MG CAP PO SCH (09:00)
[2020-02-23] MEDS ORDERED: SPIRONOLACTONE 25 MG TAB PO SCH (09:00)
[2020-02-23] MEDS: OMEGA-3 1000MG CAPSULE PO SCH (09:00)
[2020-02-23] MEDS ORDERED: diphenhydrAMINE 50MG/ML VIAL (J1200) ONE (12:53)
[2020-02-23] MEDS ORDERED: ceFAZolin 1GM VIAL (J0690 PER 500MG) ONE (12:53)
[2020-02-23] MEDS ORDERED: PROMETHAZINE INJ 25 MG/ML VIAL (J2550) ONE (12:53)
[2020-02-23] MEDS ORDERED: MIDAZOLAM INJ 2MG/2ML VIAL (J2250 PER 1MG) ONE (12:55)
[2020-02-23] MEDS ORDERED: fentaNYL 100 MCG/2 ML INJECTION (J3010) ONE (12:55)
[2020-02-23 15:22] LABS: PERITONEAL FL COLOR RED (COLORLESS); SOURCE, BODY FLUID PERITONEAL
[2020-02-23 15:23] LABS: APPEARANCE, BODY FLUID TURBID (CLEAR)
[2020-02-23 15:29] LABS: SOURCE, BODY FLUID ALBUMIN PERITONEAL; SOURCE, BODY FLUID GLUCOSE PERITONEAL; SOURCE, BODY FLUID TOT PROTEIN PERITONEAL; TOTAL PROTEIN, BODY FLUID 3.2 G/DL (NOT ESTABLISHED)
[2020-02-23 15:50] LABS: SPEC. GRAVITY BODY FLUIDS 1.022 (NOT ESTABLISHED)
[2020-02-23] MEDS: FUROSEMIDE 40MG/4ML VIAL (J1940) IV SCH ×2 (18:00→23:14)
[2020-02-23] MEDS: ceFAZolin SOD 1 GM in D5W MINI-BAG PLUS 50 ML IV SCH (18:52)
[2020-02-23] MEDS ORDERED: VANCOMYCIN HCL 750 MG, VIAL MATE ADAPTER 1 EACH in D5W 250 ML IV SCH (19:00)
[2020-02-23] MEDS: HYDROmorphone 2 MG TAB PO PRN (20:21)
[2020-02-23] MEDS: LEVEMIR (INSULIN DETEMIR) 1 UNITS/0.01ML SC SCH (20:22)
[2020-02-23] MEDS ORDERED: LIDOCAINE 2% 5ML JELLY UROJET TOP PRN (22:00)
[2020-02-23] MEDS ORDERED: LIDOCAINE 2% 5ML JELLY UROJET TOP ONE (22:00)
--- NOTE | 2020-02-23 22:43 | REPVR ---
PROCEDURE INFORMATION: Exam: XR Left Hip with Pelvis when Performed Exam date and time: 02/23/2020 9:58 PM Age: 59 years old Clinical indication: Hip pain; Left hip; Additional info: Fall TECHNIQUE: Imaging protocol: XR Left hip with pelvis when performed. Views: 1 view. COMPARISON: CT ABD PELVIS W/O CONTRAST 04/22/2018 5:25 PM FINDINGS: Bones/joints: Mild degenerative arthropathy left hip. Soft tissues: Unremarkable. IMPRESSION: 1. Mild degenerative arthropathy left hip. 2. No acute findings. Electronically signed by: Elie Lee On 02/23/2020 22:43:32 PM
--- NOTE | 2020-02-23 22:44 | REPVR ---
PROCEDURE INFORMATION: Exam: XR Left Knee Exam date and time: 02/23/2020 9:58 PM Age: 59 years old Clinical indication: Pain; Knee; Left; Additional info: Fall TECHNIQUE: Imaging protocol: XR Left knee. Views: 1 or 2 views. COMPARISON: No relevant prior studies available. FINDINGS: Bones/joints: Tricompartment degenerative narrowing in the knee joint. Soft tissues: Normal. IMPRESSION: Tricompartment degenerative narrowing in the knee joint. Electronically signed by: Elie Lee On 02/23/2020 22:44:23 PM
[2020-02-24] VITALS (12 sets, daily range): BP systolic 98–129; BP diastolic 45–71
[2020-02-24] MEDS: ceFAZolin SOD 1 GM in D5W MINI-BAG PLUS 50 ML IV SCH (02:28)
[2020-02-24] MEDS: HYDROmorphone 2 MG TAB PO PRN ×3 (02:29→15:09)
[2020-02-24 04:42] LABS: HEMATOCRIT 33.9 % (42.0-52.0); HEMOGLOBIN 11.5 g/dl (13.5-17.5); MEAN CORPUSCULAR HGB CONC 33.9 g/dl (32.0-36.5); MEAN CORPUSCULAR VOLUME 97.1 fl (80.0-96.0); PLATELET COUNT, AUTOMATED 257 10^3/uL (150-450); RED BLOOD COUNT 3.49 10^6/uL (4.30-6.10); WHITE BLOOD COUNT 9.6 10^3/uL (4.0-10.0)
[2020-02-24] MEDS ORDERED: DEXTROSE 50% 50 ML SYRINGE IV PRN (05:00)
[2020-02-24] MEDS ORDERED: GLUCAGON INJ 1MG VIAL SC PRN (05:00)
[2020-02-24] MEDS ORDERED: GLUCOSE 4GM CHEW TABLET PO PRN (05:00)
[2020-02-24 05:48] LABS: ALBUMIN 2.2 GM/DL (3.2-5.2); BILIRUBIN,TOTAL 1.5 MG/DL (0.2-1.0); CALCIUM LEVEL 8.3 MG/DL (8.8-10.2); CREATININE FOR GFR 1.4 MG/DL (0.70-1.30); DIGOXIN LEVEL 0.5 NG/ML (0.5-2.0); GLOMERULAR FILTRATION RATE 54.8 (>49); POTASSIUM SERUM 2.9 MEQ/L (3.5-5.1); TOTAL PROTEIN 6.2 GM/DL (6.4-8.2)
[2020-02-24] MEDS: FUROSEMIDE 40MG/4ML VIAL (J1940) IV SCH (06:48)
[2020-02-24] MEDS: POTASSIUM CHLORIDE 10 MEQ SR TABLET PO SCH ×2 (06:49→08:53)
[2020-02-24] MEDS: KCL 10MEQ/100ML SWI (KRUN) 10 MEQ in IV 1 EA IV SCH ×4 (06:49→12:53)
[2020-02-24] MEDS: HumaLOG INSULIN (NovoLOG) PER UNIT SC SCH ×4 (07:30→20:10)
[2020-02-24] MEDS: SYMBICORT 160/4.5MCG INHALER 6GM INH SCH ×2 (08:00→19:24)
[2020-02-24] MEDS ORDERED: metOLazone 5 MG TAB PO ONE (08:00)
[2020-02-24] MEDS ORDERED: FUROSEMIDE 100MG/10ML VIAL (J1940) IV ONE (08:30)
[2020-02-24] MEDS: TAMSULOSIN 0.4 MG CAP PO SCH (08:51)
[2020-02-24] MEDS: CEPHALEXIN 500 MG CAP PO SCH ×3 (08:52→20:10)
[2020-02-24] MEDS: OMEGA-3 1000MG CAPSULE PO SCH (08:52)
[2020-02-24] MEDS: DIGOXIN 0.125 MG TAB PO SCH (08:54)
[2020-02-24] MEDS ORDERED: DIGOXIN 0.125 MG TAB PO SCH (09:00)
--- NOTE | 2020-02-24 09:36 | POST-OPPD ---
Postoperative Procedure Note Date Of Procedure: Feb 23, 2020 Time Of Procedure: 16:00 IR Tunneled Ascites Drain IR Pleurx catheter placement Ascites tunneled peritoneal drainage catheter placement with sonographic and fluoroscopic guidance Limited abdominal ultrasound Clinical Information:End-stage liver disease. Cirrhotic. Refractory ascites. Requires Pleurx for hospice placement. Physician: Dr. Ponce. Procedure: The patient was advised of the benefits, risks, and alternatives of the procedure and informed consent was obtained. A time out was performed with verification of the patient's name, MRN, site of procedure, and type of procedure to be performed. The patient was positioned in the supine position on the angiographic table. The site was prepped and draped in the usual sterile fashion. Moderate sedation was performed by the physician including the presence of an independent trained observer that assisted in monitoring the patient's level of consciousness and physiological status. Following the administration of fentanyl and Versed the physician spent 45 minutes of continuous [id number]-[id number] time with the patient. A transmission technician radiograph revealsno gross abnormality. Limited ultrasound of the abdomen demonstrates left lower quadrant greater than right lower quadrant ascites. The anticipated puncture site was identified using sonographic guidance and the overlying skin and subcutaneous tissues were anesthetized with lidocaine.An 18- gauge Chiba needle was inserted under ultrasound guidance in theleft lower quadrant of the abdomen. The inner stylet was removed revealing clear ascites. An Amplatz wire was introduced through the needle and into the peritoneal cavity, under fluoroscopy guidance. The needle was removed over the wire and a dilator was advanced over the wire under fluoroscopic guidance. A small skin incision was made at the catheter insertion site. A second incision was made superior and lateral to the original incision. The catheter was then subcutaneously tunneled from the exit site incision to the insertion site incision. The catheter insertion site was then serially dilated under fluoroscopic guidance and a peel-away sheath was then placed. The catheter was then passed over the wire and through the peel-away sheath into the pelvis and the peel-away sheath was removed. Approximately 2.5 L serosanguinous ascitic fluid was then drained. The dedicated catheter drainage tip was attached. The catheter insertion site was closed with Monocryl suture, glue and Steri-Strip. A sterile dressing was applied. The patient tolerated the procedure well and was returned to the PCU in stable condition. EBL:Less than 5 mL. Complications:None. Conclusion: Successful placement of a Pleurx peritoneal drainage catheter in the left lateral abdomen. Patient may drain 2 times a week as required. Patient requires dressing supplies for up to 2-3 drainages per week. Thank you for this referral HAM PONCE MD Feb 24, 2020 09:36
[2020-02-24] MEDS ORDERED: atenoloL 25 MG TAB PO ONE (11:00)
--- NOTE | 2020-02-24 11:48 | HPE ---
DATE OF ADMISSION: 02/22/2020 CHIEF COMPLAINT: A 10-pound weight gain, 2-day history of shortness of breath, abdominal distention, worsening lower extremity edema. HISTORY OF PRESENT ILLNESS: A 59-year-old male with past medical history significant for decompensated alcoholic liver cirrhosis, diastolic congestive heart failure, recurrent ascites requiring weekly paracentesis, portal pulmonary hypertension due to progressive liver cirrhosis, moderate to severe pulmonary hypertension, obstructive sleep apnea, chronic kidney disease, stage II-III, chronic atrial fibrillation, intolerance to aspirin, coronary artery disease (CAD), coronary artery bypass graft (CABG) in 2009, dyslipidemia, chronic lower extremity venous insufficiency, hypertension, obstructive sleep apnea, chronic lower extremity venous ulcers, chronic obstructive pulmonary disease (COPD), presents to the emergency room with 10-pound weight gain and 2-day of worsening abdominal distention, edema despite paracentesis last Friday. He has had increasing shortness of breath without fever, chills, or cough. Brought in by his , who says that she cannot care for him anymore and requesting hospice care. Patient otherwise denies any chest pain, pressure, or tightness, lightheadedness, dizziness. Denies any bright red blood per rectum, melena, or black, tarry stools. In the emergency room (ER) he was found to have anasarca with 3+ pitting edema long with his worsening abdominal distention. He complains of chronic back pain, rated 8/10 on a pain scale. Hospitalist was asked to admit for decompensated liver cirrhosis with recurrent ascites refractory to weekly paracentesis with recommendations for PleurX catheter placement and hospice referral. MEDICAL HISTORY: 1. Decompensated liver cirrhosis with recurrent ascites, requiring weekly paracentesis. 2. Hyperkalemia. 2. Acute on chronic stage II-III chronic kidney disease. 4. Atrial fibrillation. 5. Congestive heart failure (CHF) with diastolic dysfunction, ejection fraction (EF) of 55%. 6. Insulin-dependent diabetes. 7. Morbid obesity, body mass index (BMI) of 39. 8. Obstructive sleep apnea. 9. Chronic venous insufficiency. 10. Ulcers, bilateral lower extremities. 11. CAD. 12. Hyperlipidemia. 13. CABG in 2009. 14. Hypertensive heart disease. 15. Moderate to severe pulmonary hypertension. 16. Chronic back pain. PAST SURGICAL HISTORY: CABG. SOCIAL HISTORY: Alcohol abuse, six packs a day. Quit 5 years ago. No recreational drug use. 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 Lives with . HOME MEDICATIONS: - albuterol 0.63 inhaled four times a day - Eliquis 2.5 twice a day - doxycycline 100 twice a day - vitamin D 50,000 units weekly - insulin sliding scale - silver sulfasalazine - calcium carbonate 600 daily - diclofenac gel three times a day as needed - Trulicity 1.5 weekly - magnesium oxide 400 every evening - tizanidine 2 mg three times a day - albuterol two puffs every 4 as needed - Symbicort two puffs as needed twice a day - digoxin 125 mcg every 2 days - Colace 100 twice a day as needed - ferrous sulfate 325 every 2 days - Levemir insulin 21 units daily - milk of magnesia as needed - metolazone 5 mg twice a day as needed - fish oil 1 gram daily - Prilosec 20 twice a week - oxycodone 5 four times a day. as needed - spironolactone 25 daily - torsemide 40 mg twice a day ALLERGIES: Tape and ALLOPURINOL. FAMILY HISTORY: Father with congestive heart failure (CHF). REVIEW OF SYSTEMS: Per history of present illness (HPI). A 12-point system otherwise negative. PHYSICAL EXAMINATION: VITAL SIGNS: Temperature 97.9, pulse 116, irregularly irregular, atrial fibrillation on telemetry, respiratory rate 18, blood pressure 156/71, room air saturating 96%. GENERAL: Patient is awake, alert, oriented, disheveled. No jugular venous distention (JVD). No thyromegaly. No cervical lymphadenopathy. LUNGS: Diminished. Bibasilar crackles. HEART: S1, S2, tachycardic, irregularly irregular. Displaced point of maximal impulse. ABDOMEN: Obese, soft, nontender. Positive fluid wave. No hepatosplenomegaly. EXTREMITIES: Pitting edema 3+ with multiple raised papular lesions, bilateral lower extremities, chronic venous stasis ulcers, malodorous with serosanguineous and purulent drainage. White count 11.3, hemoglobin 12, hematocrit 36, platelet count 262. Sodium 129, potassium 6.2, chloride 100, bicarbonate 21, BUN 90, creatinine 1.38, glucose 126, calcium 8.2. Total bilirubin 1.7, direct bilirubin 0.9, AST 57, ALT 40, alkaline phosphatase 216. BNP 1607. ASSESSMENT: A 59-year-old with decompensated liver cirrhosis secondary to prior history of alcohol abuse, moderate to severe pulmonary hypertension, diastolic congestive heart failure (CHF), ejection fraction (EF) of 50%, preserved systolic function, chronic kidney disease (CKD), stage II-III, chronic venous insufficiency, chronic lower extremity wound, chronic atrial fibrillation, presents due to recurrent ascites despite weekly paracentesis. Patient will be admitted as an inpatient for two midnights for the following issues with request for hospice care. IMPRESSION: 1. Acute decompensated liver cirrhosis with recurrent ascites despite weekly paracentesis. 2. Recurrent ascites secondary to moderate to severe portal hypertension secondary to decompensated liver cirrhosis. 3. Acute congestive heart failure (CHF) exacerbation, diastolic dysfunction with preserved systolic function. 4. Anasarca. 5. Chronic lower extremity venous ulcers with wound infection, on chronic immunosuppressive therapy with doxycycline. 6. Chronic venous insufficiency. 7. Morbid obesity, body mass index (BMI) of 39.9. 8. Hypertensive heart disease. 9. Coronary artery disease (CAD), history of coronary artery bypass graft (CABG). 10. Morbid obesity with obstructive sleep apnea. 11. Anemia of chronic disease. 12. Hyperkalemia. 13. Atrial fibrillation with rapid ventricular rate. PLAN: PNEUMONIA tis admitted for decompensated liver cirrhosis and anasarca. Will be continued on Lasix 60 mg intravenous (IV) every 4 hours with monitoring of the patient's creatinine and electrolytes. Due to hyperkalemia, patient's spironolactone has been held. Repeat metabolic panel will be obtained at 1800 and patient has been given calcium gluconate as well as Kayexalate. If not significant improvement, patient will be given repeat dose of Kayexalate and monitor for worsening renal dysfunction. Patient's torsemide has been discontinued, as the patient will now be using Lasix for diuresis. Patient's atrial fibrillation is currently uncontrolled with current medications, therefore has been given one dose of digoxin intravenously, 0.125, and a dose of atenolol 50 mg times one. If patient should become hypotensive, he will be given IV amiodarone despite moderate pulmonary hypertension. He is currently in decompensated state and would benefit from a PleurX catheter placement. Interventional radiology (IR) consult has been placed. Ultrasound-guided PleruX catheter has been ordered. He is otherwise continued on all his other home medications, for his chronic back pain, OxyIR as needed. May resume his home continuous positive airway pressure (CPAP). Titrate oxygen to 90% and higher. For further diuresis, patient may be given albumin infusions along with continued Lasix diuresis Will need consent. Patient's code status is currently DO NOT RESUSCITATE, DO NOT INTUBATE with Medical Orders for Life-Sustaining Treatment (MOLST) form completed. Hospice has been consulted. Patient is not ready for comfort measures only at this time and would like to continue with current treatment. Discuss options with hospice. SMITA
--- NOTE | 2020-02-24 11:53 | IPN ---
DATE: 02/23/2020 Overnight patient said he did not sleep much. He was urinating all night long. Was diuresing well with Lasix and was 3.5 liters out. Patient's wounds on lower extremities have no purulent drainage, still malodorous, on vancomycin and ceftriaxone currently. Afebrile. No chills. No shortness of breath. Still complains of abdominal distention and weakness. Unable to sit up and ambulate by himself. He requires one to two-person assistance. He denies dizziness or lightheadedness this morning despite blood pressure 104/52. Lasix has been discontinued, currently with blood pressure 118/59. He also denies any palpitations, lightheadedness, or dizziness. The patient's atrial fibrillation has been rate controlled from peak of 182 to currently heart rate of 82-98. Had received one dose of atenolol yesterday and intravenous digoxin. Level of digoxin was 0.4 today OBJECTIVE: PHYSICAL EXAMINATION: VITAL SIGNS: Telemetry: Irregularly irregular. Atrial fibrillation rhythm. Ventricular rate of 92-98, temperature 98.7, pulse atrial fibrillation, respiratory rate 20, blood pressure 118/59, 95% on room air. GENERAL: Patient is awake, alert, oriented times three. Anicteric. No jaundice. No jugular venous distention (JVD) or thyromegaly. Appears disheveled. Older than his stated age. LUNGS: Diminished. Bilateral crackles at the bases. HEART: S1, S2, irregularly irregular and tachycardic. ABDOMEN: Obese. Positive fluid wave. No hepatosplenomegaly. Positive bowel sounds times four quadrants. Nontender. EXTREMITIES: Pitting edema 2+. Patient has chronic venous stasis changes. LABORATORY DATA: Notable for hemoglobin 11, hematocrit 34. Potassium 3.2, sodium 130. Total bilirubin 1.9. Intake and output: Input of 1700, output 3520, -1820. Since midnight, 380 input, output of 1225, -845. Current weight is 123.3 kg, admission weight of 129.7 kg. HOSPITAL MEDICATIONS: Omeprazole, vancomycin, tamsulosin, IV Dilaudid as needed, Silvadene, ferrous sulfate, Levemir insulin, Symbicort, ceftriaxone, Colace, DuoNeb, milk of magnesia, oxycodone, fish oil. On 02/22/2020, imaging study: Chest x-ray: No significant interval change. Bilateral perihilar reticulonodular opacities. No pneumothorax or pleural effusion. Atherosclerotic disease. Osteopenia of the bones, bilateral shoulders. No significant interval change. ASSESSMENT: This is a 59-year-old obese male with body mass index (BMI) of 39.4, obstructive sleep apnea (SRINATH), chronic obstructive pulmonary disease (COPD), diastolic heart failure, alcoholic liver cirrhosis with portal hypertension, atrial fibrillation with rapid ventricular response (RVR), congestive heart failure (CHF), diastolic dysfunction with preserved systolic function, ejection fraction (EF) 65%, history of coronary artery disease (CAD), status post coronary artery bypass graft (CABG), hypertensive heart disease, chronic lower extremity wounds, chronic venous insufficiency, chronic pain, recurrent ascites, hyperkalemia, and chronic kidney disease, stage III, presented to the emergency room with anasarca, shortness of breath, elevated brain natriuretic peptic (BNP) but normal chest x-ray, admitted for recurrent ascites despite weekly paracentesis. IMPRESSION: 1. Decompensated alcoholic liver cirrhosis with anasarca despite weekly paracentesis. 2. Anemia of chronic disease. 3. Hyponatremia secondary to fluid overload from liver cirrhosis. 4. Chronic kidney disease, stage III. 5. History of congestive heart failure with preserved systolic function. Ejection fraction is 65%. 6. Obstructive sleep apnea. 7. Obesity with SRINATH, BMI of 37.9. 8. Hyperkalemia secondary to spironolactone, resolved. 9. Hypokalemia secondary to Lasix diuresis. 10. History of alcohol abuse. 11. Chronic lower extremity wounds. 12. Atrial fibrillation with rapid ventricular response. PLAN: Patient is medically stable to be transferred to medical/surgical floor. Patient's heart rate has been controlled, currently at 92-98. If blood pressure permits, may continue on atenolol 25 mg daily. If patient's heart rate is greater than 120 and systolic pressure is less than 100, may give one dose of amiodarone. At this time, patient has significant anasarca that is limited by patient's low blood pressure. Therefore, he will be given albumin infusion after PleurX catheter is placed. Interventional radiologist, Dr. Ponce, has been consulted for PleurX catheter placement due to the recurrent nature of his decompensated liver cirrhosis with portal hypertension, recurrent ascites that is now refractory to weekly paracentesis. Patient is open to hospice referral. He has signed a Medical Orders for Life-Sustaining Treatment (MOLST) form showing DO NOT RESUSCITATE, DO NOT INTUBATE. He will be given IV albumin infusions after the PleurX catheter is placed. Will continue with Lasix diuresis. He is currently on vancomycin and ceftriaxone for lower extremity wounds. We are awaiting the wound culture results and sensitivity and discontinue vancomycin and Zosyn once this is available. Despite severe hyponatremia with sodium level of 127, he exhibits no mental confusion, headache, or changes in vision. No seizure activity. This is most likely secondary to fluid overload from anasarca secondary to alcohol liver cirrhosis. His hyperkalemia had resolved with Kayexalate, calcium gluconate, and sodium bicarbonate and currently at 32.2, which has been supplemented. His spironolactone had initially been held due to elevated potassium level. Patient is exhibiting no gastrointestinal (GI) bleed and does not require any immediate blood transfusion. He remains with hemoglobin of 11, hematocrit of 34. MTDD
--- NOTE | 2020-02-24 11:58 | CR ---
DATE OF CONSULTATION: 02/23/2020 ADVANCED WOUND CARE CONSULTATION VIA TELEMEDICINE Consent Obtained. REQUESTING PHYSICIAN: Dr. Dianne Montes REASON FOR CONSULTATION: This is advanced wound care treatment for bilateral lower extremity lymphedema with a venous stasis component. HISTORY OF PRESENT ILLNESS: The patient is an end stage sclerotic 59 years of age, hospitalized for intractable abdominal ascites, now being treated with a pleur-evac after multiple attempts at paracentesis failed to control the problem. The patient is non-ambulatory and has extensive bilateral lower extremity lymphedema with a positive Stemmers sign. There is papilloma and cobblestoning skin changes and when seen today on telemedicine, there has been some decompression of the lower extremities as evidence by wrinkling of the skin. There is a small venous stasis ulcer involving the left lower extremity medial malleolar area. This measures 5 by 6 cm with a depth of 0.2 cm. There is serosanguinous drainage which is minimal. The patient has joseph infections involving the inguinal region bilaterally and mild erythema involving the hips. There are no pressure injuries involving the heels or the sacral area. TREATMENT: Wound cleanser Vashe should be to clean right and left lower extremities soaking 4 by 4s and allowing it to be applied to the lower extremities for 10 minutes. This can then be removed and a non-adherent foam dressing applied bilaterally, secured with a Kerlix dressing. The left lower extremity medial malleolar venous stasis ulcer should be treated also with Vashe and a Hydrofera blue ready foam should be applied. If the ready foam is not available a transfer foam can be used in its place, but needs to be covered with an Optilock. Tubigrip or Medigrip compression stockings should be applied bilaterally and the patient should have bilateral heel flow boots for prophylactic measures. A dietary consult is mandatory to insure adequate nutritional status which is often times complicated in an advanced sclerotic patient. Nystatin powder which has been ordered should be discontinued and an InterDry dressing should be used on the creases and the directions for this are to put a single sheet into the skin fold, allowing it to be exteriorized for approximately one inch. These are to be changed on a daily basis by removing it, allowing it to dry which takes about 3 minutes and then reinserting. Lower extremity dressings can be changed on an every other day basis. There is no indication for Vancomycin in regards to the patient's venous ulcer and this should be also discontinued as this puts the patient at risk for C-difficile and resistant organisms. If however, utilizing a PleurX places the patient at risk for a spontaneous peritonitis, this decision is up to the Attending. The patient can be reevaluated as needed. SASHAD
[2020-02-24 12:50] LABS: POTASSIUM SERUM 3.2 MEQ/L (3.5-5.1)
[2020-02-24] MEDS: FERROUS SULFATE 325MG TAB PO SCH (20:10)
[2020-02-24] MEDS: LEVEMIR (INSULIN DETEMIR) 1 UNITS/0.01ML SC SCH (20:10)
[2020-02-25] VITALS (8 sets, daily range): BP systolic 104–110; BP diastolic 62–74
[2020-02-25] MEDS: oxyCODONE 5MG TAB PO PRN ×2 (04:23→14:46)
[2020-02-25] MEDS: HumaLOG INSULIN (NovoLOG) PER UNIT SC SCH ×4 (07:30→21:00)
[2020-02-25] MEDS: SYMBICORT 160/4.5MCG INHALER 6GM INH SCH ×2 (08:00→19:42)
[2020-02-25 08:10] LABS: HEMOGLOBIN 11.4 g/dl (13.5-17.5); MEAN CORPUSCULAR HEMOGLOBIN 32.9 pg (27.0-33.0); MEAN CORPUSCULAR HGB CONC 33.5 g/dl (32.0-36.5); PLATELET COUNT, AUTOMATED 230 10^3/uL (150-450); RED BLOOD COUNT 3.47 10^6/uL (4.30-6.10); WHITE BLOOD COUNT 9.2 10^3/uL (4.0-10.0)
[2020-02-25 08:41] LABS: ALBUMIN 2.2 GM/DL (3.2-5.2); ALT/SGPT 28 U/L (12-78); BILIRUBIN,TOTAL 1.6 MG/DL (0.2-1.0); BLOOD UREA NITROGEN 65 MG/DL (7-18); CALCIUM LEVEL 8.1 MG/DL (8.8-10.2); CARBON DIOXIDE LEVEL 26 MEQ/L (21-32); CHLORIDE LEVEL 97 MEQ/L (98-107); CREATININE FOR GFR 1.28 MG/DL (0.70-1.30); DIGOXIN LEVEL 0.6 NG/ML (0.5-2.0); GLOMERULAR FILTRATION RATE > 60.0 (>49); GLUCOSE, FASTING 98 MG/DL (70-100); POTASSIUM SERUM 3.5 MEQ/L (3.5-5.1); SODIUM LEVEL 133 MEQ/L (136-145); TOTAL PROTEIN 6.2 GM/DL (6.4-8.2)
--- NOTE | 2020-02-25 09:08 | IPN ---
DATE: 02/24/2020 SUBJECTIVE: Patient says that his breathing is improved. Decrease in abdominal distention. No dizziness or lightheadedness. Patient's lower extremity edema has decreased significantly. Patient has no chest pain, pressure, or tightness, fever, chills, or cough. No malodorous discharge from the lower extremities. No other issues per nursing overnight. Patient had been given doses of digoxin. Heart rate is controlled at 87-108. Had tolerated atenolol with blood pressure maintained at 115-124. OBJECTIVE: PHYSICAL EXAMINATION: VITAL SIGNS: Temperature 98.3, pulse 109, irregularly irregular, respiratory rate 20, blood pressure 124/66, 95% on room air. GENERAL: Patient is awake, alert, oriented times three, answering questions appropriately. Patient is anicteric. No jaundice. No icterus. No jugular venous distention (JVD)or thyromegaly. Appears disheveled, older than his stated age. Dry mucous membranes. LUNGS: Diminished with very fine crackling at the bases. Otherwise clear in the upper lobes. HEART: S1, S2, irregularly irregular and tachycardic. No murmurs, rubs, or gallops. ABDOMEN: Obese. Positive fluid wave, decreased. Patient's PleurX catheter has no erythema or tenderness. EXTREMITIES: Pitting edema 1+ bilaterally. Chronic venous stasis changes. Ulcers are without any purulence. Input 1620, output 2850, -1230. LABORATORY DATA: White count 9.6, hemoglobin 11.5, hematocrit 33, platelet count 257. Sodium 134, potassium 2.9, chloride 98, bicarbonate 26, BUN 65, creatinine 1.4, glucose 92. Total bilirubin 1.5, AST 54, ALT 35, alkaline phosphatase 291, total protein 6.2. HOSPITAL MEDICATIONS: Insulin sliding scale, Tenormin, digoxin, cephalexin, lidocaine topically, Prilosec, tamsulosin, Dilaudid as needed, Silvadene, ferrous sulfate, Levemir insulin, Symbicort, Colace, DuoNeb, milk of magnesia, oxycodone, and fish oil. ASSESSMENT AND PLAN: This is a 59-year-old male with a history of alcoholic liver cirrhosis, portal hypertension, congestive heart failure, diastolic dysfunction, recurrent ascites due to liver cirrhosis, requiring weekly paracentesis, hyperkalemia, chronic kidney disease, stage III, chronic atrial fibrillation with episodes of rapid ventricular response, history of coronary artery disease (CAD), status post coronary artery bypass graft (CABG), chronic obstructive pulmonary disease (COPD), hypertension, obstructive sleep apnea, morbid obesity, insulin-dependent diabetes, chronic lower extremity venous stasis ulcers, chronic venous insufficiency, chronic pain, macrocytic anemia, admitted to increased weight gain, abdominal distention, shortness of breath, lower extremity edema. Requested hospice. IMPRESSION: 1. Decompensated liver cirrhosis refractory to weekly paracentesis. Patient had requested hospice, so albumin infusion 25%, Lasix diuresis, as well as PleurX catheter placement by interventional radiology. Input and output overnight 1620, input/output of 2850, -1230, current weight is 119.3 kg with admission weight of 129.7 kg. Since midnight output has been 1.4 liters, -840. Patient denies any dizziness to lightheadedness. He does not appear to be orthostatic. He will be given a dose of Zaroxolyn along with Lasix intravenous (IV). Will monitor urine output on this and monitor for worsening azotemia. Patient's renal dysfunction of 1.4 is at baseline. 2. Hypokalemia secondary to Lasix diuresis, which has been supplemented. 3. Chronic lower extremity ulcers. Patient had initially been given vancomycin and ceftriaxone. Wound culture still pending. It has been de-escalated to IV cefazolin. Patient does not have an elevated white count and may be changed to oral Keflex. 4. Congestive heart failure, diastolic dysfunction. Currently on strict intake and output, daily weights with net-negative balance goal daily. Admission weight was 129.7 kg with current weight of 119.3 kg, on Zaroxolyn and Lasix today. 5. Morbid obesity, body mass index (BMI) of 36.7 with obstructive sleep apnea. Resumed on omeprazole continuous positive airway pressure (CPAP), complicating care. 6. Chronic kidney disease, stage III, at baseline creatinine. 7. History of alcohol abuse with alcoholic liver cirrhosis. 8. History of coronary artery disease (CAD), coronary artery bypass graft (CABG), congestive heart failure, currently on diuresis. DISPOSITION: Awaiting hospice. May transfer to medical/surgical. [facility]
[2020-02-25] MEDS: OMEGA-3 1000MG CAPSULE PO SCH (09:31)
[2020-02-25] MEDS: DIGOXIN 0.125 MG TAB PO SCH (09:31)
[2020-02-25] MEDS: CEPHALEXIN 500 MG CAP PO SCH (09:31)
[2020-02-25] MEDS: TAMSULOSIN 0.4 MG CAP PO SCH (09:31)
[2020-02-25] MEDS ORDERED: LevoFLOXacin 750 MG TABLET PO ONE (11:00)
--- NOTE | 2020-02-25 11:34 | IPNPDOC ---
Date Seen The patient was seen on 02/25/20. Progress Note SUBJECTIVE: Feels shaky getting up from chair with physical therapy offering one person assistance and walker. pt c/o urinating all night long, and feeling thirsty. no dizziness or lightheadedness. abd distention and b/l LE swelling improved. still wt malone in place. no c/o cp, sob, palpitations, cough, fever, chills. Hospice consulted. slight pain 2/10 at pleurex site. OBJECTIVE: PHYSICAL EXAMINATION: VITAL SIGNS: I/O weight: pls see below GENERAL: Patient is awake, alert, oriented times three, no conversational dyspnea or use of respiratory accessory muscles. answering questions appropriately. Patient is anicteric. shaky while standing with his walker. No jaundice. No icterus. No jugular venous distention (JVD)or thyromegaly. Appears disheveled, older than his stated age. Dry mucous membranes. LUNGS: Diminished Otherwise clear in the upper lobes. HEART: S1, S2, irregularly irregular and tachycardic. No murmurs, rubs, or gallops. ABDOMEN: Obese. Positive fluid wave, decreased. normoactive bowel sounds Patient's PleurX catheter has no erythema or tenderness. EXTREMITIES: Pitting edema 1+ bilaterally. Chronic venous stasis changes. Ulcers are without any purulence. nonmalodorous LABORATORY DATA:/ IMAGING STUDIES: see below HOSPITAL MEDICATIONS: Insulin sliding scale, Tenormin, digoxin, cephalexin, lidocaine topically, Prilosec, tamsulosin, Dilaudid as needed, Silvadene, ferrous sulfate, Levemir insulin, Symbicort, Colace, DuoNeb, milk of magnesia, oxycodone, and fish oil. ASSESSMENT AND PLAN: This is a 59-year-old male with a history of alcoholic liver cirrhosis, portal hypertension, congestive heart failure, diastolic dysfunction, recurrent ascites due to liver cirrhosis, requiring weekly paracentesis, hyperkalemia, chronic kidney disease, stage III, chronic atrial fibrillation with episodes of rapid ventricular response, history of coronary artery disease (CAD), status post coronary artery bypass graft (CABG), chronic obstructive pulmonary disease (COPD), hypertension, obstructive sleep apnea, morbid obesity, insulin-dependent diabetes, chronic lower extremity venous stasis ulcers, chronic venous insufficiency, chronic pain, macrocytic anemia, admitted to increased weight gain, abdominal distention, shortness of breath, lower extremity edema. Requested hospice. IMPRESSION: Decompensated liver cirrhosis refractory to weekly paracentesis.s/p PleurX catheter placement by interventional radiology, albumin infusionI Hypokalemia secondary to Lasix diuresis, resolved Infected Chronic lower extremity ulcers/chronic venous insufficiency. Congestive heart failure, diastolic dysfunction,compensated. Morbid obesity, body mass index (BMI) of 36.7 with obstructive sleep apnea. Acute on Chronic kidney disease, stage III, resolved History of alcohol abuse with alcoholic liver cirrhosis. History of coronary artery disease (CAD), coronary artery bypass graft (CABG) Debility PLAN: STRICT input and output daily weights. Patient denies any dizziness to lightheadedness. He does not appear to be orthostatic. He will be given a dose of Zaroxolyn along with Lasix intravenous (IV) after albumin infusion to keep from third spacing. Will monitor urine output on this and monitor for worsening azotemia. Patient's renal dysfunction of 1.4 is at baseline. [facility]erman for outpt wound care. pleurex cath, diuresis, and hospice referral. continue all other home meds,but will need to monitor HR and BP, and adjust meds accordingly to prevent hypot ension and bradycardia. PFS consulted for hospice referral. ARU and PT/OT to help in improving physical activity. discontinue malone catheter. fall precautions walker and assisted ambulation at all times as the patient is at high risk of a fall. VS, I&O, 24H, Fishbone Vital Signs/I&O Vital Signs Date Time Temp Pulse Resp B/P (MAP) Pulse Ox O2 Delivery O2 Flow Rate FiO2 02/25/20 11:01 98.0 90 18 106/62 97 Room Air 02/23/20 13:41 3 02/23/20 13:23 99 I&O- Last 24 Hours up to 6 AM 02/25/20 06:00 Intake Total 1480.0 ml Output Total 3550 ml Balance -2070.0 ml Laboratory Data 24H LABS Laboratory Tests 2 02/24/20 11:48: Bedside Glucose (Misc Panel) 177H 02/24/20 12:00: Magnesium Level 2.0 02/24/20 17:09: Bedside Glucose (Misc Panel) 236H 02/24/20 20:09: Bedside Glucose (Misc Panel) 172H 02/25/20 06:59: Bedside Glucose (Misc Panel) 96 02/25/20 07:03: Nucleated Red Blood Cells % (auto) 0.2H, Anion Gap 10, Glomerular Filtration Rate > 60.0, Calcium Level 8.1L, Total Bilirubin 1.6H, Aspartate Amino Transf (AST/SGOT) 46H, Alanine Aminotransferase (ALT/SGPT) 28, Alkaline Phosphatase 284H, Total Protein 6.2L, Albumin 2.2L, Albumin/Globulin Ratio 0.6, Digoxin Level 0.6 CBC/BMP Laboratory Tests 02/24/20 12:00 02/25/20 07:03 Microbiology Microbiology 02/23/20 Acid Fast Stain, Received Pending 02/23/20 Mycobacterial Culture, Received Pending 02/23/20 Fungal Smear, Received Pending 02/23/20 Fungal Culture, Received Pending 02/23/20 Gram Stain - Final, Complete 02/23/20 Body Fluid Culture - Final, Complete 02/23/20 Anaerobic Culture - Final, Complete 02/22/20 Gram Stain - Final, Resulted 02/22/20 Wound Culture - Preliminary, Resulted Escherichia Coli Proteus Penneri 02/22/20 Gram Stain - Final, Resulted 02/22/20 Wound Culture - Preliminary, Resulted Proteus Penneri HERBERTH ESPARZA MD Feb 25, 2020 11:34
[2020-02-25] MEDS ORDERED: metOLazone 5 MG TAB PO ONE (18:00)
[2020-02-25] MEDS ORDERED: FUROSEMIDE 100MG/10ML VIAL (J1940) IV ONE (18:30)
[2020-02-25] MEDS: LEVEMIR (INSULIN DETEMIR) 1 UNITS/0.01ML SC SCH (21:00)
[2020-02-26] MEDS: oxyCODONE 5MG TAB PO PRN ×2 (01:18→21:26)
[2020-02-26] MEDS: LevoFLOXacin 750 MG TABLET PO SCH (05:51)
[2020-02-26 06:00] VITALS: BP 111/62
[2020-02-26 07:05] LABS: HEMATOCRIT 31.2 % (42.0-52.0); HEMOGLOBIN 10.7 g/dl (13.5-17.5); MEAN CORPUSCULAR HEMOGLOBIN 33.3 pg (27.0-33.0); MEAN CORPUSCULAR HGB CONC 34.3 g/dl (32.0-36.5); MEAN CORPUSCULAR VOLUME 97.2 fl (80.0-96.0); PLATELET COUNT, AUTOMATED 203 10^3/uL (150-450); RED BLOOD COUNT 3.21 10^6/uL (4.30-6.10); WHITE BLOOD COUNT 9.4 10^3/uL (4.0-10.0)
[2020-02-26] MEDS: SYMBICORT 160/4.5MCG INHALER 6GM INH SCH ×2 (07:21→19:58)
[2020-02-26 07:53] LABS: ALBUMIN 2.2 GM/DL (3.2-5.2); ALT/SGPT 27 U/L (12-78); BILIRUBIN,TOTAL 1.6 MG/DL (0.2-1.0); BLOOD UREA NITROGEN 66 MG/DL (7-18); CALCIUM LEVEL 8.1 MG/DL (8.8-10.2); CARBON DIOXIDE LEVEL 27 MEQ/L (21-32); CHLORIDE LEVEL 96 MEQ/L (98-107); CREATININE FOR GFR 1.08 MG/DL (0.70-1.30); DIGOXIN LEVEL 0.6 NG/ML (0.5-2.0); GLOMERULAR FILTRATION RATE > 60.0 (>49); GLUCOSE, FASTING 114 MG/DL (70-100); POTASSIUM SERUM 2.7 MEQ/L (3.5-5.1); SODIUM LEVEL 132 MEQ/L (136-145); TOTAL PROTEIN 6.4 GM/DL (6.4-8.2)
[2020-02-26] MEDS: OMEGA-3 1000MG CAPSULE PO SCH (08:26)
[2020-02-26] MEDS: HumaLOG INSULIN (NovoLOG) PER UNIT SC SCH ×5 (08:26→21:00)
[2020-02-26] MEDS: TAMSULOSIN 0.4 MG CAP PO SCH (08:26)
[2020-02-26] MEDS: DIGOXIN 0.125 MG TAB PO SCH (08:27)
[2020-02-26] MEDS: OMEPRAZOLE 20 MG CAP PO SCH (08:27)
[2020-02-26] MEDS: POTASSIUM CHLORIDE 10 MEQ SR TABLET PO SCH ×2 (08:29→21:27)
[2020-02-26] MEDS ORDERED: metOLazone 5 MG TAB PO ONE (08:30)
[2020-02-26] MEDS: HYDROmorphone 2 MG TAB PO PRN ×2 (08:38→13:20)
[2020-02-26] MEDS ORDERED: PROPRANOLOL 10 MG TAB PO SCH (09:00)
--- NOTE | 2020-02-26 09:15 | IPNPDOC ---
Date Seen The patient was seen on 02/26/20. Progress Note SUBJECTIVE: The patient was seen and examined at the bedside. Chart has been reviewed. He complains of increasing drainage to the Pleurx catheter soaking the dressing, which has not been changed since this was placed. No fever, chills or confusion. He continues to have increasing abdominal distention despite Pleurx catheter has not had a weight loss over the past 24 hours. He also complains of pain in his abdomen in the bilateral lower quadrants as well as his chronic back pain rated at 5 out of 10 better with his chronic pain medications. OBJECTIVE: PHYSICAL EXAMINATION: VITAL SIGNS: I/O weight: pls see below GENERAL: Patient is awake, alert, oriented times three, no conversational dy spnea or use of respiratory accessory muscles. answering questions appropriately. Patient is anicteric. s No jaundice. No icterus. No jugular venous distention (JVD)or thyromegaly. Appears disheveled, older than his stated age. Dry mucous membranes. LUNGS: Diminished Otherwise clear in the upper lobes. , No rales noted HEART: S1, S2, irregularly irregular and tachycardic. No murmurs, rubs, or ga llops. ABDOMEN: Obese. Erythema under the pannus Positive fluid wave., Distended abdomen normoactive bowel sounds Patient's PleurX catheter with which serous drainage soaking the EXTREMITIES: Pitting edema 2+ bilaterally. Chronic venous stasis changes. Ulcers are without any purulence. nonmalodorous LABORATORY DATA:/ IMAGING STUDIES: see below HOSPITAL MEDICATIONS: Insulin sliding scale, Tenormin, digoxin, cephalexin, lidocaine topically, Prilosec, tamsulosin, Dilaudid as needed, Silvadene, fe rrous sulfate, Levemir insulin, Symbicort, Colace, DuoNeb, milk of magnesia, oxycodone, and fish oil. ASSESSMENT AND PLAN: This is a 59-year-old male with a history of alcoholic liver cirrhosis, portal hypertension, congestive heart failure, diastolic dysfunction, recurrent ascites due to liver cirrhosis, requiring weekly paracentesis, hyperkalemia, chronic kidney disease, stage III, chronic atrial fibrillation with episodes of rapid ventricular response, history of coronary artery disease (CAD), status post coronary artery bypass graft (CABG), chronic obstructive pulmonary disease (COPD), hypertension, obstructive sleep apnea, morbid obesity, insulin-dependent diabetes, chronic lower extremity venous stasis ulcers, chronic venous insufficiency, chronic pain, macrocytic anemia, admitted to increased weight gain, abdominal distention, shortness of breath, lower extremity edema. [facility]. IMPRESSION: Decompensated liver cirrhosis refractory to weekly paracentesis.s/p PleurX catheter placement by interventional radiology, albumin infusionI Hypokalemia secondary to Lasix diuresis, resolved Infected Chronic lower extremity ulcers/chronic venous insufficiency. Congestive heart failure, diastolic dysfunction,compensated. Morbid obesity, body mass index (BMI) of 36.7 with obstructive sleep apnea. Acute on Chronic kidney disease, stage III, resolved History of alcohol abuse with alcoholic liver cirrhosis. History of coronary artery disease (CAD), coronary artery bypass graft (CABG) Debility PLAN: X catheter had been placed, but has not been attached to a drainage bag. He currently has his dressing soaked with serous drainage with increasing abdominal distention, fluid wave, and recurrent ascites. Patient's lower extremities are also slightly increased today. He does not complain of any shortness of breath or dizziness exertion and the lungs are improved from admission. However, he remains in positive balance for the past 24 hours. He otherwise denies any dizziness or lightheadedness. He is requesting for the dressings to be changed on his left Pleurx catheter site. Nursing has been advised to change his twice a day and to drain this twice a day due to increased amount of serous drainage from the recurrent ascites. Patient will be given Zaroxolyn 30 minutes before Lasix, which will be given every 4 hourly 3 doses. We'll monitor urine output and decide if further diet and eat diuresis is needed. This kept in a fluid restriction, strict I's and O's and daily weights to adjust patient's diuretics and a daily basis. He currently is not complaining of any orthostatic symptoms, but we'll continue to monitor for this. He remains with guarded prognosis due to comorbidities which are end-stage including alcoholic liver cirrhosis with severe portal hypertension requiring weekly paracentesis, which has been refractory now needing a Pleurx catheter. Hospice has been called and consulted. For now, continue with diuresis and supportive care. Monitor for hepatic encephalopathy and GI bleed. Patient is at higher risk of decompensated liver cirrhosis complications. He is currently DO NOT RESUSCITATE, DO NOT INTUBATE. Wound cultures grew out enterococcus, Escherichia coli and Proteus all are sensitive to Levaquin. Patient had previously been treated with broad-spectrum antibiotics on admission with IV vancomycin and ceftriaxone transitioned to IV cefazolin with decreasing white count and currently only on oral Levaquin. He should follow up with Dr. Johnson for wound care VS, I&O, 24H, [place] Vital Signs/I&O Vital Signs Date Time Temp Pulse Resp B/P (MAP) Pulse Ox O2 Delivery O2 Flow Rate FiO2 02/26/20 08:38 18 02/26/20 08:27 108 111/62 02/26/20 06:00 98.0 96 Room Air 02/23/20 13:41 3 02/23/20 13:23 99 I&O- Last 24 Hours up to 6 AM 02/26/20 06:00 Intake Total 2035.0 ml Output Total 1600 ml Balance 435.0 ml Laboratory Data 24H LABS Laboratory Tests 2 02/25/20 16:29: Bedside Glucose (Misc Panel) 224H 02/25/20 21:21: Bedside Glucose (Misc Panel) 157H 02/26/20 06:21: Bedside Glucose (Misc Panel) 161H 02/26/20 06:42: Nucleated Red Blood Cells % (auto) 0.0, Anion Gap 9, Glomerular Filtration Rate > 60.0, Calcium Level 8.1L, Total Bilirubin 1.6H, Aspartate Amino Transf (AST/ SGOT) 50H, Alanine Aminotransferase (ALT/SGPT) 27, Alkaline Phosphatase 277H, Total Protein 6.4, Albumin 2.2L, Albumin/Globulin Ratio 0.5, Digoxin Level 0.6 CBC/BMP Laboratory Tests 02/26/20 06:42 Microbiology Microbiology 02/23/20 Acid Fast Stain, Received Pending 02/23/20 Mycobacterial Culture, Received Pending 02/23/20 Fungal Smear, Received Pending 02/23/20 Fungal Culture, Received Pending 02/23/20 Gram Stain - Final, Complete 02/23/20 Body Fluid Culture - Final, Complete 02/23/20 Anaerobic Culture - Final, Complete 02/22/20 Gram Stain - Final, Complete 02/22/20 Wound Culture - Final, Complete Escherichia Coli Proteus Penneri Enterococcus Faecalis Enterococcus Avium 02/22/20 Gram Stain - Final, Complete 02/22/20 Wound Culture - Final, Complete Proteus Penneri Enterococcus Faecalis Enterococcus Avium HERBERTH ESPARZA MD Feb 26, 2020 09:14
[2020-02-26] MEDS: FUROSEMIDE 40MG/4ML VIAL (J1940) IV SCH ×4 (09:17→17:39)
[2020-02-26] MEDS ORDERED: atenoloL 25 MG TAB PO ONE (09:30)
[2020-02-26] MEDS: SPIRONOLACTONE 25 MG TAB PO SCH (10:09)
[2020-02-26 13:25] VITALS: BP 90/40
[2020-02-26 14:00] VITALS: BP 90/40
[2020-02-26 17:44] VITALS: BP 92/49
[2020-02-26] MEDS: LEVEMIR (INSULIN DETEMIR) 1 UNITS/0.01ML SC SCH ×2 (21:00→21:26)
[2020-02-26] MEDS: FERROUS SULFATE 325MG TAB PO SCH (21:25)
[2020-02-26 22:00] VITALS: BP 100/53
[2020-02-27] VITALS (7 sets, daily range): BP systolic 90–108; BP diastolic 56–64
[2020-02-27] MEDS: HYDROmorphone 2 MG TAB PO PRN ×3 (02:16→18:11)
[2020-02-27] MEDS: LevoFLOXacin 750 MG TABLET PO SCH (06:51)
[2020-02-27] MEDS: oxyCODONE 5MG TAB PO PRN ×3 (06:51→20:12)
[2020-02-27 07:01] LABS: HEMATOCRIT 32.7 % (42.0-52.0); HEMOGLOBIN 11.2 g/dl (13.5-17.5); MEAN CORPUSCULAR HEMOGLOBIN 33.7 pg (27.0-33.0); MEAN CORPUSCULAR HGB CONC 34.3 g/dl (32.0-36.5); MEAN CORPUSCULAR VOLUME 98.5 fl (80.0-96.0); PLATELET COUNT, AUTOMATED 203 10^3/uL (150-450); RED BLOOD COUNT 3.32 10^6/uL (4.30-6.10); WHITE BLOOD COUNT 9.8 10^3/uL (4.0-10.0)
[2020-02-27] MEDS: SYMBICORT 160/4.5MCG INHALER 6GM INH SCH ×2 (07:13→19:27)
[2020-02-27 07:29] LABS: ALBUMIN 2.3 GM/DL (3.2-5.2); BILIRUBIN,TOTAL 1.3 MG/DL (0.2-1.0); CALCIUM LEVEL 8.3 MG/DL (8.8-10.2); CREATININE FOR GFR 1.34 MG/DL (0.70-1.30); DIGOXIN LEVEL 0.8 NG/ML (0.5-2.0); GLOMERULAR FILTRATION RATE 57.7 (>49); POTASSIUM SERUM 3.5 MEQ/L (3.5-5.1)
[2020-02-27] MEDS ORDERED: metOLazone 5 MG TAB PO ONE (08:30)
[2020-02-27] MEDS: DIGOXIN 0.125 MG TAB PO SCH (08:35)
[2020-02-27] MEDS: atenoloL 25 MG TAB PO SCH (08:35)
[2020-02-27] MEDS: HumaLOG INSULIN (NovoLOG) PER UNIT SC SCH ×4 (08:46→21:00)
[2020-02-27] MEDS: TAMSULOSIN 0.4 MG CAP PO SCH (08:46)
[2020-02-27] MEDS: SPIRONOLACTONE 25 MG TAB PO SCH (08:46)
[2020-02-27] MEDS: POTASSIUM CHLORIDE 10 MEQ SR TABLET PO SCH ×2 (08:46→22:23)
[2020-02-27] MEDS: OMEGA-3 1000MG CAPSULE PO SCH (08:46)
[2020-02-27] MEDS: FUROSEMIDE 40MG/4ML VIAL (J1940) IV SCH ×3 (09:00→22:24)
--- NOTE | 2020-02-27 09:36 | IPNPDOC ---
Date Seen The patient was seen on 02/27/20. Progress Note SUBJECTIVE: Patient was seen and examined at the bedside chart is been reviewed. Patient has been draining through his Pleurx catheter about 850 mL fell yesterday. Instructions were to drain this 2 times a week. The patient has been soaking his dressings due to worsening and recurrent ascites, no fever, chills, no confusion. Patient has difficulty rising from his bedside recliner saying that it's too low. He says that he can get up when he scoots to the end of the recliner and uses his walker, but he still at risk of falls. Nursing has been advised to assist if needed. He denies any shortness of breath, chest pain, pressure, tightness, lightheadedness, palpitations or dizziness. He has been net negative balance overnight with slight increasing creatinine. Eyes and nose have been reviewed OBJECTIVE: PHYSICAL EXAMINATION: VITAL SIGNS: I/O weight: pls see below GENERAL: Patient is awake, alert, oriented times three, no conversational dyspnea or use of respiratory accessory muscles. answering questions appropriately. Patient is anicteric. No jaundice. No icterus. No jugular venous distention (JVD)or thyromegaly. Appears disheveled, older than his stated age. Dry mucous membranes. LUNGS: Diminished Otherwise clear in the upper lobes. , No rales noted HEART: S1, S2, irregularly irregular and tachycardic. No murmurs, rubs, or gallops. ABDOMEN: Obese. Erythema under the pannus Positive fluid wave., Distended abdomen normoactive bowel sounds Patient's PleurX catheter with which serous drainage soaking the dressing EXTREMITIES: Pitting edema 2+ bilaterally. Chronic venous stasis changes. Ulcers are without any purulence. nonmalodorous LABORATORY DATA:/ IMAGING STUDIES: see below HOSPITAL MEDICATIONS: Insulin sliding scale, Tenormin, digoxin, cephalexin, lidocaine topically, Prilosec, tamsulosin, Dilaudid as needed, Silvadene, ferrous sulfate, Levemir insulin, Symbicort, Colace, DuoNeb, milk of magnesia, oxycodone, and fish oil. ASSESSMENT AND PLAN: This is a 59-year-old male with a history of alcoholic liver cirrhosis, portal hypertension, congestive heart failure, diastolic dysfunction, recurrent ascites due to liver cirrhosis, requiring weekly paracentesis, hyperkalemia, chronic kidney disease, stage III, chronic atrial fibrillation with episodes of rapid ventricular response, history of coronary artery disease (CAD), status post coronary artery bypass graft (CABG), chronic obstructive pulmonary disease (COPD), hypertension, obstructive sleep apnea, morbid obesity, insulin-dependent diabetes, chronic lower extremity venous stasis ulcers, chronic venous insufficiency, chronic pain, macrocytic anemia, admitted to increased weight gain, abdominal distention, shortness of breath, lower extremity edema. Requested hospice. IMPRESSION: Decompensated liver cirrhosis refractory to weekly paracentesis.s/p PleurX catheter placement by interventional radiology, albumin infusion Hypokalemia secondary to Lasix diuresis, resolved Infected Chronic lower extremity ulcers/chronic venous insufficiency. Congestive heart failure, diastolic dysfunction,compensated. Morbid obesity, body mass index (BMI) of 36.7 with obstructive sleep apnea. Acute on Chronic kidney disease, stage III, resolved History of alcohol abuse with alcoholic liver cirrhosis. History of coronary artery disease (CAD), coronary artery bypass graft (CABG) Debility PLAN: has requested patient to remain in the hospital until he is independent. says that the can take care of him. He has also refused hospice. PFS has been consulted for assistance in resolving. Social issues for hospital discharge. He is currently net negative balance with a 10 kg weight loss since hospital admission. He is status post Pleurx catheter. IR will be no called in the morning to see if a bed can be placed for Pleurx catheter to drain. Patient will be instructed in how to manage this at home along with the dressing changes. We will attempt to continue diuresis while he is in the hospital with IV Lasix 30 minutes after Zaroxolyn is given. Continue on fluid restriction, noah ly weights, strict I's and O's. If blood pressure continues to decrease less than 100. We will provide with albumin infusion. Monitor patient's heart rate currently on digoxin with daily digoxin levels as well as atenolol. Patient has poor overall prognosis with his comorbidities, as well as his decompensated liver cirrhosis with recurrent ascites that had been refractory to weekly paracentesis at this time. Patient has refused hospice. We'll defer to PFS regarding discharge plans as patient's is refusing to take him back home and will most likely need penitentiary placement or assisted living VS, I&O, 24H, Fishbone Vital Signs/I&O Vital Signs Date Time Temp Pulse Resp B/P (MAP) Pulse Ox O2 Delivery O2 Flow Rate FiO2 02/27/20 08:35 58 102/64 02/27/20 07:21 18 02/27/20 06:51 Room Air 02/27/20 06:00 97.7 95 02/23/20 13:41 3 02/23/20 13:23 99 I&O- Last 24 Hours up to 6 AM 02/27/20 06:00 Intake Total 1160.0 ml Output Total 3000 ml Balance -1840.0 ml Laboratory Data 24H LABS Laboratory Tests 2 02/26/20 11:23: Bedside Glucose (Misc Panel) 122H 02/26/20 16:55: Bedside Glucose (Misc Panel) 136H 02/26/20 19:55: Bedside Glucose (Misc Panel) 180H 02/27/20 06:28: Nucleated Red Blood Cells % (auto) 0.0, Anion Gap 8, Glomerular Filtration Rate 57.7, Calcium Level 8.3L, Total Bilirubin 1.3H, Aspartate Amino Transf (AST/SGOT) 43H, Alanine Aminotransferase (ALT/SGPT) 27, Alkaline Phosphatase 276H, Total Protein 6.0L, Albumin 2.3L, Albumin/Globulin Ratio 0.6, Digoxin Level 0.8 CBC/BMP Laboratory Tests 02/27/20 06:28 Microbiology Microbiology 02/23/20 Acid Fast Stain, Received Pending 02/23/20 Mycobacterial Culture, Received Pending 02/23/20 Fungal Smear, Received Pending 02/23/20 Fungal Culture, Received Pending 02/23/20 Gram Stain - Final, Complete 02/23/20 Body Fluid Culture - Final, Complete 02/23/20 Anaerobic Culture - Final, Complete 02/22/20 Gram Stain - Final, Complete 02/22/20 Wound Culture - Final, Complete Escherichia Coli Proteus Penneri Enterococcus Faecalis Enterococcus Avium 02/22/20 Gram Stain - Final, Complete 02/22/20 Wound Culture - Final, Complete Proteus Penneri Enterococcus Faecalis Enterococcus Avium HERBERTH ESPARZA MD Feb 27, 2020 09:36
--- NOTE | 2020-02-27 10:44 | ECGEPIP ---
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
[2020-02-27 16:19] LABS: CALCIUM LEVEL 8.3 MG/DL (8.8-10.2); CREATININE FOR GFR 1.46 MG/DL (0.70-1.30); GLOMERULAR FILTRATION RATE 52.3 (>49); MAGNESIUM LEVEL 2.3 MG/DL (1.8-2.4); POTASSIUM SERUM 3.9 MEQ/L (3.5-5.1)
[2020-02-27] MEDS: LEVEMIR (INSULIN DETEMIR) 1 UNITS/0.01ML SC SCH (21:00)
[2020-02-28] MEDS: HYDROmorphone 2 MG TAB PO PRN ×2 (01:30→09:38)
[2020-02-28] MEDS: FUROSEMIDE 40MG/4ML VIAL (J1940) IV SCH (03:00)
[2020-02-28] MEDS: LevoFLOXacin 750 MG TABLET PO SCH (05:24)
[2020-02-28 06:00] VITALS: BP 103/56
[2020-02-28 06:33] LABS: HEMATOCRIT 30.4 % (42.0-52.0); HEMOGLOBIN 10.3 g/dl (13.5-17.5); MEAN CORPUSCULAR HEMOGLOBIN 33.3 pg (27.0-33.0); MEAN CORPUSCULAR HGB CONC 33.9 g/dl (32.0-36.5); MEAN CORPUSCULAR VOLUME 98.4 fl (80.0-96.0); PLATELET COUNT, AUTOMATED 205 10^3/uL (150-450); RED BLOOD COUNT 3.09 10^6/uL (4.30-6.10); WHITE BLOOD COUNT 8.7 10^3/uL (4.0-10.0)
[2020-02-28 07:12] LABS: ALBUMIN 2.4 GM/DL (3.2-5.2); BILIRUBIN,TOTAL 1.2 MG/DL (0.2-1.0); CALCIUM LEVEL 8.2 MG/DL (8.8-10.2); CREATININE FOR GFR 1.49 MG/DL (0.70-1.30); DIGOXIN LEVEL 0.8 NG/ML (0.5-2.0); POTASSIUM SERUM 3.9 MEQ/L (3.5-5.1); TOTAL PROTEIN 6.1 GM/DL (6.4-8.2)
[2020-02-28] MEDS: HumaLOG INSULIN (NovoLOG) PER UNIT SC SCH ×3 (07:30→11:50)
[2020-02-28] MEDS: SYMBICORT 160/4.5MCG INHALER 6GM INH SCH (07:47)
[2020-02-28 09:00] VITALS: BP 103/56
[2020-02-28] MEDS: atenoloL 25 MG TAB PO SCH (09:00)
[2020-02-28] MEDS ORDERED: BACI1CAP PO (09:30)
[2020-02-28] MEDS ORDERED: LEVA1TAB2 PO (09:30)
[2020-02-28] MEDS: DIGOXIN 0.125 MG TAB PO SCH (09:30)
[2020-02-28] MEDS: OMEGA-3 1000MG CAPSULE PO SCH (09:30)
[2020-02-28] MEDS: SPIRONOLACTONE 25 MG TAB PO SCH (09:30)
[2020-02-28] MEDS: TAMSULOSIN 0.4 MG CAP PO SCH (09:31)
[2020-02-28] MEDS: POTASSIUM CHLORIDE 10 MEQ SR TABLET PO SCH (09:32)
[2020-02-28] MEDS ORDERED: PRIL20TA2 PO (09:33)
[2020-02-28] MEDS ORDERED: PROP10TA56 PO (09:33)
[2020-02-28] MEDS ORDERED: 3 SEMIS2 XX (09:33)
--- NOTE | 2020-02-28 11:21 | DS.PDOC ---
Discharge Summary General Date of Admission Feb 22, 2020 at 11:14 Date of Discharge 02/28/20 Discharge Summary DISCHARGE DIAGNOSES: Decompensated liver cirrhosis refractory to weekly paracentesis.s/p PleurX catheter placement by interventional radiology, albumin infusion Hypokalemia secondary to Lasix diuresis, resolved Infected Chronic lower extremity ulcers/chronic venous insufficiency. Congestive heart failure, diastolic dysfunction,compensated. Morbid obesity, body mass index (BMI) of 36.7 with obstructive sleep apnea. Acute on Chronic kidney disease, stage III, resolved History of alcohol abuse with alcoholic liver cirrhosis. History of coronary artery disease (CAD), coronary artery bypass graft (CABG) Debility Fall due to anasarca from decompensated liver cirrhosis Tricompartment syndrome of b/l knees DISCHARGE MEDICATIONS: SEE BELOW DISCHARGE INSTRUCTIONS: 1.5 liter fluid restriction, strict I's and O's, daily weights, call your physician if more than 5 pound weight gain. Check your blood pressure twice daily before taking her diuretics and blood pressure medications. Immediate follow-up with her phys assistant, rubber worker and primary care physician within 5 days of hospital discharge drained Pleurx catheter. 2 times weekly under sterile conditions. Homecare referral has been made HISTORY OF PRESENTING ILLNESS: A 59-year-old male with past medical history significant for decompensated alcoholic liver cirrhosis, diastolic congestive heart failure, recurrent ascites requiring weekly paracentesis, portal pulmonaryhypertension due to progressive liver cirrhosis, moderate to severe pulmonary hypertension, obstructive sleep apnea, chronic kidney disease, stage II-III, chronic atrial fibrillation, intolerance to aspirin, coronary artery disease (CAD), coronary artery bypass graft (CABG) in 2009, dyslipidemia, chronic lower extremity venous insufficiency, hypertension, obstructive sleep apnea, chronic lower extremity venous ulcers, chronic obstructive pulmonary disease (COPD), presents to the emergency room with 10-pound weight gain and 2-day of worsening abdominal distention, edema despite paracentesis last Friday. He has had increasing shortness of breath without fever, chills, or cough. Brought in by his , who says that she cannot care for him anymore and requesting hospice care. Patient otherwise denies any chest pain, pressure, or tightness, lightheadedness, dizziness. Denies any bright red blood per rectum, melena, or black, tarry stool s. In the emergency room (ER) he was found to have anasarca with 3+ pitting edema long with his worsening abdominal distention. He complainsof chronic back pain, rated 8/10 on a pain scale. Hospitalist was asked to admitfor decompensated liver cirrhosis with recurrent ascites refractory to weekly pa racentesis with recommendations for PleurX catheter placement and hospice referral. HOSPITAL COURSE: He was admitted to the telemetry unit due to A. fib with RVR, rate controlled with beta blockers . For decompensated alcoholic liver cirrhosis with anasarca , he underwent paracentesis with postprocedure albumin infusions to keep the patient's blood pressure maintained with mean anterior pressure greater than 75. He was given a total of 7, albumin infusions with admission weight of 130 kg and discharge weight of 120 kg and a 20 pound weight loss. After rate control in the telemetry unit , Patient was medically stable to be transferred to medical/surgical floor. Patient's heart rate has been controlled, at 92-98.. He was continued on atenolol [address] Ponce was consulted for Pleurx catheter placement for bilateral lower extremity malodorous venous stasis ulcer infection and cellulitis. Patient was started on vancomycin and ceftriaxone for lower extremity wounds. This was the escalated to oral antibiotics. Dr. Johnson was consulted for wound care. via telemedicine. Despite severe hyponatremia with sodium level of 127, he exhibits no mental confusion, headache, or changes in vision. No seizure activity. This is most likely secondary to fluid overload from anasarca secondary to alcohol liver cirrhosis. His hyperkalemia had resolved with Kayexalate, calcium gluconate, and sodium bicarbonate and currently at 32.2, which has been supplemented. His spironolactone had initially been held due to elevated potassium level. Patient is exhibiting no gastrointestinal (GI) bleed and does not require any immediate blood transfusion. He remains with hemoglobin of 11, hematocrit of 34. Decompensated liver cirrhosis refractory to weekly paracentesis.s/p PleurX catheter placement by interventional radiology, albumin infusion: Per Dr. Ponce: "Successful placement of a Pleurx peritoneal drainage catheter in the left lateral abdomen. Patient may drain 2 times a week as required. Patient requires dressing supplies for up to 2-3 drainages per week." Bilateral LE venous ulcers, infected: Per Dr. Johnson, wound care surgeon, via telemedicine: ": Wound cleanser Va she should be to clean right and left lower extremities soaking 4 by 4s and allowing it to be applied to the lower extremities for 10 minutes. This can then be removed and a non-adherent foam dressing applied bilaterally, secured with a Kerlix dressing. The left lower extremity medial malleolar venous stasis ulcer should be treated also with Vasheand a Hydrofera blue ready foam should be applied. If the ready foam is not available a transfer foam can be used in its place, but needs to be covered withan Optilock. Tubigrip or Medigrip compression stockings should be applied bilaterally and the patient should have bilateral heel flow boots for prophylactic measures. A dietary consult is mandatory to insure adequate nutritional status which is often times complicated in an advanced sclerotic patient. Nystatin powder which has been ordered should be discontinued and an InterDry dressing should be used on the creases and the directions for this are to put a single sheet into the skin fold, allowing it to be exteriorized for approximately one inch. These are to be changed on a daily basis by removing it,allowing it to dry which takes about 3 minutes and then reinserting. Lower extremity dressings can be changed on an every other day basis. There is no indication for Vancomycin in regards to the patient's venous ulcer and this should be also discontinued as this puts the patient at risk for C-difficile andresistant organisms. If however, utilizing a PleurX places the patient at risk for a spontaneous peritonitis, this decision is up to the Attending. The patient can be reevaluated as needed." DISCHARGE PHYSICAL EXAMINATION: VITAL SIGNS: I/O weight: pls see below GENERAL: Patient is awake, alert, oriented times three, no conversational dyspnea or use of respiratory accessory muscles. answering questions appropriately. Patient is anicteric. No jaundice. No icterus. No jugular venous distention (JVD)or thyromegaly. Appears disheveled, older than his stated age. Dry mucous membranes. LUNGS: Diminished Otherwise clear in the upper lobes. , No rales noted HEART: S1, S2, irregularly irregular and tachycardic. No murmurs, rubs, or gallops. ABDOMEN: Obese. Erythema under the pannus Positive fluid wave., Distended abdomen normoactive bowel sounds Patient's PleurX catheter with which serous drainage soaking the dressing EXTREMITIES: Pitting edema 2+ bilaterally. Chronic venous stasis changes. Ulcers are without any purulence. nonmalodorous LABORATORY DATA:: see below HOSPITAL MEDICATIONS: Insulin sliding scale, Tenormin, digoxin, cephalexin, lidocaine topically, Prilosec, tamsulosin, Dilaudid as needed, Silvadene, ferrous sulfate, Levemir insulin, Symbicort, Colace, DuoNeb, milk of magnesia, oxycodone, and fish oil. IMAGING STUDIES: PROCEDURE INFORMATION: Exam: XR Chest, 1 View Exam date and time: 02/22/2020 7:33 AM Age: 59 years old Clinical indication: Shortness of breath; Additional info: SOB TECHNIQUE: Imaging protocol: XR of the chest Views: 1 view. COMPARISON: CR PORTABLE CHEST X-RAY 01/26/2020 11:52 AM FINDINGS: Lungs: Stable bilateral perihilar reticulonodular opacities. Pleural space: Unremarkable. No pleural effusion. No pneumothorax. Heart/Mediastinum: Surgical clips project over the cardiac shadow. Vasculature: Atherosclerotic disease. Bones/joints: Osteopenia. Degenerative changes in the bilateral shoulders. IMPRESSION: No significant interval change. Electronically signed by: Mejia Brizuela On 02/22/2020 08:22:47 AM PROCEDURE INFORMATION: Exam: XR Left Knee Exam date and time: 02/23/2020 9:58 PM Age: 59 years old Clinical indication: Pain; Knee; Left; Additional info: Fall TECHNIQUE: Imaging protocol: XR Left knee. Views: 1 or 2 views. COMPARISON: No relevant prior studies available. FINDINGS: Bones/joints: Tricompartment degenerative narrowing in the knee joint. Soft tissues: Normal. IMPRESSION: Tricompartment degenerative narrowing in the knee joint. Electronically signed by: Elie Lee On 02/23/2020 22:44:23 PM PROCEDURE INFORMATION: Exam: XR Left Hip with Pelvis when Performed Exam date and time: 02/23/2020 9:58 PM Age: 59 years old Clinical indication: Hip pain; Left hip; Additional info: Fall TECHNIQUE: Imaging protocol: XR Left hip with pelvis when performed. Views: 1 view. COMPARISON: CT ABD PELVIS W/O CONTRAST 04/22/2018 5:25 PM FINDINGS: Bones/joints: Mild degenerative arthropathy left hip. Soft tissues: Unremarkable. IMPRESSION: 1. Mild degenerative arthropathy left hip. 2. No acute findings. Electronically signed by: Elie Lee On 02/23/2020 PROCEDURES: Date Of Procedure: Feb 23, 2020 Time Of Procedure: 16:00 IR Tunneled Ascites Drain IR Pleurx catheter placement Ascites tunneled peritoneal drainage catheter placement with sonographic and fluoroscopic guidance Limited abdominal ultrasound Clinical Information:End-stage liver disease. Cirrhotic. Refractory ascites. Requires Pleurx for hospice placement. Physician: Dr. Ponce. Procedure: The patient was advised of the benefits, risks, and alternatives of the pro cedure and informed consent was obtained. A time out was performed with verification of the patient's name, MRN, site of procedure, and type of procedure to be performed. The patient was positioned in the supine position on the angiographic table. The site was prepped and draped in the usual sterile fashion. Moderate sedation was performed by the physician including the presence of an independent trained observer that assisted in monitoring the patient's level of consciousness and physiological status. Following the administration of fentanyl and Versed the physician spent 45 minutes of continuous [id number] time with the patient. A drapery and upholstery estimator radiograph revealsno gross abnormality. Limited ultrasound of the abdomen demonstrates left lower quadrant greater than right lower quadrant ascites. The anticipated puncture site was identified using sonographic guidance and the overlying skin and subcutaneous tissues were anesthetized with lidocaine.An 18- gauge Chiba needle was inserted under ultrasound guidance in theleft lower quadrant of the abdomen. The inner stylet was removed revealing clear ascites. An Amplatz wire was introduced through the needle and into the peritoneal c avity, under fluoroscopy guidance. The needle was removed over the wire and a dilator was advanced over the wire under fluoroscopic guidance. A small skin incision was made at the catheter insertion site. A second incision was made superior and lateral to the original incision. The catheter was then subcutaneously tunneled from the exit site incision to the insertion site incision. The catheter insertion site was then serially dilated under fluoroscopic guidance and a peel-away sheath was then placed. The catheter was then passed over the wire and through the peel-away sheath into the pelvis and the peel-away sheath was removed. Approximately 2.5 L serosanguinous ascitic fluid was then drained. The dedicated catheter drainage tip was attached. The catheter insertion site was closed with Monocryl suture, glue and Steri-Strip. A sterile dressing was applied. The patient tolerated the procedure well and was returned to the PCU in stable condition. EBL:Less than 5 mL. Complications:None. TIME SPENT ON DISCHARGE: 30 minutes Vital Signs/I&Os Vital Signs Date Time Temp Pulse Resp B/P (MAP) Pulse Ox O2 Delivery O2 Flow Rate FiO2 02/28/20 09:38 16 02/28/20 09:30 82 02/28/20 09:00 103/56 02/28/20 06:00 97.1 92 Room Air 02/27/20 11:48 96 02/23/20 13:41 3 I&O- Last 24 Hours up to 6 AM 02/28/20 06:00 Intake Total 990.0 ml Output Total 2225 ml Balance -1235.0 ml Laboratory Data Labs 24H Laboratory Tests 2 02/27/20 11:25: Bedside Glucose (Misc Panel) 118H 02/27/20 15:47: Anion Gap 7L, Glomerular Filtration Rate 52.3, Calcium Level 8.3L, Magnesium Level 2.3 02/27/20 16:23: Bedside Glucose (Misc Panel) 159H 02/27/20 20:50: Bedside Glucose (Misc Panel) 182H 02/28/20 06:07: Nucleated Red Blood Cells % (auto) 0.0, Anion Gap 7L, Glomerular Filtration Rate 51.0, Calcium Level 8.2L, Total Bilirubin 1.2H, Aspartate Amino Transf (AST/SGOT) 38H, Alanine Aminotransferase (ALT/SGPT) 25, Alkaline Phosphatase 274H, Total Protein 6.1L, Albumin 2.4L, Albumin/Globulin Ratio 0.6, Digoxin Level 0.8 CBC/BMP Laboratory Tests 02/27/20 15:47 02/28/20 06:07 FSBS Laboratory Tests Test 02/27/20 11:25 02/27/20 16:23 02/27/20 20:50 Range/Units Bedside Glucose (Misc Panel) 118 159 182 80-115 MG/DL Microbiology Microbiology 02/23/20 Acid Fast Stain, Received Pending 02/23/20 Mycobacterial Culture, Received Pending 02/23/20 Fungal Smear, Received Pending 02/23/20 Fungal Culture, Received Pending 02/23/20 Gram Stain - Final, Complete 02/23/20 Body Fluid Culture - Final, Complete 02/23/20 Anaerobic Culture - Final, Complete 02/22/20 Gram Stain - Final, Complete 02/22/20 Wound Culture - Final, Complete Escherichia Coli Proteus Penneri Enterococcus Faecalis Enterococcus Avium 02/22/20 Gram Stain - Final, Complete 02/22/20 Wound Culture - Final, Complete Proteus Penneri Enterococcus Faecalis Enterococcus Avium Discharge Medications Scheduled Apixaban (Eliquis) 2.5 Mg Tablet, 2.5 MG PO BID, (Reported) ON HOLD FOR PARACENTESIS ON 02/23/20 Bacillus Coagulans (Bacid with Lactospore) 1 Each Capsule, 1 CAP PO WM Calcium Carbonate (Calcium) 600 Mg Tablet, 600 MG PO DAILY, (Reported) Digoxin (Digoxin) 125 Mcg Tablet, 125 MCG PO Q2D, (Reported) Dulaglutide (Trulicity) 1.5 Mg/0.5 Ml Inj, 1.5 MG SC QWEEK, (Reported) FRIDAY Ergocalciferol (Vitamin D2) (Vitamin D2) 50,000 Units Cap, 50,000 UNITS PO QWEEK, (Reported) SUNDAYS Ferrous Sulfate (Ferrous Sulfate) 325 Mg Tablet, 325 MG PO Q2D, (Reported) EVERY OTHER NIGHT Insulin Detemir (Levemir) 100 Unit/1 Ml Vial, 21 UNITS SC DAILY, (Reported) Levofloxacin (Levaquin) 500 Mg Tablet, 500 MG PO DAILY Magnesium Oxide (Magnesium) 400 Mg Capsule, 400 MG PO QPM, (Reported) [place]-3 Fatty Acids/Fish Oil ([place] 3 1,000 mg Softgel) 1 Cap Cap, 1,000 MG PO DAILY, (Reported) Omeprazole (Omeprazole) 20 Mg Cap, 20 MG PO 2XW, (Reported) WED AND SAT Omeprazole Magnesium (Prilosec Otc) 20 Mg Tablet.dr, 1 TAB PO DAILY Propranolol HCl (Propranolol HCl) 10 Mg Tablet, 1 TAB PO BID Silver Sulfadiazine (Ssd) 50 Gm Cream..g., 1 DOSE TOP DAILY, (Reported) USES ON LEGS Torsemide (Torsemide) 20 Mg Tab, 40 MG PO BID, (Reported) Scheduled PRN Albuterol Sulfate (Ventolin Hfa) 108 Mcg/Act Aer, 2 PUFFS INH Q4H PRN for SHORTNESS OF BREATH, (Reported) Albuterol Sulfate (Albuterol Sulfate) 0.63 Mg/3 Ml Vial.neb, 0.63 MG INH QID PRN for SHORTNESS OF BREATH, (Reported) Budesonide (Budesonide) 0.25 Mg/2 Ml Ampul.neb, 0.25 MG INH BID PRN for SHORTNES S OF BREATH, (Reported) Budesonide/Formoterol (Symbicort 160-4.5 Mcg Inhaler) 6 Gm Hfa.aer.ad, 2 PUFF INH BID PRN for SHORTNESS OF BREATH, (Reported) PATIENT STATES TAKES PRN Docusate Sodium (Colace) 100 Mg Capsule, 100 MG PO BID PRN for CONSTIPATION, (Reported) Insulin Human Lispro (Novolog) 100 U/Ml Inj, 1 DOSE SC AC PRN for BLOOD SUGAR > 150, (Reported) PER SLIDING SCALE Ipratropium/Albuterol Sulfate (Iprat-Albut 0.5-3(2.5) mg/3 ml) 3 Ml Ampul.neb, 1 KADI NEB Q4H PRN for SHORTNESS OF BREATH, (Reported) Magnesium Hydroxide (Milk of Magnesia) 400 Mg/5 Ml Oral.susp, 2,400 MG PO DAILY PRN for CONSTIPATION, (Reported) Metolazone (Metolazone) 5 Mg Tablet, 5 MG PO BID PRN for EDEMA, (Reported) Oxycodone HCl (Oxycodone HCl) 5 Mg Tab, 5 MG PO QID PRN for PAIN, (Reported) Tizanidine HCl (Tizanidine HCl) 2 Mg Tablet, 2 MG PO TID PRN for SPASMS, (Reported) Allergies Coded Allergies: TAPE (Verified Allergy, Unknown, Itchiness/Rash, 01/26/20) allopurinol (Verified Allergy, Unknown, Itching, 01/26/20) HERBERTH ESPARZA MD Feb 28, 2020 11:08
[2020-02-28 14:00] VITALS: BP 109/62
== END 2020-02-28 15:50 | disposition home health service (06) | DRG 432 ==
LOC: EDBD 07:12 → M ED 07:12 → M ED INP 11:14 → ENRESERV 12:37 → M MS5PR 13:15 → M ICU 14:09 → M MS5PR 02-24 22:03
PROVIDERS: ADMIT General Practice; ATTEND General Practice
PROC: 30233J1 Transfusion of Nonautologous Serum Albumin into Peripheral Vein, Percutaneous Approach (ICD-10-PCS; 2020-02-23)
PROC: 0W9G30Z Drainage of Peritoneal Cavity with Drainage Device, Percutaneous Approach (ICD-10-PCS; principal; 2020-02-23 13:30)
DX: K70.31 Alcoholic cirrhosis of liver with ascites (principal); I50.33 Acute on chronic diastolic (congestive) heart failure; K76.6 Portal hypertension; I48.20 Chronic atrial fibrillation, unspecified; I13.0 Hypertensive heart and chronic kidney disease with heart failure and stage 1 through stage 4 chronic kidney disease, or unspecified chronic kidney disease; L97.928 Non-pressure chronic ulcer of unspecified part of left lower leg with other specified severity; L97.918 Non-pressure chronic ulcer of unspecified part of right lower leg with other specified severity; E87.1 Hypo-osmolality and hyponatremia; I87.2 Venous insufficiency (chronic) (peripheral); E66.01 Morbid (severe) obesity due to excess calories; D63.8 Anemia in other chronic diseases classified elsewhere; E87.5 Hyperkalemia; I27.20 Pulmonary hypertension, unspecified; Z66 Do not resuscitate; G47.33 Obstructive sleep apnea (adult) (pediatric); N18.30 Chronic kidney disease, stage 3 unspecified; I25.10 Atherosclerotic heart disease of native coronary artery without angina pectoris; B96.4 Proteus (mirabilis) (morganii) as the cause of diseases classified elsewhere; B95.2 Enterococcus as the cause of diseases classified elsewhere; E87.6 Hypokalemia; E78.5 Hyperlipidemia, unspecified; B96.20 Unspecified Escherichia coli [E. coli] as the cause of diseases classified elsewhere; B37.2 Candidiasis of skin and nail; R53.81 Other malaise; J44.9 Chronic obstructive pulmonary disease, unspecified; Z68.39 Body mass index [BMI] 39.0-39.9, adult; Z95.1 Presence of aortocoronary bypass graft; Z79.01 Long term (current) use of anticoagulants; Z79.4 Long term (current) use of insulin; Z79.891 Long term (current) use of opiate analgesic; Z79.899 Other long term (current) drug therapy; Z74.09 Other reduced mobility

== ENCOUNTER → 2020-03-07 | Outpatient (POV) | payer OTHER ==
[~2020-03-07] MED LIST changes: +3 SEMIS2 XX; +BACI1CAP PO; +CALCTAB62 PO; +COLA100C5 PO; +LEVA1TAB2 PO; +MOM30SS2 PO; +PRIL20TA2 PO; +PROP10TA56 PO; +VITA50005 PO
--- NOTE | 2020-03-08 12:31 | IRPN ---
[facility] IR Progress Note IR Progress Note DATE: Mar 07, 2020 Patient's family agreed to this telephone consultation. Duration of call 5 minutes. FOLLOW-UP: Status post Pleurx catheter placement for end-stage liver disease and refractory ascites. Patient is draining 1 L as needed, every couple of days. No discomfort. No fevers or chills. ON EXAMINATION: No video on patient side. IMPRESSION: Doing well status post abdominal Pleurx catheter placement for end- stage liver disease and refractory ascites. Dressing changes and supplies have been authorized and ordered through our office. No further follow-up scheduled unless initiated by the patient and or referring provider. Patient to call us if any issues. Thank you for this referral Allergies Coded Allergies: TAPE (Verified Allergy, Unknown, Itchiness/Rash, 01/26/20) allopurinol (Verified Allergy, Unknown, Itching, 01/26/20) HAM CAROLINA MD Mar 08, 2020 12:31
== END ==
LOC: M TMIRPOV 07:52
PROVIDERS: ATTEND Radiology Diagnostic Radiology
DX: Z46.82 Encounter for fitting and adjustment of non-vascular catheter (principal); R18.8 Other ascites